=== PATIENT | female | born 1955 | race Caucasian/White ===

== ENCOUNTER → 2017-03-17 07:24 | Outpatient (CLI) | payer OTHER, SELFPAY ==
--- NOTE | 2017-03-17 07:30 | CT_ITS ---
STUDY: CT ABDOMEN AND PELVIS WITH CONTRAST REASON FOR EXAM: Female, 61 years old. 4 month history of right upper quadrant pain. RADIATION DOSAGE (If Supplied By Facility): CTDIvol = ( 11.45 ) mGy, DLP = ( 441.21 ) mGycm TECHNIQUE: Transaxial images were obtained from the dome of the diaphragm to the symphysis pubis with oral contrast. 100mL ml of Isovue 300 contrast was administered. Sagittal and coronal images were reconstructed. Individualized dose optimization techniques were used for this CT. COMPARISON: None. FINDINGS: The visualized lung bases are unremarkable. The visualized portions of the heart are within normal limits. There is a 2 cm x 2.2 cm cyst in the left lobe of the liver. The gallbladder is contracted. Normal spleen. Normal pancreas. Increased markings are seen in the mesenteric fat at the level of the root of the mesentery. Minimal inflammatory process should be ruled out. Small lymph nodes are also seen in the root of the mesentery. Normal bilateral adrenal glands. Normal right kidney. Normal left kidney. Normal visualized stomach. Normal small intestine. There are multiple colonic diverticula consistent with diverticulosis. The appendix is visualized and appears normal. There is diffuse atherosclerotic calcification of the abdominal aorta, without a demonstrated aneurysm. Normal inferior vena cava. Normal retroperitoneum. Normal urinary bladder. There is a small umbilical hernia containing fat. 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 CT/Abdomen/Pelvis WITH Contrast IMPRESSION: Inflammatory changes are seen in the mesenteric fat of the root of the mesentery with multiple small lymph nodes. This is suggestive of mesenteritis. An inflammatory process should be ruled out. Small cyst in the left lobe of the liver. Electronically Signed: Adrian Lerbon MD at 10:24 EST Tel [phone], Service support ,
[2017-03-17 07:45] LABS: CREATININE FINGERSTICK 0.8 mg/dL (0.55-1.02); EGFR FINGERSTICK > 60.0000 mL/min (>60)
== END ==
PROVIDERS: Family Provider Internal Medicine; PCP Internal Medicine; Visit Provider Surgery
DX: Z01.812 Encounter for preprocedural laboratory examination (principal); R10.11 Right upper quadrant pain
CPT/HCPCS: 74177; Q9967

== ENCOUNTER 2017-04-22 07:29 | Day surgery (SDC) | payer BC, SELFPAY ==
--- NOTE | 2017-04-22 | IMM_PTH ---
PATIENT: ESTELLE MARMOLEJO LOC: EN U#:[id number] AGE/SX: 61/F ROOM: RE04/22/[address]: Dr. Donald Fernandez MD : 1955 BED: DIS: 04/22/2017 SPEC #: [id number] RECD: 04/25/17 11:24 STATUS: MARYELLEN STUART #: [id number] BLAS: 04/22/17 00:[address]: Donald Fernandez DEPT: IMMUNOHISTOCHEMISTRY RECD BY: Rosana Oliveira ENTERED: 04/25/17 11:25 SP TYPE: IMMUNO OTHR DR: Dr. Deana Qiu MD Tissues: A - Stomach, NOS Procedures: H Pylori (initial) PHYSICIAN & INSTITUTION [place] [id number] SPECIMEN INFORMATION: Tissue Source: A ? Antral biopsy Clinical Info: Screen Specimen Number: [id number] CPT code: 82357 METHODOLOGY: Deparaffinized sections of prefer/formalin-fixed tissue or PAP/DQ stained slides are incubated with monoclonal/polyclonal antibodies/oligonucleotide probes. Localization is made via biotin free immunoperoxidase method. Appropriate controls are performed and reacted as expected. Results on target cell population are indicated in the following table: RESULTS: ANTIBODY / CLONE RESULT Block A H Pylori (polyclonal) negative These tests were developed and their performance characteristics determined by [facility]. They may not have been cleared or approved by the U.S. Food and Drug Administration. The FDA has determined that such clearance or approval is not necessary. INTERPRETATION: A. Antral biopsy: Negative for Helicobacter pylori organisms. SJ:ilana 04/26/17
[2017-04-22 07:57] VITALS: BP 125/73; PULSE 72; RESP 16; TEMP 36.7; O2SAT 99; BMI 25.4
--- NOTE | 2017-04-22 09:10 | GASB_PTH ---
PATIENT: ESTELLE MARMOLEJO LOC: EN U#:[id number] AGE/SX: 61/F ROOM: RE04/22/[address]: Dr. Donald Fernandez MD : 1955 BED: DIS: 04/22/2017 SPEC #: [id number] RECD: 04/22/17 11:22 STATUS: MARYELLEN STUART #: [id number] BLAS: 04/22/17 09:[address]: Donald Fernandez DEPT: SURGICAL PATHOLOGY RECD BY: Adán Patten ENTERED: 04/22/17 12:10 SP TYPE: Gastric Bx OT DR: Dr. Deana Qiu MD Tissues: A - Gastric mucous membrane B - Esophageal mucous membrane Procedures: Surgery Specimen Level IV HEADER OPERATION: EGD PRE-OP DIAGNOSIS: Screen TISSUE SUBMITTED: A ? Antral biopsy and H. pylori, B ? Distal esophagus biopsy MICROSCOPIC DIAGNOSIS A. Antral biopsy: Mild gastritis. B. Distal esophagus, biopsy: Fragments of squamous epithelium and mucosa with chronic inflammation and granulation tissue reaction. Scant minute fragment of gastric mucosa, negative for intestinal metaplasia (goblet cell metaplasia). SJ:ilana 04/25/17 COMMENT A. The results of immunohistochemistry for Helicobacter pylori will be reported separately ([id number]). MICROSCOPIC DESCRIPTION Slides are reviewed. A. The specimen shows fragments of gastric mucosa with chronic inflammatory cell infiltrates in the lamina propria consisting of lymphocytes and plasma cells, consistent with mild chronic gastritis. GROSS DESCRIPTION A - Received in fixative is one container labeled with the patient's name and designated antral biopsy. The specimen consists of one irregular fragment of light alvares soft tissue that measures 0.6 x 0.2 x 0.1 cm. The specimen is totally submitted in one cassette. B - Received in fixative is one container labeled with the patient's name and designated distal esophagus. The specimen consists of multiple irregular fragments of light alvares soft tissue that in aggregate measure 0.6 x 0.3 x 0.1 cm. The specimen is totally submitted in one cassette. / AM:ilana 04/22/17 TC:3 CPT: 24274 x2
--- NOTE | 2017-04-22 09:33 | PCM.OPRPT ---
Problem List (1) Abdominal pain Status: Acute Qualifiers: Abdominal location: generalized Qualified Code(s): R10.84 - Generalized abdominal pain (2) Personal history of colonic polyps Status: Acute Report of Operation Date of Procedure: 04/22/17 Pre-Operative Diagnosis: Generalized abdominal pain. Personal history of rectal polyp. Possible mesenteric edema Post-Operative Diagnosis: Small hiatal hernia with reflux esophagitis. Mild antral gastritis. Minimal scattered diverticulosis Surgery/Procedure Performed:: Esophagogastroduodenoscopy with biopsies. colonoscopy Description of Surgical Findings:: Amount and informed consent was obtained. 61-year-old female was taken to the endoscopy suite. Her oropharynx anesthetized with Topex. She was placed in a left lateral decubitus position. Throughout both the upper and lower endoscopy she received total 100 mg Demerol and 5 mg of Versed is intravenous sedation. GF gastroscope was inserted into the esophageal inlet. It was advanced without difficulty. The EG junction was at 36 cm. A small hiatal hernia noted. There was irritation inflammatory changes of the distal esophagus at the e.g. junction consistent with reflux esophagitis. The scope was advanced into the stomach. A mild amount of antral erythema noted. The scope was advanced through the pylorus and the first and second portions of the duodenum were inspected. This was not remarkable. The scope was withdrawn back to the stomach retroflexed the EG junction inspected. Small hiatal hernia noted. Cardia was otherwise unremarkable. The scope was placed back in antegrade viewing position. Scope was advanced back down to the prepyloric area. Antral biopsy was obtained. Excess fluid and air was aspirated free. The scope was withdrawn to the distal esophagus were distal esophageal biopsies are obtained. The scope was further withdrawn without additional abnormality. The patient was kept in a left lateral decubitus position. Digital rectal exam demonstrated 3+ internal hemorrhoids. No active bleeding. The scope was advanced into the rectum and a very tortuous sigmoid colon was encountered. The patient had to be placed supine in order to get the scope to advanced through the lax tortuous sigmoid. But then the scope readily advanced through the transverse colon and with some minimal abdominal pressure is advanced to the cecum. The cecum ileocecal valve area was nicely achieved. Bowel prep was very good. The scope was carefully withdrawn from the ascending transverse and descending colon. Minimal scattered diverticulosis of the sigmoid colon identified. No evidence for acute inflammatory change. The scope was withdrawn to the rectum retroflex in the anorectal verge inspected. Grade 3 internal hemorrhoids noted. No active bleeding. Excess fluid and air was aspirated free the procedure was completed with the patient tolerating it well. Impression Findings very much consistent with small hiatal hernia and reflux esophagitis as well as some mild gastritis. Will recommend omeprazole 40 mg daily while awaiting pathology results. Minimal sigmoid diverticulosis of the colon. No evidence of acute inflammatory change. Patient with a previous history of rectal polyp recommend follow-up colonoscopy in 5 years. Her previous colonoscopy was March 2006. Regarding the patient's CT scan suggesting possible mesenteric edema. Pending the patient symptomatic progress will then decide whether further evaluation of that needs to be pursued potentially with a percutaneous biopsy or a laparoscopic inspection. As noted in the office the patient remains not appearing ill. Cc: Dr. Qiu Medications were given at 0907. The upper procedure was completed at 0912. Colonoscopy was initiated at 0914. The cecum was reached at 0924. The colonoscopy was completed at 0929. Donald Fernandez M.D., F.A.C.S. Type of Anesthesia:: IV Sedation
[2017-04-22 09:34] VITALS: BP 104/74; BP 125/73; PULSE 70; RESP 18; TEMP 36.4; O2SAT 96
[2017-04-22 09:40] VITALS: BP 102/74; BP 125/73; PULSE 67; RESP 18; O2SAT 97
[2017-04-22 09:45] VITALS: BP 102/70; BP 125/73; PULSE 72; RESP 18; O2SAT 97
[2017-04-22 09:50] VITALS: BP 106/70; BP 125/73; PULSE 86; RESP 18; TEMP 36.3; O2SAT 100
[2017-04-22 10:15] VITALS: BP 125/73
== END 2017-04-22 10:43 | disposition home or self-care (01) ==
LOC: EN 07:30 → AC 07:31
PROVIDERS: Family Provider Internal Medicine; PCP Internal Medicine; Visit Provider Surgery
PROC: 0DJD8ZZ Inspection of Lower Intestinal Tract, Via Natural or Artificial Opening Endoscopic (ICD-10-PCS; CPT 45378; principal; 2017-04-22 08:25)
DX: K29.50 Unspecified chronic gastritis without bleeding (principal); R10.84 Generalized abdominal pain; K44.9 Diaphragmatic hernia without obstruction or gangrene; K57.30 Diverticulosis of large intestine without perforation or abscess without bleeding; K64.8 Other hemorrhoids; K21.0 Gastro-esophageal reflux disease with esophagitis; Z86.010 Personal history of colon polyps; E78.5 Hyperlipidemia, unspecified; Z79.82 Long term (current) use of aspirin
CPT/HCPCS: 43239; 45378; 88305; 88342; J7120

== ENCOUNTER 2021-03-03 15:34 | Outpatient (CLI) | payer MEDICARE, BC, SELFPAY | END 2021-03-03 23:59 | disposition short-term general hospital (02) | LOC: LABSPEC 15:46 | PROVIDERS: PCP Internal Medicine; Referring Provider Otolaryngology Otolaryngology/Facial Plastic Surgery; Visit Provider Otolaryngology Otolaryngology/Facial Plastic Surgery | DX: J32.9 Chronic sinusitis, unspecified (principal) | CPT/HCPCS: 87070; 87077; 87205 ==

== ENCOUNTER 2021-03-31 13:49 | Outpatient (CLI) | payer MEDICARE, BC, SELFPAY ==
--- NOTE | 2021-03-31 14:01 | CT_ITS ---
INDICATION: SINUSITIS EXAMINATION: CT SINUSES - CT Sinuses W/O Contrast Injection TECHNIQUE: Helically acquired images were obtained of the paranasal sinuses. A radiation dose optimization technique was used for this scan. IV Contrast dosage and agent: None COMPARISON: No previous for comparison FINDINGS: POSTOPERATIVE CHANGES: None Paranasal sinuses- MAXILLARY SINUSES: There is minimal mucosal thickening in the maxillary antra greater on LEFT than RIGHT. No air-fluid levels noted. There is mucosal thickening along the roof of the maxillary antra bilaterally. The ostomy complexes are clear bilaterally. ETHMOID SINUSES: Mild mucosal thickening noted in the ethmoid complexes without evidence of air-fluid levels or sinus opacification. FRONTAL SINUSES: Frontal sinuses are clear, frontal recesses are patent. No fluid or soft tissue accumulation. SPHENOID SINUSES: Sphenoid sinuses are clear, sphenoid ostia are patent. Nasal passages- NASAL SEPTUM: Minimal leftward deviation of nasal septum, no nasal spurs noted. TURBINATES: Turbinates have normal configuration, there is however a marquise bullosa which is well aerated on the RIGHT. There is mild inferior turbinate hypertrophy bilaterally. No distinct mass is noted.. CRIBRIFORM PLATE AND FOVEA ETHMOIDALIS: Normal Facial skeleton- FACIAL SKELETON AND ORBITS: Within normal limits. CT/Sinus/Facial Bone IMPRESSION: 1. Chronic appearing mucosal thickening in the maxillary antra bilaterally, however no air-fluid levels mary sinus opacification or obstruction of the ostomy to complexes. 2. Minimal mucosal thickening within the ethmoid air cells. No evidence of mucosal thickening, air-fluid levels or obstruction of drainage pathways the remaining nasal sinuses. 3. Mild leftward deviation of nasal septum, no bony spur noted. 4. Well aerated marquise bullosa on the RIGHT. 5. Mild inferior turbinate hypertrophy, no focal mass is noted.. Electronically Signed: Adán Acharya MD at 15:41 EST ,
== END 2021-03-31 23:59 | disposition home or self-care (01) ==
PROVIDERS: PCP Internal Medicine; Referring Provider Otolaryngology Otolaryngology/Facial Plastic Surgery; Visit Provider Otolaryngology Otolaryngology/Facial Plastic Surgery
DX: J32.8 Other chronic sinusitis (principal)
CPT/HCPCS: 70486

== ENCOUNTER 2021-05-26 08:01 | Outpatient (CLI) | payer MEDICARE, BC, SELFPAY ==
--- NOTE | 2021-05-26 08:05 | CT_ITS ---
STUDY: CT ABDOMEN AND PELVIS WITH CONTRAST REASON FOR EXAM: Female, 65 years old. Abd pain, hx pancreatitis, liver cyst -- oral and IV please RADIATION DOSAGE (If Supplied By Facility): CTDIvol = ( 12.69 ) mGy, DLP = ( 575.55 ) mGycm TECHNIQUE: Transaxial images were obtained from the dome of the diaphragm to the symphysis pubis with oral contrast. Oral and amp; IV Readi-CAT and amp; 100mL Isovue-300 was administered. Sagittal and coronal images were reconstructed. Individualized dose optimization techniques were used for this CT. COMPARISON: Comparison is made with prior study dated 03/17/2017. FINDINGS: The visualized lung bases are unremarkable. Coronary artery calcification. There is decreased attenuation of the liver consistent with steatosis. There is a 2.9 cm x 3.2 cm cyst in the left lobe of the liver. This has increased in size as compared to prior study. The gallbladder is contracted. Normal spleen. Normal pancreas. Persistent increased markings within the mesenteric fat at the root of the mesentery. This is nonspecific although this has improved as compared to prior study. Normal bilateral adrenal glands. Normal right kidney. There is a 1.4 cm cyst in the posterior midportion of the left kidney. There is a small hiatal hernia. Normal small intestine. There are scattered colonic diverticula consistent with diverticulosis. Moderate amount of fecal material is seen in the colon. The appendix is visualized and appears normal. Normal abdominal aorta. Normal inferior vena cava. Normal retroperitoneum. Normal urinary bladder. Heterogeneous appearance of the fundal portion of the uterus with focal calcifications suggestive of fibroid change. Normal abdominal wall. Normal osseous structures. CT/Abdomen/Pelvis WITH Contrast IMPRESSION: Increased markings in the root of the mesentery although this has improved as compared to prior study. Mild enlargement of the cyst in the left lobe of the liver. Electronically Signed: Adrian Lebron MD at 12:11 EDT ,
[2021-05-26 10:20] LABS: CREATININE FINGERSTICK 0.7 mg/dL (0.55-1.02); EGFR FINGERSTICK > 60.0000 mL/min (>60)
== END 2021-05-26 23:59 | disposition home or self-care (01) ==
LOC: CT 08:02
PROVIDERS: PCP Internal Medicine; Visit Provider Nurse Practitioner Adult Health
DX: Z01.812 Encounter for preprocedural laboratory examination (principal); R10.9 Unspecified abdominal pain
CPT/HCPCS: 74177; Q9967

== ENCOUNTER → 2021-06-09 | Outpatient (CLI) | payer MEDICARE, BC, SELFPAY ==
[2021-06-09 09:31] LABS: Erythrocyte Sedimentation Rate 4 mm/hr (0-30)
[2021-06-09 09:33] LABS: Absolute Lymphocyte Count 2.37 X10^3/uL (0.83-4.51); Absolute Neutrophil Count 2.6 X10^3/uL (2.0-7.7); Basophil# 0.01 X10^3/uL; Basophil% 0.2 % (0-1); Eosinophil# 0.12 X10^3/uL; Eosinophils% 2.2 % (0-5); Hematocrit 39.7 % (37-47); Hemoglobin 13.4 g/dL (12.0-15.0); Lymphocyte # 2.37 X10^3/ul (0.83-4.51); Lymphocyte % 42.8 % (19-41); Mean Corp Hgb Conc 33.8 g/dL (32-36); Mean Corpuscular Hgb 29.5 pg (27.0-32.0); Mean Corpuscular Volume 87.3 fL (81-99); Mean Platelet Vol. 9.8 fl (6.2-12.0); Monocyte# 0.44 X10^3/uL; Monocyte% 7.9 % (0-10); NRBC Flagged by Analyzer 0.4 % (0-5); Neutrophil # 2.59 X10^3/uL (2.7-7.7); Neutrophil % 46.7 % (47-70); Platelet Count 271 K/mm3 (150-450); RBC Distribution Width CV 12.5 % (11.6-14.6); Red Blood Count 4.55 M/mm3 (4.2-5.4); White Blood Count 5.5 K/mm3 (4.4-11.0)
[2021-06-09 09:39] LABS: Hemoglobin A1c 5.5 % (3.8-5.6)
[2021-06-09 09:40] LABS: International Normalized Ratio 0.9; Prothrombin Time (Protime)PT. 11.9 SECONDS (11.7-14.9)
[2021-06-09 09:52] LABS: PTHIN 70.8 pg/mL (18.4-80.1)
[2021-06-09 09:59] LABS: ALB/GLOB Ratio 1.1 RATIO (0.9-2.4); AST(SGOT) 17 U/L (15-37); Alanine Aminotransfer ALT/SGPT 30 U/L (13-56); Albumin, Serum 3.9 g/dL (3.2-5.0); Alkaline Phosphatase 84 U/L (45-117); Amylase 51 U/L (25-115); Anion Gap 5 (5-15); BUN 14 mg/dL (7-18); BUN/Creat Ratio 19.2 RATIO (10-20); Bilirubin, Direct 0.13 mg/dL (0.00-0.30); CRP < 2.90 mg/L (0.0-3.0); Calcium,Total 9.2 mg/dL (8.5-10.1); Chloride 110 mmol/L (98-107); Cholesterol 240 mg/dL (200); Creatinine, Serum 0.73 mg/dL (0.55-1.02); EST Glomerular Filtration Rate 85 mL/min (>60); Est Glom Filt Rate - Afr Amer 103 mL/min (>60); Ferritin 32 ng/mL (8-252); Globulin 3.7 g/dL (2.2-4.2); Glucose 98 mg/dL (74-106); High Density Lipoprotein 51 mg/dL; LDH 179 U/L (84-246); Lipase 143 U/L (73-393); Magnesium 2.3 mg/dL (1.6-2.6); Potassium 3.8 mmol/L (3.5-5.1); Protein, Total 7.6 g/dL (6.4-8.2); Sodium Level 142 mmol/L (136-145); Thyroid Stim Hormone (TSH) 2.48 uIU/mL (0.358-3.74); Triglycerides 108 mg/dL; Very Low Density Lipoprotein 22 mg/dL (5-40)
[2021-06-11 15:10] LABS: Anti-Centromere B Ab <0.2 AI (0.0-0.9); Anti-Chromatin <0.2 AI (0.0-0.9); Anti-Jo <0.2 AI (0.0-0.9); Anti-Scleroderma-70 AB <0.2 AI (0.0-0.9); RNP Ab <0.2 AI (0.0-0.9); SJOGREN'S Anti-SS-A test < 0.2 AI (0.0-0.9); SJOGREN'S Anti-SS-B test < 0.2 AI (0.0-0.9); Smith Ab <0.2 AI (0.0-0.9)
[2021-06-11 17:12] LABS: Anti-Mitochondrial AB <20.0 Units (0.0-20.0); Anti-dsDNA Ab <1 IU/mL (0-9); Vitamin D 1,25-Dihydroxy 51.1 pg/mL (19.9-79.3)
[2021-06-12 09:08] LABS: Angiotensin Convert Enzyme 26 U/L (14-82); Ceruloplasmin 28.7 mg/dL (19.0-39.0); Cytoplasmic Ab (C-ANCA) <1:20 titer (Neg:<1:20); HEPATITIS B SURFACE AG Negative (Negative); Hepatitis A IgM Antibody Negative (Negative); Hepatitis B Core AB IgM Negative (Negative)
[2021-06-12 12:57] LABS: AFP, Tumor Marker 2.9 ng/mL (0.0-9.2); Anti-Smooth Muscle ABS 10 Units (0-19); Carbohydrate Ag 19-9 2261 8 U/mL (0-35); Copper, Serum or Plasma 126 ug/dL (80-158); Haptoglobin 108 mg/dL (37-355); Hep C Antibodies 0.3 s/co ratio (0.0-0.9); Perinuclear Ab (P-ANCA) <1:20 titer (Neg:<1:20)
== END | disposition home or self-care (01) ==
LOC: LAB 08:50
PROVIDERS: PCP Internal Medicine; Referring Provider Nurse Practitioner Adult Health; Visit Provider Nurse Practitioner Adult Health
DX: K76.0 Fatty (change of) liver, not elsewhere classified (principal); Z87.19 Personal history of other diseases of the digestive system; R10.84 Generalized abdominal pain; E78.5 Hyperlipidemia, unspecified; K76.89 Other specified diseases of liver
CPT/HCPCS: 36415; 80053; 80061; 80074; 82105; 82140; 82150; 82164; 82248; 82390; 82525; 82652; 82728; 83010; 83036; 83516; 83615; 83690; 83735; 83970; 84443; 85025; 85610; 85652; 86140; 86225; 86235; 86256; 86301

== ENCOUNTER → 2021-06-15 | Outpatient (CLI) | payer MEDICARE, BC, SELFPAY ==
--- NOTE | 2021-06-15 09:44 | US_ITS ---
STUDY: ABDOMINAL ULTRASOUND - ELASTOGRAPHY REASON FOR VISIT: Female, 65 years old. Fatty infiltration of the liver. TECHNIQUE: Liver stiffness measurements were obtained on a Züm XR RS 85 ultrasound machine using a CA 1-7 probe following the SRU guidelines. 3 measurements were obtained using a 2-D-SWE method. The IQR/M was 10% suggesting a quality data set. TECHNICAL QUALITY: Adequate. COMPARISON: Comparison is made with prior study done earlier in the day. FINDINGS: Liver: Fatty infiltration of the liver. Median liver stiffness measured 6.9 kPa. US/Elastography Parenchyma/Organ IMPRESSION: Liver stiffness measures 6.9 kPa compatible with F2-F3 (Mild to moderate liver fibrosis) Metavir score. Electronically Signed: Adrian Lebron MD at 13:40 EDT ,
--- NOTE | 2021-06-15 09:49 | US_ITS ---
STUDY: ABDOMINAL ULTRASOUND - RIGHT UPPER QUADRANT REASON FOR VISIT: Female, 65 years old FATTY LIVER TECHNIQUE: Ultrasound evaluation of the right upper quadrant was performed with real-time and static garcia-scale imaging. TECHNICAL QUALITY: Adequate. COMPARISON: Comparison is made with prior study dated 07/28/2014. FINDINGS: Liver: The liver measures 16.7 cm. There is increased echogenicity consistent with fatty infiltration. The bile ducts are within normal limits. There is hepatic color flow. The direction of portal flow is hepatopetal. There is a 3.9 cm x 3.6 cm x 2.8 cm septated cyst in the left lobe of the liver. Gallbladder: Normal distended gallbladder. The gallbladder wall measures 2 mm. There is a negative sonographic Hill''s sign. There is no pericholecystic fluid. There are no gallstones. Common Bile Duct (C.B.D.): The common bile duct measures 4.8 mm. Pancreas: Normal size of the head, body and tail of the pancreas. There is increased echogenicity of the pancreas. There is no demonstrated pancreatic mass or cyst. Right Kidney: Normal size of the right kidney. The right kidney measures 10.2 cm x 4.5 cm x 5 cm. Normal renal cortex. The right cortex measures 1.2 cm. In the lower pole of the kidney, there is a 1.1 cm x 0.7 cm x 0.8 cm cyst. There is no right hydronephrosis. US/Abdomen Limited IMPRESSION: 3.9 cm x 3.6 cm x 2.8 cm septated cyst in the left lobe of the liver. 1.1 cm x 0.7 cm x 0.8 cm right renal cyst. Fatty infiltration of the liver. Electronically Signed: Adrian Lebron MD at 13:38 EDT ,
== END | disposition home or self-care (01) ==
LOC: US 09:42
PROVIDERS: PCP Internal Medicine; Referring Provider Nurse Practitioner Adult Health; Visit Provider Nurse Practitioner Adult Health
DX: K76.0 Fatty (change of) liver, not elsewhere classified (principal)
CPT/HCPCS: 76705; 76981

== ENCOUNTER 2021-08-12 09:27 | Day surgery (SDC) | payer MEDICARE, BC, SELFPAY ==
[2021-08-12 09:41] VITALS: BP 142/83; PULSE 76; RESP 16; TEMP 37.1; O2SAT 99; BMI 24.4
[2021-08-12] MEDS: Lactated Ringers 1,000 ML 15 ML IV (09:46)
--- NOTE | 2021-08-12 10:30 | EGD_PTH ---
PATIENT: ESTELLE MARMOLEJO LOC: EN U#:[id number] AGE/SX: 65/F ROOM: RE08/12/[address]: Dr. Matthew Elliott DO : 1955 BED: DIS: 08/12/2021 SPEC #: [id number] RECD: 08/12/21 13:27 STATUS: MARYELLEN REEvan #: [id number] BLAS: 08/12/21 10:[address]: Matthew Elliott DEPT: SURGICAL PATHOLOGY RECD BY: Eddie Beaver ENTERED: 08/12/21 14:07 SP TYPE: EGD BIOPSY OT DR: Dr. Deana Qiu MD Tissues: Esophagus, NOS Procedures: Surgery Specimen Level IV HEADER OPERATION: EGD with biopsy and with dilation (MAC) PRE-OP DIAGNOSIS: GERD, history of pancreatitis, abdominal pain TISSUE SUBMITTED: Distal esophagus MICROSCOPIC DIAGNOSIS Distal esophagus, biopsy: Gastroesophageal junctional mucosa with mild chronic inflammation. Focal changes of reflux. No evidence of goblet cell metaplasia. See comment. AM:ilana 08/13/2021 COMMENT Alcian blue/PAS stain with matched control supports the above diagnosis. MICROSCOPIC DESCRIPTION Slides are reviewed. GROSS DESCRIPTION Received in fixative is one container labeled with the patient's name and designated distal esophagus. The specimen consists of multiple irregular fragments of light alvares soft tissue that in aggregate measure 1.2 x 0.3 x 0.1 cm. The specimen is totally submitted in one cassette. / SJ:ilana 08/12/2021 TC:3 CPT: 74229, 75211
--- NOTE | 2021-08-12 10:50 | PCM.HP.BLA ---
History and Physical Date of Admission: 08/12/21 Details: ESTELLE MARMOLEJO, is a 65 F who presents to the office today for GERD--takes omeprazole 40 mg daily or else has heartburn. No dysphagia but occas a large pill feels like it takes longer than normal to pass through esophagus. EGD done by Dr Fernandez in 04/2017 showed small hiatal hernia esophagitis, gastritis; biopsy confirmed gastritis, negative Blount's. Colonoscopy showed sigmoid diverticula. Prior hx rectal polyp, but no polyps in 2018. Acid reflux better with avoiding pop and chocolate. Uses approx 3 TUMS per day if not taking omeprazole. ? RUQ discomfort/fullness--worse with full meal. x 4 yrs. Small cyst on left lobe of liver seen on CT in 2018. No nausea or vomiting. CT also showed possible mesenteric Hx possible pancreatitis when she was . Recent diagnosis of osteoporosis. ROS Const Constitutional: No fatigue ENT ENT: No difficulty swallowing Gastro GI: Positive for abdominal pain and heartburn; No belching, bloating, change in bowel habits, change in stool character, coffee ground emesis, constipation, cramping, diarrhea, difficulty swallowing, feeling full early, excessive flatus, incontinent of stools, Vomiting blood/hematemesis, Blood in stool, loose stools, Black,tarry stools, nausea/dyspepsia, pain with swallowing, vomiting or other Musc Musculoskeletal: Positive for sciatica; No joint pain Skin Skin: No yellowing of the eye or itchy eyes Psych Psychiatric: No anxiety and No depression Endo Endocrine: No fatigue Aller/Imm Allergy/Immunologic: No itchy eyes Kane/Lymp Hematologic/Lymphatic: No easy bleeding or easy bruising Quality Reporting Tobacco Screening ([facility]) Smoking Status: Former smoker Assessment and Plan Assessment and Plan (1) GERD (gastroesophageal reflux disease): ?Status:?Acute ?Plan - Brigida Cárdenas NP, SPACE OPERATIONS OFFICER-C: 65-year-old female with GERD, history of esophagitis negative for Blount's.? Last EGD was in 2018.? She has required daily omeprazole since then, until recently when she stopped drinking pop and eating chocolate.? She still needs Tums every day to manage the heartburn.? She has been worried about continuing on a PPI due to recent diagnosis of osteoporosis.? She was prescribed Fosamax but was concerned about possible side effects so she has not started it.? She gets a right upper quadrant and epigastric pain, she feels a fullness there if she eats a larger meal.? History of cyst on liver.? We will get an EGD to evaluate for esophagitis, Blount's, gastritis, duodenitis.? She can try famotidine 40 mg daily, but she will need to resume PPI if she is symptomatic, and based on the results of her EGD she may need to remain on PPI. (2) Hx of pancreatitis: ?Status:?Acute ?Plan - Brigida Cárdenas SPACE OPERATIONS OFFICER, SPACE OPERATIONS OFFICER-C: History of possible pancreatitis x2 when she was as well as in 2014 when she was hospitalized here.? She had left upper quadrant and epigastric pain, lipase was elevated.? Pancreatitis was attributed to hyperlipidemia, she was started on a statin at that time.? She has upcoming labs being drawn at [facility], will see if they can add amylase, lipase, CA 19-9.? Would also like CBC, CMP, liver panel. (3) Abdominal pain: ?Status:?Acute ?Qualifiers: ?Abdominal location:?generalized? Qualified Code(s):?R10.84 - Generalized abdominal pain ?Plan - Brigida Cárdenas SPACE OPERATIONS OFFICER, SPACE OPERATIONS OFFICER-C: CT abdomen and pelvis with oral and IV contrast to evaluate abdominal pain, liver cyst, pancreas (4) Liver cyst: ?Status:?Acute ?Plan - Brigida Cárdenas SPACE OPERATIONS OFFICER, SPACE OPERATIONS OFFICER-C: CT ordered as above.? Follow-up depending on that result. Plan Details Other Medications: ?New: ? famotidine 40 mg? PO DAILY 90 tabs 0RF ? ? I have re-examined the patient. There are no clinical changes since date of exam.
[2021-08-12 11:10] VITALS: BP 116/68; BP 142/83; PULSE 69; RESP 16; TEMP 36.6; O2SAT 94
[2021-08-12 11:15] VITALS: BP 116/68; BP 142/83; PULSE 76; RESP 16; O2SAT 95
--- NOTE | 2021-08-12 11:15 | OP.EGD_ITS ---
Patient Name: Cierra Recinos Procedure Date: 08/12/2021 10:46 AM Date of : 1955 Age: 65 Procedure: Upper GI endoscopy Indications: Dysphagia, Esophageal reflux Providers: Matthew Elliott DO Referring MD: Deana Qiu Medicines: Monitored Anesthesia Care Patient Profile: This is a 65 year old female. Refer to note in patient chart for documentation of history and physical. Patient has symptoms of chronic dysphagia, dysphagia with solids and chronic heartburn. Complications: No immediate complications. Procedure: Pre-Anesthesia Assessment: - Prior to the procedure, a History and Physical was performed, and patient medications and allergies were reviewed. The patient is competent. The risks and benefits of the procedure and the sedation options and risks were discussed with the patient. All questions were answered and informed consent was obtained. Patient identification and proposed procedure were verified by the physician in the pre-procedure area. Mental Status Examination: alert and oriented. Airway Examination: normal oropharyngeal airway and neck mobility. Respiratory Examination: clear to auscultation. CV Examination: normal. Prophylactic Antibiotics: The patient does not require prophylactic antibiotics. Prior Anticoagulants: The patient has taken no previous anticoagulant or antiplatelet agents. ASA Grade Assessment: II - A patient with mild systemic disease. After reviewing the risks and benefits, the patient was deemed in satisfactory condition to undergo the procedure. The anesthesia plan was to use moderate sedation / analgesia (conscious sedation). Immediately prior to administration of medications, the patient was re-assessed for adequacy to receive sedatives. The heart rate, respiratory rate, oxygen saturations, blood pressure, adequacy of pulmonary ventilation, and response to care were monitored throughout the procedure. The physical status of the patient was re-assessed after the procedure. After obtaining informed consent, the endoscope was passed under direct vision. Throughout the procedure, the patient's blood pressure, pulse, and oxygen saturations were monitored continuously. The gastroscope was introduced through the mouth, and advanced to the second part of duodenum. The upper GI endoscopy was accomplished without difficulty. The patient tolerated the procedure well. Moderate Sedation: Moderate (conscious) sedation was personally administered by an anesthesia professional. The following parameters were monitored: oxygen saturation, heart rate, blood pressure, respiratory rate, EKG, adequacy of pulmonary ventilation, and response to care. Scope In: 10:57:48 AM Scope Out: 11:04:56 AM Total Procedure Duration Time 0 hours 7 minutes 8 seconds Findings: LA Grade A (one or more mucosal breaks less than 5 mm, not extending between tops of 2 mucosal folds) esophagitis with no bleeding was found 36 to 38 cm from the incisors. Biopsies were taken with a cold forceps for histology. Verification of patient identification for the specimen was done. Estimated blood loss was minimal. A moderate Schatzki ring was found in the lower third of the esophagus. A guidewire was placed and the scope was withdrawn. Dilation was performed with a Savary dilator with no resistance at 60 Fr. The dilation site was examined following endoscope reinsertion and showed complete resolution of luminal narrowing. Estimated blood loss was minimal. A medium-sized hiatal hernia was present. The second portion of the duodenum was normal. Impression: - LA Grade A reflux esophagitis. Biopsied. - Moderate Schatzki ring. Dilated. - Medium-sized hiatal hernia. - Normal second portion of the duodenum. Recommendation: - Discharge patient to home. - Resume previous diet. - Continue present medications. - Await pathology results. Procedure Code(s): --- Professional --- 08034, Esophagogastroduodenoscopy, flexible, transoral; with insertion of guide wire followed by passage of dilator(s) through esophagus over guide wire 88915, 59,51, Esophagogastroduodenoscopy, flexible, transoral; with biopsy, single or multiple CPT copyright 2017 [employer]. All rights reserved. The codes documented in this report are preliminary and upon stock plan administrator review may be revised to meet current compliance requirements. Matthew Elliott DO 08/12/2021 11:15:35 AM This report has been signed electronically. Number of Addenda: 1 Note Initiated On: 08/12/2021 10:46 AM Addendum Number: 1 Addendum Date: 11/17/2021 6:01:55 AM MAC was used as sedation for this procedure. Matthew Elliott DO 11/17/2021 6:02:00 AM This report has been signed electronically.
--- NOTE | 2021-08-12 11:16 | OP.CCLET_ITS ---
11/17/2021 Deana Qiu [address] [place] [address] Re : Upper GI endoscopy procedure for Cierra Recinos Dear Dr. Qiu This procedure was performed on Thursday, August 12, 2021. My impressions and recommendations are as follows: Impressions : - LA Grade A reflux esophagitis. Biopsied. - Moderate Schatzki ring. Dilated. - Medium-sized hiatal hernia. - Normal second portion of the duodenum. Recommendations : - Discharge patient to home. - Resume previous diet. - Continue present medications. - Await pathology results. My findings are described in the full procedure note, which is enclosed. If I can be of further assistance, please feel free to contact me at . Sincerely, Matthew Elliott, 08/12/2021 11:15:35 AM This report has been signed electronically.
[2021-08-12 11:20] VITALS: BP 121/70; BP 142/83; PULSE 72; RESP 16; O2SAT 95
[2021-08-12 11:25] VITALS: BP 136/86; BP 142/83; PULSE 73; RESP 16; TEMP 37; O2SAT 98
[2021-08-12 11:50] VITALS: BP 142/83
== END 2021-08-12 11:58 | disposition home or self-care (01) ==
LOC: EN 09:27 → AC 09:29
PROVIDERS: PCP Internal Medicine; Referring Provider Internal Medicine; Visit Provider Internal Medicine Gastroenterology
PROC: 0DJ08ZZ Inspection of Upper Intestinal Tract, Via Natural or Artificial Opening Endoscopic (ICD-10-PCS; CPT 43235; principal; 2021-08-12 10:25)
DX: K44.9 Diaphragmatic hernia without obstruction or gangrene (principal); Z87.891 Personal history of nicotine dependence; E78.5 Hyperlipidemia, unspecified; K76.89 Other specified diseases of liver; K21.00 Gastro-esophageal reflux disease with esophagitis, without bleeding; M81.0 Age-related osteoporosis without current pathological fracture
CPT/HCPCS: 43239; 43248; 88305; J7120; C1769; J2405

== ENCOUNTER → 2022-01-21 | Outpatient (CLI) | payer MEDICARE, BC, SELFPAY ==
--- NOTE | 2022-01-21 09:49 | US_ITS ---
STUDY: ABDOMINAL ULTRASOUND - ELASTOGRAPHY REASON FOR VISIT: Female, 66 years old. Fatty infiltration of the liver. TECHNIQUE: Liver stiffness measurements were obtained on a Greasebook RS 85 ultrasound machine using a CA 1-7 probe following the SRU guidelines. 3 measurements were obtained using a 2-D-SWE method. The IQR/M was 9% suggesting a quality data set. TECHNICAL QUALITY: Adequate. COMPARISON: Comparison is made with prior study 06/15/2021. FINDINGS: Liver: Fatty infiltration of the liver. Median liver stiffness measured 6.5 kPa. US/Elastography Parenchyma/Organ IMPRESSION: Liver stiffness measures 6.5 kPa compatible with F2-F3 (Mild to moderate liver fibrosis) Metavir score. Electronically Signed: Adrian Lebron MD at 11:03 EST ,
--- NOTE | 2022-01-21 09:49 | US_ITS ---
STUDY: ABDOMINAL ULTRASOUND - RIGHT UPPER QUADRANT REASON FOR VISIT: Female, 66 years old NAFLD TECHNIQUE: Ultrasound evaluation of the right upper quadrant was performed with real-time and static garcia-scale imaging. TECHNICAL QUALITY: Adequate. COMPARISON: Comparison is made with prior study dated 06/15/2021. FINDINGS: Liver: The liver measures 16.5 cm. There is increased echogenicity consistent with fatty infiltration. The bile ducts are within normal limits. There is hepatic color flow. The direction of portal flow is hepatopetal. There is a 3.1 cm x 3.6 cm x 2.8 cm cyst in the left lobe of the liver. This is unchanged. Gallbladder: Normal distended gallbladder. The gallbladder wall measures 2 mm. There is a negative sonographic Hill''s sign. There is no pericholecystic fluid. There are no gallstones. Common Bile Duct (C.B.D.): The common bile duct measures 6 mm. Pancreas: Normal size of the head, body and tail of the pancreas. There is normal echogenicity of the pancreas. There is no demonstrated pancreatic mass or cyst. Right Kidney: Normal size of the right kidney. The right kidney measures 10.2 cm x 5 cm x 4.8 cm. Normal renal cortex. The right cortex measures 1.5 cm. There is no demonstrated renal mass or cyst. There is no right hydronephrosis. US/Abdomen Limited IMPRESSION: Fatty infiltration of the liver. Stable cyst in the left lobe of the liver. Electronically Signed: Adrian Lebron MD at 11:02 [facility] ,
== END | disposition home or self-care (01) ==
LOC: US 09:49
PROVIDERS: PCP Internal Medicine; Referring Provider Nurse Practitioner Adult Health; Visit Provider Nurse Practitioner Adult Health
DX: K76.0 Fatty (change of) liver, not elsewhere classified (principal)
CPT/HCPCS: 76705; 76981

== ENCOUNTER → 2022-05-13 | Outpatient (CLI) | payer MEDICARE, BC, SELFPAY ==
--- NOTE | 2022-05-13 10:02 | NM_ITS ---
CLINICAL: 66-year-old female with history of right upper quadrant abdominal pain. RADIONUCLIDE HEPATOBILIARY SCINTIGRAPHY COMPARISON: None available FINDINGS: Following the intravenous administration of 5.7 mCi of 99m Tc Mebrofenin, hepatobiliary images reveal: 1. Relatively prompt and homogeneous radiopharmaceutical concentration is noted by a normal sized liver. No parenchymal defects are identified. 2. Gallbladder activity is identified at 10 minutes post radiopharmaceutical administration. 3. Small intestinal tract is observed at 10 minutes following tracer injection. 4. Washout of the radiopharmaceutical by the hepatic parenchyma appears qualitatively normal. Cholecystokinin (0.02 ug/kg) was administered intravenously over a 30-minute period. The post CCK gallbladder ejection fraction calculated at 20 minutes following Cholecystokinin administration was noted to be < 5 % (normal greater than 35%). There is scintigraphic evidence of post cholecystokinin duodenal-gastric reflux. NM/Hepatobilliary Img w/Pharm Int IMPRESSION: 1. ABNORMAL 99m Tc Mebrofenin hepatobiliary imaging examination with Cholecystokinin. A. A gallbladder ejection fraction calculated to be less than 35% following the administration of Cholecystokinin is consistent with the presence of functional hepatobiliary disease (gallbladder and/or sphincter of Oddi dyskinesia) and/or organic hepatobiliary disease (chronic acalculous cholecystitis and/or cystic duct syndrome) in patients with intermediate to high pretest probabilities of hepatobiliary illness. (Amy Dimas et al, Journal of Nuclear Medicine 32:1695, 1991). B. There is scintigraphic evidence of post CCK duodenal-gastric reflux as defined above. (Migel et al, Nucl Med Alicia Debbie Press pg. 35, 1980). Electronically Signed: Adán Dumas, at 21:50 EDT ,
== END | disposition home or self-care (01) ==
LOC: NM 10:01
PROVIDERS: PCP Internal Medicine; Referring Provider Surgery; Visit Provider Surgery
DX: R10.9 Unspecified abdominal pain (principal)
CPT/HCPCS: 78227; A9537; J2805

== ENCOUNTER 2022-06-30 06:02 | Day surgery (SDC) | payer MEDICARE, BC, SELFPAY ==
--- NOTE | 2022-06-28 08:13 | EKG12_ITS ---
Test Reason : PRE-OP Blood Pressure : / mmHG Vent. Rate : 067 BPM Atrial Rate : 067 BPM P-R Int : 168 ms QRS Dur : 088 ms QT Int : 414 ms P-R-T Axes : 056 023 063 degrees QTc Int : 437 ms Normal sinus rhythm Normal ECG Confirmed by BRIAN PATEL, GAIL ([id number]), television news video editor CYRIL HOLLINS ([id number]) on 06/28/2022 1:49:45 PM Referred By: EZE Confirmed By:GAIL TORRES MD
[2022-06-28 08:37] LABS: Absolute Lymphocyte Count 2.94 X10^3/uL (0.83-4.51); Absolute Neutrophil Count 2.4 X10^3/uL (2.0-7.7); Basophil# 0.03 X10^3/uL; Basophil% 0.5 % (0-1); Eosinophil# 0.13 X10^3/uL; Eosinophils% 2.2 % (0-5); Hematocrit 39.3 % (37-47); Hemoglobin 13.4 g/dL (12.0-15.0); Lymphocyte # 2.94 X10^3/ul (0.83-4.51); Lymphocyte % 49.2 % (19-41); Mean Corp Hgb Conc 34.1 g/dL (32-36); Mean Corpuscular Hgb 29.6 pg (27.0-32.0); Mean Corpuscular Volume 86.9 fL (81-99); Mean Platelet Vol. 9.6 fl (6.2-12.0); Monocyte# 0.46 X10^3/uL; Monocyte% 7.7 % (0-10); NRBC Flagged by Analyzer 0 % (0-5); Neutrophil % 40.2 % (47-70); Platelet Count 229 K/mm3 (150-450); RBC Distribution Width CV 12.7 % (11.6-14.6); RBC Distribution Width SD 40.5 fl (35.1-43.9); Red Blood Count 4.52 M/mm3 (4.2-5.4)
[2022-06-28 09:09] LABS: Anion Gap 4 (5-15); BUN 20 mg/dL (7-18); Chloride 110 mmol/L (98-107); Creatinine, Serum 0.74 mg/dL (0.55-1.02); EST Glomerular Filtration Rate 83 mL/min (>60); Est Glom Filt Rate - Afr Amer 101 mL/min (>60); Glucose 101 mg/dL (74-106); Potassium 3.4 mmol/L (3.5-5.1); Sodium Level 142 mmol/L (136-145)
[2022-06-30] VITALS (18 sets, daily range): BP systolic 125–187; BP diastolic 73–99; PULSE 60–100; RESP 14–18; TEMP 36.1–37.3; O2SAT 90–98; BMI 25.0
--- NOTE | 2022-06-30 | GALL_PTH ---
PATIENT: ESTELLE MARMOLEJO LOC: [facility] [place] U#:[id number] AGE/SX: 66/F ROOM: RE06/30/[address]: Dr. Donald Fernandez MD : 1955 BED: DIS: 06/30/2022 SPEC #: [id number] RECD: 06/30/22 13:23 STATUS: MARYELLEN REEvan #: [id number] BLAS: 06/30/22 00:[address]: Donald Fernandez DEPT: SURGICAL PATHOLOGY RECD BY: Quentin Stock ENTERED: 06/30/22 13:24 SP TYPE: ESME SIMMONS DR: Dr. Deana Qiu MD Tissues: Gallbladder, NOS Procedures: Surgery Specimen Level III HEADER OPERATION: Laparoscopic cholecystectomy with IOC PRE-OP DIAGNOSIS: Biliary dyskinesia TISSUE SUBMITTED: Gallbladder MICROSCOPIC DIAGNOSIS Gallbladder, cholecystectomy: Chronic cholecystitis. Benign pericystic lymph node. AM:ilana 07/01/2022 MICROSCOPIC DESCRIPTION Slides are reviewed. GROSS DESCRIPTION Received is one container labeled with the patient's name and designated gallbladder. The specimen consists of a gallbladder measuring 8.0 cm in length and up to 3.0 cm in diameter. The external surface is pink-alvares, smooth and glistening for the most part. Focally it is granular, hemorrhagic and contains cautery artifact. The gallbladder contains green-yellow mucoid bile. No stones are identified in the container or in the gallbladder. The mucosa is bile-stained and without any mass lesions. The gallbladder wall measures 0.1 cm in thickness. Coin Machine Collector Supervisor sections from the gallbladder and the cystic duct are submitted in one cassette. / SJ:rg 06/30/2022 TC:3 [facility]: [id number]
[2022-06-30] MEDS: Lactated Ringers 1,000 ML 15 ML IV ×3 (06:46→09:52)
--- NOTE | 2022-06-30 07:09 | HP.PCM_ITS ---
History and Physical Date of Admission: 06/30/22 Allergies doxycycline Allergy (Intermediate, Verified 06/15/22 13:04) UNKSulfa (Sulfonamide Antibiotics) Allergy (Intermediate, Verified 06/15/22 13:04) UNKLatex, Natural Rubber Allergy (Mild, Verified 06/15/22 13:04) rash Medications atorvastatin 20 mg tablet 20 mg PO DAILY@2200 #30 tabs 07/28/14 [Rx Confirmed 06/15/22] Lactobacillus 40-Bifidobact 3-S.thermophilus 100 billion cell capsule (Probiotic) 1 cap PO DAILY 08/07/21 [History Confirmed 06/15/22] khonqpg-koj-lyb Z0-cuzvvy-Vy tablet 1 tab PO DAILY 08/07/21 [History Confirmed 06/15/22] vitamin E 268 mg (400 unit) capsule 400 unit PO DAILY 08/07/21 [History Confirmed 06/15/22] famotidine 40 mg tablet 40 mg PO DAILY #90 tabs 09/24/21 [Rx Confirmed 06/15/22] ursodiol 300 mg capsule 300 mg PO BID #180 caps 03/04/22 [Rx Confirmed 06/15/22] PFSH Medical History? Cardiology follow-up encounter Colon polyp Diverticulosis Fatty liver Gastric reflux GERD (gastroesophageal reflux disease) Hemorrhage of gastrointestinal tract High cholesterol History of echocardiogram History of small bowel obstruction History of stress test Hx of pancreatitis Hyperlipidemia Internal hemorrhoids Intramural leiomyoma of uterus Liver cyst Migraine headache NAFLD (nonalcoholic fatty liver disease) Non-smoker Osteoporosis Pancreatitis Psoriasis Umbilical hernia Wears glasses Surgical History? H/O cataract removal with insertion of prosthetic lens H/O hernia repair History of colonoscopy History of tonsillectomy Previous section Tubal ligation status Family History? Mother Heart disease Marfan syndromeFather Heart diseaseBrother Marfan syndromeSister Marfan syndrome Social History? Smoking Status:? Never smoker alcohol intake:? current alcohol intake frequency: holidays/special occasions only HPI HPI Surgical H&P: Yes HPI: Patient is a 66 y/o F I am seeing for an update history and physical. Patient is scheduled for an elective laparoscopic cholecystectomy. She denies any recent illnesses or hospitalizations within the last 3 months. Patient denies any cardiac or pulmonary history. She denies any blood thinners. She denies any concerns or issues with anesthesia previously. Patient's previous history per Dr. Fernandez: 66-year-old female returns to discuss problems with achy abdominal pain in the right upper quadrant.? As noted below on May 13, 2022 I obtained a hepatobili ross scan.? This is significantly abnormal with a ejection fraction of less than 5%.? States that she did not any difficulties with the examination.? She complains that she has this constant right upper quadrant pain. May 13, 2022 66-year-old female with history of right upper quadrant abdominal pain. RADIONUCLIDE HEPATOBILIARY SCINTIGRAPHY COMPARISON: None available FINDINGS: Following the intravenous administration of 5.7 mCi of 99m Tc Mebrofenin, hepatobiliary images reveal: 1.? Relatively prompt and homogeneous radiopharmaceutical concentration is noted by a normal sized liver.? No parenchymal defects are identified. 2.? Gallbladder activity is identified at 10 minutes post radiopharmaceutical administration. 3.? Small intestinal tract is observed at 10 minutes following tracer injection. 4.? Washout of the radiopharmaceutical by the hepatic parenchyma appears qualitatively normal. Cholecystokinin (0.02 ug/kg) was administered intravenously over a 30-minute period.? The post CCK gallbladder ejection fraction calculated at 20 minutes following Cholecystokinin administration was noted to be < 5 % (normal greater than 35%). There is scintigraphic evidence of post cholecystokinin duodenal-gastric reflux. NM/Hepatobilliary Img w/Pharm Int IMPRESSION: 1.? ABNORMAL 99m Tc Mebrofenin hepatobiliary imaging examination with Cholecystokinin. ? A.? A gallbladder ejection fraction calculated to be less than 35% following the administration of Cholecystokinin is consistent with the presence of functional hepatobiliary disease (gallbladder and/or sphincter of Oddi dyskinesia) and/or organic hepatobiliary disease (chronic acalculous cholecystitis and/or cystic duct syndrome) in patients with intermediate to high pretest probabilities of hepatobiliary illness. (Amy Inman al, Journal of Nuclear Medicine 32:1695, 1990). ? B.? There is scintigraphic evidence of post CCK duodenal-gastric reflux as defined above.? (Migel et al, Nucl Med Alicia? Debbie Press? pg. [id number]). ? Electronically Signed: Adán Dumas, at 21:50 EDT , 66-year-old female.? She has recently undergone evaluation per gastroenterology and has been found to have gastroesophageal reflux disease negative for Blount's.? Moderate Schatzki ring.? Medium size hiatal hernia.? Her reflexes and heartburn is improved if she avoids sodas and chocolate.? She has osteoporosis but has not started Fosamax concerned about side effects.? Dr. Monica arboleda Friend did upper endoscopy on August 12, 2021 that demonstrated low-grade reflux esophagitis from 36 to 38 cm with a moderate Schatzki ring that was dilated to 60 [place] with a savory dilator.? Medium size hiatal hernia noted.? She had been treated with famotidine therapy.? There was some offering as to whether she will convert back to omeprazole therapy 20 mg daily. Liver elastography of January 21, 2022 showed mild to moderate liver fibrosis.? A liver ultrasound at that time showed fatty infiltration of the liver and a stable left lobe liver cyst. She had had a previous CT of the abdomen May 26, 2021 which suggested a liver cyst and steatosis.? The gallbladder was felt to be contracted.? There is felt to be persistent increased markings within the mesenteric fat at the root of the mesentery felt to be a nonspecific finding.? Compared to a previous examination of March 17, 2017 there was some improvement. Reviewing Dr. Castro Friend's note he makes comment that she had pancreatitis twice when she was and then again in 2014 she had epigastric pain and lipase was elevated.? Her pancreatitis was attributed that time to hyperlipidemia and she was started on a statin medication. The most recent laboratory I have is June 09, 2021 which at that time demonstrated normal normal white count hemoglobin and hematocrit.? BUN/creatinine were normal.? Liver function tests were normal.? CRP was normal.? Cholesterol is 240 and LDL cholesterol is 167. The patient presents today with concern that she has a dull achy sensation in the right subcostal area right lateral subcostal area.? In questioning her this seems to be similar to her discomfort that she had at least dating back to April 2017.? Does not appear to be any accentuation. She has had at least 2 right upper quadrant ultrasounds to evaluate the liver and no stones have been seen.? She has not had a hepatobiliary scan. It is of note that the includes cholesterol level noted above was identified and the patient was temporarily placed on 40 mg of atorvastatin daily.? She states that she got diffuse muscle weakness so a phone call into Dr. Qiu got the dosing moved back to 20 mg daily however the patient has not had follow-up blood work obtained. I did ask her what Dr. Elliott and Brigida Cárdenas had offered her as to etiology to this achy sensation in the right upper quadrant and she did not have a clear answer for me other than she describes the liver stiffness issue. ROS General General: No weight change, appetite, fatigue, colon cancer, breast cancer or weakness HEENT HEENT: No difficulty swallowing, eye injury, eye surgery, swollen glands or hoarseness Endo Endocrine: No thyroid disease, diabetes mellitus, thyroid cancer, Hair loss, heat intolerance or cold intolerance Skin Skin: No rash or changing moles Breast Breast: No left breast lump, right breast lump, nipple discharge, breast pain, abnormal mammogram, abnormal US or breast enlargement Musc Musculoskeletal: No back problems, arthritis, rheumatoid arthritis, gout or joint pain Cardio Cardiovascular: No murmur, pacemaker, heart disease, atrial fibrillation, high blood pressure, heart attack, heart stent, palpitations, shortness of breat with exertion or chest pain Psych Psychiatric: No depression, anxiety or hearing voices Resp Respiratory: No shortness of breath, No sleep apnea, No cough, No COPD, No asthma, No emphysema and No wheezing Gastro Gastrointestinal: Yes abdominal pain, No nausea or vomiting, No diarrhea, No constipation, No blood in stool, No acid reflux, No hemorrhoids, No ulcers, No gallbladder problem and No black,tarry stools Kane Hematologic: No blood thinners, No blood disorders, No bleeding, No anemia and No blood clots Neuro Neurologic: No system reviewed and no additional complaints, except as documented, No as per HPI, No abnormal gait, No abnormal hearing, No abnormal movements, No abnormal speech, No behavioral changes, No burning sensations, No confusion, No convulsions, No disequilibrium, No dizziness, No localized weakness, No frequent falls, No headache(s), No lack of coordination, No loss of vision, No memory loss, No numbness, No other visual disturbances, No radicular pain, No restless legs, No sensory deficit, No syncope, No tingling, No tremor(s), No weakness and No other Exam Const General: cooperative, healthy appearing, comfortable and no acute distress [facility] Head: normal to inspection Eyes General: appearance normal, both eyes and all related structures Neck Neck: normal visual inspection Neck mass: No Resp Effort & Inspection: normal respiratory effort Auscultation: clear to auscultation bilaterally Cardio Rate: regular rate Rhythm: regular rhythm GI Inspection: normal to inspection Palpation: soft and tender in the RUQ Auscultation: normal bowel sounds Musc Cervical Spine: normal cervical lordosis Skin General: no rashes or lesions noted Neuro General: no focal motor deficits Extrem General: normal to inspection Psych Appearance: grossly normal Affect: normal affect Assessment and Plan Assessment and Plan (1) Biliary dyskinesia: ?Status:?Acute ?Plan: Dr. Fernandez will plan to perform a laparoscopic cholecystectomy with intraoperative cholangiogram. Procedure risks, benefits and details have been reviewed with the patient and her . Patient and her have had the opportunity to ask and have questions answered. Patient verbally understands and agrees with the plan. I have examined the patient and the H&P has been reviewed. There are no clinical changes since date of exam. Donald Fernandez M.D., F.A.C.S.
--- NOTE | 2022-06-30 07:10 | DCINST_ITS ---
Discharge Instructions Procedure General Surgery Diet Discharge Diet: Light diet - advance as tolerated (if you have questions about your diet instructions, please talk to you doctor.) Activity Discharge Activity: May Not Drive (for 3-5 days or while taking narcotic pain medicine.) May shower in (days): 1 Lifting Restrictions: 10 pounds Dressing / Incision Call your doctor if your incision/area has: Continuous Slow Oozing, Sudden Increased Bleeding, Increased Pain/ Swelling, Increased Redness and Foul Smelling Discharge Call your doctor if you observe: Fever of 101 or Higher Suture Line Care: Avoid Pulling/Pushing and Avoid Pinching/Bending Additional Dressing/Incision Instructions:: Change or remove dressing in 4 days. Leave steri-strips in place for 1 week. Follow Up Care Please Follow Up With: Donald Fernandez MD When: Call [phone] to make an appointment to be seen in about 10 days. Test Results: Test results from this visit will be discussed in further detail at your follow- up appointment, if applicable. Discharge Plan Admission Attending Provider: Donald Fernandez Primary Care Provider: Deana Qiu Discharge Orders/Prescriptions Prescriptions: No Action atorvastatin 20 MG tablet 20 mg PO DAILY@2200 Qty: 30 0RF Label Comments: lowers cholesterol vitamin E 400 unit Capsule 400 unit PO DAILY [id number] Tablet 1 tab PO DAILY omeprazole 20 mg capsule,delayed release(DR/EC) 20 mg PO QHS Label Comments: 20 MG ORALLY EVERY MORNING ursodiol 300 mg capsule 300 mg PO BID Qty: 180 2RF Referrals / Follow Up: Deana Qiu MD [Primary Care Provider] - Disposition Disposition (needs filled in before D/C Order can be placed): Home, Self Care
[2022-06-30] MEDS: Cefazolin 2 GM in 0.9% Normal Saline 100 ML IV (07:22)
--- NOTE | 2022-06-30 07:42 | RAD_ITS ---
EXAM: FL CHOLANGIOGRAPHY AND/OR PANCREATOGRAPHY CLINICAL INDICATION: LAP EZIO WITH IOC TECHNIQUE: Fluoroscopic cholangiogram and/or pancreatography of the right upper quadrant. Fluoroscopic guidance was provided by a physician. COMPARISON: No relevant prior studies available. FINDINGS: Fluoroscopic cine images of the common bile duct obtained in the OR at the time of cholecystectomy. Contrast injected into the cystic duct remnant demonstrates a small filling defect within the distal common bile duct at the level of the ampulla suggestive of stone. Visualization of the duodenum. Partial visualization of the intrahepatic bile ducts. See operative note for additional information. 18.5 seconds of fluoroscopy utilized. Cumulative dose of 13.75 mGy. RAD/Cholangiogram/ O R,Initial IMPRESSION: Distal common bile duct stone. Electronically Signed: José Cardoso MD at 9:30 EDT ,
[2022-06-30] MEDS: Bupivacaine Mpf 0.5% 30 ML VIAL (08:28)
--- NOTE | 2022-06-30 08:31 | PCM.OPRPT ---
Report of Operation Date of Procedure: 06/30/22 Pre-Operative Diagnosis: Biliary dyskinesia Post-Operative Diagnosis: Same Surgery/Procedure Performed:: Laparoscopic cholecystectomy with cholangiograms Description of Surgical Findings:: Timeout informed consent was obtained. 66-year-old female was taken to the operating placed on the table underwent general endotracheal ovation esthesia Ancef 2 g were given intravenously the abdomen sterilely prepped and draped 0.5% Marcaine was used as a local anesthetic without procedure a total of 30 cc was used local was instilled a small infraumbilical incision was created fascia was rather thin got direct access to the abdomen and a 12 mm trocar was inserted the abdomen was insufflated with CO2 to a pressure of 10 mmHg pressure 5 mm trocars were placed in the epigastric mid abdomen right upper quadrant and direct visitation the gallbladder was distracted blunt dissection was instituted at the intubated him until clearly the cystic duct cystic artery identified. The cystic artery was secured proximally with Hem-o-brennan clips and Hem-o-brennan clip was placed on the cystic duct incision in the cystic duct and through a 14-gauge Angiocath cholangiogram catheter was inserted fluoroscopically controlled cholangiograms were obtained demonstrating normal ductal anatomy cholangiogram catheter was removed 2 Hem-o-brennan clips were placed on the cystic duct stump prior to transecting it the gallbladder was dissected free from the liver bed and additional Hem-o-brennan clip was to secure some of the gallbladder peritoneum the gallbladder was completely released there was no bile spillage a piece of fibrillar was placed in the liver bed to secure hemostasis the gallbladder was placed in the retrieval bag and exited at the umbilicus. It is of note that it was some adhesions in the infraumbilical midline these did not appear to be affecting structures and I did not attempt lysis. The abdomen was allowed to deflate of the CO2. The umbilical fascia was approximated a running 0 Vicryl. Skin edges approximated opted for Monocryl subdermal stitches. Steri-Strips Telfa OpSite dressings applied. Sponge and instrument and needle counts were reported to the surgeon to be correct. Specimens gallbladder. Drains none. Blood loss minimal. The patient was taken to the recovery room in satisfied condition without apparent complication Donald Fernandez M.D., F.A.C.S. Surgeon: Donald Fernandez Type of Anesthesia: General and Local Anesthesiologist: Brendon Huffman
--- NOTE | 2022-06-30 08:52 | SUR.PHASEI ---
J, Coteat from anesthesia gave esmolol iv push.
[2022-06-30] MEDS: hydrALAZINE 20 MG/ML Vial 10 MG IV (09:19)
== END 2022-06-30 15:07 | disposition home or self-care (01) ==
LOC: SDC 06:03 → AC 06:04
PROVIDERS: PCP Internal Medicine; Visit Provider Surgery
PROC: (CPT 47610; principal; 2022-06-30 07:10)
DX: K81.1 Chronic cholecystitis (principal); E78.00 Pure hypercholesterolemia, unspecified; K21.9 Gastro-esophageal reflux disease without esophagitis; Z79.899 Other long term (current) drug therapy
CPT/HCPCS: 47563; 00790; 36415; 74300; 76000; 80048; 85025; 88304; 93005; J7120; J2405

== ENCOUNTER → 2022-10-27 | Outpatient (CLI) | payer MEDICARE, BC, SELFPAY ==
--- NOTE | 2022-10-27 08:06 | US_ITS ---
STUDY: ABDOMINAL ULTRASOUND - RIGHT UPPER QUADRANT; ELASTOGRAPHY REASON FOR VISIT: Female, 67 years old. Hepatic fibrosis. TECHNIQUE: Ultrasound evaluation of the right upper quadrant was performed with real-time and static garcia-scale imaging. Point quantification shear wave elastography was performed ([email or web address]). TECHNICAL QUALITY: Adequate. COMPARISON: Comparison is made with prior study dated January 21, 2022. FINDINGS: Liver: The liver measures 15 cm. There is mild increased echogenicity consistent with mild degree of fatty infiltration. The bile ducts are within normal limits. There is hepatic color flow. The direction of portal flow is hepatopetal. A cluster of cysts is seen in the left lobe of the liver measuring 4.3 cm x 4.9 cm x 3.5 cm. Median liver stiffness measured 7.8 kPa. Gallbladder: The patient is status post cholecystectomy. Common Bile Duct (C.B.D.): The common bile duct measures 6.2 mm. Pancreas: There is normal echogenicity of the visualized pancreas. There is no demonstrated pancreatic mass or cyst. Right Kidney: Normal size of the right kidney. The right kidney measures 11.1 cm x 5.4 cm x 4.9 cm. Normal renal cortex. The right cortex measures 1.3 cm. There is no demonstrated renal mass or cyst. There is no right hydronephrosis. US/ABD Limited w/ Elastography IMPRESSION: 1. Liver stiffness measures 7.8 kPa compatible with F2-F3 (Mild to moderate liver fibrosis) Metavir score. Electronically Signed: Adrian Lebron MD at 15:40 EDT ,
== END | disposition home or self-care (01) ==
PROVIDERS: PCP Internal Medicine; Referring Provider Internal Medicine; Visit Provider Internal Medicine
DX: K74.00 Hepatic fibrosis, unspecified (principal)
CPT/HCPCS: 76705; 76981

== ENCOUNTER 2025-01-31 06:36 | Day surgery (SDC) | payer MEDICARE, BC, SELFPAY ==
[2025-01-31] VITALS (7 sets, daily range): BP systolic 99–134; BP diastolic 65–83; PULSE 67–79; RESP 16–18; TEMP 36.2–36.6; O2SAT 97–99; BMI 23.1
--- OUTSIDE RECORDS SUMMARY | 2025-01-31 06:40 | XMS RPT_ITS | CCD ---
Author Organization [facility] Care Team Providers Care Spinning Mule Tender Name Role Phone Dr. Goe Avila Primary Care Provider Dr. Geo Avila Referring Provider Melia HANDY, WOMENS VOLLEYBALL COACH-C Brigida Toussaint Attending Provider Geo Avila MD Primary Care Provider FriendDr. Castro Attending Provider FriendDr. Castro Other Provider Geo Avila MD Primary Care Provider Dr. Geo Avila Primary Care Provider Dr. Geo Avlia Referring Provider Dr. Donald Fernandez Attending Provider Jose Juan Adams Attending Unavailable UNKNOWN, PCP Primary Care Unavailable Unknown, Referring Provider Unavailable Unav ailable Dr. Donald Fernandez Referring Provider ROBERT Ko Attending Provider Dr. Celso Downing Attending Provider Dr. Donald Fernandez Other Provider Geo Avila MD Primary Care Provider Geo Avila MD Primary Care Provider Gifford DRIER AND PULVERIZER TENDER.MATERIAL SPREADER, Juana Unavailable Shine DRIER AND PULVERIZER TENDER.CALCINE FURNACE LOADER, Cj Unavailable Shine DRIER AND PULVERIZER TENDER.CALCINE FURNACE LOADER, Cj Unavailable Balta CARL.MATERIAL SPREADER, Juana Unavailable TALAMPAS, GEO D Referring Unavailable TALAMPAS, GEO D Primary Care Unavailable TALAMPAS, GEO D Primary Care Unavailable TALAMPAS, GEO D Attending Unavailable TALAMPAS, GEO D Primary Care Unavailable TALAMPAS, GEO D Primary Care Unavailable TROY JOE Attending Unavailable TALAMPAS, GEO D Primary Care Unavailable JOSE JUAN DORSEY Attending Unavailable JC RIOJAS Attending Unavailable TALAMPAS, GEO D Primary Care Unavailable TALAMPAS, GEO D Attending Unavailable TALAMPAS, GEO D Primary Care Unavailable KELLY CROWE Attending Unavailable CJ RIOJAS Referring Unavailable TALAMPAS, GEO D Primary Care Unavailable Talampas, Geo D Primary Care Unavailable Matthew Elliott Attending Unavailable Allergies Allergy Classification Reported Allergen(s) Allergy Type Date of Onset Reaction(s) Facility Doxycycline (1 source) Doxycycline Drug Allergy [address] [facility] Work Phone: Latex (1 source) Latex Substance Allergy [address] [facility] Sulfonamides (antibiotic) (1 source) Sulfonamides (Antibiotic) Drug Allergy [address] [facility] (20 sources) Doxycycline; Translations: [DOXYCYCLINE] Drug Allergy [address] [facility] Work Phone: (20 sources) natural latex rubber; Translations: [LATEX, NATURAL RUBBER] Allergy to substance [address] [facility] (20 sources) Sulfonamides (Antibiotic); Translations: [SULFA (SULFONAMIDE ANTIBIOTICS)] Allergy to substance [address] [facility] Work Phone: (1 source) Doxycycline Drug Allergy 3 [facility] Medications Current Medications Medication Drug Class(es) Dates Sig (Normalized) Sig (Original) acetaminophen 325 mg / HYDROcodone bitartrate 5 mg oral tablet (1 source) Opioid Agonist Start: 06-30-2022 take 1 tablet by mouth every six hours Hydrocodone-Acetami nophen Active 1 TABLET PO EVERY 6 HOURS 6 2 June 30, 2022 [id number] 200 actuat albuterol 0.09 mg/actuat metered dose inhaler (10 sources) beta2-Adrenergic Agonist Start: 10-28-2023 take 2 puff(s) by inhalation every four hours as needed albuterol HFA (PROVENTIL HFA, VENTOLIN HFA) 90 mcg/actuation inhaler Inhale 2 Puffs as instructed every 4 hours as needed. 1 Each 10/28/2023 Active amoxicillin 875 mg / clavulanate 125 mg oral tablet (2 sources) Penicillin-class Antibacterial Start: 08-14-2024 End: 08-21-2024 take 1 tablet by mouth twice daily amoxicillin-clavula enid potassium (AUGMENTIN) 875-125 mg per tablet Indications: Rhinosinusitis Take 1 tablet by mouth two times a day for 7 days. 14 tablet 08/14/2024 08/21/2024 Active atorvastatin 20 mg oral tablet (20 sources) HMG-CoA Reductase Inhibitor Start: 10-28-2023 End: 10-28-2023 take 1 tablet by mouth every other day atorvastatin (LIPITOR) 20 mg tablet Indications: Hyperlipidemia, unspecified hyperlipidemia type Take 1 tablet by mouth every other day. 45 tablet 3 10/28/2023 Active Start: 07-28-2014 End: 10-28-2023 take 1 tablet by mouth once daily at bedtime atorvastatin (LIPITOR) 20 mg tablet Indications: Hyperlipidemia, unspecified hyperlipidemia type Take 1 tablet by mouth daily at bedtime. 90 tablet 3 10/28/2023 10/28/2023 Discontinued (Adjust Sig - Block E-Cancel) Comment on above: Take 1 tablet by kali th daily at bedtime. bacitracin 0.5 unt/mg topical ointment (2 sources) Start: 09-05-2024 bacitracin 500 unit/gram ointment Indications: Cellulitis of skin Apply to affected area two times a day. 28 g 1 09/05/2024 Active betamethasone 0.001 mg/mg topical ointment (10 sources) Corticosteroid Start: 11-01-2023 betamethasone valerate 0.1 % ointment Use a pea-sized amount-once daily for up to 2 weeks prn flares 45 g 2 11/01/2023 Active Start: 11-01-2023 End: 11-01-2023 betamethasone valerate 0.1 % ointment Apply to affected area two times a day. Use a pea-sized amount-once daily for up to 2 weeks prn flares 45 g 2 11/01/2023 11/01/2023 Discontinued Calcium Carbonate (20 sources) calcium carbonat e (CALCIUM 600 ORAL) Indications: Age related osteoporosis, unspecified pathological fracture presence Take by mouth. Active calcium carbonat e (CALCIUM 600 ORAL) Indications: Age related osteoporosis, unspecified pathological fracture presence Take by mouth. 0 Active calcium carbonat e (CALCIUM 600 ORAL) Take by mouth. 0 Active Comment on above: Take by mouth. Negbiqs-Mir-Asi S7-Wfhooj-Nj (4 sources) Start: 08-07-2021 take 1 tablet by mouth once daily Dkaumlg-Uun-Tgg S1-Osftfv-Rk Active 1 TABLET PO DAILY August 06, 2021 11:00pm Start: 08-07-2021 take 1 tablet by kali once daily Mxyvgch-Pis-Qll J4-Byapqf-Sw Active 1 TABLET PO DAILY August 07, 2021 12:00am cephalexin 500 mg oral capsule (2 sources) Cephalosporin Antibacterial Start: 08-20-2024 End: 08-25-2024 take 1 capsule by mouth four times daily cephALEXin (KEFLEX) 500 mg capsule Take 1 capsule by mouth four times daily for 5 days. 20 capsule 08/20/2024 08/25/2024 Active Start: 04-02-2023 End: 04-07-2023 take 1 capsule by mouth four times daily cephALEXin (KEFLEX) 500 mg capsule Indications: Rash Take 1 capsule by mouth four times daily for 5 days. 20 capsule 0 04/02/2023 04/07/2023 Active Comment on above: Take 1 capsule by mo [facility] four times daily for 5 days. cholecalciferol 0.125 mg oral capsule (2 sources) Vitamin D Start: take 5000 [IU] by mouth once daily Cholecalciferol (Vitamin D3) Active 5000 UNIT PO daily February 15, 2017 2:38pm cholecalciferol, vitamin D3, (VITAMIN D3 ORAL) (20 sources) cholecalciferol, vitamin D3, (VITAMIN D3 ORAL) Take by mouth. 5000 daily Active cholecalciferol, vitamin D3, (VITAMIN D3 ORAL) Take by mouth. 5000 daily 0 Active Comment on above: Take by mouth. 5000 daily clobetasol propionate 0.0005 mg/mg topical ointment (20 sources) Corticosteroid Start: 9 End: 4 clobetasol (TEMOVATE) 0.05 % ointment Use a pea-sized amount-once daily for up to 2 weeks prn flares 30 g 1 10/28/2023 11/01/2023 Discontinued Comment on above: Use a pea-sized amou nt-once daily for up to 2 weeks prn flares famotidine 40 mg oral tablet (20 sources) Histamine-2 Receptor Antagonist Start: 2 take 40 mg by mouth once daily Famotidine Active 40 MG PO DAILY September 24, 2021 12:00am Start: 07-06-2021 End: 10-28-2023 take 1 tablet by mouth every twenty-four hours as needed famotidine (PEPCID) 20 mg tablet Take 1 tablet by mouth at bedtime as needed. 07/06/2021 10/28/2023 Discontinued Start: 05-12-2021 End: 08-26-2021 take 40 mg by mouth at bedtime Famotidine Discontinued 40 MG PO AT BEDTIME August 07, 2021 4:21pm August 26, 2021 1:55pm Start: 07-28-2014 End: 02-15-2017 take 20 mg by mouth twice daily Famotidine Discontinue d 20 MG PO TWICE A DAY 60 July 28, 2014 12:00am February 15, 2017 2:37pm Comment on above: Take 1 tablet by kali th at bedtime as needed. fluticasone propionate 0.05 mg/actuat metered dose nasal spray (20 sources) Corticosteroid Start: 1 take 2 spray(s) by mouth once daily fluticasone (FLONASE) 50 mcg/actuation nasal spray Use 2 Sprays in each nostril once daily. Rinse mouth after use. 1 Each 3 01/06/2021 Active Comment on above: Use 2 Sprays in each nostril once daily. Rinse mouth after use. Lactobac 40-Bifido 3-S.Thermop (Probiotic) 100 billion cell Capsule (3 sources) Start: 2 Lactobac 40-Bifido 3-S.Thermop (Probiotic) 100 billion cell Capsule Active 1 CAP PO DAILY August 06, 2021 11:00pm Start: 08-07-2021 Lactobac 40-Bi fido 3-S.Thermop (Probiotic) 100 billion cell Capsule Active 1 CAP PO DAILY August 07, 2021 12:00am Magnesium (17 sources) MAGNESIUM ORAL T jacqui by mouth once daily. Active MAGNESIUM ORAL T jacqui by mouth once daily. 0 Active omeprazole 20 mg delayed release oral capsule (20 sources) Proton Pump Inhibitor Start: 06-22-2022 End: 10-28-2023 take 1 capsule by mouth once daily omeprazole (PRILOSEC) 20 mg capsule Take 1 capsule by mouth once daily. 90 capsule 3 10/28/2023 Active Start: 08-26-2021 End: 09-24-2021 take 20 mg by mouth once daily in the morning Omeprazole Discontinued 20 MG PO EVERY MORNING 90 August 26, 2021 12:00am September 24, 2021 4:57pm Start: 06-26-2018 End: 07-06-2021 take 1 capsule by mouth once daily before breakfast omeprazole (PRILOSEC) 20 mg capsule Take 1 capsule by mouth daily before breakfast. 1/2 hr before meal. 0 06/26/2018 07/06/2021 Discontinued (Discontinued by Patient) Start: 04-22-2017 take 40 mg by mouth once daily Omeprazole Active 40 MG PO DAILY 60 April 22, 2017 10:32am Comment on above: Take 1 capsule by mo ut daily before breakfast. 1/2 hr before meal. Take 1 capsule by mo uth once daily. perflutren lipid microspheres 1.3 mL in NaCl (PF) 0.9% 10 mL injection (DEFINITY) (20 sources) Start: 09-09-2022 End: 12-09-2023 perflutren lipid microspheres 1.3 mL in NaCl (PF) 0.9% 10 mL injection (DEFINITY) predniSONE 10 mg oral tablet (1 source) Start: 04-02-2023 End: 04-11-2023 predniSONE (DELTASONE) 10 mg tablet Indications: Rash Take 4 tabs daily for 3 days, then 2 tabs daily for 3 days, then 1 tab daily for 3 days with food. 21 tablet 0 04/02/2023 04/11/2023 Active Comment on above: Take 4 tabs daily fo r 3 days, then 2 tabs daily for 3 days, then 1 tab daily for 3 days with food. 125 ml sodium chloride 9 mg/ml prefilled syringe (20 sources) Start: 09-09-2022 End: 12-09-2023 sodium chloride 0.9 % (flush) 10 mL (BD POSIFLUSH) vitamin e 180 mg oral capsule (20 sources) Start: 08-07-2021 vitamin E, dl,tocopheryl acet, (VITAMIN E, DL, ACETATE,) 180 mg (400 unit) capsule Take by mouth. 08/07/2021 Active Start: 08-07-2021 vitamin E, dl, tocopheryl acet, (VITAMIN E, DL, ACETATE,) 180 mg (400 unit) capsule Take by mouth. 0 08/07/2021 Active Comment on above: Take by mouth. Completed/Discontinued Medications Medication Drug Class(es) Dates Sig (Normalized) Sig (Original) alendronic acid 70 mg oral tablet (8 sources) Bisphosphonate Start: 08-28-2021 End: 10-04-2022 take 1 tablet by mouth every week alendronate (FOSAMAX) 70 mg tablet Take 1 tablet by mouth one time a week. Take with a full glass of water, on an empty stomach; do NOT lie down for 30minutes. 12 tablet 3 08/28/2021 10/04/2022 Discontinued Start: 03-16-2021 End: 07-06-2021 take 1 tablet by mouth every week alendronate (FOSAMAX) 70 mg tablet Take 1 tablet by mouth one time a week. Take with a full glass of water, on an empty stomach; do NOT lie down for 30minutes. 12 tablet 3 03/16/2021 07/06/2021 Discontinued (Discontinued by Patient) Comment on above: Take 1 tablet by kali th one time a week. Take with a full glass of water, on an empty stomach; do NOT lie down for 30minutes. iv contrast (will be provided with radiology test) (3 sources) Start: 12-23-2022 End: 12-24-2022 iv contrast (will be provided with radiology test) CT LIVER W IVCON Inject, intravenously, once for 1 dose. No IV access, insert saline lock prior to the beginning of sedation, infusion, injection of imaging exam. Discontinue saline lock post exam. If Pt. has a central line or IVAD, may access for administration according to line specific nursing protocol. Once exam is complete flush line and de-access according to line specific nursing protocol in the CT contrast administration guidelines link. 1 Each 0 12/23/2022 12/24/2022 Start: 12-23-2022 End: 12-24-2022 iv contrast (will be provide d with radiology test) CT LIVER W IVCON Inject, intravenously, once for 1 dose. No IV access, insert saline lock prior to the beginning of sedation, infusion, injection of imaging exam. Discontinue saline lock post exam. If Pt. has a central line or IVAD, may access for administration according to line specific nursing protocol. Once exam is complete flush line and de-access according to line specific nursing protocol in the CT contrast administration guidelines link. 1 Each 0 12/23/2022 12/24/2022 Active Comment on above: CT LIVER W IVCON Inj ect, intravenously, once for 1 dose. No IV access, insert saline lock prior to the beginning of sedation, infusion, injection of imaging exam. Discontinue saline lock post exam. If Pt. has a central line or IVAD, may access for administration according to line specific nursing protocol. Once exam is complete flush line and de-access according to line specific nursing protocol in the CT contrast administration guidelines link. ondansetron 8 mg oral tablet (6 sources) Serotonin-3 Receptor Antagonist Start: 07-29-19 End: 02-15-19 18 take 8 mg by mouth every eight hours as needed Ondansetron Hcl Discontinued 8 MG PO EVERY 8 HOURS NEEDED July 28, 2014 12:00am February 15, 2017 2:37pm oxyCODONE hydrochloride 5 mg oral tablet (6 sources) Opioid Agonist Start: 07-29-19 15 End: 02-15-19 18 take 5-10 mg by mouth every four hours as needed Oxycodone Discontinued 5 - 10 MG PO EVERY 4 HOURS NEEDED July 28, 2014 12:00am February 15, 2017 2:37pm 5-10 triamcinolone acetonide 1 mg/ml topical cream (10 sources) Corticosteroid Start: 01-28-20 23 End: 10-28-19 24 triamcinolone acetonide (KENALOG) 0.1 % cream Indications: Rash Apply 1 application to affected area three times a day. Apply sparingly to area for rash/itching. 80 g 01/27/2023 10/28/2023 Discontinued Comment on above: Apply 1 application to affected area three times a day. Apply sparingly to area for rash/itching. ursodiol 300 mg oral capsule (20 sources) Bile Acid Start: 06-19-19 End: 10-28-19 24 take 1 capsule by mouth twice daily ursodiol (ACTIGALL) 300 mg capsule Take 1 capsule by mouth two times a day. 60 capsule 5 01/14/2023 10/28/2023 Discontinued Comment on above: Take 1 capsule by mo uth twice daily. Take 1 capsule by mo uth two times a day. Problems Active Problems Problem Classification Problem Date Documented Da te Episodic/Chronic Abdominal pain (11 sources) Abdominal pain; Translations: [Unspecified abdominal pain] Episodic Aortic; peripheral; and visceral artery aneurysms (1 source) Aortic aneurysm; Translations: [Aneurysm of aorta in diseases classified elsewhere] 09-09-2022 Chronic Biliary tract disease (3 sources) Biliary dyskinesia; Translations: [Other specified diseases of gallbladder] 05-24-2022 Episodic Disorders of lipid metabolism (20 sources) Hyperlipidemia; Translations: [Hyperlipidemia, unspecified] Onset: 3 08-28-2012 Chronic Esophageal disorders (20 sources) Gastroesophageal reflux disease; Translations: [Gastro-esophageal reflux disease without esophagitis] Onset: 2 Chronic Fluid and electrolyte disorders (1 source) Hypokalemia; Translations: [Hypokalemia] Episodic Immunizations and screening for infectious disease (1 source) Requires a tetanus booster; Translations: [Encounter for immunization] Episodic Menopausal disorders (20 sources) Atrophic vaginitis; Translations: [Postmenopausal atrophic vaginitis] Onset: 8 Resolved: 4 06-27-2007 Chronic Nonmalignant breast conditions (4 sources) Large breast; Translations: [Hypertrophy of breast] 08-26-2022 Episodic Nutritional deficiencies (1 source) Vitamin D deficiency, unspecified; Translations: [Vitamin D deficiency] Onset: 5 Chronic Open wounds of extremities (1 source) Laceration of finger; Translations: [Laceration without foreign body of unspecified finger without damage to nail, initial encounter] Episodic Osteoarthritis (3 sources) Unilateral primary osteoarthritis of first carpometacarpal joint, right hand; Translations: [Primary osteoarthritis, right wrist] Onset: 3 Chronic Osteoporosis (20 sources) Osteoporosis; Translations: [Age-related osteoporosis without current pathological fracture] Onset: 1 01-06-2021 Chronic Other aftercare (7 sources) Patient encounter status; Translations: [Other custodial (current) drug therapy] Episodic Other and unspecified benign neoplasm (6 sources) History of polyp of colon; Translations: [Personal history of colonic polyps] 04-22-2017 Episodic Other bone disease and musculoskeletal deformities (1 source) Other specified disorders of bone density and structure, right forearm; Translations: [Oth disrd of bone density and structure, right forearm] Onset: 3 Episodic Other congenital anomalies (1 source) Marfan's syndrome; Translations: [Marfan's syndrome, unspecified] 09-09-2022 Chronic Other congenital anomalies (1 source) Congenital ectopic lens; 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-2022 Chronic Other gastrointestinal disorders (6 sources) History of pancreatitis; Translations: [Personal history of other diseases of the digestive system] 05-12-2021 Episodic Other gastrointestinal disorders (3 sources) Personal history of other diseases of the digestive system; Translations: [Personal history of other diseases of digestive system] Episodic Other inflammatory condition of skin (20 sources) Psoriasis; Translations: [Psoriasis, unspecified] 08-28-2012 Chronic Other liver diseases (6 sources) Steatosis of liver; Translations: [Fatty (change of) liver, not elsewhere classified] 06-03-2021 Chronic Other liver diseases (20 sources) Liver cyst; Translations: [Other specified diseases of liver] Onset: 2 Chronic Other liver diseases (3 sources) Other specified diseases of liver; Translations: [Other specified disorders of liver] Chronic Other liver diseases (20 sources) Hepatic fibrosis; Translations: [Hepatic fibrosis] Onset: 2 Chronic Other liver diseases (1 source) Non-alcoholic fatty liver; Translations: [Fatty (change of) liver, not elsewhere classified] Chronic Other liver diseases (3 sources) Fatty (change of) liver, not elsewhere classified; Translations: [Nonalcoholic fatty liver disease] 06-18-2021 Chronic Other nervous system disorders (2 sources) Abnormal sensation; Translations: [Other disturbances of skin sensation] 11-08-2023 Episodic Other screening for suspected conditions (not mental disorders or infectious disease) (9 sources) Imaging of liver abnormal; Translations: [Abnormal findings on diagnostic imaging of liver and biliary tract] Onset: 5 12-23-2022 Episodic Other skin disorders (20 sources) Lichen sclerosus et atrophicus; Translations: [Circumscribed scleroderma] Onset: 4 05-21-2013 Chronic Other skin disorders (1 source) Eruption; Translations: [Rash and other nonspecific skin eruption] 04-02-2023 Episodic Other skin disorders (1 source) Mass of skin; Translations: [Localized swelling, mass and lump, unspecified] 09-13-2023 Episodic Other skin disorders (1 source) Swelling; Translations: [Localized swelling, mass and lump, unspecified] 09-20-2023 Episodic Other skin disorders (1 source) Skin tag; Translations: [Other hypertrophic disorders of the skin] 11-08-2023 Episodic Other skin disorders (2 sources) Skin lesion; Translations: [Disorder of the skin and subcutaneous tissue, unspecified] 11-21-2023 Episodic Other upper respiratory infections (3 sources) Chronic sinusitis, unspecified; Translations: [Unspecified sinusitis (chronic)] Onset: 5 08-14-2024 Chronic Pancreatic disorders (not diabetes) (6 sources) Pancreatitis; Translations: [Acute pancreatitis without necrosis or infection, unspecified] 04-22-2017 Episodic Residual codes; unclassified (3 sources) Pain, unspecified; Translations: [Pain, unspecified] Onset: 3 Episodic Residual codes; unclassified (1 source) Pain; Translations: [Generalized pain] Episodic Residual codes; unclassified (1 source) Postmenopausal state; Translations: [Asymptomatic menopausal state] 10-04-2022 Episodic Screening and history of mental health and substance abuse codes (2 sources) Encounter for screening for depression; Translations: [Encounter for screening examination for other mental health and behavioral disorders] Onset: 5 Episodic Past or Other Problems Problem Classification Problem Date Documented Da te Episodic/Chronic Gastrointestinal hemorrhage (20 sources) Hemorrhage of rectum and anus; Translations: [Hemorrhage of anus and rectum] Onset: 03-10-2006 Resolved: 05-21-2013 05-21-2013 Episodic Headache; including migraine (20 sources) Frontal headache ; Translations: [Frontal headache] Onset: 07-06-2021 Episodic Other female genital disorders (17 sources) Dyspareunia; Translations: [Dyspareunia] Onset: 06-27-2007 Resolved: 05-21-2013 05-21-2013 Chronic Other female genital disorders (17 sources) Female genital organ symptoms; Translations: [Unspecified condition associated with female genital organs and menstrual cycle] Onset: 06-27-2007 Resolved: 05-21-2013 05-21-2013 Episodic Other skin disorders (1 source) Disorder of the skin and subcutaneous tissue, unspecified; Translations: [Skin lesion of back] Onset: 02-06-2024 Episodic Skin and subcutaneous tissue infections (7 sources) Cellulitis of skin; Translations: [Cellulitis, unspecified] Onset: 08-20-2024 08-20-2024 Episodic Results Test Name Value Interpretation Reference Range Facility [facility] 11-26 [facility] * * *Final Report* * * DATE OF EXAM: Nov 26 2024 9:46AM [facility] [id number] - [facility]CRE[facility] / PROCEDURE REASON: Encounter for screening mammogram for breast cancer * * * * Physician Interpretation * * * * RESULT: [place] [address] #[id number] - [facility] HISTORY: 69 year-old patient presents for screening. Patient is asymptomatic in both breasts. Patient states no personal history of breast cancer. COMPARISON STUDIES: The present examination has been compared to prior imaging studies dated 10/29/2019 (mammogram), 11/04/2022 (mammogram) and 08/30/2023 (mammogram). MAMMOGRAM TECHNIQUE: The study was acquired using full field digital technology and interpreted from soft copy. Digital Breast Tomosynthesis (DBT) images were obtained and used to assist in the interpretation of this examination. MAMMOGRAM FINDINGS: There are scattered areas of fibroglandular density. No suspicious masses, calcifications or other abnormalities are seen in either breast. There are no significant interval changes. IMPRESSION: There is no mammographic evidence of malignancy in either breast. Routine screening mammogram is recommended. Annual mammogram will be due in 1 year. BI-RADS Category 1: Negative RISK: Based on the Tyrer-Cuzick (TC) risk assessment model, this patient has a 2.3% lifetime risk of developing breast cancer, meaning they are at average risk for developing breast cancer. However, this is only an estimate based on available history provided on the patient's questionnaire. We encourage all patients to talk with their providers about these results, further recommendations for managing breast health, and appropriate supplemental screening options if the patient has dense breast tissue. Interpreting Radiologist: Sirisha Montemayor M.D. Electronically signed on: 12/01/2024 [employer]er Pie Filling: KHURRAM Transcribe Date/Time: Nov 26 2024 9:30A Dictated by: SIRISHA MONTEMAYOR MD This examination was interpreted and the report reviewed and electronically signed by: SIRISHA MONTEMAYOR MD on Dec 01 2024 8:30AM EST [id number] Normal [facility] CNOVon 11-20-2024 [facility] -- CIERRA MARMOLEJO ([id number]) 1955 F Date Time Provider Department 11/20/24 9:00 AM [facility] During your visit today, we recorded the following information about you: Temperature Pulse Respiration Blood pressure 97 degrees 75/minute 16/minute 130/78 Weight Height 59.6 kg 1.56 m Lali Whitfield MA 11/27/2024 7:50 AM Signed Cierra Green Grisel is a 69 year old female here for a Medicare wellness visit. Medicare Health Risk Assessment General Health Very good Exercise: Minutes/Day 20 min Exercise: Days/Week 7 days Alcohol: Daily Use Never Alcohol: Drinks/Day Patient does not drink Alcohol: 6 or more drinks Never Feel off balance No Concerns: Teeth/Dentures No Concerns: Sexual function No Troubled by feelings None of the above Frequency: Eating healthy diet Nearly every day ADLs requiring help None of the above Safety precautions in home/vehicle Yes Smoke, vape, chews tobacco No Difficulty hearing No Difficulty seeing No Current Providers Specialists: I have reviewed specialist-related care of the patient in the medical record. Current care team: Patient Care Team: Geo Avila MD as PCP - General (Internal Medicine) Juana Gifford APRN.MATERIAL SPREADER as Search Engine Optimization Manager (Internal Medicine) Outside specialists seen: Dr. Thompson with [facility], Dentist, Angelic Albrecht Medical/Family history review Reviewed and updated problem list, medical/surgical/family/so cial history, medications, and allergies. Opioid use review Opioid Medications (last 90 days) No data to display Anxiety/Depression screening PHQ-2 Score: 0 (Lower risk for depression) Recommendation: no further intervention at this time Cognitive screening Mini Cog Score: 5 Cognitive screening reviewed and No further action needed (score 3-5). Functional Observation Was the patient's Timed Up AND Go test unsteady or >= 12 seconds? No Advance Care Planning Surrogate decision maker and/or advance care plan documented Measurements BP 130/78 Pulse 75 Temp 36.1 ?C (97 ?F) (Tympanic) Resp 16 Ht 156 cm (5' 1.42) Wt 59.6 kg (131 lb 6.4 oz) LMP 07/27/2006 SpO2 98% BMI 24.49 kg/m? Vision Screening: Follows with optometry/ophthalmology Assessment/Plan Medicare annual wellness visit, initial (Z00.00) - Counseled on healthy diet and regular exercise - Fall avoidance information provided - Personalized prevention plan provided - Discussed need for and benefit of weight loss. BMI 24.49 kg/(m2) Kelly Crowe PA-C 11/27/2024 7:50 AM Signed Cierra Marmolejo is a 69 year old female here for a Medicare wellness visit. Medicare Health Risk Assessment General Health Very good Exercise: Minutes/Day 20 min Exercise: Days/Week 7 days Alcohol: Daily Use Never Alcohol: Drinks/Day Patient does not drink Alcohol: 6 or more drinks Never Feel off balance No Concerns: Teeth/Dentures No Concerns: Sexual function No Troubled by feelings None of the above Frequency: Eating healthy diet Nearly every day ADLs requiring help None of the above Safety precautions in home/vehicle Yes Smoke, vape, chews tobacco No Difficulty hearing No Difficulty seeing No Current Providers Specialists: I have reviewed specialist-related care of the patient in the medical record. Medical/Family history review Reviewed and updated problem list, medical/surgical/family/so cial history, medications, and allergies. Opioid use review Opioid Medications (last 90 days) No data to display Anxiety/Depression screening PHQ-2 Score: 0 (Lower risk for depression) MAX-2 Score: 0 (Lower risk for anxiety) Recommendation: no further intervention at this time Cognitive screening Mini Cog Score: 5 Cognitive screening reviewed and No further action needed (score 3-5). Functional Observation Was the patient's Timed Up AND Go test unsteady or >= 12 seconds? No Advance Care Planning Surrogate decision maker and/or advance care plan documented Measurements BP 130/78 Pulse 75 Temp 36.1 ?C (97 ?F) (Tympanic) Resp 16 Ht 156 cm (5' 1.42) Wt 59.6 kg (131 lb 6.4 oz) LMP 07/27/2006 SpO2 98% BMI 24.49 kg/m? Vision Screening: Follows with optometry/ophthalmology Assessment/Plan Medicare annual wellness visit, subsequent (Z00.00) - Counseled on healthy diet and regular exercise - Fall avoidance information provided - Personalized prevention plan provided Additional Concerns The following concerns were also discussed with the patient: Recording using [employer] software for draft documentation of the visit was discussed with the patient/authorized real estate representative; all questions welcomed and answered. Patient/authorized real estate representative agreed to proceedRecording using ambient Spot[employer] software for draft documentation of the visit was discussed with the patient/authorized repr (more content not included)... Normal [facility] CNOVon 10-10-2024 CNOV Office Visit (INTMWS ) -- CIERRA MARMOLEJO ([id number]) 1955 F Date Time Provider Department 10/10/24 7:00 PM GEO AVILA INTMWS During your visit today, we recorded the following information about you: Temperature Pulse Blood pressure Weight 99.4 degrees 85/minute 132/84 60 kg Geo Avila MD 10/10/2024 7:54 PM Signed Subjective Cierra Marmolejo is a 68 year old female. HPI SUBJECTIVE: Cierra Marmolejo is a 68-year-old female presenting for follow-up on a skin lesion initially evaluated at [facility]. Cierra reports a lesion that began as a erythematous, indurated area approximately the size of a half-dollar. She initially suspected an insect bite. The lesion was evaluated at [facility] on 08/20, where it was described as a 1 cm erythematous, indurated area. She was prescribed Augmentin, which she was already taking for a sinus infection. On 09/05, she was seen again and prescribed Keflex and clobetasol. At that time, the lesion was noted to be smaller but still erythematous. Currently, Cierra reports that the lesion has improved and decreased in size. She denies pain, pruritus, or any drainage from the lesion. She expresses concern about the lesion developing into something more serious, such as melanoma, but denies any dark spots or lesions. She denies fevers, chills, or any tendency to get wounds or infections. 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 PAST MEDICAL HISTORY Diagnosis Date DIVERTICULOSIS COLON - NO HEMORRHAGE 03/31/2006 Hemorrhage of gastrointestinal tract, unspecified HEMORRHOIDS INTERNAL 03/31/2006 Hyperlipidemia Intramural leiomyoma of uterus 03/09/06 LEIOMYOMATA UTERUS INTRAMURAL Other and unspecified ovarian cyst 03/09/06 complex cyst of the right ovary Papanicolaou smear of cervix with atypical squamous cells of undetermined significance (ASC-US) 01/20/06 noted negative hpv at same time POLYP COLON 03/31/2006 Psoriasis Umbilical hernia without mention of obstruction or gangrene 03/17/06 UMBILICAL HERNIA W/O GANGRENE/OBSTRUCTION Current Outpatient Medications Medication Sig bacitracin 500 unit/gram ointment Apply to affected area two times a day. betamethasone valerate 0.1 % ointment Use a pea-sized amount-once daily for up to 2 weeks prn flares atorvastatin (LIPITOR) 20 mg tablet Take 1 tablet by mouth every other day. albuterol HFA (PROVENTIL HFA, VENTOLIN HFA) 90 mcg/actuation inhaler Inhale 2 Puffs as instructed every 4 hours as needed. MAGNESIUM ORAL Take by mouth once daily. vitamin E, dl,tocopheryl acet, (VITAMIN E, DL, ACETATE,) 180 mg (400 unit) capsule Take by mouth. calcium carbonate (CALCIUM 600 ORAL) Take by mouth. cholecalciferol, vitamin D3, (VITAMIN D3 ORAL) Take by mouth. 5000 daily fluticasone (FLONASE) 50 mcg/actuation nasal spray Use 2 Sprays in each nostril once daily. Rinse mouth after use. omeprazole (PRILOSEC) 20 mg capsule Take 1 capsule by mouth once daily. (Patient not taking: Reported on 10/10/2024) No current facility-administered medications for this visit. Review of Systems Objective BP 132/84 (BP Site: Left Arm, BP Position: Sitting, BP Cuff Size: Regular Adult) Pulse 85 Temp 37.4 ?C (99.4 ?F) Wt 60 kg (132 lb 4.4 oz) LMP 07/27/2006 SpO2 99% BMI 24.19 kg/m? Physical Exam Constitutional: Appearance: Normal appearance. Eyes: Conjunctiva/sclera: Conjunctivae normal. Pulmonary: Effort: Pulmonary effort is normal. Musculoskeletal: Back: Neurological: General: No focal deficit present. Mental Status: She is alert and oriented to person, place, and time. Psychiatric: Mood and Affect: Mood normal. Behavior: Behavior normal. Thought Content: Thought content normal. Judgment: Judgment normal. Geo Avila MD 10/10/2024 7:51 PM Signed - Today?s exam shows the cellulitis has resolved and there is no active infection. - No further antibiotics or steroid/antibiotic creams are needed; allow the skin to heal naturally. - Expect the remaining darker, slightly dented spot to fade over several weeks to a couple of months as new skin layers replace the inflamed area. - Avoid direct pressure or repeated bumping on the spot. When mowing, consider placing a soft cushion on your seat and take breaks as needed to reduce irritation. Allergies As of Date: 10/10/2024 Noted Allergy Reaction DOXYCYCLINE 04/06/2005 LATEX, NATURAL RUBBER 08/28/2012 9 - Itching SULFA (SULFONAMIDE ANTIBIOTICS) 04/06/2005 Date Reviewed: 10/10/2024 Reviewed by: Macey Frost MA - Fully Assessed Reason for Visit: Follow Up [171] Cmt: Cellulitis R buttock x 2 months Primary Visit Diagnosis:Cellulitis of right buttock [L03.317] Prescriptions as of 10/10/2024 - bacitracin 500 unit/gram ointment Apply to affected area tw (more content not included)... Normal [facility] CNOVon 09-05-2024 CNOV Office Visit (INTMWS ) -- CIERRA MARMOLEJO ([id number]) 1955 F Date Time Provider Department 09/05/24 8:00 AM CJ RIOJAS INTMWS During your visit today, we recorded the following information about you: Temperature Pulse Respiration Blood pressure 98.3 degrees 94/minute 12/minute 130/80 Weight Height 59 kg 1.575 m Cj Riojas APRN.CALCINE FURNACE LOADER 09/05/2024 8:42 AM Signed SUBJECTIVE Cierra Marmolejo is a 68 year old female here today for an [facility] follow up. Chief Complaint Patient presents with: Follow Up: the medical center- sore on right buttock, it has decreased in size HPI Cierra Marmolejo is a 68-year-old female presenting for follow-up on cellulitis of the right buttock. Cierra was initially seen in [facility] on August 14 for a sinus infection and was prescribed Augmentin. She returned to [facility] on August 20 for a firm, erythematous, non-tender lump on her right buttock, approximately the size of a quarter, which was suspected to be cellulitis. She was prescribed Keflex and advised to complete her course of Augmentin. She has been applying clobetasol ointment to the area. Cierra reports that the lump has decreased in size and is now smaller than a quarter, but it is still present and erythematous. She denies any associated fever, chills, or nausea. Cierra is concerned about the potential for recurrence, especially given her plans to mow the lawn today and tomorrow, which involves prolonged sitting on a plastic seat in hot weather, causing significant sweating. She speculates that the initial lump may have been caused by a clogged pore due to sweating and friction from the mower seat. Recording using [employer] software for draft documentation of the visit was discussed with the patient/authorized real estate representative; all questions welcomed and answered. Patient/authorized real estate representative agreed to proceed Her medications were reviewed today and her list is now up to date. Medications Current Outpatient Medications Medication Sig betamethasone valerate 0.1 % ointment Use a pea-sized amount-once daily for up to 2 weeks prn flares omeprazole (PRILOSEC) 20 mg capsule Take 1 capsule by mouth once daily. atorvastatin (LIPITOR) 20 mg tablet Take 1 tablet by mouth every other day. albuterol HFA (PROVENTIL HFA, VENTOLIN HFA) 90 mcg/actuation inhaler Inhale 2 Puffs as instructed every 4 hours as needed. MAGNESIUM ORAL Take by mouth once daily. vitamin E, dl,tocopheryl acet, (VITAMIN E, DL, ACETATE,) 180 mg (400 unit) capsule Take by mouth. calcium carbonate (CALCIUM 600 ORAL) Take by mouth. cholecalciferol, vitamin D3, (VITAMIN D3 ORAL) Take by mouth. 5000 daily fluticasone (FLONASE) 50 mcg/actuation nasal spray Use 2 Sprays in each nostril once daily. Rinse mouth after use. No current facility-administered medications for this visit. ALLERGIES Allergen Reactions Doxycycline Latex, Natural Rubb* Itching Sulfa (Sulfonamide * ACTIVE PROBLEM LIST Liver Cyst - 07/06/2021 Comment: Slightly larger on ultrasound done 06/2021 Hepatic Fibrosis - 07/06/2021 Comment: Liver elasticity imaging 06/2021-consistent with mild to moderate liver fibrosis. Prescribed Ursodiol Frontal Headache - 07/06/2021 Gastroesophageal Reflux Disease Without Esophagitis - 07/06/2021 Osteoporosis - 01/06/2021 Lichen Sclerosus - 05/21/2013 Psoriasis Hyperlipidemia Postmenopausal Atrophic Vaginitis - 06/27/2007 Social History Tobacco Use Smoking status: Former Current packs/day: 0.00 Types: Cigarettes Start date: 02/13/1995 Quit date: 02/13/2001 Years since quittin.5 Passive exposure: Never Smokeless tobacco: Never Tobacco comments: 4 cig per day, quit Vaping Use Vaping status: Never Used Substance Use Topics Alcohol use: Yes Comment: SOCIALLY Drug use: No Review of Systems Constitutional: Negative. Respiratory: Negative. Cardiovascular: Negative. OBJECTIVE BP 130/80 Pulse 94 Temp (Src) 98.3 (Temporal) Resp 12 Ht 5' 2 (1.58m) Wt 130 lb 1.1 oz (59.0kg) SpO2 98% LMP 07/27/2006 BMI 23.78 kg/(m2). Physical Exam Vitals and nursing note reviewed. Constitutional: General: She is awake. She is not in acute distress. Appearance: Normal appearance. She is well-developed and well-groomed. She is not ill-appearing, toxic-appearing or diaphoretic. HENT: Head: Normocephalic. Right Ear: External ear normal. Left Ear: External ear normal. Nose: Nose normal. Eyes: General: Vision grossly intact. Conjunctiva/sclera: Conjunctivae normal. Pupils: Pupils are equal, round, and reactive to light. Neck: Vascular: No JVD. Trachea: Trachea normal. Pulmonary: Effort: Pulmonary effort is normal. No accessory muscle usage, prolonged expiration or respiratory distress. Musculoskeletal: Cervical back: Neck supple. Skin: General: Skin is warm and dry. Capillary Refil (more content not included)... Normal [facility] CNOVon 08-20-2024 CNOV Office Visit (UCWSTR ) -- CIERRA MARMOLEJO ([id number]) 1955 F Date Time Provider Department 08/20/24 10:00 AM JOSE [facility]AN [facility] During your visit today, we recorded the following information about you: Temperature Pulse Respiration Blood pressure 98.1 degrees 78/minute 20/minute 122/88 Weight 58.8 kg Jose Juan Dorsey PA-C 08/20/2024 10:13 AM Signed [facility] Subjective Cierra Marmolejo is a 68 year old female. Patient presents with: Trauma: Possible insect bite on buttocks, itchy, red, swollen x 3 days HPI Suspected Bug Bite: - Noticed on 11/16, located on the right buttock. - Describes the area as itchy, hard, red, and bumpy. - No drainage observed. - Applying eeoy-fib-upcfdej cortisone cream for itch relief. - Recent history of a rash in the same area prior to the appearance of the current lesion. - Allergic to Bactrim and doxycycline. Cough and Congestion: - Persistent cough and congestion; seen in urgent care on 11/14. - Currently taking Augmentin, with two doses remaining. - Believes symptoms are related to sinus or allergies. - Denies emesis. Review of Systems Ears/Nose/Mouth/Throat: (+) nasal congestion Respiratory: (+) cough Gastrointestinal: (-) vomiting Genitourinary: (-) dysuria Skin: (+) right buttock pruritus, (+) right buttock rash, (+) right buttock induration, (-) drainage Objective BP 122/88 Pulse 78 Temp 36.7 ?C (98.1 ?F) Resp 20 Wt 58.8 kg (129 lb 10.1 oz) LMP 07/27/2006 SpO2 94% BMI 23.71 kg/m? Physical Exam General: No acute distress. CV: Regular rhythm. Resp: Clear to auscultation bilaterally. Abd: Normoactive bowel sounds. Skin: Erythematous, approximately 1 cm round area on right buttock, mild swelling, no induration, no drainage. 1. Cellulitis of skin (L03.90) 2. Cellulitis of right buttock (L03.317) - Exam reveals a 1 cm round area on the right buttock, slightly swollen but not indurated, consistent with cellulitis. - Differential diagnosis includes insect bite, but no evidence of tick bite observed. - Patient currently on Augmentin for a separate bacterial infection; instructed to complete the remaining doses. - Initiated Keflex for cellulitis treatment due to allergies to Bactrim and doxycycline. - Advised to continue using gpqy-ikq-bzhkyye cortisone cream to alleviate pruritus. - Educated on signs of abscess formation, including increased size and tenderness; instructed to seek medical attention if these symptoms develop. - Discussed the potential for skin vulnerability due to previous rash and environmental factors such as sweating. - Patient understands and agrees with the treatment plan. - Finish the remaining doses of your Augmentin (amoxicillin/clavulanate) antibiotic as prescribed. - After you complete the Augmentin, start the Calflex antibiotic prescription sent to [facility] to treat the cellulitis on your right buttock. - You may continue applying your yodn-qkr-hhvesud cortisone cream to that area to relieve itching. - Watch the bite site closely. If it becomes much larger, increasingly tender, or starts to drain pus, contact our office or return for evaluation, as it may need drainage. - If your cough persists, schedule a visit with your primary care provider for further evaluation (they may consider a pulmonology referral). - You can review your antibiotic prescription details in MyChart. Visualization of patient's right buttock performed with female parking station attendant present and observing at all times. MDM Procedures Allergies As of Date: 08/20/2024 Noted Allergy Reaction DOXYCYCLINE 04/06/2005 LATEX, NATURAL RUBBER 08/28/2012 9 - Itching SULFA (SULFONAMIDE ANTIBIOTICS) 04/06/2005 Date Reviewed: 08/20/2024 Reviewed by: Jenn Peres MA - Fully Assessed Reason for Visit: Trauma [112] Cmt: Possible insect bite on buttocks, itchy, red, swollen x 3 days Primary Visit Diagnosis:Cellulitis of skin [L03.90] Other Visit Diagnosis:Cellulitis of right buttock [L03.317] Order(s):cephALEXin (KEFLEX) 500 mg capsuleTake 1 capsule by mouth four times daily for 5 days.Disp: 20 capsuleRfl: 0 Prescriptions as of 08/20/2024 - cephALEXin (KEFLEX) 500 mg capsule Take 1 capsule by mouth four times daily for 5 days. - amoxicillin-clavulanate potassium (AUGMENTIN) 875-125 mg per tablet Take 1 tablet by mouth two times a day for 7 days. - betamethasone valerate 0.1 % ointment Use a pea-sized amount-once daily for up to 2 weeks prn flares - omeprazole (PRILOSEC) 20 mg capsule Take 1 capsule by mouth once daily. - atorvastatin (LIPITOR) 20 mg tablet Take 1 tablet by mouth every other day. - albuterol HFA (PROVENTIL HFA, VENTOLIN HFA) 90 mcg/actuation inhaler Inhale 2 Puffs as instructed every 4 hours as needed. - MAGNESIUM ORAL Take by mouth once daily. - vitamin E, dl,tocopheryl acet, (more content not included)... Normal [facility] CNOVon 08-14-2024 CNOV Office Visit ([facility]WSTR ) -- CIERRA MARMOLEJO ([id number]) 1955 F Date Time Provider Department 08/14/24 6:00 PM TROY JOE [facility] During your visit today, we recorded the following information about you: Temperature Pulse Respiration Blood pressure 98.6 degrees 87/minute 18/minute 122/82 Weight 60.2 kg Troy Joe APRN.CALCINE FURNACE LOADER 08/14/2024 6:20 PM Signed [facility] Subjective Cierra Marmolejo is a 68 year old female. Patient presents with: Cough: Chest and sinus congestion, sinus pressure x2 days HPI Cough and Congestion: - Onset of cough, congestion, and sinus pressure x2 days. - Denies history of sinus infections; occasionally experiences sinus pressure that usually resolves spontaneously. - Current episode of sinus pressure is more pronounced, with tenderness behind the eyes and in the forehead. - Increased postnasal drip causing cough; feels drainage is more than usual. - Denies dyspnea, fever, or chills. - Allergic to doxycycline. Review of Systems Constitutional: (-) fever, (-) chills Head: (+) sinus pressure Ears/Nose/Mouth/Throat: (+) nasal congestion, (+) postnasal drainage Respiratory: (+) cough, (-) shortness of breath Objective BP 122/82 Pulse 87 Temp 37 ?C (98.6 ?F) Resp 18 Wt 60.2 kg (132 lb 11.5 oz) LMP 07/27/2006 SpO2 97% BMI 24.27 kg/m? Physical Exam General: No acute distress. HEENT: Ears normal, oropharynx without erythema or swelling, postnasal drainage observed. CV: Heart sounds normal. Resp: Lung sounds clear. {1. Rhinosinusitis (J32.9) - Symptoms include cough, congestion, and sinus pressure for 2 days; no history of frequent sinus infections. - Physical exam reveals significant post-nasal drainage, but no tenderness in cheeks or forehead; lungs and heart auscultation normal, ears and throat appear normal. - Differential diagnosis includes bacterial sinusitis due to increased mucus and drainage. - Prescribed Augmentin BID for 7 days; advised to take with food to prevent gastrointestinal upset. - Recommended concurrent use of Claritin to help dry up mucus. - Discussed option to try Claritin for a couple of days before starting antibiotic, but patient prefers to initiate antibiotic treatment immediately. - Educated on risks of untreated drainage potentially leading to pneumonia. - Patient understands and agrees with the treatment plan. and Recording using [employer] software for draft documentation of the visit was discussed with the patient/authorized real estate representative; all questions welcomed and answered. Patient/authorized real estate representative agreed to proceed MDM Procedures Allergies As of Date: 08/14/2024 Noted Allergy Reaction DOXYCYCLINE 04/06/2005 LATEX, NATURAL RUBBER 08/28/2012 9 - Itching SULFA (SULFONAMIDE ANTIBIOTICS) 04/06/2005 Date Reviewed: 08/14/2024 Reviewed by: Sheri Garcai MA - Fully Assessed Reason for Visit: Cough [28] Cmt: Chest and sinus congestion, sinus pressure x2 days Primary Visit Diagnosis:Rhinosinusitis [J32.9] Order(s):amoxicillin-clavu lanate potassium (AUGMENTIN) 875-125 mg per tabletTake 1 tablet by mouth two times a day for 7 days.Disp: 14 tabletRfl: 0 Prescriptions as of 08/14/2024 - amoxicillin-clavulanate potassium (AUGMENTIN) 875-125 mg per tablet Take 1 tablet by mouth two times a day for 7 days. - betamethasone valerate 0.1 % ointment Use a pea-sized amount-once daily for up to 2 weeks prn flares - omeprazole (PRILOSEC) 20 mg capsule Take 1 capsule by mouth once daily. - atorvastatin (LIPITOR) 20 mg tablet Take 1 tablet by mouth every other day. - albuterol HFA (PROVENTIL HFA, VENTOLIN HFA) 90 mcg/actuation inhaler Inhale 2 Puffs as instructed every 4 hours as needed. - MAGNESIUM ORAL Take by mouth once daily. - vitamin E, dl,tocopheryl acet, (VITAMIN E, DL, ACETATE,) 180 mg (400 unit) capsule Take by mouth. - calcium carbonate (CALCIUM 600 ORAL) Take by mouth. - cholecalciferol, vitamin D3, (VITAMIN D3 ORAL) Take by mouth. 5000 daily - fluticasone (FLONASE) 50 mcg/actuation nasal spray Use 2 Sprays in each nostril once daily. Rinse mouth after use. Problem List As Of Date 08/14/2024 Noted Resolved Hemorrhage of rectum and anus [K62.5] 03/10/2006 05/21/2013 Hemorrhage of gastrointestinal tract, unspecifi*03/31/2006 05/21/2013 Dyspareunia [[id number]] 06/27/2007 05/21/2013 Unspecified symptom associated with female vicky*06/27/2007 05/21/2013 ATROPHIC VAGINITIS [N95.2] 06/27/2007 Symptomatic menopausal or female climacteric st*06/27/2007 05/21/2013 Psoriasis [L40.9] Hyperlipidemia [E78.5] Lichen sclerosus [L90.0] 05/21/2013 Osteoporosis [M81.0] 01/06/2021 Liver cyst [K76.89] 07/06/2021 Hepatic fibrosis [K74.00] 07/06/2021 Frontal headache [R51.9] 07/06/2021 Gastroesophageal reflux disease without esophag*07/06/2021 Prescriptions ordered this en (more content not included)... Normal [facility] CNOVon 02-06-2024 CNOV Office Visit (INTMWS ) -- CIERRA MARMOLEJO ([id number]) 1955 F Date Time Provider Department 02/06/24 4:20 PM GEO AVILA INTMWS During your visit today, we recorded the following information about you: Geo Avila MD 02/06/2024 7:13 PM Addendum This note was created using ZowPow. Subjective Cierra Marmolejo is a 68 year old female. No chief complaint on file. SUBJECTIVE: Cierra Marmolejo is a 68 year old year old lady here today for same day appointment for review of medical conditions: skin irritation where bra strap. - Had skin lesion on the right removed by Dr. Nichols a couple months ago that was getting irritated along bra strap area - Dr. Nichols at [place] also noted she had a wart forming along bra strap area - compound W gel - Black specks removed from lesion, nothing today, was possibly from bra strap foam coming out of the bra - Daughter noted her back was red from irritation and some bleeding after removing black specks from the lesion - Denies changes in soaps, lotions, detergents - Denies itchiness, fevers, chills, drainage, no bubbling when peroxide was applied to the lesion Cierra Marmolejo is a 68-year-old female presenting for a CMD appointment due to skin irritation where her bra strap rubs. Cierra reports skin irritation in the area where her bra strap rubs. On 11/07/23, she was evaluated by Dr. Dottie Nichols for a skin lesion on her back that was getting caught in her bra strap. On 11/20, a procedure was performed to remove a 0.6 cm skin tag, which included a section of subcutaneous tissues and suture placement. Pathology results confirmed the lesion was benign. Recently, Cierra noticed a new lesion near the site of the previous removal, which she described as more wart-like. She applied Compound W, resulting in irritation, erythema, and minor bleeding. She also observed black specks, likely from her bra, adhering to the wound during the healing process. She denies pain, signs of infection, abscess formation, or fluctuance. PAST MEDICAL HISTORY Diagnosis Date DIVERTICULOSIS COLON - NO HEMORRHAGE 03/31/2006 Hemorrhage of gastrointestinal tract, unspecified HEMORRHOIDS INTERNAL 03/31/2006 Hyperlipidemia Intramural leiomyoma of uterus 03/09/06 LEIOMYOMATA UTERUS INTRAMURAL Other and unspecified ovarian cyst 03/09/06 complex cyst of the right ovary Papanicolaou smear of cervix with atypical squamous cells of undetermined significance (ASC-US) 01/20/06 noted negative hpv at same time POLYP COLON 03/31/2006 Psoriasis Umbilical hernia without mention of obstruction or gangrene 03/17/06 UMBILICAL HERNIA W/O GANGRENE/OBSTRUCTION Current Outpatient Medications Medication Sig betamethasone valerate 0.1 % ointment Use a pea-sized amount-once daily for up to 2 weeks prn flares omeprazole (PRILOSEC) 20 mg capsule Take 1 capsule by mouth once daily. atorvastatin (LIPITOR) 20 mg tablet Take 1 tablet by mouth every other day. albuterol HFA (PROVENTIL HFA, VENTOLIN HFA) 90 mcg/actuation inhaler Inhale 2 Puffs as instructed every 4 hours as needed. MAGNESIUM ORAL Take by mouth once daily. vitamin E, dl,tocopheryl acet, (VITAMIN E, DL, ACETATE,) 180 mg (400 unit) capsule Take by mouth. calcium carbonate (CALCIUM 600 ORAL) Take by mouth. cholecalciferol, vitamin D3, (VITAMIN D3 ORAL) Take by mouth. 5000 daily fluticasone (FLONASE) 50 mcg/actuation nasal spray Use 2 Sprays in each nostril once daily. Rinse mouth after use. (Patient taking differently: Use 2 Sprays in each nostril as needed. Rinse mouth after use.) No current facility-administered medications for this visit. Review of Systems Objective LMP 07/27/2006 Physical Exam Constitutional: Appearance: Normal appearance. HENT: Head: Normocephalic and atraumatic. Pulmonary: Effort: Pulmonary effort is normal. Skin: General: Skin is warm and dry. Comments: - Red, erythematous, dry, irritated abrasion (see location on back) Neurological: Mental Status: She is alert. Assessment and Plan # Skin lesion of back (L98.9) - Lesion located near the site of a previous excision by Dr. Dottie Nichols on 11/20, which was benign. - Current lesion appears wart-like; patient attempted treatment with Compound W, resulting in irritation and erythema. - No tenderness, signs of infection, or abscess formation observed; lesion is not fluctuant. - Applied Tegaderm dressing to protect the wound from friction and facilitate healing. - Advised patient to monitor the lesion and report any signs of infection or if healing does not progress as expected. TEACHING PROVIDER (Physician/PA/MESERET) NOTE OF PERSONAL INVOLVEMENT IN CARE: I have personally seen and examined the patient and performed the medical decision-making components. I have reviewed the Medical Student's documentation and verified the findings in the note as writte (more content not included)... Normal [facility] SURGICAL PATHOLOGYOrdered By : Estela French on 11-22-2023 Case Report Surgical Pathology R eport Case: [id number] Authorizing Provider: Bev Nichols MD Collected: 11/21/2023 09:16 AM Ordering Location: General Surgery Received: 11/21/2023 03:23 PM Pathologist: Estela French MD Specimen: Skin Lesion/Soft Tissue Ulcer (Specify site in comment), right back [facility] Work Phone: Clinical History q5mzkKJbUDRxt5kfEMDh bGFuZz GmCrAaJcHqLim5DKMrtvK1Zim2 FFKmBYuujX4vAHLgIEldZ6fbby LdlLRoUATlQPg3iX4ngOtvoN9f YwKcPmTwGJEar2juIOxhk2djjy rdCCPoV53waFEfbKhwuvbcnCNj NgAso1uoWXYanH== [facility] Work Phone: FINAL DIAGNOSIS h4kgjGKgQIPwvRAeFLfo Mlxhbn XiFEBjsTMaT6SbmvkvZHxhEH1e EF7xeErohIUqiHCtNQYcCfUhj2 hmj597cDUkl8ajRYDXzajfsLu2 sJpjA78bn9N4ZqkoG60jnXTrOY F9NYRgZKSwhYHeDRHtJNV8KDXn kXOaB9hxSJOlEG7hgqtiWRxxSV bpAYHzkHG9UITgzWEdZ1YfHLRc FHthEXOrzee3KuThSn3veQKkkX cyMFxwYXJkXHBsYWluXGZzMjAg FY8zT7bpzswvtujwsVJhKfSyrb niLJmyzIPyy428WGQugrJrWqW7 fk2wpMEwu96vFxbcESL0 [facility] Work Phone: Gross Description h8yvsHWdIACedBVQGMN2 MDFcYW 9wsFtaaXk8fHwuKYPsyoO0gQRp SPpgj7gtGZE7w3ceivIABcjgMD ZbFI1vPVycBPXoGL4aTgUxNITx ZmYxXHBhcGVydzEyMjQwXHBhcG EqpYE3JNVcEI4vjfesQUbuKFna QITmqoE3SBQkrIOeG3TsVPBaVV 7pzzhfEAV5KVSYYvleMc2fnNSw bHtcZjFcZmNoYXJzZXQwXGZzd2 gzrkLVtgzijJf5sA2YYRQxO2Ep HX0Ko0eaSBDkuHFpNPT6SXedq3 qeMEcrYCR1MKNuGZJxUKTmYA6U HwGxBOl6BDGhTIrhBcP8VGn7OK XSFCSmCHB3QEJuUsybHLk4NLyi XFxuaCBcXHQgMSBcXGZsIFxcbm G6r8heCDEtsSRiFBQ5CTixj0mw WGoxXAT6DAFcMiYkCRUpCB3LTa HeFTr1HAQuQVhdYdY4APp8UKBS ZkXlQrXxSOtfMJXtJnJhEQj2EK p7HPdVCnZfEbliGFh5ZZZ1LLK6 NDQxMCBcXHQgMiBcXHNzIDMgXF qpyNFaQQ3pyIonXNSgRZ7PZUFg UXulVXGkUlFlFZ9nP3kbruEUFD Pet74oS52qxVDPsAGuuAKhISyt JMNiPNGbNXRgEhjzj0p4UUWwcf Rzl51vPS11SMlteMOhuVduTROq DQpccGFyZCANClxwbGFpblxsdH QvsCxyamJrNRYhiCRBNNT0DG9u MSANClxsdHJwYXIgDQpcZnMyMC WYAAJtjHPaFCSpcsOoo6JmPJor mcZcrvInutZ5kr0eaXOtgPZkYJ ZajNiblOnsOGljy5ZscREhnKCw KxYhg5joUHRfEDLqaY1bxUPmDT V8ErP0lXHkXP66luI1zERsxIZm wQWdx9CnvY2yMYLeIMT0VXBiOK L3GTMuUEBfxS4eUPbvOSTuwSma NTKvv0ovMRK3ipToK0TmBYUsl4 5zdHJhdGVzIGFuIGlycmVndWxh pkV1AD8jEBuyrbX4OVKjNGN0Hd BpwdljAOCrGX8vMVrrPD2cbfwf zuWdLQKrTPcab8DxLKGlOHDyGq WMqNZlp4DkO4wlXF5nfWOeJayp JFP8WYEnKEZtyNRzyJzyx4OhtF y8iUXoUPggAE8bRDPaZPAhLDM1 XF0pCYMwcvNNHeliQNQdYVwHcu 5rejMxeAOwvA4tcDsrqrPvWYDi r9AvVOHtEUVdT3bstcIsGW8nRP YdqN0wUqkyLGRvOFZOvBPqeTLh NJIiWuqoG9rozjWjKP1bSOFULF E9GNW3QLwzFVNzKQvfbSDuEW5Y TQFoYdRuDKGvY5inVFVlOC2ZKh LUKIEjFoU4GbRfCzHxNUx9CJCB GZ9YFIIzwWCTNIE3PU8zXNeaBR KcF9OoM1ZyjeW9t5twlOnla1Va eCAyYK0tlDDyUL7PJPIauaQgLR pcZnMyMiANCn0= [facility] Work Phone: Performing Lab g6zqaFUoIBWlzMCuEkEm MDAwXG Kqn9kfTNWnyCKzUpFpUdYuLaEh XgjavTBjWPYjZgCoe8gmr418uS Zat2qdBPFmPtV5mOCeCHJrkWKd I794MUOjMPfcd1blj2YzTZTjkF Dma0O3WBMXfwjtcSg8jYssW56u c0L4AbdgO0wsUQJmXXRyK1TyXX 2yVEIaHpb1JNN6PCM4XZRkBQXx M1UpUN4dLKFofYGbDFn6m5nywQ hnIIEqVNW8h0whJGptqqAoQW0n qd5jvMm0q6vyriPoBGAbKISvdV DEVYKtG5KfeTuqSz1ddFj4gRse ZvuuOPB5Hog8MP2dzq61nqw8eJ zsMYJbboqiTzM9SMciVTCcjmvj LOk2ZMhkJGEovCX4SBRxmYZhF0 EwBPxyJP2ghdi3ITA3OJhcWDZv HwW9GWYdaZFcLOGxrFzlPPurg9 46PDF9InAgZD7qM5Jze6T5eP5x cGLqXSPtvEMaDdHzZQIkwu8paS WrLGiay5CkPWG0dyF3tABwjMCu HGPuGP38Qgroa2OpVaykt4YdA2 6whGP2QWgal7bhQL2cUdQ0kuLj GNuge2ownT4fYvM5XGzmQN9xWX 9zCRGvrY5fbkmbJVXqNxTcxswb YXSwgMmnmiBkJc1ziHueVEH0ZX cjQ9oklR4fDwZ0XBcdE8miwO5h FBr5OUydcCU0GGSobU1mBH2zse cyy9xvEPlsVApjEVCwxbN9bxJj ZFTdtTFlA8DglO1zMYBfVI6fiv ltz7gvXHE3SYwhOEKoEHT7MkKy ETRcw3Ekkey9MtKsh0GcpMJyAY giI62by351MBUifpQdY3diyJXy khenkQFsnmecTBsbfrX4VATiQV BsYWluXGYxXGZzMjBcbGFuZzEw MzNcaGljaFxmMVxkYmNoXGYxXG dtR7rfUsWqCnIuHOJSkBQalm9o eJkcJZbpzIWczQIgzSX1uV0fVP TtwrEgam7iVNQhhYUIeHK2AFrk bmEkC6bpsggbNPQ9UUEtQXG2M8 xpZCBBdmUsIENsZXZlbGFuZCBP CNC6FEC5RSSrOOAWNYRuTRQ5FX J8AZQqOIDahBXfMBNhctlxFPGn XHBsYWluXGYwXGZzMjRccGxhaW 1nRmOkOoLlHXcyVW6dIBAzW8xy zUZnDNBoLLMtY7ggYoVsvS7hrP xmMVxjZjJcZnMyMFxsdHJjaCBM KGVgloO4t6V6WQrtdJXxiotkKD qpmmRgJXllpfhkCCOwOMeiX6tk RqVfXODmaWwdYHseb1CtZYOwED SaPnLbRFngGPQ5p2C5RHcboXUe lzLUDxIUZQ8soLQfggsnZU7WOd xwbGFpblxmMVxmczIyXGxhbmcx BVYwQVtwG5hkQgYuDGDegJxeDN jnk6KvHXZlDXBwLeMigQTgxL== [facility] Work Phone: [facility] Work Phone: DBT Breast - bilateral diagn ostic for implanton 08-30-2023 * * *Final Report* * * DATE OF EXAM: Aug 30 2023 11:06AM [facility] 0627 - LUIS DIAG W KIMBERLY NADYA / PROCEDURE REASON: Mass of upper outer quadrant of right breast * * * * Physician Interpretation * * * * RESULT: #[id number] - LUIS DIAG W KIMBERLY NADYA BILATERAL DIGITAL DIAGNOSTIC MAMMOGRAM TOMOSYNTHESIS WITH CAD: 08/30/2023 HISTORY: Lump rt breast for couple of months nki no redness pain swelling discharge /priors available for comparison Mass Of Upper Outer Quadrant Of Right Breast. RESULT: TECHNIQUE: The study was acquired using full field digital technology and interpreted from soft copy. Digital Breast Tomosynthesis (DBT) images were obtained and used to assist in the interpretation of this examination. Current study was also evaluated with a Computer Aided Detection (CAD). Comparison is made to exam dated: 11/04/2022 [facility]. There are scattered areas of fibroglandular density. No significant masses, calcifications, or other findings are seen in either breast. DIVISION OF RADIOLOGY Provider, [facility] - 08/30/2023 * * *Final Report* * * DATE OF EXAM: Aug 30 2023 11:06AM [facility] 0627 - LUIS DIAG W KIMBERLY NADYA / PROCEDURE REASON: Mass of upper outer quadrant of right breast * * * * Physician Interpretation * * * * RESULT: #[id number] - LUIS DIAG W KIMBERLY NADYA BILATERAL DIGITAL DIAGNOSTIC MAMMOGRAM TOMOSYNTHESIS WITH CAD: 08/30/2023 HISTORY: Lump rt breast for couple of months nki no redness pain swelling discharge /priors available for comparison Mass Of Upper Outer Quadrant Of Right Breast. RESULT: TECHNIQUE: The study was acquired using full field digital technology and interpreted from soft copy. Digital Breast Tomosynthesis (DBT) images were obtained and used to assist in the interpretation of this examination. Current study was also evaluated with a Computer Aided Detection (CAD). Comparison is made to exam dated: 11/04/2022 [facility]. There are scattered areas of fibroglandular density. No significant masses, calcifications, or other findings are seen in either breast. IMPRESSION IMPRESSION: INCOMPLETE: NEED ADDITIONAL IMAGING EVALUATION There is no abnormality seen in the right breast to correspond with the palpable abnormality, however, ultrasound is recommended. Mega escalante:08/30/2023 11:09:50 Glass Tube Bender(s): RT Tristan(R)(M), [facility] Mammogram BI-RADS: Category 0: Incomplete: Need Additional Imaging Evaluation Multiple national specialty organizations have released breast cancer screening guidelines for women at average risk for developing breast cancer - guidelines that are based on both evidence and opinion, yet differ on when to start and how often to screen for breast cancer. With representation from Breast Imaging, Internal Medicine, Women's Health, Family Medicine, and Medical/Surgical Oncology, the [facility] has carefully reviewed the data and reached the following consensus: 1) All women should engage in shared decision-making with their providers to decide when to start and how often to screen; 2) All women should have the opportunity to start screening mammography at age 40; 3) For women ages 45-55, we recommend annual screening mammograms; 4) For women ages 55 and over, we support both the transition from an annual to a biennial interval if this aligns more with patient's values and preferences, or continuation with annual screening; 5) All women should discuss with their providers when to stop screening mammograms. Cooker Pie Filling: Deb Transcribe Date/Time: Aug 30 2023 10:40A Dictated by: MEGA VENTURA MD This examination was interpreted and the report reviewed and electronically signed by: MEGA VENTURA MD on Aug 30 2023 11:09AM EST [facility] DBT Breast - bilateral diagn ostic for implantOrdered By: Ccf Provider on 08-30-[address] [facility] No Panel Informationon 08-29 Radiology Study observation (narrative) [facility] US Breast - right limitedon 08-30-2023 IMPRESSION: SUSPICIO US The 0.8 cm x 0.5 cm x 0.6 cm oval mass in the right breast is suspicious of malignancy. An ultrasound guided biopsy is recommended. Negative right axillary ultrasound. Mega escalante:08/30/2023 11:26:01 Glass Tube Bender(s): Rebeca Rodriguez, [facility] Ultrasound BI-RADS: Category 4: Suspicious Multiple national specialty organizations have released breast cancer screening guidelines for women at average risk for developing breast cancer - guidelines that are based on both evidence and opinion, yet differ on when to start and how often to screen for breast cancer. With representation from Breast Imaging, Internal Medicine, Women's Health, Family Medicine, and Medical/Surgical Oncology, the [facility] has carefully reviewed the data and reached the following consensus: 1) All women should engage in shared decision-making with their providers to decide when to start and how often to screen; 2) All women should have the opportunity to start screening mammography at age 40; 3) For women ages 45-55, we recommend annual screening mammograms; 4) For women ages 55 and over, we support both the transition from an annual to a biennial interval if this aligns more with patient's values and preferences, or continuation with annual screening; 5) All women should discuss with their providers when to stop screening mammograms. Cooker Pie Filling: Deb Transcribe Date/Time: Aug 30 2023 11:06A Dictated by : MEGA VENTURA MD This examination was interpreted and the report reviewed and electronically signed by: MEGA VENTURA MD on Aug 30 2023 11:26AM [facility] DIVISION OF RADIOLOGY * * *Final Report* * * DATE OF EXAM: Aug 30 2023 11:16AM [id number] - [facility] BREAST LTD RT / PROCEDURE REASON: Mass of upper outer quadrant of right breast * * * * Physician Interpretation * * * * #[id number] - [facility] BREAST [facility] RT LIMITED ULTRASOUND OF RIGHT BREAST: 08/30/2023 HISTORY: Mass Of Upper Outer Quadrant Of Right Breast. RESULT: No prior exams were available for comparison. Color flow and real-time ultrasound of the right breast were performed. Lebron scale images of the real-time examination were reviewed. There is a 0.8 cm x 0.5 cm x 0.6 cm oval mass with a circumscribed margin in the right breast at 12 o'clock posterior depth. This oval mass is hypoechoic with internal echoes. This correlates as palpated. Color flow imaging demonstrates that there is no vascularity present. Directed ultrasound of the right axilla was negative. DIVISION OF RADIOLOGY Provider, [facility] - 08/30/2023 * * *Final Report* * * DATE OF EXAM: Aug 30 2023 11:16AM [id number] - [facility] US BREAST LTD RT / PROCEDURE REASON: Mass of upper outer quadrant of right breast * * * * Physician Interpretation * * * * #[id number] - [facility] US BREAST LTD RT LIMITED ULTRASOUND OF RIGHT BREAST: 08/30/2023 HISTORY: Mass Of Upper Outer Quadrant Of Right Breast. RESULT: No prior exams were available for comparison. Color flow and real-time ultrasound of the right breast were performed. Lebron scale images of the real-time examination were reviewed. There is a 0.8 cm x 0.5 cm x 0.6 cm oval mass with a circumscribed margin in the right breast at 12 o'clock posterior depth. This oval mass is hypoechoic with internal echoes. This correlates as palpated. Color flow imaging demonstrates that there is no vascularity present. Directed ultrasound of the right axilla was negative. IMPRESSION IMPRESSION: SUSPICIOUS The 0.8 cm x 0.5 cm x 0.6 cm oval mass in the right breast is suspicious of malignancy. An ultrasound guided biopsy is recommended. Negative right axillary ultrasound. Mega arora/deb:08/30/2023 11:26:01 Glass Tube Bender(s): Rebeca Rodriguez [facility] Ultrasound BI-RADS: Category 4: Suspicious Multiple national specialty organizations have released breast cancer screening guidelines for women at average risk for developing breast cancer - guidelines that are based on both evidence and opinion, yet differ on when to start and how often to screen for breast cancer. With representation from Breast Imaging, Internal Medicine, Women's Health, Family Medicine, and Medical/Surgical Oncology, the [facility] has carefully reviewed the data and reached the following consensus: 1) All women should engage in shared decision-making with their providers to decide when to start and how often to screen; 2) All women should have the opportunity to start screening mammography at age 40; 3) For women ages 45-55, we recommend annual screening mammograms; 4) For women ages 55 and over, we support both the transition from an annual to a biennial interval if this aligns more with patient's values and preferences, or continuation with annual screening; 5) All women should discuss with their providers when to stop screening mammograms. Cooker Pie Filling: Deb Transcribe Date/Time: Aug 30 2023 11:06A Dictated by : MEGA VENTURA MD This examination was interpreted and the report reviewed and electronically signed by: MEGA VENTURA MD on Aug 30 2023 11:26AM EST [facility] US Breast - right limitedOrd ered By: Ccf Provider on 08-30-[address] [facility] CT LIVER W IVCONon [facility] ALPHA FETOPROTEIN BLon 12-23 AFP [Mass/Vol] 3.1 ng/mL <11.0 ng/mL [facility] CA 19-9 BLDon 12-23-2022 Cancer Ag 19-9 Qn 7.0 [arb'U]/mL <36.0 U/mL [facility] HEPATITIS A ANTIBODY, IGGon 12-23-2022 HAV IgG Ql (S) Negative [facility] PT panel Coag (PPP)on 2022 INR Coag (PPP) [Relative time] 1.0 {INR} 0.9 - 1.[address] [facility] PT Coag (PPP) [Time] 10.2 s 9.7 - 1 3.[address] [facility] LUIS SCREENINGon 11-04-[address] [facility] Absolute lymphocyte countOrd ered By: Dr. Fernandez on 06-28-2022 Lymphocytes Auto (Unsp spec) [#/Vol] 2.94 10*3/uL 0.83-4.51 [facility] Basophil percentageOrdered B y: Dr. Fernandez on 06-28-2022 Basophils/100 WBC (Bld) 0.5 % 0-1 [facility] Chloride [Moles/Vol] 110 mmol/L 98-107 [facility] Eosinophils/100 WBC (Bld) 2.2 % 0-5 [facility] Glucose [Mass/Vol] 101 mg/dL 74-106 [facility] Comment on above: Fasting Glucose resu lt from 100 to 125 mg/dL suggests IMPAIRED HOMEOSTASIS per A.D.A. criteria. Neutrophils (Bld) [#/Vol] 2.4 10*3/uL 2.0-7.7 [facility] Neutrophils/100 WBC (Bld) 40.2 % 47-70 [facility] Potassium [Moles/Vol] 3.4 mmol/L 3.5-5.1 [facility] Sodium [Moles/Vol] 142 mmol/L 136-145 [facility] WBC (Bld) [#/Vol] 6.0 10*3/uL 4.4-11.0 [facility] Blood erythrocytes count (nu mber/volume)Ordered By: Dr. Fernandez on 06-28-2022 RBC (Bld) [#/Vol] 4.52 10*6/uL 4.2-5.4 [facility] Blood hemoglobin measurement (mass/volume)Ordered By: Dr. Fernandez on 06-28-2022 Hemoglobin (Bld) [Mass/Vol] 13.4 g/dL 12.0-15.0 [facility] Blood lymphocytes/100 leukoc ytesOrdered By: Dr. Fernandez on 06-28-2022 Lymphocytes/100 WBC (Bld) 49.2 % 19-41 [facility] Blood monocytes/100 leukocyt esOrdered By: Dr. Fernandez on 06-28-2022 Monocytes/100 WBC (Bld) 7.7 % 0-10 [facility] Blood platelet mean volumeOr dered By: Dr. Fernandez on 06-28-2022 Platelet mean volume (Bld) [Entitic vol] 9.6 fL 6.2-12.0 [facility] Determination of erythrocyte mean corpuscular volume (MCV)Ordered By: Dr. Fernandez on 06-28-2022 MCV (RBC) [Entitic vol] 86.9 fL 81-99 [facility] Hematocrit Auto (Bld) [Volum e fraction]Ordered By: Dr. Fernandez on 06-28-2022 Hematocrit (Bld) [Volume fraction] 39.3 % 37-47 [facility] Laboratory - Chemistry and C hemistry - challengeOrdered By: Dr. Fernandez on 06-28-2022 CO2 [Moles/Vol] 28.0 mmol/L 21.0-32.0 [facility] Urea nitrogen/Creatinine [Mass ratio] 27.0 mg/mg 10-20 [facility] - Hematology and Cell countsOrdered By: Dr. Fernandez on 06-28-2022 Erythrocyte distribution width (RBC) [Entitic vol] 40.5 fL 35.1-43.9 [facility] Erythrocyte distribution width (RBC) [Ratio] 12.7 % 11.6-14.6 [facility] Immature granulocytes/100 WBC (Bld) 0.200 % 0.0-0.9 [facility] Comment on above: IG% - Immature Granu locytes (promyelocytes, myelocytes and metamyelocytes) > 1% indicates that a LEFT SHIFT is Present. MCH (RBC) [Entitic mass] 29.6 pg 27.0-32.0 [facility] Nucleated RBC/100 WBC (Bld) [Ratio] 0 % 0-5 [facility] MCHC Auto (RBC) [Mass/Vol]Or dered By: Dr. Fernandez on 06-28-2022 MCHC (RBC) [Mass/Vol] 34.1 g/dL 32-36 [facility] No Panel InformationOrdered By: Dr. Fernandez on 06-28-2022 Estimated GFR (MDRD) Amer 101 mL/min >60 [facility] Comment on above: GFR Calc Estimated GFR (MDRD) Non-Af Amer 83 mL/min >60 [facility] Comment on above: Non- GFR Calc Platelets bldOrdered By: Dr. Fernandez on 06-28-2022 Platelets (Bld) [#/Vol] 229 10*3/uL 150-450 [facility] Serum or plasma calcium aleshia urement (mass/volume)Ordered By: Dr. Fernandez on 06-28-2022 Calcium [Mass/Vol] 9.0 mg/dL 8.5-10.1 [facility] Serum or plasma creatinine m easurement (mass/volume)Ordered By: Dr. Fernandez on 06-28-2022 Creatinine [Mass/Vol] 0.74 mg/dL 0.55-1.02 [facility] Comment on above: The validity of the calculated GFR & GFRAA in patients over 70 years has not been determined. Clinical correlation is essential. Serum or plasma urea nitroge n measurement (mass/volume)Ordered By: Dr. Fernandez on 06-28-2022 Urea nitrogen [Mass/Vol] 20 mg/dL 7-18 [facility] Thin prep Papanicolaou smear with manual screeningOrdered By: Dr. 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 All medical record entries made by the Scribe were at my direction and personally dictated by me. I have reviewed the chart and agree that the record accurately reflects my personal performance of the history, physical exam, discussion and plan. Chief Complaint Right wrist pain History of Present Illness 66-year-old [id number] female presents today for evaluation of longstanding pain along the dorsal radial aspect of the wrist and at the base of the thumb. No preceding trauma. She has not had any formal prior work-up or treatment. She has attempted to manage her symptoms with activity modifications and occasional [id number] medications. Patient's self reported past medical history, medications, allergies, surgical history, family and social history as well as a 10 point review of systems has been documented in the new patient intake form and scanned into the patient's electronic medical record. Pertinent findings are documented in the HPI. Physical Examination Findings: Constitutional: Appears well-developed and well-nourished. Head: Normocephalic and atraumatic. Eyes: Pupils are equal and round. Cardiovascular: Intact distal pulses. Respiratory: Effort normal. No respiratory distress. Neurologic: Alert and oriented to person, place, and time. Skin: Skin is warm and dry. Hematologic / Lymphatic: No lymphedema, lymphangitis. Psychiatric: normal mood and affect. Behavior is normal. Musculoskeletal: Right upper extremity examination reveals absence of any significant swelling, skin change or deformities. She has near symmetric bilateral wrist flexion and extension. Full forearm rotation. Full digital flexion. No triggering. Subjectively normal sensation. No tenderness over the radial styloid or radiocarpal joint. She does have mild tenderness dorsally over the STT joint. More significant pain with palpation and manipulation of the thumb CMC joint. Review of x-rays right wrist obtained today demonstrate advanced STT joint arthritis with near ankylosis and thumb CMC joint arthritis with joint space narrowing and osteophyte formation. Impression: Pantrapezial arthritis right wrist. Plan: We have discussed this condition. Treatment recommendations are for conservative management. We provided her with a Comfort Cool splint which she found very supportive. I recommend the use of anti-inflammatory medications, topical analgesics and other supplementation with CBD and/or turmeric. I have offered her a steroid injection into the CMC joint today. Procedure Note: Risks and benefits of steroid injection discussed with patient. Risks include but are not limited to: pain, infection, allergic reaction to injected medications, changes in the color or appearance of the skin near the location site and along lymphatic drainage pathway, lack of response, cartilage damage, ligament / tendon rupture, and glycemic control issues in diabetic patients. Patient expresses understanding of risks and elects to proceed. Verbal consent was provided and a time out procedure was performed to confirm the appropriate injection location. Using aseptic technique 20 mg triamcinolone and 0.5 cc 1% lidocaine were injected into the right thumb CMC joint. The patient tolerated the injection well. Post injection instructions were provided. 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 The patient has weakness, instability and/or deformity of their right wrist which requires stabilization from this orthosis to improve their function. Verbal and written instructions for the use, wear schedule, cleaning and application of this item were given. Patient was instructed that should the brace result in increased pain, decreased sensation, increased swelling, or an overall worsening of their medical condition, to please contact our office immediately. Orthotic management and training was provided for skin care, modifications due to healing tissues, edema changes, interruption in skin integrity, and safety precautions with the orthosis. Return as needed for recurrence or progression of problems . Jose Juan Adams MD Diazo Technician [facility] [employer] Department of Orthopaedic Surgery Chief of Hand and Upper Extremity Surgery [facility] Dictation performed with the use of voice recognition software. Syntax and grammatical errors may exist. Active Problems Problems Pain (780.96) (R52) Signatures Electronically signed by : Jose Juan Adams MD; Jun 01 2022 9:27PM EST (Author) Normal [facility] 06-01-2022 XR Wrist - bilateral 3 Views Normal [facility] Work Phone: WRIST COMPLT; MIN 3 VIEWSon 06-01-2022 WRIST COMPLT; MIN 3 VIEWS Patient Name: CIERRA MARMOLEJO STUDY: WRIST COMPLT; MIN 3 VIEWS; 06/01/2022 2:23 pm INDICATION: Pain R52: Pain. COMPARISON: None. ACCESSION NUMBER(S): [id number] ORDERING CLINICIAN: JOSE JUAN ADAMS TECHNIQUE: 4 radiographs of the right wrist were performed. FINDINGS: There is severe osteoarthritic changes at the triscaphe joint to lesser extent the 1st CMC joint. There are no bone erosions. There is some widening of the scapholunate interspace measuring 5 mm. There is no acute fracture or dislocation. There is no bone destruction or aggressive periosteal reaction. The carpal alignment is unremarkable. There is no bone erosion. 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 There are no bone erosions. Osteopenia. Borderline widening of the lunotriquetral joint. Underlying ligament injury can not be excluded. The carpal alignment is within normal limits. Electronically signed by: MARCI MUNIZ MD Normal [facility] Absolute lymphocyte counton 06-09-2021 Lymphocytes Auto (Unsp spec) [#/Vol] 2.37 10*3/uL 0.83-4.51 [facility] Work Phone: Atypical perinuclear antineu trophil cytoplasmic antibodies measurementon 06-09-2021 Neutrophil cytoplasmic Ab.perinuclear.atypica l IF (S) [Titer] <1:20 titer Neg:<1:20 [facility] Work Phone: Comment on above: The atypical pANCA p attern has been observed in asignificant percentage of patients with ulcerative colitis,primary sclerosing cholangitis and autoimmune hepatitis. Basophil percentageon 2021 Ammonia (P) [Moles/Vol] 17.0 umol/L 11-32 [facility] Work Phone: Amylase [Catalytic activity/Vol] 51 U/L 25-115 [facility] Work Phone: Basophil percentage < 0.2 AI 0.0-0.9 [facility] Work Phone: Basophils/100 WBC (Bld) 0.2 % 0-1 [facility] Work Phone: Bilirubin [Mass/Vol] 0.60 mg/dL 0.20-1.00 [facility] Work Phone: Comment on above: For patients on eltr ombopag therapy, use of Dimension Ranger TBIL is not recommended. Chloride [Moles/Vol] 110 mmol/L 98-107 [facility] Work Phone: Cholesterol [Mass/Vol] 240 mg/dL <200 [facility] Work Phone: Comment on above: <200 mg/dL Desirable 200-240 mg/dL Borderline >240 mg/dL High Risk Eosinophils/100 WBC (Bld) 2.2 % 0-5 [facility] Work Phone: Glucose [Mass/Vol] 98 mg/dL 74-106 [facility] Work Phone: Neutrophils (Bld) [#/Vol] 2.6 10*3/uL 2.0-7.7 [facility] Work Phone: Neutrophils/100 WBC (Bld) 46.7 % 47-70 [facility] Work Phone: [phone] Potassium [Moles/Vol] 3.8 mmol/L 3.5-5.1 [facility] Work Phone: Protein [Mass/Vol] 7.6 g/dL 6.4-8.2 [facility] Work Phone: Sodium [Moles/Vol] 142 mmol/L 136-145 [facility] Work Phone: Triglyceride [Mass/Vol] 108 mg/dL <199 [facility] Work Phone: Comment on above: The drugs N-Acetylcy steine and Metamizole may falsely depress this assay.Serum Triglycerides Reference Interval Normal <150 mg/dL Borderline high 150 - 199 mg/dL High 200 - 499 mg/dL Very High > or = 500 mg/dL WBC (Bld) [#/Vol] 5.5 10*3/uL 4.4-11.0 [facility] Work Phone: Blood erythrocytes count (nu mber/volume)on 06-09-2021 RBC (Bld) [#/Vol] 4.55 10*6/uL 4.2-5.4 [facility] Work [facility]: Blood hemoglobin measurement (mass/volume)on 06-09-2021 Hemoglobin (Bld) [Mass/Vol] 13.4 g/dL 12.0-15.0 [facility] Work Phone: Blood lymphocytes/100 leukoc yteson 06-09-2021 Lymphocytes/100 WBC (Bld) 42.8 % 19-41 [facility] Work Phone: Blood monocytes/100 leukocyt eson 06-09-2021 Monocytes/100 WBC (Bld) 7.9 % 0-10 [facility] Work Phone: Blood platelet mean volumeon 06-09-2021 Platelet mean volume (Bld) [Entitic vol] 9.8 fL 6.2-12.0 [facility] Work Phone: Determination of erythrocyte mean corpuscular volume (MCV)on 06-09-2021 MCV (RBC) [Entitic vol] 87.3 fL 81-99 [facility] Work Phone: Direct bilirubinon 2 Bilirubin.direct [Mass/Vol] 0.13 mg/dL 0.00-0.30 [facility] Work Phone: Erythrocyte sedimentation ra marcus 06-09-2021 ESR (Bld) [Velocity] 4 mm/h 0-30 [facility] Work Phone: Hematocrit Auto (Bld) [Volum e fraction]on 06-09-2021 Hematocrit (Bld) [Volume fraction] 39.7 % 37-47 [facility] Work Phone: INR in Blood by Coagulation assayon 06-09-2021 INR Coag (Bld) [Relative time] 0.9 {INR} [facility] Work Phone: Laboratory - Chemistry and C hemistry - challengeon 06-09-2021 ALP [Catalytic activity/Vol] 84 U/L 45-117 [facility] Work Phone: ALT [Catalytic activity/Vol] 30 U/L 13-56 [facility] Work Phone: CO2 [Moles/Vol] 27.0 mmol/L 21.0-32.0 [facility] Work Phone: Globulin (S) [Mass/Vol] 3.7 g/dL 2.2-4.2 [facility] Work Phone: Lipase [Catalytic activity/Vol] 143 U/L 73-393 [facility] Work Phone: Magnesium [Mass/Vol] 2.3 mg/dL 1.6-2.6 [facility] Work Phone: Urea nitrogen/Creatinine [Mass ratio] 19.2 mg/mg 10-20 [facility] Work Phone: Laboratory - Coagulationon 0 06-09-2021 PT Coag (PPP) [Time] 11.9 s 11.7-14.9 [facility] Work Phone: Laboratory - Hematology and Cell countson 06-09-2021 Erythrocyte distribution width (RBC) [Entitic vol] 40.0 fL 35.1-43.9 [facility] Work Phone: Erythrocyte distribution width (RBC) [Ratio] 12.5 % 11.6-14.6 [facility] Work Phone: [phone] Immature granulocytes/100 WBC (Bld) 0.200 % 0.0-0.9 [facility] Work Phone: Comment on above: IG% - Immature Granu locytes (promyelocytes, myelocytes and metamyelocytes) > 1% indicates that a LEFT SHIFT is Present. MCH (RBC) [Entitic mass] 29.5 pg 27.0-32.0 [facility] Work Phone: Nucleated RBC/100 WBC (Bld) [Ratio] 0.4 % 0-5 [facility] Work Phone: MCHC Auto (RBC) [Mass/Vol]on 06-09-2021 MCHC (RBC) [Mass/Vol] 33.8 g/dL 32-36 [facility] Work Phone: No Panel Informationon 06-09 Parathyroid Hormone (Intact) 70.8 pg/mL 18.4-80.1 [facility] Work Phone: CA 19-9 Antigen Serial Monitoring Not Reportable [facility] Work Phone: Centromere B Antibody <0.2 AI 0.0-0.9 [facility] Work Phone: Ceruloplasmin 28.7 mg/dL 19.0-39.0 [facility] Work Phone: Estimated GFR (MDRD) Amer 103 mL/min >60 [facility] Work Phone: Comment on above: GFR Calc Estimated GFR (MDRD) Non-Af Amer 85 mL/min >60 [facility] Work Phone: Comment on above: Non- GFR Calc Haptoglobin 108 mg/dL 37-355 [facility] Work Phone: Comment on above: Performed at: [address] [id number] Director: Destin Breaux PhD, Phone: [phone] at: - [facility] [id number] Director: Bam Cruz MD, Phone: [phone] Hepatitis A IgM Antibody Negative Negative [facility] Work Phone: Hepatitis B Core IgM Antibody Negative Negative [facility] Work Phone: Hepatitis C Antibody (EIA) 0.3 s/co ratio 0.0-0.9 [facility] Work Phone: Comment on above: Negative: < 0.8 Inde terminate: 0.8 - 0.9 Positive: > 0.9 The CDC recommends that a positive HCV antibody result be followed up with a HCV Nucleic Acid Amplification test (919728).Effective June 15, 2021 Hepatitis Panel (4) will be made non-orderable. [facility] offers order code [id number] Acute Hepatitis. DOPE MIXER Antibody <0.2 AI 0.0-0.9 [facility] Work Phone: Thyroid Stimulating Hormone (TSH) 2.48 uIU/mL 0.358-3.74 [facility] Work Phone: Platelets bldon 06-09-2021 Platelets (Bld) [#/Vol] 271 10*3/uL 150-450 [facility] Work Phone: Serum DNA double strand anti body assay (units/volume)on 06-09-2021 DNA double strand Ab Qn (S) [IU]/mL 0-9 [facility] Work Phone: Comment on above: Negative <5 Equivoca l 5 - 9 Positive >9 Serum Mercedez-1 antibody assay (u nits/volume)on 06-09-2021 Mercedez-1 extractable nuclear Ab Qn (S) <0.2 AI 0.0-0.9 [facility] Work Phone: Serum Scl-70 extractable nuc lear antibody assay (units/volume)on 06-09-2021 SCL-70 extractable nuclear Ab Qn (S) <0.2 AI 0.0-0.9 [facility] Work Phone: Serum Garza extractable nucl ear antibody detectionon 06-09-2021 Garza extractable nuclear Ab Ql (S) <0.2 AI 0.0-0.9 [facility] Work Phone: Serum classic neutrophil cyt oplasmic antibody assay (units/volume)on 06-09-2021 Neutrophil cytoplasmic Ab.classic Qn (S) <1:20 titer Neg:<1:20 [facility] Work Phone: Serum mitochondria antibody detectionon 06-09-2021 Mitochondria Ab Ql (S) <20.0 Units 0.0-20.0 [facility] Work Phone: Comment on above: Negative 0.0 - 20.0 Equivocal 20.1 - 24.9 Positive >24.9Mitochondrial (M2) Antibodies are found in 90-96% ofpatients with primary biliary cirrhosis. Serum or plasma C reactive p rotein measurement (mass/volume)on 06-09-2021 CRP [Mass/Vol] mg/L 0.0-3.0 [facility] Work Phone: Comment on above: C-Reactive Protein ( CRP) provides useful information for thediagnosis, therapy and monitoring of inflammatory processesand associated diseases. For the evaluation of Relative Riskfor Cardiovascular Disease, a High Sensitivity CRP (HSCRP)should be ordered. Serum or plasma actin IgG an tibody assay (units/volume)on 06-09-2021 Actin IgG Qn 10 Units 0-19 [facility] Work Phone: Comment on above: Negative 0 - 19 Weak positive 20 - 30 Moderate to strong positive >30 Actin Antibodies are found in 52-85% of patients with autoimmune hepatitis or chronic active hepatitis and in 22% of patients with primary biliary cirrhosis. Serum or plasma albumin aleshia urement (mass/volume)on 06-09-2021 Albumin [Mass/Vol] 3.9 g/dL 3.2-5.0 [facility] Work Phone: Serum or plasma albumin/glob ulin mass ratioon 06-09-2021 Albumin/Globulin [Mass ratio] 1.1 {ratio} 0.9-2.4 [facility] Work Phone: Serum or plasma [id number] protein tumor marker measurement (units/volume)on 06-09-2021 AFP.tumor marker Qn 2.9 ng/mL 0.0-9.2 [facility] Work Phone: Comment on above: [employer] El ectrochemiluminescence Immunoassay(ECLIA)Values obtained with different assay methods or kits cannotbe used interchangeably. Results cannot be interpreted asabsolute evidence of the presence or absence of malignantdisease.This test is not interpretable in females. Serum or plasma angiotensin converting enzyme measurement (enzymatic activity/volume)on 06-09-2021 Angiotensin converting enzyme [Catalytic activity/Vol] 26 U/L 14-82 [facility] Work Phone: Serum or plasma calcitriol m easurement (mass/volume)on 06-09-2021 1,25-dihydroxyvitamin D3 [Mass/Vol] 51.1 pg/mL 19.9-79.3 [facility] Work Phone: Comment on above: Performed at: [facility] [place] [facility] [employer] [address] [id number] Director: Destin Breaux PhD, Phone: [phone] at: - [facility] [id number] Director: Bam Cruz MD, Phone: [phone] Serum or plasma calcium aleshia urement (mass/volume)on 06-09-2021 Calcium [Mass/Vol] 9.2 mg/dL 8.5-10.1 [facility] Work Phone: Serum or plasma cholesterol in HDL measurement (mass/volume)on 06-09-2021 Cholesterol in HDL [Mass/Vol] 51 mg/dL >40 [facility] Work Phone: Comment on above: The drugs N-Acetylcy steine and Metamizole may falsely depress this assay. Reference Range HDL <40 mg/dL Low HDL Cholesterol HDL >or= 60 mg/dL High HDL Cholesterol Serum or plasma cholesterol in VLDL measurement (mass/volume)on 06-09-2021 Cholesterol in VLDL [Mass/Vol] 22 mg/dL 5-40 [facility] Work Phone: Serum or plasma creatinine m easurement (mass/volume)on 06-09-2021 Creatinine [Mass/Vol] 0.73 mg/dL 0.55-1.02 [facility] Work Phone: Comment on above: The validity of the calculated GFR & GFRAA in patients over 70 years has not been determined. Clinical correlation is essential. Serum or plasma ferritin yaniv surement (mass/volume)on 06-09-2021 Ferritin [Mass/Vol] 32 ng/mL 8-252 [facility] Work Phone: Serum or plasma hepatitis B virus surface antigen detection by immunoassayon 06-09-2021 HBV surface Ag IA Ql Negative Negative [facility] Work Phone: Serum or plasma low density lipoprotein (LDL) cholesterol measurement (mass/volume)on 06-09-2021 Cholesterol in LDL [Mass/Vol] 167 mg/dL 0-130 [facility] Work Phone: Serum or plasma urea nitroge n measurement (mass/volume)on 06-09-2021 Urea nitrogen [Mass/Vol] 14 mg/dL 7-18 [facility] Work Phone: Serum perinuclear neutrophil cytoplasmic antibody titer by immunofluorescenceon 06-09-2021 Neutrophil cytoplasmic Ab.perinuclear IF (S) [Titer] <1:20 titer Neg:<1:20 [facility] Work Phone: Comment on above: The presence of posi tive fluorescence exhibiting P-ANCA orC-ANCA patterns alone is not specific for the diagnosis ofWegener's Granulomatosis (WG) or microscopic polyangiitis.Decisions about treatment should not be based solely onANCA IFA results. The [employer] ANCA [employer] Consensusrecommends follow up testing of positive sera with both PA-3 and MPO-ANCA enzyme immunoassays. As many as 5% serumsamples are positive only by EIA. Ref. AM J Clin Pruuaa5568;111:507-513. Thin prep Papanicolaou smear with manual screeningon 06-09-2021 Thin prep Papanicolaou smear with manual screening 17 U/L 15-37 [facility] Work Phone: Thin prep Papanicolaou smear with manual screening 5 5-15 [facility] Work Phone: Thin prep Papanicolaou smear with manual screening 179 U/L 84-246 [facility] Work Phone: Thin prep Papanicolaou smear with manual screening 126 ug/dL 80-158 [facility] Work Phone: Comment on above: Detection Limit = 5 Whole blood hemoglobin A1c/t otal hemoglobin ratio (mass fraction)on 06-09-2021 HbA1c (Bld) [Mass fraction] 5.5 % 3.8-5.6 [facility] Work Phone: Comment on above: Normal < 5.7 % Predi abetic 5.7 - 6.4 % Diabetic >or= 6.5 % Please note range changes. Basophil percentageon 2021 Creatinine [Mass/Vol] 0.7 mg/dL 0.55-1.02 [facility] Work Phone: No Panel Informationon 05-26 Bedside Estimated GFR (eGFR) > 60.0000 mL/min >60 [facility] Work Phone: Gram stain for investigation of transfusion reactionon 03-03-2021 Microscopic observation Gram stain Nom (Unsp spec) [facility] Work Phone: No Panel Informationon 03-03 Nasopharyngeal Culture Haemophilus influenzae [facility] Work Phone: DDI VIBRATION CONTROLLED TRA NSIENT ELASTOGRAPHY (VCTE) [facility] Vital Signs Date Time Vital Sign Value Performing Clinician Facility 10-10-2024 19:03-0400 Body mass index (BMI) [Ratio] 24.19 kg/m2 Geo Avila MD Work Phone: [facility] 10-10-2024 19:03-0400 Body temperature 99.39 [degF] Geo Avila MD Work Phone: [facility] 10-10-2024 19:03-0400 Body weight 60 kg Geo Avila MD Work Phone: [facility] 10-10-2024 19:03-0400 Diastolic blood pressure 84 mm[Hg] Geo Avila MD Work Phone: [facility] 10-10-2024 19:03-0400 Heart rate 85 /min Geo Avila MD Work Phone: [facility] 10-10-2024 19:03-0400 SaO2% (BldA) [Mass fraction] 99 % Geo Avila MD Work Phone: [facility] 10-10-2024 19:03-0400 Systolic blood pressure 132 mm[Hg] Geo Avila MD Work Phone: [facility] 09-05-2024 08:14-0400 Body height 157.5 cm Cj Shine DRIER AND PULVERIZER TENDER.[employer]CE LOAD[employer] Work Phone: [facility] 09-05-2024 08:14-0400 Body mass index (BMI) [Ratio] 23.79 kg/m2 Cj Shine DRIER AND PULVERIZER TENDER.[employer]NACE LOADER Work Phone: [facility] 09-05-2024 08:14-0400 Body temperature 98.29 [degF] Cj Shine DRIER AND PULVERIZER TENDER.[employer] F[employer]NACE LOADER Work Phone: [facility] 09-05-2024 08:14-0400 Body weight 59 kg Cj Shine DRIER AND PULVERIZER TENDER.[employer] FURNACE LOADER Work Phone: [facility] 09-05-2024 08:14-0400 Diastolic blood pressure 80 mm[Hg] Cj Shine DRIER AND PULVERIZER TENDER.[employer] FURNACE LOADER Work Phone: [facility] 09-05-2024 08:14-0400 Heart rate 94 /min Cj Shine DRIER AND PULVERIZER TENDER.[employer] FURNACE LOADER Work Phone: [facility] 09-05-2024 08:14-0400 Respiratory rate 12 /min Cj Shine DRIER AND PULVERIZER TENDER.[employer] F[employer]NACE LOADER Work Phone: [facility] 09-05-2024 08:14-0400 SaO2% (BldA) [Mass fraction] 98 % Cj Shine DRIER AND PULVERIZER TENDER.[employer] F[employer]NACE LOADER Work Phone: [facility] 09-05-2024 08:14-0400 Systolic blood pressure 130 mm[Hg] Cj Shine DRIER AND PULVERIZER TENDER.[employer] F[employer]NACE LOADER Work Phone: [facility] 08-20-2024 09:54-0400 Body mass index (BMI) [Ratio] 23.71 kg/m2 Jose Juan Dorsey PA-C Work Phone: [facility] 08-20-2024 09:54-0400 Body temperature 98.1 [degF] Jose Juan Dorsey PA-C Work Phone: [facility] 08-20-2024 09:54-0400 Body weight 58.8 kg Jose Juan Chelsie PA-C Work Phone: [facility] 08-20-2024 09:54-0400 Diastolic blood pressure 88 mm[Hg] Jose Juan Chelsie PA-C Work Phone: [facility] 08-20-2024 09:54-0400 Heart rate 78 /min Jose Juan Chelsie PA-C Work Phone: [facility] 08-20-2024 09:54-0400 Respiratory rate 20 /min Jose Juan Chelsie PA-C Work Phone: [facility] 08-20-2024 09:54-0400 SaO2% (BldA) [Mass fraction] 94 % Jose Juan Chelsie PA-C Work Phone: [facility] 08-20-2024 09:54-0400 Systolic blood pressure 122 mm[Hg] Jose Juan Chelsie PA-C Work Phone: [facility] 08-14-2024 17:59-0400 Body mass index (BMI) [Ratio] 24.27 kg/m2 Troy Joe APRN.[employer] LOADER Work Phone: [facility] 08-14-2024 17:59-0400 Body temperature 98.6 [degF] Troy Joe APRN.[employer] LOADER Work Phone: [facility] 08-14-2024 17:59-0400 Body weight 60.2 kg Troy Joe APRN.[employer] LOADER Work Phone: [facility] 08-14-2024 17:59-0400 Diastolic blood pressure 82 mm[Hg] Troy Joe APRN.[employer]NA[employer] LOADER Work Phone: [facility] 08-14-2024 17:59-0400 Heart rate 87 /min Troy Joe APRN.[employer] LOADER Work Phone: [facility] 08-14-2024 17:59-0400 Respiratory rate 18 /min Troy Joe APRN.[employer] LOADER Work Phone: [facility] 08-14-2024 17:59-0400 SaO2% (BldA) [Mass fraction] 97 % Troy Joe DRIER AND PULVERIZER TENDER.[employer]NACE LOADER Work Phone: [facility] 08-14-2024 17:59-0400 Systolic blood pressure 122 mm[Hg] Troy Joe DRIER AND PULVERIZER TENDER.[employer]NACE LOADER Work Phone: [facility] 11-07-2023 13:35-0400 Body height 157.5 cm Bev Nichols MD Work Phone: [facility] 11-07-2023 13:35-0400 Body mass index (BMI) [Ratio] 24.07 kg/m2 Bev Nichols MD Work Phone: [facility] 11-07-2023 13:35-0400 Body temperature 98.01 [degF] Bev Nichols MD Work Phone: [facility] 11-07-2023 13:35-0400 Body weight 59.69 kg Bev Nichols MD Work Phone: [facility] 11-07-2023 13:35-0400 Diastolic blood pressure 82 mm[Hg] Bev Nichols MD Work Phone: [facility] 11-07-2023 13:35-0400 Heart rate 71 /min Bev Nichols MD Work Phone: [facility] 11-07-2023 13:35-0400 SaO2% (BldA) [Mass fraction] 99 % Bev Nichols MD Work Phone: [facility] 11-07-2023 13:35-0400 Systolic blood pressure 131 mm[Hg] Bev Nichols MD Work Phone: [facility] 10-28-2023 08:59-0400 Body height 155.6 cm Cj Shine DRIER AND PULVERIZER TENDER.[employer]NA[employer] LOADER Work Phone: [facility] 10-28-2023 08:59-0400 Body mass index (BMI) [Ratio] 24.71 kg/m2 Cj Shine DRIER AND PULVERIZER TENDER.[employer]NACE LOADER Work Phone: [facility] 10-28-2023 08:59-0400 Body weight 59.8 kg Cj Shine DRIER AND PULVERIZER TENDER.CALCINE FURNACE LOADER Work Phone: [facility] 10-28-2023 08:59-0400 Diastolic blood pressure 79 mm[Hg] Cj Shine DRIER AND PULVERIZER TENDER.CALCINE FURNACE LOADER Work Phone: [facility] 10-28-2023 08:59-0400 Heart rate 81 /min Cj Shine DRIER AND PULVERIZER TENDER.CALCINE FURNACE LOADER Work Phone: [facility] 10-28-2023 08:59-0400 Respiratory rate 16 /min Cj Shine DRIER AND PULVERIZER TENDER.CALCINE FURNACE LOADER Work Phone: [facility] 10-28-2023 08:59-0400 Systolic blood pressure 127 mm[Hg] Cj Shine DRIER AND PULVERIZER TENDER.CALCINE FURNACE LOADER Work Phone: [facility] 09-12-2023 08:59-0400 Body height 158.8 cm Bev Nichols MD Work Phone: [facility] 09-12-2023 08:59-0400 Body mass index (BMI) [Ratio] 23.69 kg/m2 Bev Nichols MD Work Phone: [facility] 09-12-2023 08:59-0400 Body temperature 99 [degF] Bev Nichols MD Work Phone: [facility] 09-12-2023 08:59-0400 Body weight 59.69 kg Bev Nichols MD Work Phone: [facility] 09-12-2023 08:59-0400 Diastolic blood pressure 82 mm[Hg] Bev Nichols MD Work Phone: [facility] 09-12-2023 08:59-0400 Heart rate 85 /min Bev Nichols MD Work Phone: [facility] 09-12-2023 08:59-0400 SaO2% (BldA) [Mass fraction] 97 % Bev Nichols MD Work Phone: [facility] 09-12-2023 08:59-0400 Systolic blood pressure 126 mm[Hg] Bev Nichols MD Work Phone: [facility] 08-08-2023 08:20-0400 Body mass index (BMI) [Ratio] 23.85 kg/m2 Cj Riojas APRN.CALCINE FURNACE LOADER Work Phone: [facility] 08-08-2023 08:20-0400 Body weight 59.15 kg Cj Riojas APRN.CALCINE FURNACE LOADER Work Phone: [facility] 08-08-2023 08:20-0400 Diastolic blood pressure 82 mm[Hg] Cj Riojas APRN.CALCINE FURNACE LOADER Work Phone: [facility] 08-08-2023 08:20-0400 Heart rate 77 /min Cj Riojas APRN.CALCINE FURNACE LOADER Work Phone: [facility] 08-08-2023 08:20-0400 SaO2% (BldA) [Mass fraction] 97 % Cj Riojas APRN.CALCINE FURNACE LOADER Work Phone: [facility] 08-08-2023 08:20-0400 Systolic blood pressure 118 mm[Hg] Cj Riojas APRN.CALCINE FURNACE LOADER Work Phone: [facility] 04-02-2023 11:53-0500 Body temperature 98.01 [degF] Troy Joe APRN.CALCINE FURNACE LOADER Work Phone: [facility] 04-02-2023 11:53-0500 Body weight 63.32 kg Troy Joe APRN.CALCINE FURNACE LOADER Work Phone: [facility] 04-02-2023 11:53-0500 Diastolic blood pressure 98 mm[Hg] Troy Joe APRN.CALCINE FURNACE LOADER Work Phone: [facility] 04-02-2023 11:53-0500 Heart rate 80 /min Troy Joe APRN.CALCINE FURNACE LOADER Work Phone: [facility] 04-02-2023 11:53-0500 Respiratory rate 19 /min Troy Joe APRN.CALCINE FURNACE LOADER Work Phone: [facility] 04-02-2023 11:53-0500 SaO2% (BldA) [Mass fraction] 97 % Troy Joe APRN.CALCINE FURNACE LOADER Work Phone: [facility] 04-02-2023 11:53-0500 Systolic blood pressure 128 mm[Hg] Troy Joe DRIER AND PULVERIZER TENDER.CALCINE FURNACE LOADER Work Phone: [facility] 12-23-2022 08:28-0500 Body height 157.5 cm Zeke Barrera MD Work Phone: [facility] 12-23-2022 08:28-0500 Body temperature 97.2 [degF] Zeke Barrera MD Work Phone: [facility] 12-23-2022 08:28-0500 Body weight 62.87 kg Zeke Barrera MD Work Phone: [facility] 12-23-2022 08:28-0500 Diastolic blood pressure 77 mm[Hg] Zeke Barrera MD Work Phone: [facility] 12-23-2022 08:28-0500 Heart rate 76 /min Zeke Barrera MD Work Phone: [facility] 12-23-2022 08:28-0500 SaO2% (BldA) [Mass fraction] 97 % Zeke Barrera MD Work Phone: [facility] 12-23-2022 08:28-0500 Systolic blood pressure 129 mm[Hg] Zeke Barrera MD Work Phone: [facility] 10-04-2022 14:17-0400 Diastolic blood pressure 88 mm[Hg] Cj Shine DRIER AND PULVERIZER TENDER.[employer] FURNACE LOADER Work Phone: [facility] 10-04-2022 14:17-0400 Systolic blood pressure 120 mm[Hg] Cj Shine DRIER AND PULVERIZER TENDER.CALCINE FURNACE LOADER Work Phone: [facility] 10-04-2022 14:15-0400 Body height 156.2 cm Cj Shine DRIER AND PULVERIZER TENDER.CALCINE FURNACE LOADER Work Phone: [facility] 10-04-2022 14:15-0400 Body weight 61.69 kg Cj Shine DRIER AND PULVERIZER TENDER.CALCINE FURNACE LOADER Work Phone: [facility] 10-04-2022 14:15-0400 Heart rate 71 /min Cj Shine DRIER AND PULVERIZER TENDER.CALCINE FURNACE LOADER Work Phone: [facility] 10-04-2022 14:15-0400 SaO2% (BldA) [Mass fraction] 98 % Cj Shine HARRISON Work Phone: [facility] 06-30-2022 14:05-0400 Body temperature 98.4 [degF] Dr. Geo Avila Work Phone: [facility] 06-30-2022 14:05-0400 Diastolic blood pressure 73 mm[Hg] Dr. Geo Avila Work Phone: 6(932)118-677329 [place] [address] 06-30-2022 14:05-0400 Heart rate 84 /min Dr. Geo Avila Work Phone: 0(252)418-458429 [place] [address] 06-30-2022 14:05-0400 Respiratory rate 16 /min Dr. Geo Avila Work Phone: 7(925)792-789029 [place] [address] 06-30-2022 14:05-0400 SaO2% (BldA) [Mass fraction] 95 % Dr. Geo Avila Work Phone: 2(418)631-758229 [place] [address] 06-30-2022 14:05-0400 Systolic blood pressure 133 mm[Hg] Dr. Geo Avila Work Phone: 2(479)505-194329 [place] [address] 06-30-2022 10:45-0400 Inhaled oxygen flow rate 2 L/min Dr. Geo Avila Work Phone: 6(202)492-526329 [place] [address] 06-30-2022 06:33-0400 Body height 157.[address] Geo Avila Work Phone: 6(879)486-443029 [place] [address] 06-30-2022 06:33-0400 Body mass index (BMI) [Ratio] 25 kg/m2 Dr. Geo Avila Work Phone: 0(987)940-876729 [place] [address] 06-30-2022 06:33-0400 Body weight [address] Geo Avila Work Phone: 6(591)252-354407 [place] [address] 06-15-2022 13:03-0400 Body mass index (BMI) [Ratio] 25.9 kg/m2 Dr. Geo Avila Work Phone: [facility] 06-15-2022 13:03-0400 Body weight 64.[address] Geo Avila Work Phone: 7(048)428-585129 [place] [address] 06-15-2022 13:03-0400 Diastolic blood pressure 90 mm[Hg] Dr. Geo Avila Work Phone: 3(849)638-892029 [place] [address] 06-15-2022 13:03-0400 Respiratory rate 16 /min Dr. Geo Avila Work Phone: 2(519)455-608029 [place] [address] 06-15-2022 13:03-0400 Systolic blood pressure 154 mm[Hg] Dr. Geo Avila Work Phone: 0(146)890-888307 [place] [address] 04-28-2022 09:20-0400 Body height 157.[address] Geo Avila Work Phone: 2(821)897-611907 [place] [address] 04-28-2022 09:20-0400 Body mass index (BMI) [Ratio] 26.9 kg/m2 Dr. Geo Avila Work Phone: 8(054)991-286807 [place] [address] 04-28-2022 09:20-0400 Body temperature 97.6 [degF] Dr. Geo Avila Work Phone: 6(380)835-846307 [place] [address] 04-28-2022 09:20-0400 Body weight 66.[address] Geo Avila Work Phone: 5(475)590-414929 [place] [address] 04-28-2022 09:20-0400 Diastolic blood pressure 87 mm[Hg] Dr. Geo Avila Work Phone: 2(941)390-675007 [place] [address] 04-28-2022 09:20-0400 Heart rate 80 /min Dr. Geo Avila Work Phone: 8(744)275-260329 [place] [address] 04-28-2022 09:20-0400 Respiratory rate 16 /min Dr. Geo Avila Work Phone: 9(863)899-121707 [place] [address] 04-28-2022 09:20-0400 SaO2% (BldA) [Mass fraction] 97 % Dr. Geo Avila Work Phone: [facility] 04-28-2022 09:20-0400 Systolic blood pressure 145 mm[Hg] Dr. Geo Avila Work Phone: [facility] 08-12-2021 11:25-0400 Body temperature 98.6 [degF] Dr. Geo Avila Work Phone: [facility] Work Phone: 08-12-2021 11:25-0400 Diastolic blood pressure 86 mm[Hg] Dr. Geo Avila Work Phone: [facility] Work Phone: 08-12-2021 11:25-0400 Heart rate 73 /min Dr. Geo Avila Work Phone: [facility] Work Phone: 08-12-2021 11:25-0400 Respiratory rate 16 /min Dr. Geo Avila Work Phone: [facility] Work Phone: 08-12-2021 11:25-0400 SaO2% (BldA) [Mass fraction] 98 % Dr. Geo Avila Work Phone: [facility] Work Phone: 08-12-2021 11:25-0400 Systolic blood pressure 136 mm[Hg] Dr. Geo Avila Work Phone: [facility] Work Phone: 08-12-2021 09:41-0400 Body height 160.[address] Geo Avila Work Phone: [facility] Work Phone: 08-12-2021 09:41-0400 Body mass index (BMI) [Ratio] 24.4 kg/m2 Dr. Geo Avila Work Phone: [facility] Work Phone: 08-12-2021 09:41-0400 Body weight 62.[address] Geo Avila Work Phone: [facility] Work Phone: 07-17-2021 19:50-0400 Body temperature 98.6 [degF] Catalino King DRIER AND PULVERIZER TENDER.CALCINE FURNACE LOADER Work Phone: [facility] 07-17-2021 19:50-0400 Body weight 62.6 kg Catalino Rob DRIER AND PULVERIZER TENDER.CALCINE FURNACE LOADER Work Phone: [facility] 07-17-2021 19:50-0400 Diastolic blood pressure 84 mm[Hg] Catalino Rob DRIER AND PULVERIZER TENDER.CALCINE FURNACE LOADER Work Phone: [facility] 07-17-2021 19:50-0400 Heart rate 85 /min Catalino King DRIER AND PULVERIZER TENDER.CALCINE FURNACE LOADER Work Phone: [facility] 07-17-2021 19:50-0400 Respiratory rate 18 /min Catalino King DRIER AND PULVERIZER TENDER.CALCINE FURNACE LOADER Work Phone: [facility] 07-17-2021 19:50-0400 SaO2% (BldA) [Mass fraction] 99 % Catalino Rivas DRIER AND PULVERIZER TENDER.CALCINE FURNACE LOADER Work Phone: [facility] 07-17-2021 19:50-0400 Systolic blood pressure 124 mm[Hg] Catalino Rivas DRIER AND PULVERIZER TENDER.CALCINE FURNACE LOADER Work Phone: [facility] 07-06-2021 09:24-0400 Diastolic blood pressure 80 mm[Hg] Kymberly Older DRIER AND PULVERIZER TENDER.CALCINE FURNACE LOADER Work Phone: [facility] 07-06-2021 09:24-0400 Systolic blood pressure 122 mm[Hg] Kymberly Older DRIER AND PULVERIZER TENDER.CALCINE FURNACE LOADER Work Phone: [facility] 07-06-2021 09:13-0400 Body weight 63.96 kg Kymberly Older DRIER AND PULVERIZER TENDER.CALCINE FURNACE LOADER Work Phone: [facility] 07-06-2021 09:13-0400 Heart rate 82 /min Kymberly Older DRIER AND PULVERIZER TENDER.CALCINE FURNACE LOADER Work Phone: [facility] 07-06-2021 09:13-0400 Respiratory rate 14 /min Kymberly Older DRIER AND PULVERIZER TENDER.CALCINE FURNACE LOADER Work Phone: [facility] 07-06-2021 09:13-0400 SaO2% (BldA) [Mass fraction] 98 % Kymberly Older DRIER AND PULVERIZER TENDER.CALC[employer] FURNACE LOADER Work Phone: [facility] 05-12-2021 14:10-0400 Body mass index (BMI) [Ratio] 25.1 kg/m2 Dr. Geo Avila Work Phone: [facility] Work Phone: 05-12-2021 14:10-0400 Body weight 64.[address] Geo Avila Work Phone: [facility] Work Phone: 05-12-2021 14:10-0400 Diastolic blood pressure 85 mm[Hg] Dr. Geo Avila Work Phone: [facility] Work Phone: 05-12-2021 14:10-0400 Heart rate 65 /min Dr. Geo Avila Work Phone: [facility] Work Phone: 05-12-2021 14:10-0400 SaO2% (BldA) [Mass fraction] 97 % Dr. Geo Avila Work Phone: [facility] Work Phone: 05-12-2021 14:10-0400 Systolic blood pressure 127 mm[Hg] Dr. Geo Avila Work Phone: [facility] Work Phone: 05-12-2021 14:10-0400 Body height 160.[address] Geo Avila Work Phone: [facility] Work Phone: 05-12-2021 14:10-0400 Body mass index (BMI) [Ratio] 25.1 kg/m2 Dr. Geo Avila Work Phone: [facility] Work Phone: 05-12-2021 14:10-0400 Body weight 64.[address] Geo Avila Work Phone: [facility] Work Phone: 05-12-2021 14:10-0400 Diastolic blood pressure 85 mm[Hg] Dr. Geo Avila Work Phone: [facility] Work Phone: 05-12-2021 14:10-0400 Heart rate 65 /min Dr. Geo Avila Work Phone: [facility] Work Phone: 05-12-2021 14:10-0400 SaO2% (BldA) [Mass fraction] 97 % Dr. Geo Avila Work Phone: [facility] Work Phone: 05-12-2021 14:10-0400 Systolic blood pressure 127 mm[Hg] Dr. Geo Avila Work Phone: [facility] Work Phone: 04-27-2021 10:40-0400 Body weight 63.5 kg Geo Avila MD Work Phone: [facility] 04-27-2021 10:40-0400 Diastolic blood pressure 82 mm[Hg] Geo Avila MD Work Phone: [facility] 04-27-2021 10:40-0400 Heart rate 78 /min Geo Avila MD Work Phone: [facility] 04-27-2021 10:40-0400 Systolic blood pressure 148 mm[Hg] Geo Avila MD Work Phone: [facility] Encounters Encounter Date Encounter Type Care Provider Facility Start: 01-31-2025 ambulatory Geo Avila Facilit y:[facility] Start: 11-26-2024 ambulatory GEO AVILA Facilit y:[facility] Start: 11-20-2024 End: 11-20-2024 ambulatory KELLY CROWE Facility:[facility] Start: 11-20-2024 Patient encounter procedure KELLY SEBASTIEN [facility] Start: 10-10-2024 End: 10-10-2024 Office outpatient visit 15 minutes Geo Avila MD Work Phone: [facility] [place] Comment on above: Cellulitis of right buttock (Primary Dx) Start: 10-10-2024 End: 10-10-2024 ambulatory GEO D KAYYAMPAS Facility:[facility] Start: 09-05-2024 End: 09-05-2024 ambulatory CJ PATELR Facility:[facility] Start: 09-05-2024 End: 09-05-2024 Patient encounter procedure Cj Riojas DRIER AND PULVERIZER TENDER.[employer] FURNACE LOADER Work Phone: [facility] [place] Comment on above: Cellulitis of skin ( Primary Dx); Cellulitis of right buttock; Rhinosinusitis Start: 08-20-2024 End: 08-20-2024 Office outpatient visit 25 minutes Jose Juan Dorsey PA-C Work Phone: [facility] Comment on above: Cellulitis of skin ( Primary Dx); Cellulitis of right buttock Start: 08-20-2024 End: 08-20-2024 [facility] Facility:[facility] Start: 08-14-2024 End: 08-14-2024 Patient encounter procedure Troy Joe DRIER AND PULVERIZER TENDER.CALCINE FURNACE LOADER Work Phone: [facility] Comment on above: Rhinosinusitis (Prim ross Dx) Start: 08-14-2024 End: 08-14-2024 ambulatory GEO D KAYYAMPAS Facility:[facility] Start: 02-06-2024 End: 02-06-2024 ambulatory [facility] Facility:[facility] Start: 02-06-2024 End: 02-06-2024 Office outpatient visit 10 minutes Geo Avila MD Work Phone: [facility] [place] Comment on above: Skin lesion of back (Primary Dx) Start: 12-05-2023 End: 12-05-2023 ambulatory GEO AVILA Facility:[facility] Start: 11-21-2023 End: 11-21-2023 Patient encounter procedure Bev Nichols MD Work Phone: General Surgery Comment on above: Skin lesion (Primary Dx); Dysesthesia Start: 11-07-2023 End: 11-07-2023 Patient encounter procedure Bev Nichols MD Work Phone: General Surgery Comment on above: Skin tag (Primary Dx ); Dysesthesia Start: 11-01-2023 End: 11-01-2023 Refill Cj Patelr DRIER AND PULVERIZER TENDER.CALC[employer] FURNACE LOADER Work Phone: [facility] [place] Comment on above: Med Change Request Start: 10-31-2023 End: 11-01-2023 Telephone encounter Cj Patelr DRIER AND PULVERIZER TENDER.CALCINE FURNACE LOADER Work Phone: [facility] [place] Comment on above: Patient Update Start: 10-28-2023 End: 10-28-2023 Patient encounter procedure Cj Shine DRIER AND PULVERIZER TENDER.CALCINE FURNACE LOADER Work Phone: [facility] [place] Comment on above: Medicare annual well ness visit, subsequent (Primary Dx); Hyperlipidemia, unspecified hyperlipidemia type; Hepatic fibrosis; Encounter for screening examination for other mental health and behavioral disorders; Screening for depression; Encounter for therapeutic drug monitoring Start: 09-23-2023 Telephone encounter Bev Hamlin MD Work Phone: General Surgery Comment on above: Results Start: 09-22-2023 Telephone encounter Bev Hamlin MD Work Phone: General Surgery Comment on above: Results Start: 09-19-2023 End: 09-19-2023 Patient encounter procedure Bev Nichols MD Work Phone: General Surgery Comment on above: Localized superficia l mass (Primary Dx) Start: 09-12-2023 End: 09-12-2023 Patient encounter procedure Bev Nichols MD Work Phone: General Surgery Comment on above: Abnormal ultrasound of breast (Primary Dx); Localized superficial swelling, mass, or lump Start: 08-30-2023 End: 08-30-2023 Subsequent hospital visit by physician Diagnostic Mammo [facility] Comment on above: Mass of upper outer quadrant of right breast [N63.11] Start: 08-08-2023 End: 08-08-2023 Patient encounter procedure Cj Riojas APRN.[employer] FURNACE LOADER Work Phone: [facility] [place] Comment on above: Mass of upper outer quadrant of right breast (Primary Dx) Start: 04-02-2023 End: 04-02-2023 Patient encounter procedure Troy Joe APRN.CALCINE FURNACE LOADER Work Phone: [facility] Comment on above: Rash (Primary Dx) Start: 01-28-2023 Telephone encounter Georgia Pollard APRN.CALCINE FURNACE LOADER Work Phone: [facility] Start: 01-13-2023 Refill Geo mendoza MD Work Phone: [facility] [place] Comment on above: Refill Request Start: 12-24-2022 End: 12-24-2022 Subsequent hospital visit by physician [facility] (I-Stat) Work Phone: Cat Scan Comment on above: Abnormal results of liver function studies [R94.5] Start: 12-23-2022 End: 12-23-2022 ambulatory Hepatology A5 Work Phone: Gastroenterology Start: 12-23-2022 End: 12-23-2022 Patient encounter procedure Hepatology Procedures A5 Work Phone: [facility] Start: 12-23-2022 End: 12-23-2022 Patient encounter procedure Zeke Barrera MD Work Phone: Gastroenterology Comment on above: Abnormal results of liver function studies (Primary Dx); Liver cyst; Abnormal liver scan; Hepatic fibrosis Start: 12-22-2022 Telephone encounter Thelma Aviles (Pss) Gastroenterology Comment on above: Appointment Start: 11-04-2022 End: 11-04-2022 Subsequent hospital visit by physician Screen Mammo [facility] Comment on above: Encounter for screen ing mammogram for breast cancer [Z12.31] Start: 10-29-2022 Telephone encounter Cj Cleav er DRIER AND PULVERIZER TENDER.[employer] FURNACE LOADER Work Phone: [facility] [place] Comment on above: Results Start: 10-19-2022 Refill Cj Riojas DRIER AND PULVERIZER TENDER.CALCINE FURNACE LOADER Work Phone: [facility] [place] Comment on above: Refill Request Start: 10-15-2022 End: 10-15-2022 ambulatory Bruce Arellano [facility] Work Phone: [facility] Comment on above: Ectopia lentis (Prim ross Dx) Start: 10-15-2022 End: 10-15-2022 Telemedicine consultation with patient Bruce Arellano [facility] Work Phone: [facility] Start: 10-08-2022 ambulatory Cj Patelr DRIER AND PULVERIZER TENDER.CALC[employer] FURNACE LOADER Work Phone: [facility] [place] Comment on above: Results Start: 10-08-2022 E-mail encounter fro m caregiver Cj Riojas DRIER AND PULVERIZER TENDER.CALCINE FURNACE LOADER Work Phone: [facility] Start: 10-04-2022 End: 10-04-2022 Patient encounter procedure Cj Patelr DRIER AND PULVERIZER TENDER.CALCINE FURNACE LOADER Work Phone: [facility] [place] Comment on above: Medicare annual well ness visit, subsequent (Primary Dx); Asymptomatic postmenopausal status; Osteoporosis, unspecified osteoporosis type, unspecified pathological fracture presence; Mixed hyperlipidemia; Hepatic fibrosis; Encounter for therapeutic drug monitoring Start: 10-04-2022 Telephone encounter Cj Butt er DRIER AND PULVERIZER TENDER.[employer] FURNACE LOADER Work Phone: [facility] [place] Comment on above: Orders Start: 09-23-2022 Telephone encounter Yung Jorgensen MD Work Phone: Cardiology Comment on above: Appointment Start: 09-09-2022 Orders Only Yung Jorgensen MD Work Phone: Cardiology Comment on above: Marfan syndrome (Leatha oumou Dx); 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 Greta Avila Work Phone: [facility] Start: 06-30-2022 End: 06-30-2022 Admission to same day surgery center Dr. Geo Avila Work Phone: [facility] Start: 06-30-2022 End: 06-30-[address] Geo Avila Work Phone: [facility] Work Phone: Start: 06-28-2022 End: 06-28-2022 Non-patient / Non-visit Dr. Geo Avila Work Phone: [facility] Start: 06-15-2022 End: 06-15-[address] Geo Avila Work Phone: [facility] Start: 06-09-2022 Chart Update [id number] Work Phone: Start: 06-01-2022 ambulatory Jose Juan Adams Facility:[facility] Start: 05-24-2022 End: 05-24-[address] Geo Avila Work Phone: [facility] Start: 05-13-2022 End: 05-13-[address] Geo Avila Work Phone: [facility] Work Phone: Start: 05-13-2022 End: 05-13-[address] Geo Avila Work Phone: [facility]Nuclear Medicine, [facility] Start: 04-28-2022 End: 04-28-[address] Geo Avila Work Phone: [facility] Start: 01-21-2022 End: 01-21-2022 ambulatory [facility] Work Phone: Start: 01-21-2022 End: 01-21-2022 Patient encounter procedure [facility] Start: 11-18-2021 ambulatory Geo mendoza MD Work Phone: [facility] [place] Start: 08-27-2021 Refill Geo mendoza MD Work Phone: [facility] [place] Comment on above: Refill Request Start: 08-12-2021 Non-patient / Non-visit Dr. Greta Avila Work Phone: [facility] Start: 08-12-2021 End: 08-12-2021 Admission to same day surgery center Dr. Geo Avila Work Phone: [facility]End[facility] Start: 07-17-2021 End: 07-17-2021 Patient encounter procedure Catalino Rivas APRN.[employer] FURNACE LOADER Work Phone: [facility] Comment on above: Finger laceration, i nitial encounter (Primary Dx); Need for tetanus booster Start: 07-06-2021 End: 07-06-2021 Patient encounter procedure Kymberly Gibson APRN.[employer] FURNACE LOADER Work Phone: [facility] [place] Comment on above: Frontal headache (Pr imary Dx); Gastroesophageal reflux disease without esophagitis; Liver cyst; Hepatic fibrosis Start: 06-15-2021 End: 06-15-[address] Geo Avila Work Phone: [facility]-Ultrasound, [facility] Start: 06-09-2021 End: 06-09-[address] eGo Avila Work Phone: [facility]-Laboratory Start: 05-26-2021 End: 05-26-[address] Geo Avila Work Phone: [facility]-Cat Scan, [facility] Start: 05-12-2021 End: 05-12-[address] Geo Avila Work Phone: [facility] [facility] Start: 04-27-2021 End: 04-27-2021 Patient encounter procedure Geo Avila MD Work Phone: [facility] [place] Comment on above: Age related osteopor osis, unspecified pathological fracture presence (Primary Dx); Gastroesophageal reflux disease, unspecified whether esophagitis present; Mixed hyperlipidemia; Sinus headache; Hypokalemia; Other headache syndrome; Encounter for long-term current use of medication Start: 03-31-2021 End: 03-31-[address] Geo Avila Work Phone: [facility], [facility] Start: 03-03-2021 End: 03-03-[address] Geo Avila Work Phone: [facility], Specimen Procedures Date Procedure Procedure Detail Performing Clinician Start: 11-21-2023 Level iv surg pathology gross&microscopic exam Bev Nichols MD Work Phone: Start: 10-28-2023 Adult depression screening assessment Cj Riojas APRN.[employer] LOADER Work Phone: Start: 08-30-2023 Us breast uni real time with image limited Cj Patelr DRIER AND PULVERIZER TENDER.[employer] LOADER Work Phone: Start: 08-30-2023 Digital breast tomosynthesis bilateral Cj Patelr [employer]ER AND PULVER[employer]ER TENDER.[employer] LOAD[employer] Work Phone: Start: 12-24-2022 Ct abdomen w/contrast material Zeke Barrera MD Work Phone: Start: 12-23-2022 Liver elastography w/o imag w/i&r Richar Barrera MD Work Phone: Start: 11-04-2022 Screening mammography bi 2-view breast inc cad Bulk Order Provider Start: 10-07-2022 Lipid 1996 panel - Serum or Plasma Cj Patelr DRIER AND PULVER[employer]ER TENDER.[employer] LOADER Work Phone: Start: 06-30-[address] Geo Avila Work Phone: Start: 06-30-[address] Geo Avila Work Phone: Start: 06-30-2022 Total cholecystectomy and exploration of common bile duct Dr. Geo Avila Work Phone: Start: 05-13-2022 Radionuclide imaging of liver and/or biliary tract using radioactive isotope Dr. Geo Avila Work Phone: Start: 01-21-2022 Ultrasonography of abdomen Start: 01-21-2022 Ultrasound elastography Start: 08-12-[address] Geo farrell Work Phone: Start: 06-15-[address] Geo farrell Work Phone: Start: 06-15-[address] Geo mendoza Work Phone: Start: 05-26-2021 Computed tomography of abdomen and pelvis with contrast Dr. Geo Avila Work Phone: Start: 03-31-[address] Geo Avila Work Phone: Start: 03-03-2021 Investigation of transfusion reaction Dr. Geo Avila Work Phone: Start: 03-03-[address] Geo Avila Work Phone: Start: 10-29-2019 Mammography Kymberly Older DRIER AND PULVERIZER TENDER.[employer] LOADER Work Phone: Start: 05-20-2017 Adult depression screening assessment Kymberly Older DRIER AND PULVERIZER TENDER.[employer] LOADER Work Phone: Start: 04-22-2017 Colonoscopy Kymberly Older DRIER AND PULVER[employer]ER TENDER.[employer] LOADER Work Phone: Plan of Treatment Date Care Activity Detail Author Start: 07-18-2031 Urine microalbumin profile [facility] Start: 10-08-2027 Lipid 1996 panel - S estefany or Plasma Lipid Screening [facility] Start: 10-08-2027 Lipid panel Lipid Screening [facility] Start: 10-08-2027 LIPID SCREEN LIPID SCREEN [facility] Start: 01-06-2026 LIPID SCREEN LIPID SCREEN [facility] Start: 12-23-2025 Diabetes Screening Diabetes Screenin g [facility] Start: 10-07-2025 DIABETES SCREEN DIABETES SCREEN [facility] Start: 10-07-2025 Diabetes Screening Diabetes Screenin g [facility] Start: 02-28-2025 Screening for osteoporosis Bone Dens ity Screening [facility] Start: 11-13-2024 End: 11-13-2024 Patient encounter procedure 11/13/2024 9:00 AM EDT Office Visit [facility] [place] [address] [place] [id number] Kelly Crowe PA-C [address] [place], [place] [id number] Medicare Wellness [facility] [place] Comment on above: Medicare Wellness Start: 11-05-2024 End: 11-05-2024 Patient encounter procedure [facility] [place] Comment on above: Medicare Wellness *1st attempt to resc hed - lm - 07/30 Start: 10-27-2024 Anxiety Screening Anxiety Screening [facility] Start: 10-27-2024 Depression Screening Depression Scre ening [facility] Start: 10-27-2024 Medicare Annual Well ness Visit Medicare Annual Wellness Visit [facility] Start: 10-15-2024 Influenza vaccination Influenza Vacc ine (#1) [facility] Start: 08-29-2024 Screening for malign ant neoplasm of breast Mammogram Screening [facility] Start: 04-13-2024 Covid-19 Vaccine ( season) Covid-19 Vaccine () [facility] Start: 02-15-2024 Advance Directive Discussion Advance Directive Discussion [facility] Start: 01-07-2024 DIABETES SCREEN DIABETES SCREEN [facility] Start: 12-05-2023 End: 12-05-2023 Patient encounter procedure 12/05/2023 9:45 AM EDT Office Visit General Surgery [address] [place], [place] [id number] Bev Nichols MD [address] [place] [phone] 2 wk f/u- stitch removal General Surgery Comment on above: 2 wk f/u- stitch rem oval Start: 11-21-2023 End: 11-21-2023 Patient encounter procedure 11/21/2023 9:15 AM EDT Office Visit General Surgery [address] [place] [id number] Bev Nichols MD [address] [place] [phone] excision of skin of back General Surgery Comment on above: excision of skin of back Start: 11-05-2023 Mammography Mammogram Screening [facility] Start: 11-05-2023 Screening for malign ant neoplasm of breast Mammogram Screening [facility] Start: 10-29-2023 End: 01-28-2024 CBC W Auto Differential panel - Blood COMPLETE BLOOD COUNT AND DIFFERENTIAL Lab Routine Encounter for therapeutic drug monitoring Expected: 10/29/2023, Expires: 01/28/2024 [facility] Work Phone: Comment on above: Expected: 10/29/2023 , Expires: 01/28/2024 Start: 10-29-2023 End: 01-28-2024 Comprehensive metabolic 2000 panel - Serum or Plasma COMPREHENSIVE METABOLIC PANEL Lab Routine Encounter for therapeutic drug monitoring Expected: 10/29/2023, Expires: 01/28/[address] [facility] Comment on above: Expected: 10/29/2023 , Expires: 01/28/2024 Start: 10-29-2023 End: 01-28-2024 Lipid 1996 panel - Serum or Plasma LIPID PANEL BASIC Lab Routine Hyperlipidemia, unspecified hyperlipidemia type Expected: 10/29/2023, Expires: 01/28/[address] [facility] Comment on above: Expected: 10/29/2023 , Expires: 01/28/2024 Start: 10-24-2023 End: 10-24-2023 Patient encounter procedure 10/24/2023 10:00 AM EDT Office Visit [facility] [place] [address] [place] [address] Cj Riojas APRN.[employer] LOADER [address] [facility] [place] [address] 1 yr medicare wellness [facility] [place] Comment on above: 1 yr medicare latrell Start: 10-16-2023 Influenza vaccination Influenza Vacc ine (#1) [facility] Start: 10-10-2023 End: 10-10-2023 Patient encounter procedure 10/10/2023 1:00 PM EDT Office Visit Internal Medicine [place] [address] [facility], [place] [address] Cj Riojas APRN.[employer] LOADER [address] [place], [place] [phone] 1 yr medicare wellness [facility] [place] Comment on above: 1 yr medicare latrell Start: 09-19-2023 End: 09-19-2023 Patient encounter procedure 09/19/2023 8:30 AM EDT Office Visit General Surgery [address] [facility], [place] [phone] Bev Nichols MD [address] [place] [phone] 30 minutes office procedure with me, excision of skin lesion of upper right chest wall General Surgery Comment on above: 30 minutes office pr ocedure with me, excision of skin lesion of upper right chest wall Start: 09-12-2023 End: 09-12-2023 Patient encounter procedure 09/12/2023 8:45 AM EDT Office Visit General Surgery [address] [place], [place] [phone] Bev Nichols MD [address] [place] [phone] BREAST CONSULT / RT BREAST LUMP General Surgery Comment on above: BREAST CONSULT / RT BREAST LUMP Start: 08-31-2023 End: 08-31-2023 Patient encounter procedure Mammogram Comment on above: Mass of upper outer quadrant of right breast [N63.11] Start: 04-06-2023 End: 11-03-2023 DXA-AXIAL SKELETON DXA-AXIAL SKELETON Radiology Routine Asymptomatic postmenopausal status Osteoporosis, unspecified osteoporosis type, unspecified pathological fracture presence Expected: 04/06/2023, Expires: 11/03/2023 [facility] Work Phone: Comment on above: Expected: 04/06/2023 , Expires: 11/03/2023 Start: 03-21-2023 Covid-19 Vaccine () Covid-19 Vaccine () [facility] Start: 02-14-2023 Advance Directive Discussion Advance Directive Discussion [facility] Start: 02-14-2023 Behavioral Health Screening Behavioral Health Screening [facility] Start: 02-14-2023 Depression Assessment Depression Ass essment [facility] Start: 12-23-2022 End: 03-24-2023 Amylase [Enzymatic activity/volume] in Serum or Plasma [facility] Work Phone: Comment on above: Expected: 12/23/2022 , Expires: 03/24/2023 Start: 12-23-2022 End: 03-24-2023 Chronic hepatitis differentiation between hepatitis B and C virus panel - Serum or Plasma [facility] Work Phone: Comment on above: Expected: 12/23/2022 , Expires: 03/24/2023 Start: 12-23-2022 End: 03-24-2023 Comprehensive metabolic 2000 panel - Serum or Plasma [facility] Work Phone: Comment on above: Expected: 12/23/2022 , Expires: 03/24/2023 Start: 12-23-2022 End: 01-22-2024 Ct abdomen w/contrast material CT LIVER W IVCON Radiology Routine Abnormal results of liver function studies Expected: 12/23/2022, Expires: 01/22/2024 [facility] Work Phone: Comment on above: Expected: 12/23/2022 , Expires: 01/22/2024 Start: 12-23-2022 End: 03-24-2023 Lipase [Enzymatic activity/volume] in Serum or Plasma [facility] Work Phone: Comment on above: Expected: 12/23/2022 , Expires: 03/24/2023 Start: 10-15-2022 Covid-19 Vaccine (5 - 2023-24 season) Covid-19 Vaccine (2022- season) [facility] Start: 10-15-2022 Influenza vaccination [facility] Start: 10-05-2022 End: 12-05-2022 CBC W Auto Differential panel - Blood CBC + DIFF Lab Routine Encounter for therapeutic drug monitoring Expected: 10/05/2022, Expires: 12/05/2022 [facility] Work Phone: Comment on above: Expected: 10/05/2022 , Expires: 12/05/2022 Start: 10-05-2022 End: 12-05-2022 Comprehensive metabolic 2000 panel - Serum or Plasma COMP METABOLIC PANEL Lab Routine Mixed hyperlipidemia Encounter for therapeutic drug monitoring Expected: 10/05/2022, Expires: 12/05/2022 [facility] Work Phone: Comment on above: Expected: 10/05/2022 , Expires: 12/05/2022 Start: 10-05-2022 End: 12-05-2022 Lipid 1996 panel - Serum or Plasma LIPID PANEL BASIC Lab Routine Mixed hyperlipidemia Encounter for therapeutic drug monitoring Expected: 10/05/2022, Expires: 12/05/2022 [facility] Work Phone: Comment on above: Expected: 10/05/2022 , Expires: 12/05/2022 Start: 08-28-2022 Urine microalbumin profile DTA P,TDAP,TD (2 - Td or Tdap) [facility] Start: 06-30-2022 Patient discharge [facility] Start: 04-22-2022 Colonoscopy COLONOSCOPY [facility] Start: 04-22-2022 COLORECTAL CANCER SCREENING COLORECTAL CANCER SCREENING [facility] Start: 04-22-2022 Screening for malign ant neoplasm of colon [facility] Start: 03-04-2022 COVID-19 VACCINE (5 - Additional dose for Jimenez series) COVID-19 VACCINE (5 - Additional dose for Jimenez series) [facility] Start: 02-14-2022 ADVANCE DIRECTIVE DISCUSSION ADVANCE DIRECTIVE DISCUSSION [facility] Start: 02-14-2022 DEPRESSION ASSESSMENT DEPRESSION ASS ESSMENT [facility] Start: 01-06-2022 PNEUMOCOCCAL: 65+ (1 - PCV) PNEUMOCOCCAL: 65+ (1 - PCV) [facility] Comment on above: Postponed from 10/21 (Declined at this time) Start: 01-06-2022 PNEUMOVAX AGE 65 AND OVER WITH 5YR LOOKBACK (#1) PNEUMOVAX AGE 65 AND OVER WITH 5YR LOOKBACK (#1) [facility] Comment on above: Postponed from 10/21 (Declined at this time) Start: 01-06-2022 SHINGRIX VACCINE (2 of 2) HUERTAS GRIX VACCINE (2 of 2) [facility] Comment on above: Postponed from 11/07 (Declined at this time) Start: 10-15-2021 Influenza vaccination INFLUENZA (#1) [facility] Start: 08-12-2021 Patient discharge [facility] Work Phone: Start: 04-18-2021 COVID-19 VACCINE (3 - Booster for Jimenez series) COVID-19 VACCINE (3 - Booster for Jimenez series) [facility] Start: 02-14-2021 ADVANCE DIRECTIVE DISCUSSION ADVANCE DIRECTIVE DISCUSSION [facility] Start: 02-14-2021 DEPRESSION ASSESSMENT DEPRESSION ASS ESSMENT [facility] Start: 02-13-2021 COVID-19 VACCINE (3 - Booster for Jimenez series) COVID-19 VACCINE (3 - Booster for Jimenez series) [facility] Start: 10-28-[address] [facility] Start: 10-21-2020 Pneumococcal Vaccine : 65+ (1 - PCV) Pneumococcal Vaccine: 65+ (1 - PCV) [facility] Start: 10-21-2020 Pneumococcal Vaccine : 65+ (1 of 1 - PCV) Pneumococcal Vaccine: 65+ (1 of 1 - PCV) [facility] Start: 10-21-2020 PNEUMOCOCCAL: 65+ (1 - PCV) PNEUMOCOCCAL: 65+ (1 - PCV) [facility] Start: 11-08-2019 SHINGRIX VACCINE (2 of 2) HUERTAS GRIX VACCINE (2 of 2) [facility] Start: 05-20-2018 Adult depression scr eening assessment DEPRESSION SCREENING [facility] Start: 2015 RSV Vaccine (1 - 1-d ose 60+ series) RSV Vaccine (1 - 1-dose 60+ series) [facility] Start: 10-21-2005 Pneumococcal Vaccine : 50+ (1 of 1 - PCV) Pneumococcal Vaccine: 50+ (1 of 1 - PCV) [facility] Start: 10-21-2000 COLOGUARD (FIT-DNA) COLOGUARD (FIT-D NA) [facility] Start: 10-21-[address] COLONOGRAPHY [facility] Start: 10-21-2000 FECAL OCCULT BLOOD FECAL OCCULT BLOO D [facility] Start: 10-21-2000 Screening for malign ant neoplasm of colon [facility] Start: 10-21-2000 SIGMOIDOSCOPY SIGMOIDOSCOPY [facility] Start: 10-21-1973 Anxiety Screening Anxiety Screening [facility] Start: 10-21-1973 Depression Screening Depression Scre ening [facility] DDI VIBRATION CONTRO LLED TRANSIENT ELASTOGRAPHY (VCTE) DDI VIBRATION CONTROLLED TRANSIENT ELASTOGRAPHY (VCTE) Endoscopy Routine Abnormal liver scan Ordered: 12/23/2022 [facility] Work Phone: Comment on above: Ordered: 12/23/2022 End: 09-10-2023 ECG COMPLETE ECG COMPLETE ECG Routine Marfan syndrome 1 Occurrences starting 09/09/2022 until 09/10/2023 [facility] Work Phone: Comment on above: 1 Occurrences starti ng 09/09/2022 until 09/10/2023 End: 09-10-2023 Echocardiography ECHO Cardiology Routine Marfan syndrome Aneurysm of aorta in diseases classified elsewhere (HCC) 1 Occurrences starting 09/09/2022 until 09/10/2023 [facility] Work Phone: Comment on above: 1 Occurrences starti ng 09/09/2022 until 09/10/2023 End: 09-06-2024 MG Breast - bilateral Diagnostic LUIS DIAGNOSTIC BILATERAL Radiology Routine Mass of upper outer quadrant of right breast 1 Occurrences starting 08/08/2023 until 09/06/[address] [facility] Comment on above: 1 Occurrences starti ng 08/08/2023 until 09/06/2024 Patient referral [facility] Work Phone: End: 12-18-2022 Screening mammography bi 2-view breast inc cad LUIS SCREENING Radiology Routine Encounter for screening mammogram for breast cancer 1 Occurrences starting 11/18/2021 until 12/18/2022 [facility] Work Phone: Comment on above: 1 Occurrences starti ng 11/18/2021 until 12/18/2022 SURGICAL PATHOLOGY SURGICAL PATH OLOGY Lab Routine Localized superficial mass 09/19/2023 8:48 AM EDT [facility] Work Phone: SWAB COLLECTION SPECIMEN SWAB CO LLECTION SPECIMEN Lab Routine Ectopia lentis Ordered: 10/15/2022 [facility] Work Phone: Comment on above: Ordered: 10/15/2022 End: 11-03-2023 Ultrasound elastography parenchyma US ELASTOGRAPHY LIVER Radiology Routine Hepatic fibrosis 1 Occurrences starting 10/04/2022 until 11/03/2023 [facility] Work Phone: Comment on above: 1 Occurrences starti ng 10/04/2022 until 11/03/2023 End: 11-03-2023 US ABD RIGHT UPPER QUADRANT US ABD RIGHT UPPER QUADRANT Radiology Routine Hepatic fibrosis 1 Occurrences starting 10/04/2022 until 11/03/2023 [facility] Work Phone: Comment on above: 1 Occurrences starti ng 10/04/2022 until 11/03/2023 End: 09-06-2024 US Breast - right limited US BREAST LTD RIGHT Radiology Routine Mass of upper outer quadrant of right breast 1 Occurrences starting 08/08/2023 until 09/06/2024 [facility] Work Phone: Comment on above: 1 Occurrences starti ng 08/08/2023 until 09/06/2024 [facility] Immunizations Immunization Date Immunization Notes Care Provider Thierry garcia 09-23-2023 zoster vaccine recombinant Cj Riojas DRIER AND PULVERIZER TENDER.[employer] LOADER Work Phone: [facility] 11-18-2022 influenza (aIIV4) vaccine, age 65+ yr, quadrivalent, PF (FLUAD QUAD) Cj Riojas APRN.[employer] F[employer]NACE LOADER Work Phone: [facility] 11-18-2022 respiratory syncytia l virus (RSV) vaccine, adjuvanted (AREXVY) Cj Riojas DRIER AND PULVERIZER TENDER.[employer] FURNACE LOADER Work Phone: [facility] 11-18-2022 influenza virus vaccine, unspecified formulation Diagnostic Wstr [facility] 11-02-2021 Pfizer COVID-19 Vac Bivalent 30 MCG/0.3ML Intramuscular Suspension Referring Provider Unknown [facility] Work Phone: 07-21-2021 Comirnaty 30 MCG/0.3 ML Intramuscular Suspension Referring Provider Unknown [id number] Work Phone: 07-17-2021 TD(adult) unspecifie d formulation Catalino Rivas DRIER AND PULVERIZER TENDER.[employer] FURNACE LOADER Work Phone: [facility] Work Phone: 07-17-2021 tetanus and diphther ia toxoids, adsorbed, preservative free, for adult use (5 Lf of tetanus toxoid and 2 Lf of diphtheria toxoid) Catalino Rivas DRIER AND PULVERIZER TENDER.CALCINE FURNACE LOADER Work Phone: [facility] 12-23-2020 influenza (aIIV4) vaccine, age 65+ yr, quadrivalent, PF (FLUAD QUADRIVALENT) Kymberly Older DRIER AND PULVERIZER TENDER.CALCINE FURNACE LOADER Work Phone: [facility] 12-23-2020 influenza virus vaccine, unspecified formulation Cj Riojas DRIER AND PULVERIZER TENDER.CALCINE FURNACE LOADER Work Phone: [facility] 12-19-2020 COVID-19 vaccine, ag e 12+ yr ([employer] - PURPLE TOP) Kymberly Older DRIER AND PULVERIZER TENDER.CALCINE FURNACE LOADER Work Phone: [facility] 12-19-2020 Fluad Quadrivalent 0 .5 ML Intramuscular Prefilled Syringe Referring Provider Unknown [id number] man 210 Work Phone: 04-24-2020 COVID-19 vaccine (JIMENEZ) Kymberly Older DRIER AND PULVERIZER TENDER.[employer] FURNACE LOADER Work Phone: [facility] 09-13-2019 zoster vaccine recombinant Kymberly Older DRIER AND PULVERIZER TENDER.[employer]CINE FURNACE LOADER Work Phone: [facility] 12-17-2017 influenza, injectabl e, quadrivalent, contains preservative Kymberly Older DRIER AND PULVERIZER TENDER.CALCINE FURNACE LOADER Work Phone: [facility] Work Phone: 08-28-2012 tetanus toxoid, redu kenzie diphtheria toxoid, and acellular pertussis vaccine, adsorbed Kymberly Older DRIER AND PULVERIZER TENDER.[employer] FURNACE LOADER Work Phone: [facility] Payers Date Payer Category Payer Self-pay [id number] 2020 Blue [employer] Blue [facility] [place] [id number] 2020 Medicare MEDICARE MEDICAR E A AND B [id number] 2020-Present [phone] [place] [address] Medicare [id number] 2020 Medicare [id number] 2020 Unknown [place] [id number] 2020-Present [phone] [address] [place] [address] Indemnity [id number] 2020 Unknown [id number] 2020 Medicare [id number] 2014 Unknown [id number] 1955 Unknown [id number] Unknown [id number] Unknown [id number] Social History Date Type Detail Facility Start: 05-12-2021 End: 06-15-2022 Tobacco smoking status [facility] Unknown if ever smoked [facility] Start: 07-28-2014 Rare [facility] Start: 07-28-2014 Non-smoker [facility] Start: 1955 Sex Assigned At Female [facility] Start: 03-29-2011 End: 10-28-2023 Tobacco smoking status [facility] Ex-smoker [facility] Work Phone: Start: 02-13-1995 End: 02-13-2001 History of tobacco use Current smoker [facility] Start: 07-06-2021 End: 10-10-2024 Alcohol intake Current drinker of alcohol (finding) [facility] Start: 09-13-2019 History SDOH Alcohol Frequency [address] [facility] Start: 09-13-2019 History SDOH Alcohol Std Drinks [address] [facility] Start: 1955 Sex Assigned At Not on file [facility] Start: 07-07-2021 End: 07-17-2021 Exposure to SARS-CoV-2 (event) Not sure [facility] Start: 02-13-1995 End: 02-13-2001 History of tobacco use Cigarette Smoker [facility] Work Phone: Start: 03-29-2011 End: 10-28-2023 Tobacco use and exposure Smokeless tobacco non-user [facility] Work Phone: Start: 09-13-2019 End: 10-04-2022 History of Social function [facility] Work Phone: Start: 09-13-2019 End: 10-04-2022 Alcohol Use Disorder Identification Test - Consumption [AUDIT-C] [facility] Work Phone: How often to you hav e a drink containing alcohol? 2-4 times a month [facility] Work Phone: How many standard dr inks containing alcohol do you have on a typical day? 1 or [address] [facility] Work Phone: How often do you hav e 6 or more drinks on 1 occasion? Never [facility] Work Phone: Start: 01-16-2012 Adult Depression Screening Assessment [address] [facility] Start: 10-04-2022 Tobacco Comment 4 cig per day, quit [facility] NEGATED: Highlighted row [facility] NEGATED: Highlighted rowStart: AMORF History of tobacco use Passive smoker [facility] Goals Date Patient Goal Desired Activity /State Functional Status Date Assessment Result Facility 08-01-2014 Are you deaf, or do you have serious difficulty hearing No 08/01/2014 9:49 AM Felipa Colon RN No [facility] 08-01-2014 Are you blind, or do you have serious difficulty seeing, even when wearing glasses No 08/01/2014 9:49 AM Felipa Colon RN No [facility] 08-01-2014 Do you have serious difficulty walking or climbing stairs No 08/01/2014 9:49 AM Felipa Colon RN No [facility] 08-01-2014 Do you have difficul ty dressing or bathing No 08/01/2014 9:49 AM Felipa Colon RN No [facility] 08-01-2014 Because of a physica l, mental, or emotional condition, do you have difficulty doing errands alone such as visiting a physician's office or shopping No 08/01/2014 9:49 AM Felipa Colon RN No [facility] Mental Status Date Assessment Result Facility 06-30-2022 Cognitive function Level Of Cons ciousness Drowsy [facility] Work Phone: 06-30-2022 Cognitive function Patient Tima delvalle Person;Place;Time [facility] Work Phone: 08-12-2021 Cognitive function Voice/Name [facility] Work Phone: 08-01-2014 Because of a physica l, mental, or emotional condition, do you have serious difficulty concentrating, remembering, or making decisions No 08/01/2014 9:49 AM Felipa Colon RN No [facility] Clinical Notes 06-27-2007 to 11-26-2024 Patient InstructionsGeo Avila MD - 10/10/2024 7:37 PM Cj Arteaga APRN.CNP - 09/05/2024 8:15 AM Jose Juan Sullivan PA-C - 08/20/2024 10:12 AM EDTPatient InstructionsPatient Instructions Note Date & Type Note Facility 11-26-2024 Note HNO ID: [id number] Author: CHICO COSME Mammo Tech Service: ? Author Type: Director Records Management Type: Progress Notes Filed: 11/26/2024 10:02 Note Text: Radiology Service Progress Note PATIENT NAME: Cierra Marmolejo DATE OF SERVICE: November 26, 2024 TIME: 10:01 AM PATIENT IDENTITY VERIFICATION COMPLETED USING TWO (2) IDENTIFIERS: Name and Date of confirmed by patient verbally. FALL SCREENING: Has the patient had 2 falls in the last year or 1 fall with injury or currently using an Ambulatory Assistive Device (Walker, Cane, Wheelchair, Crutches, etc.)? No PATIENT GENDER DATA: Assigned female at . status: : No status: NO. PATIENT RELEVANT IMPLANT DATA REVIEWED: Not Applicable PATIENT PRESENTS WITH AN IMPLANTABLE OR ATTACHED INSPECTOR PAWNSHOP DETAIL: No RADIOLOGY DEPARTMENT: Mammography PERIPHERAL IV DATA: Not applicable SIGNED BY: Sadie Tenorioo Tom November 26, 2024 10:01 AM [facility] 11-20-2024 Note HNO ID: [id number] Author: KELLY CROWE PA-C Service: ? Author Type: Physician Supervisor [place] Type: Progress Notes Filed: 11/27/2024 07:50 Note Text: Cierra Marmolejo is a 69 year old female here for a Medicare wellness visit. Medicare Health Risk Assessment General Health Very good Exercise: Minutes/Day 20 min Exercise: Days/Week 7 days Alcohol: Daily Use Never Alcohol: Drinks/Day Patient does not drink Alcohol: 6 or more drinks Never Feel off balance No Concerns: Teeth/Dentures No Concerns: Sexual function No Troubled by feelings None of the above Frequency: Eating healthy diet Nearly every day ADLs requiring help None of the above Safety precautions in home/vehicle Yes Smoke, vape, chews tobacco No Difficulty hearing No Difficulty seeing No Current Providers Specialists: I have reviewed specialist-related care of the patient in the medical record. Medical/Family history review Reviewed and updated problem list, medical/surgical/family/social history, medications, and allergies. Opioid use review Opioid Medications (last 90 days) No data to display Anxiety/Depression screening PHQ-2 Score: 0 (Lower risk for depression) MAX-2 Score: 0 (Lower risk for anxiety) Recommendation: no further intervention at this time Cognitive screening Mini Cog Score: 5 Cognitive screening reviewed and No further action needed (score 3-5). Functional Observation Was the patient's Timed Up AND Go test unsteady or >= 12 seconds? No Advance Care Planning Surrogate decision maker and/or advance care plan documented Measurements BP 130/78 Pulse 75 Temp 36.1 ?C (97 ?F) (Tympanic) Resp 16 Ht 156 cm (5' 1.42) Wt 59.6 kg (131 lb 6.4 oz) LMP 07/27/2006 SpO2 98% BMI 24.49 kg/m? Vision Screening: Follows with optometry/ophthalmology Assessment/Plan Medicare annual wellness visit, subsequent (Z00.00) - Counseled on healthy diet and regular exercise - Fall avoidance information provided - Personalized prevention plan provided Additional Concerns The following concerns were also discussed with the patient: Recording using [employer] software for draft documentation of the visit was discussed with the patient/authorized real estate representative; all questions welcomed and answered. Patient/authorized real estate representative agreed to proceedRecording using [employer] software for draft documentation of the visit was discussed with the patient/authorized real estate representative; all questions welcomed and answered. Patient/authorized real estate representative agreed to proceed 11/27/2024 Annual Wellness Exam: - No current health concerns. - Engages in regular physical activity, including walking to the barn and walking the dog three times daily, even in inclement weather. - Enjoys gardening and crafting. - Occasionally consumes alcohol during special dinners; denies tobacco use. - No issues with balance, dental health, or ADLs. - Denies depression, chest pain, dyspnea, or leg swelling. - Last colonoscopy in 2018; due for another. - Mammogram due in September. - Interested in flu and COVID vaccines. - No history of thyroid issues. Hyperlipidemia: - Stopped taking Lipitor approximately 1.5 years ago due to muscle stiffness. - Tried atorvastatin and pravastatin with similar side effects. - Previously took Coenzyme Q10. - Family history of hyperlipidemia. Osteoporosis: - Taking vitamin D supplement. Current Outpatient Medications on File Prior to Visit Medication Sig bacitracin 500 unit/gram ointment Apply to affected area two times a day. betamethasone valerate 0.1 % ointment Use a pea-sized amount-once daily for up to 2 weeks prn flares albuterol HFA (PROVENTIL HFA, VENTOLIN HFA) 90 mcg/actuation inhaler Inhale 2 Puffs as instructed every 4 hours as needed. MAGNESIUM ORAL Take by mouth once daily. vitamin E, dl,tocopheryl acet, (VITAMIN E, DL, ACETATE,) 180 mg (400 unit) capsule Take by mouth. calcium carbonate (CALCIUM 600 ORAL) Take by mouth. cholecalciferol, vitamin D3, (VITAMIN D3 ORAL) Take by mouth. 5000 daily fluticasone (FLONASE) 50 mcg/actuation nasal spray Use 2 Sprays in each nostril once daily. Rinse mouth after use. atorvastatin (LIPITOR) 20 mg tablet Take 1 tablet by mouth every other day. (Patient not taking: Reported on 11/20/2024) No current facility-administered medications on file prior to visit. PAST MEDICAL HISTORY Diagnosis Date DIVERTICULOSIS COLON - NO HEMORRHAGE 03/31/2006 Hemorrhage of gastrointestinal tract, unspecified HEMORRHOIDS INTERNAL 03/31/2006 Hyperlipidemia Intramural leiomyoma of uterus 03/09/06 LEIOMYOMATA UTERUS INTRAMURAL Other and unspecified ovarian cyst 03/09/06 complex cyst of the right ovary Papanicolaou smear of cervix with atypical squamous cells of undetermined significance (ASC-US) 01/20/06 noted negative hpv at same time POLYP COLON 03/31/2006 Psoriasis Umbilical hernia without mention of obstruction or g (more content not included)... [facility] 11-20-2024 Note HNO ID: [id number] Author: LALI WHITFIELD MA Service: ? Author Type: Skid Road Worker Type: Progress Notes Filed: 11/27/2024 07:50 Note Text: Cierra Marmolejo is a 69 year old female here for a Medicare wellness visit. Medicare Health Risk Assessment General Health Very good Exercise: Minutes/Day 20 min Exercise: Days/Week 7 days Alcohol: Daily Use Never Alcohol: Drinks/Day Patient does not drink Alcohol: 6 or more drinks Never Feel off balance No Concerns: Teeth/Dentures No Concerns: Sexual function No Troubled by feelings None of the above Frequency: Eating healthy diet Nearly every day ADLs requiring help None of the above Safety precautions in home/vehicle Yes Smoke, vape, chews tobacco No Difficulty hearing No Difficulty seeing No Current Providers Specialists: I have reviewed specialist-related care of the patient in the medical record. Current care team: Patient Care Team: Geo Avila MD as PCP - General (Internal Medicine) Juana Gifford APRN.MATERIAL SPREADER as Search Engine Optimization Manager (Internal Medicine) Outside specialists seen: Dr. Thompson with [facility], Dentist, [facility] Albrecht Medical/Family history review Reviewed and updated problem list, medical/surgical/family/social history, medications, and allergies. Opioid use review Opioid Medications (last 90 days) No data to display Anxiety/Depression screening PHQ-2 Score: 0 (Lower risk for depression) Recommendation: no further intervention at this time Cognitive screening Mini Cog Score: 5 Cognitive screening reviewed and No further action needed (score 3-5). Functional Observation Was the patient's Timed Up AND Go test unsteady or >= 12 seconds? No Advance Care Planning Surrogate decision maker and/or advance care plan documented Measurements BP 130/78 Pulse 75 Temp 36.1 ?C (97 ?F) (Tympanic) Resp 16 Ht 156 cm (5' 1.42) Wt 59.6 kg (131 lb 6.4 oz) LMP 07/27/2006 SpO2 98% BMI 24.49 kg/m? Vision Screening: Follows with optometry/ophthalmology Assessment/Plan Medicare annual wellness visit, initial (Z00.00) - Counseled on healthy diet and regular exercise - Fall avoidance information provided - Personalized prevention plan provided - Discussed need for and benefit of weight loss. BMI 24.49 kg/(m2) [facility] 10-10-2024 Instructions Geo Avila MD - 10/10/2024 7:51 PM EDT - Today s exam shows the cellulitis has resolved and there is no active infection. - No further antibiotics or steroid/antibiotic creams are needed; allow the skin to heal naturally. - Expect the remaining darker, slightly dented spot to fade over several weeks to a couple of months as new skin layers replace the inflamed area. - Avoid direct pressure or repeated bumping on the spot. When mowing, consider placing a soft cushion on your seat and take breaks as needed to reduce irritation. documented in this encounter [facility] 10-10-2024 Note HNO ID: [id number] Author: GEO AVILA MD Service: ? Author Type: Physician Type: Progress Notes Filed: 10/10/2024 19:54 Note Text: Subjective Cierra Marmolejo is a 68 year old female. HPI SUBJECTIVE: Cierra Marmolejo is a 68-year-old female presenting for follow-up on a skin lesion initially evaluated at [facility]. Cierra reports a lesion that began as a erythematous, indurated area approximately the size of a half-dollar. She initially suspected an insect bite. The lesion was evaluated at [facility] on 08/20, where it was described as a 1 cm erythematous, indurated area. She was prescribed Augmentin, which she was already taking for a sinus infection. On 09/05, she was seen again and prescribed Keflex and clobetasol. At that time, the lesion was noted to be smaller but still erythematous. Currently, Cierra reports that the lesion has improved and decreased in size. She denies pain, pruritus, or any drainage from the lesion. She expresses concern about the lesion developing into something more serious, such as melanoma, but denies any dark spots or lesions. She denies fevers, chills, or any tendency to get wounds or infections. 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 PAST MEDICAL HISTORY Diagnosis Date DIVERTICULOSIS COLON - NO HEMORRHAGE 03/31/2006 Hemorrhage of gastrointestinal tract, unspecified HEMORRHOIDS INTERNAL 03/31/2006 Hyperlipidemia Intramural leiomyoma of uterus 03/09/06 LEIOMYOMATA UTERUS INTRAMURAL Other and unspecified ovarian cyst 03/09/06 complex cyst of the right ovary Papanicolaou smear of cervix with atypical squamous cells of undetermined significance (ASC-US) 01/20/06 noted negative hpv at same time POLYP COLON 03/31/2006 Psoriasis Umbilical hernia without mention of obstruction or gangrene 03/17/06 UMBILICAL HERNIA W/O GANGRENE/OBSTRUCTION Current Outpatient Medications Medication Sig bacitracin 500 unit/gram ointment Apply to affected area two times a day. betamethasone valerate 0.1 % ointment Use a pea-sized amount-once daily for up to 2 weeks prn flares atorvastatin (LIPITOR) 20 mg tablet Take 1 tablet by mouth every other day. albuterol HFA (PROVENTIL HFA, VENTOLIN HFA) 90 mcg/actuation inhaler Inhale 2 Puffs as instructed every 4 hours as needed. MAGNESIUM ORAL Take by mouth once daily. vitamin E, dl,tocopheryl acet, (VITAMIN E, DL, ACETATE,) 180 mg (400 unit) capsule Take by mouth. calcium carbonate (CALCIUM 600 ORAL) Take by mouth. cholecalciferol, vitamin D3, (VITAMIN D3 ORAL) Take by mouth. 5000 daily fluticasone (FLONASE) 50 mcg/actuation nasal spray Use 2 Sprays in each nostril once daily. Rinse mouth after use. omeprazole (PRILOSEC) 20 mg capsule Take 1 capsule by mouth once daily. (Patient not taking: Reported on 10/10/2024) No current facility-administered medications for this visit. Review of Systems Objective BP 132/84 (BP Site: Left Arm, BP Position: Sitting, BP Cuff Size: Regular Adult) Pulse 85 Temp 37.4 ?C (99.4 ?F) Wt 60 kg (132 lb 4.4 oz) LMP 07/27/2006 SpO2 99% BMI 24.19 kg/m? Physical Exam Constitutional: Appearance: Normal appearance. Eyes: Conjunctiva/sclera: Conjunctivae normal. Pulmonary: Effort: Pulmonary effort is normal. Musculoskeletal: Back: Neurological: General: No focal deficit present. Mental Status: She is alert and oriented to person, place, and time. Psychiatric: Mood and Affect: Mood normal. Behavior: Behavior normal. Thought Content: Thought content normal. Judgment: Judgment normal. [facility] 10-10-2024 History of Presen t illness Narrative Images from the original note were not included. Subjective Cierra Marmolejo is a 68 year old female. HPI SUBJECTIVE: Cierra Marmolejo is a 68-year-old female presenting for follow-up on a skin lesion initially evaluated at [facility]. Cierra reports a lesion that began as a erythematous, indurated area approximately the size of a half-dollar. She initially suspected an insect bite. The lesion was evaluated at [facility] on 08/20, where it was described as a 1 cm erythematous, indurated area. She was prescribed Augmentin, which she was already taking for a sinus infection. On 09/05, she was seen again and prescribed Keflex and clobetasol. At that time, the lesion was noted to be smaller but still erythematous. Currently, Cierra reports that the lesion has improved and decreased in size. She denies pain, pruritus, or any drainage from the lesion. She expresses concern about the lesion developing into something more serious, such as melanoma, but denies any dark spots or lesions. She denies fevers, chills, or any tendency to get wounds or infections. 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 PAST MEDICAL HISTORY Diagnosis Date DIVERTICULOSIS COLON - NO HEMORRHAGE 03/31/2006 Hemorrhage of gastrointestinal tract, unspecified HEMORRHOIDS INTERNAL 03/31/2006 Hyperlipidemia Intramural leiomyoma of uterus 03/09/06 LEIOMYOMATA UTERUS INTRAMURAL Other and unspecified ovarian cyst 03/09/06 complex cyst of the right ovary Papanicolaou smear of cervix with atypical squamous cells of undetermined significance (ASC-US) 01/20/06 noted negative hpv at same time POLYP COLON 03/31/2006 Psoriasis Umbilical hernia without mention of obstruction or gangrene 03/17/06 UMBILICAL HERNIA W/O GANGRENE/OBSTRUCTION Current Outpatient Medications Medication Sig bacitracin 500 unit/gram ointment Apply to affected area two times a day. betamethasone valerate 0.1 % ointment Use a pea-sized amount-once daily for up to 2 weeks prn flares atorvastatin (LIPITOR) 20 mg tablet Take 1 tablet by mouth every other day. albuterol HFA (PROVENTIL HFA, VENTOLIN HFA) 90 mcg/actuation inhaler Inhale 2 Puffs as instructed every 4 hours as needed. MAGNESIUM ORAL Take by mouth once daily. vitamin E, dl,tocopheryl acet, (VITAMIN E, DL, ACETATE,) 180 mg (400 unit) capsule Take by mouth. calcium carbonate (CALCIUM 600 ORAL) Take by mouth. cholecalciferol, vitamin D3, (VITAMIN D3 ORAL) Take by mouth. 5000 daily fluticasone (FLONASE) 50 mcg/actuation nasal spray Use 2 Sprays in each nostril once daily. Rinse mouth after use. omeprazole (PRILOSEC) 20 mg capsule Take 1 capsule by mouth once daily. (Patient not taking: Reported on 10/10/2024) No current facility-administered medications for this visit. Review of Systems Objective BP 132/84 (BP Site: Left Arm, BP Position: Sitting, BP Cuff Size: Regular Adult) Pulse 85 Temp 37.4 C (99.4 F) Wt 60 kg (132 lb 4.4 oz) LMP 07/27/2006 SpO2 99% BMI 24.19 kg/m Physical Exam Constitutional: Appearance: Normal appearance. Eyes: Conjunctiva/sclera: Conjunctivae normal. Pulmonary: Effort: Pulmonary effort is normal. Musculoskeletal: Back: Neurological: General: No focal deficit present. Mental Status: She is alert and oriented to person, place, and time. Psychiatric: Mood and Affect: Mood normal. Behavior: Behavior normal. Thought Content: Thought content normal. Judgment: Judgment normal. documented in this encounter [facility] 10-09-2024 Note Patient Outreach (IN TMWS) CIERRA MARMOLEJO ([id number]) 1955 F Date Time Provider Department 10/09/24 GEO AVILA INTMWS During your visit today, we recorded the following information about you: Allergies As of Date: 10/09/2024 Noted Allergy Reaction DOXYCYCLINE 04/06/2005 LATEX, NATURAL RUBBER 08/28/2012 9 - Itching SULFA (SULFONAMIDE ANTIBIOTICS) 04/06/2005 Date Reviewed: 09/05/2024 Reviewed by: Cj Riojas APRN.CALCINE FURNACE LOADER - Fully Assessed Visit Diagnosis:Encounter for screening mammogram for breast cancer [Z12.31] Order(s):[facility] SCREENING [facility] [[id number]] Order #: [id number] FUTURE Prescriptions as of 11/09/2024 - bacitracin 500 unit/gram ointment Apply to affected area two times a day. - betamethasone valerate 0.1 % ointment Use a pea-sized amount-once daily for up to 2 weeks prn flares - omeprazole (PRILOSEC) 20 mg capsule Take 1 capsule by mouth once daily. - atorvastatin (LIPITOR) 20 mg tablet Take 1 tablet by mouth every other day. - albuterol HFA (PROVENTIL HFA, VENTOLIN HFA) 90 mcg/actuation inhaler Inhale 2 Puffs as instructed every 4 hours as needed. - MAGNESIUM ORAL Take by mouth once daily. - vitamin E, dl,tocopheryl acet, (VITAMIN E, DL, ACETATE,) 180 mg (400 unit) capsule Take by mouth. - calcium carbonate (CALCIUM 600 ORAL) Take by mouth. - cholecalciferol, vitamin D3, (VITAMIN D3 ORAL) Take by mouth. 5000 daily - fluticasone (FLONASE) 50 mcg/actuation nasal spray Use 2 Sprays in each nostril once daily. Rinse mouth after use. Problem List As Of Date 10/09/2024 Noted Resolved Hemorrhage of rectum and anus [K62.5] 03/10/2006 05/21/2013 Hemorrhage of gastrointestinal tract, unspecifi*03/31/2006 05/21/2013 Dyspareunia [[id number]] 06/27/2007 05/21/2013 Unspecified symptom associated with female vicky*06/27/2007 05/21/2013 ATROPHIC VAGINITIS [N95.2] 06/27/2007 Symptomatic menopausal or female climacteric st*06/27/2007 05/21/2013 Psoriasis [L40.9] Hyperlipidemia [E78.5] Lichen sclerosus [L90.0] 05/21/2013 Osteoporosis [M81.0] 01/06/2021 Liver cyst [K76.89] 07/06/2021 Hepatic fibrosis [K74.00] 07/06/2021 Frontal headache [R51.9] 07/06/2021 Gastroesophageal reflux disease without esophag*07/06/2021 Encounter Status:Closed by EPIC, PRODUSER on 11/09/24 [facility] 09-05-2024 Note HNO ID: [id number] Author: CJ RIOJAS APRN.CALCINE FURNACE LOADER Service: ? Author Type: Nurse Practitioner Type: Progress Notes Filed: 09/05/2024 08:42 Note Text: SUBJECTIVE Cierra Marmolejo is a 68 year old female here today for an [facility] follow up. Chief Complaint Patient presents with: Follow Up: express care- sore on right buttock, it has decreased in size HPI Cierra Marmolejo is a 68-year-old female presenting for follow-up on cellulitis of the right buttock. Cierra was initially seen in [facility] on August 14 for a sinus infection and was prescribed Augmentin. She returned to [facility] on August 20 for a firm, erythematous, non-tender lump on her right buttock, approximately the size of a quarter, which was suspected to be cellulitis. She was prescribed Keflex and advised to complete her course of Augmentin. She has been applying clobetasol ointment to the area. Cierra reports that the lump has decreased in size and is now smaller than a quarter, but it is still present and erythematous. She denies any associated fever, chills, or nausea. Cierra is concerned about the potential for recurrence, especially given her plans to mow the lawn today and tomorrow, which involves prolonged sitting on a plastic seat in hot weather, causing significant sweating. She speculates that the initial lump may have been caused by a clogged pore due to sweating and friction from the mower seat. Recording using [employer] software for draft documentation of the visit was discussed with the patient/authorized real estate representative; all questions welcomed and answered. Patient/authorized real estate representative agreed to proceed Her medications were reviewed today and her list is now up to date. Medications Current Outpatient Medications Medication Sig betamethasone valerate 0.1 % ointment Use a pea-sized amount-once daily for up to 2 weeks prn flares omeprazole (PRILOSEC) 20 mg capsule Take 1 capsule by mouth once daily. atorvastatin (LIPITOR) 20 mg tablet Take 1 tablet by mouth every other day. albuterol HFA (PROVENTIL HFA, VENTOLIN HFA) 90 mcg/actuation inhaler Inhale 2 Puffs as instructed every 4 hours as needed. MAGNESIUM ORAL Take by mouth once daily. vitamin E, dl,tocopheryl acet, (VITAMIN E, DL, ACETATE,) 180 mg (400 unit) capsule Take by mouth. calcium carbonate (CALCIUM 600 ORAL) Take by mouth. cholecalciferol, vitamin D3, (VITAMIN D3 ORAL) Take by mouth. 5000 daily fluticasone (FLONASE) 50 mcg/actuation nasal spray Use 2 Sprays in each nostril once daily. Rinse mouth after use. No current facility-administered medications for this visit. ALLERGIES Allergen Reactions Doxycycline Latex, Natural Rubb* Itching Sulfa (Sulfonamide * ACTIVE PROBLEM LIST Liver Cyst - 07/06/2021 Comment: Slightly larger on ultrasound done 06/2021 Hepatic Fibrosis - 07/06/2021 Comment: Liver elasticity imaging 06/2021-consistent with mild to moderate liver fibrosis. Prescribed Ursodiol Frontal Headache - 07/06/2021 Gastroesophageal Reflux Disease Without Esophagitis - 07/06/2021 Osteoporosis - 01/06/2021 Lichen Sclerosus - 05/21/2013 Psoriasis Hyperlipidemia Postmenopausal Atrophic Vaginitis - 06/27/2007 Social History Tobacco Use Smoking status: Former Current packs/day: 0.00 Types: Cigarettes Start date: 02/13/1995 Quit date: 02/13/2001 Years since quittin.5 Passive exposure: Never Smokeless tobacco: Never Tobacco comments: 4 cig per day, quit Vaping Use Vaping status: Never Used Substance Use Topics Alcohol use: Yes Comment: SOCIALLY Drug use: No Review of Systems Constitutional: Negative. Respiratory: Negative. Cardiovascular: Negative. OBJECTIVE BP 130/80 Pulse 94 Temp (Src) 98.3 (Temporal) Resp 12 Ht 5' 2 (1.58m) Wt 130 lb 1.1 oz (59.0kg) SpO2 98% LMP 07/27/2006 BMI 23.78 kg/(m2). Physical Exam Vitals and nursing note reviewed. Constitutional: General: She is awake. She is not in acute distress. Appearance: Normal appearance. She is well-developed and well-groomed. She is not ill-appearing, toxic-appearing or diaphoretic. HENT: Head: Normocephalic. Right Ear: External ear normal. Left Ear: External ear normal. Nose: Nose normal. Eyes: General: Vision grossly intact. Conjunctiva/sclera: Conjunctivae normal. Pupils: Pupils are equal, round, and reactive to light. Neck: Vascular: No JVD. Trachea: Trachea normal. Pulmonary: Effort: Pulmonary effort is normal. No accessory muscle usage, prolonged expiration or respiratory distress. Musculoskeletal: Cervical back: Neck supple. Skin: General: Skin is warm and dry. Capillary Refill: Capillary refill takes less than 2 seconds. Comments: Dime sized area of slight discoloration where the cellulitis was, no firmness palpated, no erythema, edema, increased warmth or drainage Neurological: General: No focal deficit present. Mental Status: She is alert and oriented to per (more content not included)... [facility] 09-05-2024 History of Presen t illness Narrative Images from the original note were not included. SUBJECTIVE Cierra Marmolejo is a 68 year old female here today for an [facility] follow up. Chief Complaint Patient presents with: Follow Up: [facility]- sore on right buttock, it has decreased in size HPI Cierra Marmolejo is a 68-year-old female presenting for follow-up on cellulitis of the right buttock. Cierra was initially seen in [facility] on August 14 for a sinus infection and was prescribed Augmentin. She returned to [facility] on August 20 for a firm, erythematous, non-tender lump on her right buttock, approximately the size of a quarter, which was suspected to be cellulitis. She was prescribed Keflex and advised to complete her course of Augmentin. She has been applying clobetasol ointment to the area. Cierra reports that the lump has decreased in size and is now smaller than a quarter, but it is still present and erythematous. She denies any associated fever, chills, or nausea. Cierra is concerned about the potential for recurrence, especially given her plans to mow the lawn today and tomorrow, which involves prolonged sitting on a plastic seat in hot weather, causing significant sweating. She speculates that the initial lump may have been caused by a clogged pore due to sweating and friction from the mower seat. Recording using [employer] software for draft documentation of the visit was discussed with the patient/authorized real estate representative; all questions welcomed and answered. Patient/authorized real estate representative agreed to proceed Her medications were reviewed today and her list is now up to date. Medications Current Outpatient Medications Medication Sig betamethasone valerate 0.1 % ointment Use a pea-sized amount-once daily for up to 2 weeks prn flares omeprazole (PRILOSEC) 20 mg capsule Take 1 capsule by mouth once daily. atorvastatin (LIPITOR) 20 mg tablet Take 1 tablet by mouth every other day. albuterol HFA (PROVENTIL HFA, VENTOLIN HFA) 90 mcg/actuation inhaler Inhale 2 Puffs as instructed every 4 hours as needed. MAGNESIUM ORAL Take by mouth once daily. vitamin E, dl,tocopheryl acet, (VITAMIN E, DL, ACETATE,) 180 mg (400 unit) capsule Take by mouth. calcium carbonate (CALCIUM 600 ORAL) Take by mouth. cholecalciferol, vitamin D3, (VITAMIN D3 ORAL) Take by mouth. 5000 daily fluticasone (FLONASE) 50 mcg/actuation nasal spray Use 2 Sprays in each nostril once daily. Rinse mouth after use. No current facility-administered medications for this visit. ALLERGIES Allergen Reactions Doxycycline Latex, Natural Rubb* Itching Sulfa (Sulfonamide * ACTIVE PROBLEM LIST Liver Cyst - 07/06/2021 Comment: Slightly larger on ultrasound done 06/2021 Hepatic Fibrosis - 07/06/2021 Comment: Liver elasticity imaging 06/2021-consistent with mild to moderate liver fibrosis. Prescribed Ursodiol Frontal Headache - 07/06/2021 Gastroesophageal Reflux Disease Without Esophagitis - 07/06/2021 Osteoporosis - 01/06/2021 Lichen Sclerosus - 05/21/2013 Psoriasis Hyperlipidemia Postmenopausal Atrophic Vaginitis - 06/27/2007 Social History Tobacco Use Smoking status: Former Current packs/day: 0.00 Types: Cigarettes Start date: 02/13/1995 Quit date: 02/13/2001 Years since quittin.5 Passive exposure: Never Smokeless tobacco: Never Tobacco comments: 4 cig per day, quit Vaping Use Vaping status: Never Used Substance Use Topics Alcohol use: Yes Comment: SOCIALLY Drug use: No Review of Systems Constitutional: Negative. Respiratory: Negative. Cardiovascular: Negative. OBJECTIVE BP 130/80 Pulse 94 Temp (Src) 98.3 (Temporal) Resp 12 Ht 5' 2 (1.58m) Wt 130 lb 1.1 oz (59.0kg) SpO2 98% LMP 07/27/2006 BMI 23.78 kg/(m^2). Physical Exam Vitals and nursing note reviewed. Constitutional: General: She is awake. She is not in acute distress. Appearance: Normal appearance. She is well-developed and well-groomed. She is not ill-appearing, toxic-appearing or diaphoretic. HENT: Head: Normocephalic. Right Ear: External ear normal. Left Ear: External ear normal. Nose: Nose normal. Eyes: General: Vision grossly intact. Conjunctiva/sclera: Conjunctivae normal. Pupils: Pupils are equal, round, and reactive to light. Neck: Vascular: No JVD. Trachea: Trachea normal. Pulmonary: Effort: Pulmonary effort is normal. No accessory muscle usage, prolonged expiration or respiratory distress. Musculoskeletal: Cervical back: Neck supple. Skin: General: Skin is warm and dry. Capillary Refill: Capillary refill takes less than 2 seconds. Comments: Dime sized area of slight discoloration where the cellulitis was, no firmness palpated, no erythema, edema, increased warmth or drainage Neurological: General: No focal deficit present. Mental Status: She is alert and oriented to person, place, and time. Mental status is at baseline. Psychiatric: Attention and Perception: Attention and perception normal. Mood and Affect: Mood and affect normal. Speech: Speech normal. Behavior: Behavior normal. Behavior is cooperative. Thought Content: Thought content normal. Cognition and Memory: Cognition and memory normal. Judgment: Judgment normal. ASSESSMENT/PLAN: 1. Cellulitis of skin (L03.90) Cellulitis of right buttock (L03.317) Initial presentation included a firm, erythematous area approximately 1 cm in size on the right buttock, suspected to be cellulitis. Treated with Keflex and completion of Augmentin course. On examination today, the area is significantly reduced in size, soft, and without erythema or tenderness, indicating resolution of cellulitis. No signs of abscess formation or cystic lining detected. - Discontinue clobetasol ointment. - Initiate warm, moist compresses followed by gentle massage to prevent recurrence. - Monitor for any signs of reoccurrence, such as firmness or erythema, especially after activities that may cause irritation. - Advised patient to take breaks during activities that involve prolonged sitting and sweating, such as mowing, to prevent further irritation. - Educated patient on the use of Bacitracin ointment if erythema reappears; prescription sent to pharmacy. 2. Rhinosinusitis (J32.9) Treated with Augmentin during [facility] visit on August 14. No current symptoms reported. Portions of this note have been entered by ancillary staff. I have reviewed and when necessary edited, so that they are an adequate record of my encounter with this patient Please note that parts of this document were created using voice recognition software and therefore may contain grammatical errors. Patient verbalizes understanding of instructions from today's visit and in agreement with treatment plan. Questions answered. Agrees to call the office if questions, concerns of issues with acute symptoms not improving or if they worsen. See diagnoses and orders for additional plan(s). Allergies and medications were reviewed, list was updated, and refills given if needed. Past medical, surgical, social, and family history reviewed and updated as appropriate. Encouraged proper diet & exercise as well as compliance with taking medications. Age-appropriate health preventative measures were discussed. Return if symptoms worsen or fail to improve, for Keep next scheduled appointment.. Cj Riojas APRN-MELANY documented in this encounter [facility] 08-20-2024 Note HNO ID: [id number] Author: JOSE JUAN DORSEY PA-C Service: ? Author Type: Physician Supervisor [place] Type: Progress Notes Filed: 08/20/2024 10:13 Note Text: [facility] Subjective Cierra Marmolejo is a 68 year old female. Patient presents with: Trauma: Possible insect bite on buttocks, itchy, red, swollen x 3 days HPI Suspected Bug Bite: - Noticed on 11/16, located on the right buttock. - Describes the area as itchy, hard, red, and bumpy. - No drainage observed. - Applying oodf-edr-rxjyknx cortisone cream for itch relief. - Recent history of a rash in the same area prior to the appearance of the current lesion. - Allergic to Bactrim and doxycycline. Cough and Congestion: - Persistent cough and congestion; seen in urgent care on 11/14. - Currently taking Augmentin, with two doses remaining. - Believes symptoms are related to sinus or allergies. - Denies emesis. Review of Systems Ears/Nose/Mouth/Throat: (+) nasal congestion Respiratory: (+) cough Gastrointestinal: (-) vomiting Genitourinary: (-) dysuria Skin: (+) right buttock pruritus, (+) right buttock rash, (+) right buttock induration, (-) drainage Objective BP 122/88 Pulse 78 Temp 36.7 ?C (98.1 ?F) Resp 20 Wt 58.8 kg (129 lb 10.1 oz) LMP 07/27/2006 SpO2 94% BMI 23.71 kg/m? Physical Exam General: No acute distress. CV: Regular rhythm. Resp: Clear to auscultation bilaterally. Abd: Normoactive bowel sounds. Skin: Erythematous, approximately 1 cm round area on right buttock, mild swelling, no induration, no drainage. 1. Cellulitis of skin (L03.90) 2. Cellulitis of right buttock (L03.317) - Exam reveals a 1 cm round area on the right buttock, slightly swollen but not indurated, consistent with cellulitis. - Differential diagnosis includes insect bite, but no evidence of tick bite observed. - Patient currently on Augmentin for a separate bacterial infection; instructed to complete the remaining doses. - Initiated Keflex for cellulitis treatment due to allergies to Bactrim and doxycycline. - Advised to continue using qlcy-nzj-ibictix cortisone cream to alleviate pruritus. - Educated on signs of abscess formation, including increased size and tenderness; instructed to seek medical attention if these symptoms develop. - Discussed the potential for skin vulnerability due to previous rash and environmental factors such as sweating. - Patient understands and agrees with the treatment plan. - Finish the remaining doses of your Augmentin (amoxicillin/clavulanate) antibiotic as prescribed. - After you complete the Augmentin, start the Calflex antibiotic prescription sent to [facility] to treat the cellulitis on your right buttock. - You may continue applying your tpjs-rxk-vxitxmt cortisone cream to that area to relieve itching. - Watch the bite site closely. If it becomes much larger, increasingly tender, or starts to drain pus, contact our office or return for evaluation, as it may need drainage. - If your cough persists, schedule a visit with your primary care provider for further evaluation (they may consider a pulmonology referral). - You can review your antibiotic prescription details in MyChart. Visualization of patient's right buttock performed with female parking station attendant present and observing at all times. MDM Procedures [facility] 08-20-2024 History of Presen t illness Narrative [facility] Subjective Cierra Marmolejo is a 68 year old female. Patient presents with: Trauma: Possible insect bite on buttocks, itchy, red, swollen x 3 days HPI Suspected Bug Bite: - Noticed on 11/16, located on the right buttock. - Describes the area as itchy, hard, red, and bumpy. - No drainage observed. - Applying psjd-ylv-qmvqfyi cortisone cream for itch relief. - Recent history of a rash in the same area prior to the appearance of the current lesion. - Allergic to Bactrim and doxycycline. Cough and Congestion: - Persistent cough and congestion; seen in urgent care on 11/14. - Currently taking Augmentin, with two doses remaining. - Believes symptoms are related to sinus or allergies. - Denies emesis. Review of Systems Ears/Nose/Mouth/Throat: (+) nasal congestion Respiratory: (+) cough Gastrointestinal: (-) vomiting Genitourinary: (-) dysuria Skin: (+) right buttock pruritus, (+) right buttock rash, (+) right buttock induration, (-) drainage Objective BP 122/88 Pulse 78 Temp 36.7 C (98.1 F) Resp 20 Wt 58.8 kg (129 lb 10.1 oz) LMP 07/27/2006 SpO2 94% BMI 23.71 kg/m Physical Exam General: No acute distress. CV: Regular rhythm. Resp: Clear to auscultation bilaterally. Abd: Normoactive bowel sounds. Skin: Erythematous, approximately 1 cm round area on right buttock, mild swelling, no induration, no drainage. 1. Cellulitis of skin (L03.90) 2. Cellulitis of right buttock (L03.317) - Exam reveals a 1 cm round area on the right buttock, slightly swollen but not indurated, consistent with cellulitis. - Differential diagnosis includes insect bite, but no evidence of tick bite observed. - Patient currently on Augmentin for a separate bacterial infection; instructed to complete the remaining doses. - Initiated Keflex for cellulitis treatment due to allergies to Bactrim and doxycycline. - Advised to continue using silo-qys-upmqwjr cortisone cream to alleviate pruritus. - Educated on signs of abscess formation, including increased size and tenderness; instructed to seek medical attention if these symptoms develop. - Discussed the potential for skin vulnerability due to previous rash and environmental factors such as sweating. - Patient understands and agrees with the treatment plan. - Finish the remaining doses of your Augmentin (amoxicillin/clavulanate) antibiotic as prescribed. - After you complete the Augmentin, start the Calflex antibiotic prescription sent to [facility] to treat the cellulitis on your right buttock. - You may continue applying your ekgp-fqy-cgbeoxl cortisone cream to that area to relieve itching. - Watch the bite site closely. If it becomes much larger, increasingly tender, or starts to drain pus, contact our office or return for evaluation, as it may need drainage. - If your cough persists, schedule a visit with your primary care provider for further evaluation (they may consider a pulmonology referral). - You can review your antibiotic prescription details in MyChart. Visualization of patient's right buttock performed with female parking station attendant present and observing at all times. MDM Procedures documented in this encounter [facility] 08-14-2024 Note HNO ID: [id number] Author: TROY JOE APRN.[employer] Service: ? Author Type: Nurse Practitioner Type: Progress Notes Filed: 08/14/2024 18:20 Note Text: [facility] Subjective Cierra Marmolejo is a 68 year old female. Patient presents with: Cough: Chest and sinus congestion, sinus pressure x2 days HPI Cough and Congestion: - Onset of cough, congestion, and sinus pressure x2 days. - Denies history of sinus infections; occasionally experiences sinus pressure that usually resolves spontaneously. - Current episode of sinus pressure is more pronounced, with tenderness behind the eyes and in the forehead. - Increased postnasal drip causing cough; feels drainage is more than usual. - Denies dyspnea, fever, or chills. - Allergic to doxycycline. Review of Systems Constitutional: (-) fever, (-) chills Head: (+) sinus pressure Ears/Nose/Mouth/Throat: (+) nasal congestion, (+) postnasal drainage Respiratory: (+) cough, (-) shortness of breath Objective BP 122/82 Pulse 87 Temp 37 ?C (98.6 ?F) Resp 18 Wt 60.2 kg (132 lb 11.5 oz) LMP 07/27/2006 SpO2 97% BMI 24.27 kg/m? Physical Exam General: No acute distress. HEENT: Ears normal, oropharynx without erythema or swelling, postnasal drainage observed. CV: Heart sounds normal. Resp: Lung sounds clear. {1. Rhinosinusitis (J32.9) - Symptoms include cough, congestion, and sinus pressure for 2 days; no history of frequent sinus infections. - Physical exam reveals significant post-nasal drainage, but no tenderness in cheeks or forehead; lungs and heart auscultation normal, ears and throat appear normal. - Differential diagnosis includes bacterial sinusitis due to increased mucus and drainage. - Prescribed Augmentin BID for 7 days; advised to take with food to prevent gastrointestinal upset. - Recommended concurrent use of Claritin to help dry up mucus. - Discussed option to try Claritin for a couple of days before starting antibiotic, but patient prefers to initiate antibiotic treatment immediately. - Educated on risks of untreated drainage potentially leading to pneumonia. - Patient understands and agrees with the treatment plan. and Recording using [employer] software for draft documentation of the visit was discussed with the patient/authorized real estate representative; all questions welcomed and answered. Patient/authorized real estate representative agreed to proceed MDM Procedures [facility] 08-14-2024 History of Presen t illness Narrative [facility] Subjective Cierra Marmolejo is a 68 year old female. Patient presents with: Cough: Chest and sinus congestion, sinus pressure x2 days HPI Cough and Congestion: - Onset of cough, congestion, and sinus pressure x2 days. - Denies history of sinus infections; occasionally experiences sinus pressure that usually resolves spontaneously. - Current episode of sinus pressure is more pronounced, with tenderness behind the eyes and in the forehead. - Increased postnasal drip causing cough; feels drainage is more than usual. - Denies dyspnea, fever, or chills. - Allergic to doxycycline. Review of Systems Constitutional: (-) fever, (-) chills Head: (+) sinus pressure Ears/Nose/Mouth/Throat: (+) nasal congestion, (+) postnasal drainage Respiratory: (+) cough, (-) shortness of breath Objective BP 122/82 Pulse 87 Temp 37 C (98.6 F) Resp 18 Wt 60.2 kg (132 lb 11.5 oz) LMP 07/27/2006 SpO2 97% BMI 24.27 kg/m Physical Exam General: No acute distress. HEENT: Ears normal, oropharynx without erythema or swelling, postnasal drainage observed. CV: Heart sounds normal. Resp: Lung sounds clear. {1. Rhinosinusitis (J32.9) - Symptoms include cough, congestion, and sinus pressure for 2 days; no history of frequent sinus infections. - Physical exam reveals significant post-nasal drainage, but no tenderness in cheeks or forehead; lungs and heart auscultation normal, ears and throat appear normal. - Differential diagnosis includes bacterial sinusitis due to increased mucus and drainage. - Prescribed Augmentin BID for 7 days; advised to take with food to prevent gastrointestinal upset. - Recommended concurrent use of Claritin to help dry up mucus. - Discussed option to try Claritin for a couple of days before starting antibiotic, but patient prefers to initiate antibiotic treatment immediately. - Educated on risks of untreated drainage potentially leading to pneumonia. - Patient understands and agrees with the treatment plan. and Recording using [employer] software for draft documentation of the visit was discussed with the patient/authorized real estate representative; all questions welcomed and answered. Patient/authorized real estate representative agreed to proceed MDM Procedures documented in this encounter [facility] 02-06-2024 Instructions Geo Avila MD - 02/06/2024 7:07 PM EST - Apply Tegaderm over the wound to protect it from rubbing against clothing and to promote healing. - Monitor the wound for any signs of infection, such as increased redness, swelling, or discharge. - Let us know if the wound does not heal as expected or if you notice any signs of infection. - Follow up as needed. documented in this encounter [facility] 02-06-2024 History of Presen t illness Narrative Images from the original note were not included. This note was created using [employer]. Subjective Cierra Marmolejo is a 68 year old female. No chief complaint on file. SUBJECTIVE: Cierra Marmolejo is a 68 year old year old lady here today for same day appointment for review of medical conditions: skin irritation where bra strap. - Had skin lesion on the right removed by Dr. Nichols a couple months ago that was getting irritated along bra strap area - Dr. Nichols at [place] also noted she had a wart forming along bra strap area - compound W gel - Black specks removed from lesion, nothing today, was possibly from bra strap foam coming out of the bra - Daughter noted her back was red from irritation and some bleeding after removing black specks from the lesion - Denies changes in soaps, lotions, detergents - Denies itchiness, fevers, chills, drainage, no bubbling when peroxide was applied to the lesion Cierra Marmolejo is a 68-year-old female presenting for a CMD appointment due to skin irritation where her bra strap rubs. Cierra reports skin irritation in the area where her bra strap rubs. On 11/07/23, she was evaluated by Dr. Dottie Nichols for a skin lesion on her back that was getting caught in her bra strap. On 11/20, a procedure was performed to remove a 0.6 cm skin tag, which included a section of subcutaneous tissues and suture placement. Pathology results confirmed the lesion was benign. Recently, Cierra noticed a new lesion near the site of the previous removal, which she described as more wart-like. She applied Compound W, resulting in irritation, erythema, and minor bleeding. She also observed black specks, likely from her bra, adhering to the wound during the healing process. She denies pain, signs of infection, abscess formation, or fluctuance. PAST MEDICAL HISTORY Diagnosis Date DIVERTICULOSIS COLON - NO HEMORRHAGE 03/31/2006 Hemorrhage of gastrointestinal tract, unspecified HEMORRHOIDS INTERNAL 03/31/2006 Hyperlipidemia Intramural leiomyoma of uterus 03/09/06 LEIOMYOMATA UTERUS INTRAMURAL Other and unspecified ovarian cyst 03/09/06 complex cyst of the right ovary Papanicolaou smear of cervix with atypical squamous cells of undetermined significance (ASC-US) 01/20/06 noted negative hpv at same time POLYP COLON 03/31/2006 Psoriasis Umbilical hernia without mention of obstruction or gangrene 03/17/06 UMBILICAL HERNIA W/O GANGRENE/OBSTRUCTION Current Outpatient Medications Medication Sig betamethasone valerate 0.1 % ointment Use a pea-sized amount-once daily for up to 2 weeks prn flares omeprazole (PRILOSEC) 20 mg capsule Take 1 capsule by mouth once daily. atorvastatin (LIPITOR) 20 mg tablet Take 1 tablet by mouth every other day. albuterol HFA (PROVENTIL HFA, VENTOLIN HFA) 90 mcg/actuation inhaler Inhale 2 Puffs as instructed every 4 hours as needed. MAGNESIUM ORAL Take by mouth once daily. vitamin E, dl,tocopheryl acet, (VITAMIN E, DL, ACETATE,) 180 mg (400 unit) capsule Take by mouth. calcium carbonate (CALCIUM 600 ORAL) Take by mouth. cholecalciferol, vitamin D3, (VITAMIN D3 ORAL) Take by mouth. 5000 daily fluticasone (FLONASE) 50 mcg/actuation nasal spray Use 2 Sprays in each nostril once daily. Rinse mouth after use. (Patient taking differently: Use 2 Sprays in each nostril as needed. Rinse mouth after use.) No current facility-administered medications for this visit. Review of Systems Objective LMP 07/27/2006 Physical Exam Constitutional: Appearance: Normal appearance. HENT: Head: Normocephalic and atraumatic. Pulmonary: Effort: Pulmonary effort is normal. Skin: General: Skin is warm and dry. Comments: - Red, erythematous, dry, irritated abrasion (see location on back) Neurological: Mental Status: She is alert. Assessment and Plan # Skin lesion of back (L98.9) - Lesion located near the site of a previous excision by Dr. Dottie Nichols on 11/20, which was benign. - Current lesion appears wart-like; patient attempted treatment with Compound W, resulting in irritation and erythema. - No tenderness, signs of infection, or abscess formation observed; lesion is not fluctuant. - Applied Tegaderm dressing to protect the wound from friction and facilitate healing. - Advised patient to monitor the lesion and report any signs of infection or if healing does not progress as expected. TEACHING PROVIDER (Physician/PA/DRIER AND PULVERIZER TENDER) NOTE OF PERSONAL INVOLVEMENT IN CARE: I have personally seen and examined the patient and performed the medical decision-making components. I have reviewed the Medical Student's documentation and verified the findings in the note as written. Any additions or changes are noted in bold/italics. Signature: Geo Avila Date: 02/06/2024 Time: 7:12 PM Geo Avila MD documented in this encounter [facility] 02-06-2024 Note HNO ID: [id number] Author: GEO AVILA MD Service: ? Author Type: Physician Type: Progress Notes Filed: 02/06/2024 19:13 Note Text: This note was created using [employer]angor[employer]. Subjective Cierra Marmolejo is a 68 year old female. No chief complaint on file. SUBJECTIVE: Cierra Marmolejo is a 68 year old year old lady here today for same day appointment for review of medical conditions: skin irritation where bra strap. - Had skin lesion on the right removed by Dr. Nichols a couple months ago that was getting irritated along bra strap area - Dr. Nichols at [place] also noted she had a wart forming along bra strap area - compound W gel - Black specks removed from lesion, nothing today, was possibly from bra strap foam coming out of the bra - Daughter noted her back was red from irritation and some bleeding after removing black specks from the lesion - Denies changes in soaps, lotions, detergents - Denies itchiness, fevers, chills, drainage, no bubbling when peroxide was applied to the lesion Cierra Marmolejo is a 68-year-old female presenting for a CMD appointment due to skin irritation where her bra strap rubs. Cierra reports skin irritation in the area where her bra strap rubs. On 11/07/23, she was evaluated by Dr. Dottie Nichols for a skin lesion on her back that was getting caught in her bra strap. On 11/20, a procedure was performed to remove a 0.6 cm skin tag, which included a section of subcutaneous tissues and suture placement. Pathology results confirmed the lesion was benign. Recently, Cierra noticed a new lesion near the site of the previous removal, which she described as more wart-like. She applied Compound W, resulting in irritation, erythema, and minor bleeding. She also observed black specks, likely from her bra, adhering to the wound during the healing process. She denies pain, signs of infection, abscess formation, or fluctuance. PAST MEDICAL HISTORY Diagnosis Date DIVERTICULOSIS COLON - NO HEMORRHAGE 03/31/2006 Hemorrhage of gastrointestinal tract, unspecified HEMORRHOIDS INTERNAL 03/31/2006 Hyperlipidemia Intramural leiomyoma of uterus 03/09/06 LEIOMYOMATA UTERUS INTRAMURAL Other and unspecified ovarian cyst 03/09/06 complex cyst of the right ovary Papanicolaou smear of cervix with atypical squamous cells of undetermined significance (ASC-US) 01/20/06 noted negative hpv at same time POLYP COLON 03/31/2006 Psoriasis Umbilical hernia without mention of obstruction or gangrene 03/17/06 UMBILICAL HERNIA W/O GANGRENE/OBSTRUCTION Current Outpatient Medications Medication Sig betamethasone valerate 0.1 % ointment Use a pea-sized amount-once daily for up to 2 weeks prn flares omeprazole (PRILOSEC) 20 mg capsule Take 1 capsule by mouth once daily. atorvastatin (LIPITOR) 20 mg tablet Take 1 tablet by mouth every other day. albuterol HFA (PROVENTIL HFA, VENTOLIN HFA) 90 mcg/actuation inhaler Inhale 2 Puffs as instructed every 4 hours as needed. MAGNESIUM ORAL Take by mouth once daily. vitamin E, dl,tocopheryl acet, (VITAMIN E, DL, ACETATE,) 180 mg (400 unit) capsule Take by mouth. calcium carbonate (CALCIUM 600 ORAL) Take by mouth. cholecalciferol, vitamin D3, (VITAMIN D3 ORAL) Take by mouth. 5000 daily fluticasone (FLONASE) 50 mcg/actuation nasal spray Use 2 Sprays in each nostril once daily. Rinse mouth after use. (Patient taking differently: Use 2 Sprays in each nostril as needed. Rinse mouth after use.) No current facility-administered medications for this visit. Review of Systems Objective LMP 07/27/2006 Physical Exam Constitutional: Appearance: Normal appearance. HENT: Head: Normocephalic and atraumatic. Pulmonary: Effort: Pulmonary effort is normal. Skin: General: Skin is warm and dry. Comments: - Red, erythematous, dry, irritated abrasion (see location on back) Neurological: Mental Status: She is alert. Assessment and Plan # Skin lesion of back (L98.9) - Lesion located near the site of a previous excision by Dr. Dottie Nichols on 11/20, which was benign. - Current lesion appears wart-like; patient attempted treatment with Compound W, resulting in irritation and erythema. - No tenderness, signs of infection, or abscess formation observed; lesion is not fluctuant. - Applied Tegaderm dressing to protect the wound from friction and facilitate healing. - Advised patient to monitor the lesion and report any signs of infection or if healing does not progress as expected. TEACHING PROVIDER (Physician/PA/DRIER AND PULVERIZER TENDER) NOTE OF PERSONAL INVOLVEMENT IN CARE: I have personally seen and examined the patient and performed the medical decision-making components. I have reviewed the Medical Student's documentation and verified the findings in the note as written. Any additions or changes are noted in bold/italics. Signature: Geo Avila Date: 02/06/2024 Time: 7:12 PM Geo Avila MD [facility] 11-21-2023 History of Presen t illness Narrative Here for excision of skin lesion of mid back. It is causing irritation due to rubbing on clothing. PROCEDURE NOTE: Description of procedure: After informed consent was obtained, patient was brought to the procedure room. Appropriate time out protocol was followed. Patient was placed in the prone position. The site of the lesion was then cleansed with a sterile surgical skin preparation. Appropriate sterile surgical drapes were placed. The skin and subcutaneous tissues at the site were then infiltrated with local anesthetic - 1% xylocaine with epinephrine. A skin incision was made at the site in an elliptical fashion to entirely incorporate the lesion with a 15 blade scalpel. The incision was carried down to the subcutaneous tissues. Dissection was done to separate the skin lesion from the surrounding subcutaneous tissues. The lesion was excised sharply down to the subcutaneous tissues. The lesion was 0.6 cm in size. The tissue was then removed and placed in formalin to be forwarded to pathology for analysis. Hemostasis was controlled by pressure. The skin edges were then reapproximated with interrupted 3-0 nylon suture in a simple fashion. Sterile dressing was applied. Patient tolerated procedure well. PLAN: Wound care instructions given by clinic staff. Patient to follow up for nursing visit for removal of sutures. Office will call with results of pathology. Patient to return to clinic if any signs/symptoms of infection/etc. Patient acknowledges the above. UNIVERSAL PROTOCOL / SAFETY CHECKLIST Procedure to be Performed: Excision of skin lesion of back Sign In: A Moment of CARE was completed. Personnel directly involved with the procedure wore the appropriate PPE (Personal Protective Equipment). No special equipment needed. Patient/Surrogate Stated/Verified: PATIENT VERIFIED(optional for EMERGENT procedures): Patient name, Date of , Relevant allergies, and The intended procedure Time Out Communication: Intended patient and procedure match the source documents. Consent documented and matches the intended procedure. No relevant labs, photos, and/or imaging studies were applicable for review. Correct side/site marked and visible. Medications required for procedure verified. No fire risk assessment and interventions applicable. No implant(s) inserted. Sign Out: SIGN OUT (optional for EMERGENT procedures): All specimen containers correctly labeled. All instruments, equipment, possible retained foreign bodies accounted for. Post-procedure follow-up management communicated and Plan of Care Visit completed when applicable. Scarlett Monreal RN documented in this encounter [facility] 11-21-2023 Instructions Scarlett Monreal RN - 11/21/2023 9:05 AM EDT The following instructions are important for you related to your office visit today with the [facility] General Surgeons. Instructions After SKIN EXCISION-SUTURES You can remove the dressing in five days. If the dressing becomes soaked or had significant drainage, the dressing should be changed. If there is minor bleeding from this skin edge, you should hold pressure on the incision until the bleeding stops. If there is continued bleeding, you should contact our office immediately. You do not need to leave a dressing on the wound after five days. If the wound shows signs of redness, inflammation, or purulent drainage, you should contact our office immediately. You should keep the wound dry for the first five days. After that time, you may wash the wound with gentle soap and water. The wound should not be immersed in a pool, bathtub, or even hot tub. We prefer to check the incision and remove the stitches in our office when ready. Please make an appointment to return to our office in 2 weeks. Please do not remove the stitches yourself without approval from our office. If you note any additional difficulties, questions, or concerns, you should contact our office immediately @ [phone] and ask to be transferred to the General Surgery department. documented in this encounter [facility] 11-07-2023 Nurse Note REVIEW OF SYSTEMS: General: The patient denies fatigue, denies weight loss, denies weight gain, denies feeling hot, and denies feelings of cold. Eyes: The patient denies glaucoma, denies eye injury/surgery, does not wear glasses or contacts. Ear/Nose/Throat: The patient NOTES allergies, denies hayfever, denies ear infections, and denies bloody noses. Cardiovascular: The patient denies chest pain, denies heart disease, denies high blood pressure,denies cardiac stent, denies prior heart attack, denies irregular heart beat, NOTES high cholesterol, denies poor circulation, denies heart failure, other cardiac issues, denies claudication, denies cold feet, denies peripheral arterial stent. Respiratory: The patient denies tuberculosis, denies pneumonia, denies frequent cough, denies pulmonary embolism, denies shortness of breath, and denies coughing up blood. Gastrointestinal: The patient denies difficulty swallowing, NOTES acid reflux, denies ulcers, denies vomiting, denies jaundice/hepatitis, denies gallbladder problems, denies black or tarry stools, NOTES hemorrhoids, denies bleeding from rectum, NOTES diverticulitis, denies constipation, denies diarrhea, denies loss of stool control, and NOTES hernias. Kidney/Bladder: The patient denies kidney stones, denies urine infections, and denies bloody urine. Skin: The patient denies a history of skin cancer, denies bleeding/changing moles, and NOTES a history of skin rash. Neurologic: The patient denies a history of epilepsy/convulsions, NOTES headaches, denies head/spinal injuries, and denies stroke/TIA. Psychiatric: The patient denies psychiatric medications, denies depression, and denies voices, denies substance abuse. Endocrine: The patient denies thyroid disorders, denies diabetes, and denies hormonal problems. Hematologic: The patient denies a history of bruising, denies bleeding, and denies anemia, denies blood clots. Infections: The patient denies a history of measles and mumps, denies rheumatic fever, and denies sexually transmitted diseases. Musculoskeletal: The patient denies back pain/injury, denies back problems, denies sciatica, denies knee/foot trouble, denies arthritis, or denies gout. When was patient's last Mammogram screening? 08/30/2023 Last Colonoscopy: 04/22/2017 Lesley Parisi RN [facility] 11-07-2023 Nurse Note REVIEW OF SYSTEMS: General: The patient denies fatigue, denies weight loss, denies weight gain, denies feeling hot, and denies feelings of cold. Eyes: The patient denies glaucoma, denies eye injury/surgery, does not wear glasses or contacts. Ear/Nose/Throat: The patient NOTES allergies, denies hayfever, denies ear infections, and denies bloody noses. Cardiovascular: The patient denies chest pain, denies heart disease, denies high blood pressure,denies cardiac stent, denies prior heart attack, denies irregular heart beat, NOTES high cholesterol, denies poor circulation, denies heart failure, other cardiac issues, denies claudication, denies cold feet, denies peripheral arterial stent. Respiratory: The patient denies tuberculosis, denies pneumonia, denies frequent cough, denies pulmonary embolism, denies shortness of breath, and denies coughing up blood. Gastrointestinal: The patient denies difficulty swallowing, NOTES acid reflux, denies ulcers, denies vomiting, denies jaundice/hepatitis, denies gallbladder problems, denies black or tarry stools, NOTES hemorrhoids, denies bleeding from rectum, NOTES diverticulitis, denies constipation, denies diarrhea, denies loss of stool control, and NOTES hernias. Kidney/Bladder: The patient denies kidney stones, denies urine infections, and denies bloody urine. Skin: The patient denies a history of skin cancer, denies bleeding/changing moles, and NOTES a history of skin rash. Neurologic: The patient denies a history of epilepsy/convulsions, NOTES headaches, denies head/spinal injuries, and denies stroke/TIA. Psychiatric: The patient denies psychiatric medications, denies depression, and denies voices, denies substance abuse. Endocrine: The patient denies thyroid disorders, denies diabetes, and denies hormonal problems. Hematologic: The patient denies a history of bruising, denies bleeding, and denies anemia, denies blood clots. Infections: The patient denies a history of measles and mumps, denies rheumatic fever, and denies sexually transmitted diseases. Musculoskeletal: The patient denies back pain/injury, denies back problems, denies sciatica, denies knee/foot trouble, denies arthritis, or denies gout. When was patient's last Mammogram screening? 08/30/2023 Last Colonoscopy: 04/22/2017 Lesley Parisi RN documented in this encounter [facility] 11-07-2023 History of Presen t illness Narrative Cierra Marmolejo 1955 REFERRING PHYSICIAN: Self CHIEF COMPLAINT: Consult (Skin tag) HPI: The patient is a 68 year old female presents with skin lesion that is located in the mid back at her bra line. It is irritating because of its protruding nature and gets caught on her bra strap. She denies drainage at the area. Noted for a while. PAST MEDICAL HISTORY Diagnosis Date DIVERTICULOSIS COLON - NO HEMORRHAGE 03/31/2006 Hemorrhage of gastrointestinal tract, unspecified HEMORRHOIDS INTERNAL 03/31/2006 Hyperlipidemia Intramural leiomyoma of uterus 03/09/06 LEIOMYOMATA UTERUS INTRAMURAL Other and unspecified ovarian cyst 03/09/06 complex cyst of the right ovary Papanicolaou smear of cervix with atypical squamous cells of undetermined significance (ASC-US) 01/20/06 noted negative hpv at same time POLYP COLON 03/31/2006 Psoriasis Umbilical hernia without mention of obstruction or gangrene 03/17/06 UMBILICAL HERNIA W/O GANGRENE/OBSTRUCTION PAST SURGICAL HISTORY Procedure Laterality Date DELIVERY ONLY , low cervical DELIVERY ONLY , low cervical DELIVERY ONLY , low cervical COLSC FLX W/RMVL OF TUMOR POLYP LESION SNARE TQ 03/31/2006 Rectal polyp/diverticulosis/hemorrhoid LIG/TRNSXJ FLP TUBE ABDL/VAG APPR UNI/BI Tubal ligation PAST SURGICAL HISTORY OF 02/14/1999 insert lens eye PAST SURGICAL HISTORY OF 02/15/2000 removed nasal cartilage REMOVAL GALLBLADDER 06/2023 RMVL SEC MEMBRANOUS CTRC CORNEO-SCLL SCTJ Insert lens prosthesis RPR 1ST INGUN HRNA AGE 5 YRS/> REDUCIBLE Hernia repair, inguinal/repair of bowel Current Outpatient Medications Medication Sig betamethasone valerate 0.1 % ointment Use a pea-sized amount-once daily for up to 2 weeks prn flares omeprazole (PRILOSEC) 20 mg capsule Take 1 capsule by mouth once daily. atorvastatin (LIPITOR) 20 mg tablet Take 1 tablet by mouth every other day. albuterol HFA (PROVENTIL HFA, VENTOLIN HFA) 90 mcg/actuation inhaler Inhale 2 Puffs as instructed every 4 hours as needed. MAGNESIUM ORAL Take by mouth once daily. vitamin E, dl,tocopheryl acet, (VITAMIN E, DL, ACETATE,) 180 mg (400 unit) capsule Take by mouth. calcium carbonate (CALCIUM 600 ORAL) Take by mouth. cholecalciferol, vitamin D3, (VITAMIN D3 ORAL) Take by mouth. 5000 daily fluticasone (FLONASE) 50 mcg/actuation nasal spray Use 2 Sprays in each nostril once daily. Rinse mouth after use. (Patient taking differently: Use 2 Sprays in each nostril as needed. Rinse mouth after use.) Current Facility-Administered Medications Medication Dose Route Frequency perflutren lipid microspheres 1.3 mL in NaCl (PF) 0.9% 10 mL injection (DEFINITY) INTRAVENOUS DIRECTED PRN sodium chloride 0.9 % (flush) 10 mL (BD POSIFLUSH) 10 mL INTRAVENOUS DIRECTED PRN ALLERGIES: Doxycycline; Latex, Natural Rubber; and Sulfa (Sulfonamide Antibiotics) PERSONAL HISTORY: Social History Tobacco Use Smoking status: Former Current packs/day: 0.00 Types: Cigarettes Start date: 02/13/1995 Quit date: 02/13/2001 Years since quittin.7 Passive exposure: Never Smokeless tobacco: Never Tobacco comments: 4 cig per day, quit Vaping Use Vaping status: Never Used Substance Use Topics Alcohol use: Yes Comment: SOCIALLY Drug use: No FAMILY HISTORY Problem Relation Age of Onset Heart Mother by-pass, pacemaker other (MARFAN'S) Mother Coronary Artery Disease Father Heart Father by-pass other (MARFAN'S) Brother X2 other (MARFAN'S) Sister X6 The review of systems data was entered by the nurse and reviewed by ri Nursing Notes: Lesley Parisi RN 11/07/2023 1:46 PM Signed REVIEW OF SYSTEMS: General: The patient denies fatigue, denies weight loss, denies weight gain, denies feeling hot, and denies feelings of cold. Eyes: The patient denies glaucoma, denies eye injury/surgery, does not wear glasses or contacts. Ear/Nose/Throat: The patient NOTES allergies, denies hayfever, denies ear infections, and denies bloody noses. Cardiovascular: The patient denies chest pain, denies heart disease, denies high blood pressure,denies cardiac stent, denies prior heart attack, denies irregular heart beat, NOTES high cholesterol, denies poor circulation, denies heart failure, other cardiac issues, denies claudication, denies cold feet, denies peripheral arterial stent. Respiratory: The patient denies tuberculosis, denies pneumonia, denies frequent cough, denies pulmonary embolism, denies shortness of breath, and denies coughing up blood. Gastrointestinal: The patient denies difficulty swallowing, NOTES acid reflux, denies ulcers, denies vomiting, denies jaundice/hepatitis, denies gallbladder problems, denies black or tarry stools, NOTES hemorrhoids, denies bleeding from rectum, NOTES diverticulitis, denies constipation, denies diarrhea, denies loss of stool control, and NOTES hernias. Kidney/Bladder: The patient denies kidney stones, denies urine infections, and denies bloody urine. Skin: The patient denies a history of skin cancer, denies bleeding/changing moles, and NOTES a history of skin rash. Neurologic: The patient denies a history of epilepsy/convulsions, NOTES headaches, denies head/spinal injuries, and denies stroke/TIA. Psychiatric: The patient denies psychiatric medications, denies depression, and denies voices, denies substance abuse. Endocrine: The patient denies thyroid disorders, denies diabetes, and denies hormonal problems. Hematologic: The patient denies a history of bruising, denies bleeding, and denies anemia, denies blood clots. Infections: The patient denies a history of measles and mumps, denies rheumatic fever, and denies sexually transmitted diseases. Musculoskeletal: The patient denies back pain/injury, denies back problems, denies sciatica, denies knee/foot trouble, denies arthritis, or denies gout. When was patient's last Mammogram screening? 08/30/2023 Last Colonoscopy: 04/22/2017 Lesley Parisi RN PHYSICAL EXAMINATION: General: The patient is 68 year old female, well nourished, well hydrated in no acute distress. The patient is oriented to time, place, and person. VITALS: Blood pressure 131/82, pulse 71, temperature 36.7 C (98 F), height 157.5 cm (5' 2), weight 59.7 kg (131 lb 9.6 oz), last menstrual period 07/27/2006, SpO2 99%. Body mass index is 24.07 kg/m . Head: Normal cephalic, atraumatic Eyes: pupils are equally round, sclera are clear/anicteric Neck is supple with no tracheal deviation Respiratory: Normal respiratory excursion and pattern. Abdominal exam: benign Back: mid back under bra strap - skin tag 2-3 mm protruding Extremities: no clubbing, cyanosis or edema. Neuro: non focal Psych: normal mood Assessment IMPRESSION: skin tag causing irritation PLAN: I have discussed the above with the patient. I have offered excision of this skin lesion. I have explained the procedure to the patient. I have counseled the patient as to the risks of the procedure, including but not limited to: infection, bleeding, injury to any blood vessels/nerves, scar tissue, wound infections, complications of anesthesia, etc. - the patient understands. The patient wishes to proceed. I have answered all questions to the patient s satisfaction and the patient has no further questions. I have confirmed and edited as necessary, the PFSH and ROS obtained by others. . Diagnoses: (L91.8) Skin tag (primary encounter diagnosis) (R20.8) Dysesthesia I spent a total of 21 minutes on the date of the service which included preparing to see the patient with review of any pertinent laboratory studies/radiological imaging/medical records, [id number] patient care, obtaining oral medical history from the patient in this encounter, performing a medically appropriate examination, counseling and educating the patient/family/caregiver, and ordering and/or scheduling of medications/tests/procedures, and completing appropriate medical documentation. Bev Nichols MD documented in this encounter [facility] 11-01-2023 Telephone encounter Note Alternate sent [facility] 11-01-2023 Miscellaneous Notes Alternate sent Patient reports she has had Clobetasol ointment ordered for her recently by Cj Riojas. Reports the medication will cost her $135.00 per tube. Patient requesting an alternative medication with a lower cost, if possible. Please advise patient. Thank you. documented in this encounter [facility] 10-31-2023 Telephone encounter Note Patient reports she has had Clobetasol ointment ordered for her recently by Cj Riojas. Reports the medication will cost her $135.00 per tube. Patient requesting an alternative medication with a lower cost, if possible. Please advise patient. Thank you. [facility] 10-28-2023 History of Presen t illness Narrative Images from the original note were not included. Cierra Marmolejo is a 68 year old female here for a Medicare wellness visit. Just got most recent covid booster. Due for colonoscopy. Every 5 years. Due for cholesterol labs. Statin seemed to cause some muscle and joint pains. Held statin for a short time. Back on this now. Medicare Health Risk Assessment General Health Very good Exercise: Minutes/Day Walking, about 30 minutes a day Exercise: Days/Week daily Alcohol: Daily Use No Alcohol: Drinks/Day N/a Alcohol: 6 or more drinks N/a Feel off balance No Concerns: Teeth/Dentures No Concerns: Sexual function No Troubled by feelings No Frequency: Eating healthy diet Tries to eat healthy daily ADLs requiring help No Safety precautions in home/vehicle Yes Smoke, vape, chews tobacco No Difficulty hearing No Difficulty seeing No Current Providers Specialists: I have reviewed specialist-related care of the patient in the medical record. Current care team: Patient Care Team: Geo Avila MD as PCP - General (Internal Medicine) Outside specialists seen: Gen sx for colonoscopies, GI Medical/Family history review Reviewed and updated problem list, medical/surgical/family/social history, medications, and allergies. Opioid use review Opioid Medications (last 90 days) No data to display Anxiety/Depression screening Recommendation: no further intervention at this time No concerns of anxiety or depression Cognitive screening Mini Cog Score: 5 Cognitive screening reviewed and No further action needed (score 3-5). Functional Observation Was the patient's Timed Up & Go test unsteady or ? 12 seconds? No Advance Care Planning Surrogate decision maker and/or advance care plan documented Measurements BP 127/79 Pulse 81 Resp 16 Ht 155.6 cm (5' 1.25) Wt 59.8 kg (131 lb 13.4 oz) LMP 07/27/2006 BMI 24.71 kg/m Vision Screening: Follows with optometry/ophthalmology Assessment/Plan 1. Medicare annual wellness visit, subsequent - ICD9: V70.0, ICD10: Z00.00 (primary diagnosis) - Counseled on healthy diet and regular exercise - Fall avoidance information provided - Personalized prevention plan provided 2. Hyperlipidemia, unspecified hyperlipidemia type - ICD9: 272.4, ICD10: E78.5 - Control undetermined, due for labs - Counseled on healthy diet and regular exercise - Ok to reduce the statin to every other day - ATORVASTATIN 20 MG TABLET - LIPID PANEL BASIC 3. Hepatic fibrosis - ICD9: 571.5, ICD10: K74.00 Stable, doing better since gallbladder removed. 4. Encounter for screening examination for other mental health and behavioral disorders - ICD9: V79.8, ICD10: Z13.39 - ANXIETY SCREENING 5. Screening for depression - ICD9: V79.0, ICD10: Z13.31 - DEPRESSION SCREENING 6. Encounter for therapeutic drug monitoring - ICD9: V58.83, ICD10: Z51.81 - COMPLETE BLOOD COUNT AND DIFFERENTIAL - COMPREHENSIVE METABOLIC PANEL Cj Riojas APRN.MELANY documented in this encounter [facility] 10-28-2023 Instructions Cj Riojas APRN.MELANY - 10/28/2023 9:05 AM EDT Screening schedule The following prevention plan is recommended: Depression Screening Never done Anxiety Screening Never done Pneumococcal Vaccine: 65+(1 of 1 - PCV) Never done Colorectal Cancer Screening due on 04/22/2022 Advance Directive Discussion due on 02/14/2023 Influenza Vaccine(1) due on 10/16/2023 WHAT YOU CAN DO TO PREVENT FALLS Many falls can be prevented. By making some changes, you can lower your chances of falling. Four things YOU can do to prevent falls for you* and your caregiver 1. Begin a regular exercise program Exercise is one of the most important ways to lower your chances of falling. It makes you stronger and helps you feel better. Exercises that improve balance and coordination (like Kapil Chi) are the most helpful. Lack of exercise leads to weakness and increases your chances of falling. Ask your doctor or health care provider about the best type of exercise program for you. 2. Have your health care provider review your medicines Have your doctor or pharmacist review all the medicines you take, even [id number] medicines. As you get older, the way medicines work in your body can change. Some medicines, or combinations of medicines, can make you sleepy or dizzy and can cause you to fall. 3. Have your vision checked Have your eyes checked by an eye doctor at least once a year. You may be wearing the wrong glasses or have a condition like glaucoma or cataracts that limits your vision. Poor vision can increase your chances of falling. 4. Make your home safer About half of all falls happen at home. To make your home safer: Remove things you can trip over (like papers, books, clothes, and shoes) from stairs and places where you walk. Remove small throw rugs or use double-sided tape to keep the rugs from slipping. Keep items you use often in cabinets you can reach easily without using a step stool. Have grab bars put in next to your toilet and in the tub or shower. Use non-slip mats in the bathtub and on shower floors. Improve the lighting in your home. As you get older, you need brighter lights to see well. Hang light-weight curtains or shades to reduce glare. Have handrails and lights put in on all staircases. Wear shoes both inside and outside the house. Avoid going barefoot or wearing slippers. For more information, contact: Centers for Disease Control and Prevention www.cdc.gov/injury * This information may not apply if you have certain medical conditions. documented in this encounter [facility] 09-23-2023 Telephone encounter Note Told patient results of pathology No cancer seen. Follow up as per needed. Patient notes no problems from biopsy site [facility] Work Phone: 09-23-2023 Miscellaneous Notes Told patient results of pathology No cancer seen. Follow up as per needed. Patient notes no problems from biopsy site documented in this encounter [facility] 09-22-2023 Telephone encounter Note Attempted to call patient with results of subcutaneous mass biopsy. No name identifier on VM. Findings of hemangioma - this is a benign lesion - no further studies/procedure needed. [facility] Work Phone: 09-22-2023 Miscellaneous Notes Attempted to call patient with results of subcutaneous mass biopsy. No name identifier on VM. Findings of hemangioma - this is a benign lesion - no further studies/procedure needed. documented in this encounter [facility] 09-19-2023 Instructions Scarlett Monreal RN - 09/19/2023 8:44 AM EDT The following instructions are important for you related to your office visit today with the [facility] General Surgeons. Instructions After SKIN EXCISION-SUTURES You can remove the dressing in five days. If the dressing becomes soaked or had significant drainage, the dressing should be changed. If there is minor bleeding from this skin edge, you should hold pressure on the incision until the bleeding stops. If there is continued bleeding, you should contact our office immediately. You do not need to leave a dressing on the wound after five days. If the wound shows signs of redness, inflammation, or purulent drainage, you should contact our office immediately. You should keep the wound dry for the first five days. After that time, you may wash the wound with gentle soap and water. The wound should not be immersed in a pool, bathtub, or even hot tub. Dr. Nichols will call you with results. If you don't hear from us in 14 days, give our office a call. You can use Tylenol & Ibuprofen for pain, You can alternate one every 6 hours. If you note any additional difficulties, questions, or concerns, you should contact our office immediately @ [phone] and ask to be transferred to the General Surgery department. documented in this encounter [facility] 09-19-2023 History of Presen t illness Narrative Cierra presents with subcutaneous mass of upper right chest wall. This was noted as abnormal on US breast 08/30/2023 and biopsy was recommended PROCEDURE NOTE: Description of procedure: After informed consent was obtained, patient was brought to the procedure room. Appropriate time out protocol was followed. Patient was placed in the supine position. The site of the lesion was then cleansed with a sterile surgical skin preparation. Appropriate sterile surgical drapes were placed. The skin and subcutaneous tissues at the site were then infiltrated with local anesthetic. A skin incision was made at the site over the lesion with a 15 blade scalpel. The incision was carried down to the subcutaneous tissues. Dissection was done to separate the skin lesion from the surrounding subcutaneous tissues. The lesion was excised sharply down to the subcutaneous tissues. The lesion was 0.7 cm in size. It appeared bluish in coloration The tissue was then removed and placed in formalin to be forwarded to pathology for analysis. Hemostasis was controlled by pressure. The skin edges were then reapproximated with interrupted 3-0 vicryl in a subcuticular fashion. Sterile dressing was applied. Patient tolerated procedure well. PLAN: Wound care instructions given by clinic staff. Office will call with results of pathology. Patient to return to clinic if any signs/symptoms of infection/etc. Patient acknowledges the above. UNIVERSAL PROTOCOL / SAFETY CHECKLIST Procedure to be Performed: Excision of subcutaneous mass of upper right chest wall Sign In: A Moment of CARE was completed. Personnel directly involved with the procedure wore the appropriate PPE (Personal Protective Equipment). No special equipment needed. Patient/Surrogate Stated/Verified: PATIENT VERIFIED(optional for EMERGENT procedures): Patient name, Date of , Relevant allergies, and The intended procedure Time Out Communication: Intended patient and procedure match the source documents. Consent documented and matches the intended procedure. Relevant labs, photos, and/or imaging studies have been reviewed. Correct side/site marked and visible. Medications required for procedure verified. No fire risk assessment and interventions applicable. No implant(s) inserted. Sign Out: SIGN OUT (optional for EMERGENT procedures): All specimen containers correctly labeled. All instruments, equipment, possible retained foreign bodies accounted for. Post-procedure follow-up management communicated and Plan of Care Visit completed when applicable. Scarlett Monreal RN documented in this encounter [facility] 09-12-2023 Nurse Note REVIEW OF SYSTEMS: General: The patient denies fatigue, denies weight loss, denies weight gain, denies feeling hot, and denies feelings of cold. Eyes: The patient denies glaucoma, NOTES eye injury/surgery, wears glasses or contacts. Ear/Nose/Throat: The patient denies allergies, denies hayfever, denies ear infections, and denies bloody noses. Cardiovascular: The patient denies chest pain, denies heart disease, denies high blood pressure,denies cardiac stent, denies prior heart attack, denies irregular heart beat, denies high cholesterol, denies poor circulation, denies heart failure, other cardiac issues, denies claudication, denies cold feet, denies peripheral arterial stent. Respiratory: The patient denies tuberculosis, denies pneumonia, denies frequent cough, denies pulmonary embolism, denies shortness of breath, and denies coughing up blood. Gastrointestinal: The patient denies difficulty swallowing, NOTES acid reflux, denies ulcers, denies vomiting, denies jaundice/hepatitis, denies gallbladder problems, denies black or tarry stools, denies hemorrhoids, denies bleeding from rectum, denies diverticulitis, denies constipation, denies diarrhea, denies loss of stool control, and denies hernias. Kidney/Bladder: The patient denies kidney stones, denies urine infections, and denies bloody urine. Skin: The patient denies a history of skin cancer, denies bleeding/changing moles, and NOTES a history of skin rash. Neurologic: The patient denies a history of epilepsy/convulsions, denies headaches, denies head/spinal injuries, and denies stroke/TIA. Psychiatric: The patient denies psychiatric medications, denies depression, and denies voices, denies substance abuse. Endocrine: The patient denies thyroid disorders, denies diabetes, and denies hormonal problems. Hematologic: The patient denies a history of bruising, denies bleeding, and denies anemia, denies blood clots. Infections: The patient denies a history of measles and mumps, denies rheumatic fever, and denies sexually transmitted diseases. Musculoskeletal: The patient denies back pain/injury, denies back problems, denies sciatica, denies knee/foot trouble, denies arthritis, or denies gout. When was patient's last Mammogram screening? 08/30/2023 Last Colonoscopy: Scarlett Monreal RN [facility] 09-12-2023 Nurse Note REVIEW OF SYSTEMS: General: The patient denies fatigue, denies weight loss, denies weight gain, denies feeling hot, and denies feelings of cold. Eyes: The patient denies glaucoma, NOTES eye injury/surgery, wears glasses or contacts. Ear/Nose/Throat: The patient denies allergies, denies hayfever, denies ear infections, and denies bloody noses. Cardiovascular: The patient denies chest pain, denies heart disease, denies high blood pressure,denies cardiac stent, denies prior heart attack, denies irregular heart beat, denies high cholesterol, denies poor circulation, denies heart failure, other cardiac issues, denies claudication, denies cold feet, denies peripheral arterial stent. Respiratory: The patient denies tuberculosis, denies pneumonia, denies frequent cough, denies pulmonary embolism, denies shortness of breath, and denies coughing up blood. Gastrointestinal: The patient denies difficulty swallowing, NOTES acid reflux, denies ulcers, denies vomiting, denies jaundice/hepatitis, denies gallbladder problems, denies black or tarry stools, denies hemorrhoids, denies bleeding from rectum, denies diverticulitis, denies constipation, denies diarrhea, denies loss of stool control, and denies hernias. Kidney/Bladder: The patient denies kidney stones, denies urine infections, and denies bloody urine. Skin: The patient denies a history of skin cancer, denies bleeding/changing moles, and NOTES a history of skin rash. Neurologic: The patient denies a history of epilepsy/convulsions, denies headaches, denies head/spinal injuries, and denies stroke/TIA. Psychiatric: The patient denies psychiatric medications, denies depression, and denies voices, denies substance abuse. Endocrine: The patient denies thyroid disorders, denies diabetes, and denies hormonal problems. Hematologic: The patient denies a history of bruising, denies bleeding, and denies anemia, denies blood clots. Infections: The patient denies a history of measles and mumps, denies rheumatic fever, and denies sexually transmitted diseases. Musculoskeletal: The patient denies back pain/injury, denies back problems, denies sciatica, denies knee/foot trouble, denies arthritis, or denies gout. When was patient's last Mammogram screening? 08/30/2023 Last Colonoscopy: Scarlett Monreal RN documented in this encounter 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 She has noted a palpable mass of her right chest wall for about 6 months. She notes no major changes in size. She denies pain. She underwent mammograms and US right breast - 08/30/2023 - with the following findings - no lesions seen on mammography; US - 0.8 cm x 0.5 cm x 0.6 cm oval mass in the right breast is suspicious of malignancy. An ultrasound guided biopsy is recommended. She denies breast pain. She denies nipple discharge. She denies previous breast surgery/biopsies She notes no family history of breast or ovarian cancer She denies cigarettes use. Her gynecological history is as follows: menarche at age 16, , first at age 34, breast feedding 3 years, BCP use 8 years, menoapuse age 57, denies HRT use PAST MEDICAL HISTORY Diagnosis Date DIVERTICULOSIS COLON - NO HEMORRHAGE 03/31/2006 Hemorrhage of gastrointestinal tract, unspecified HEMORRHOIDS INTERNAL 03/31/2006 Hyperlipidemia Intramural leiomyoma of uterus 03/09/06 LEIOMYOMATA UTERUS INTRAMURAL Other and unspecified ovarian cyst 03/09/06 complex cyst of the right ovary Papanicolaou smear of cervix with atypical squamous cells of undetermined significance (ASC-US) 01/20/06 noted negative hpv at same time POLYP COLON 03/31/2006 Psoriasis Umbilical hernia without mention of obstruction or gangrene 03/17/06 UMBILICAL HERNIA W/O GANGRENE/OBSTRUCTION PAST SURGICAL HISTORY Procedure Laterality Date DELIVERY ONLY , low cervical DELIVERY ONLY , low cervical DELIVERY ONLY , low cervical COLSC FLX W/RMVL OF TUMOR POLYP LESION SNARE TQ 03/31/2006 Rectal polyp/diverticulosis/hemorrhoid LIG/TRNSXJ FLP TUBE ABDL/VAG APPR UNI/BI Tubal ligation PAST SURGICAL HISTORY OF 02/14/1999 insert lens eye PAST SURGICAL HISTORY OF 02/15/2000 removed nasal cartilage REMOVAL GALLBLADDER 06/2023 RMVL SEC MEMBRANOUS CTRC CORNEO-SCLL SCTJ Insert lens prosthesis RPR 1ST INGUN HRNA AGE 5 YRS/> REDUCIBLE Hernia repair, inguinal/repair of bowel Current Outpatient Medications Medication Sig MAGNESIUM ORAL Take by mouth once daily. triamcinolone acetonide (KENALOG) 0.1 % cream Apply 1 application to affected area three times a day. Apply sparingly to area for rash/itching. vitamin E, dl,tocopheryl acet, (VITAMIN E, DL, ACETATE,) 180 mg (400 unit) capsule Take by mouth. omeprazole (PRILOSEC) 20 mg capsule Take 1 capsule by mouth once daily. calcium carbonate (CALCIUM 600 ORAL) Take by mouth. cholecalciferol, vitamin D3, (VITAMIN D3 ORAL) Take by mouth. 5000 daily fluticasone (FLONASE) 50 mcg/actuation nasal spray Use 2 Sprays in each nostril once daily. Rinse mouth after use. (Patient taking differently: Use 2 Sprays in each nostril as needed. Rinse mouth after use.) clobetasol (TEMOVATE) 0.05 % ointment Use a pea-sized amount-once daily for up to 2 weeks prn flares ursodiol (ACTIGALL) 300 mg capsule Take 1 capsule by mouth two times a day. (Patient not taking: Reported on 01/27/2023) famotidine (PEPCID) 20 mg tablet Take 1 tablet by mouth at bedtime as needed. (Patient not taking: Reported on 12/23/2022) atorvastatin (LIPITOR) 20 mg tablet Take 1 tablet by mouth daily at bedtime. (Patient not taking: Reported on 08/08/2023) ALLERGIES: Doxycycline; Latex, Natural Rubber; and Sulfa (Sulfonamide Antibiotics) PERSONAL HISTORY: Social History Tobacco Use Smoking status: Former Years: 6 Types: Cigarettes Quit date: 02/13/2001 Years since quittin.5 Passive exposure: Never Smokeless tobacco: Never Tobacco comments: 4 cig per day, quit Vaping Use Vaping Use: Never used Substance Use Topics Alcohol use: Yes Comment: SOCIALLY Drug use: No FAMILY HISTORY Problem Relation Age of Onset Heart Mother by-pass, pacemaker other (MARFAN'S) Mother Coronary Artery Disease Father Heart Father by-pass other (MARFAN'S) Brother X2 other (MARFAN'S) Sister X6 The review of systems data was entered by the nurse and reviewed by me Nursing Notes: Scarlett Monreal RN 09/12/2023 8:59 AM Signed REVIEW OF SYSTEMS: General: The patient denies fatigue, denies weight loss, denies weight gain, denies feeling hot, and denies feelings of cold. Eyes: The patient denies glaucoma, NOTES eye injury/surgery, wears glasses or contacts. Ear/Nose/Throat: The patient denies allergies, denies hayfever, denies ear infections, and denies bloody noses. Cardiovascular: The patient denies chest pain, denies heart disease, denies high blood pressure,denies cardiac stent, denies prior heart attack, denies irregular heart beat, denies high cholesterol, denies poor circulation, denies heart failure, other cardiac issues, denies claudication, denies cold feet, denies peripheral arterial stent. Respiratory: The patient denies tuberculosis, denies pneumonia, denies frequent cough, denies pulmonary embolism, denies shortness of breath, and denies coughing up blood. Gastrointestinal: The patient denies difficulty swallowing, NOTES acid reflux, denies ulcers, denies vomiting, denies jaundice/hepatitis, denies gallbladder problems, denies black or tarry stools, denies hemorrhoids, denies bleeding from rectum, denies diverticulitis, denies constipation, denies diarrhea, denies loss of stool control, and denies hernias. Kidney/Bladder: The patient denies kidney stones, denies urine infections, and denies bloody urine. Skin: The patient denies a history of skin cancer, denies bleeding/changing moles, and NOTES a history of skin rash. Neurologic: The patient denies a history of epilepsy/convulsions, denies headaches, denies head/spinal injuries, and denies stroke/TIA. Psychiatric: The patient denies psychiatric medications, denies depression, and denies voices, denies substance abuse. Endocrine: The patient denies thyroid disorders, denies diabetes, and denies hormonal problems. Hematologic: The patient denies a history of bruising, denies bleeding, and denies anemia, denies blood clots. Infections: The patient denies a history of measles and mumps, denies rheumatic fever, and denies sexually transmitted diseases. Musculoskeletal: The patient denies back pain/injury, denies back problems, denies sciatica, denies knee/foot trouble, denies arthritis, or denies gout. When was patient's last Mammogram screening? 08/30/2023 Last Colonoscopy: Scarlett Monreal RN PHYSICAL EXAMINATION: General: The patient is 67 year old female, well nourished, well hydrated in no acute distress. The patient is oriented to time, place, and person. VITALS: Blood pressure 126/82, pulse 85, temperature 37.2 C (99 F), height 158.8 cm (5' 2.5), weight 59.7 kg (131 lb 9.6 oz), last menstrual period 07/27/2006, SpO2 97%. Body mass index is 23.69 kg/m . Head - Normocephalic. EOM intact with sclera clear and no icterus noted. Mouth with mucus membranes moist. Neck - supple with no jugular venous distention noted. Trachea is midline.. No thyroid enlargement or thyroid nodules detected. No masses noted. Chest/breast - no asymmetry of breasts noted, no suspicious skin lesions noted, no nipple discharge and both nipples everted, no breast masses noted, patient points to area of upper right chest - this finding is consistent with a sebaceous cyst Lungs - clear to auscultation. Normal breath sounds. No rales/rhonchi/wheezing noted. No labored breathing noted, such as retractions. No cough heard. Heart - normal S1 and S2 auscultated. No rubs/clicks/murmurs noted. Regular rate. Abdomen - soft and benign. Normal bowel sounds No abdominal bruits noted. Difficult to determine if any masses or organomegaly due to body habitus. Extremities - no calf tenderness noted. No pitting edema noted. Skin - normal skin integrity. Lymph - no cervical adenopathy detected, no supraclavicular adenopathy detected, no axillary adenopathy detected Neurological - gait normal, no focal deficits noted Psych - calm and appropriate RADIOLOGIC STUDIES: As Noted Assessment IMPRESSION: abnormal right breast ultrasound, skin lesion PLAN: I have discussed the above with the patient. I have reviewed the right breast ultrasound - this lesion is c/w skin cyst - this lesion is not within breast tissue I have offered the US guided right needle core biopsy - but since this lesion is small and near the skin surface - it actually is more difficult to obtain tissue without skin damage. I have offered excision removal of this lesion. I have explained the procedure to the patient. To be done in the office using local anesthesia. I have counseled the patient as to the risks of the procedure, including but not limited to: infection, bleeding, injury to any blood vessels/nerves, scar tissue, wound infections, complications of anesthesia, etc. - the patient understands. She chooses the latter procedure. The patient wishes to proceed. I have answered all questions to the patient s satisfaction and the patient has no further questions. I have confirmed and edited as necessary, the PFSH and ROS obtained by others. Consultation requested by Cj Riojas for an opinion regarding patient's abnormal right breast ultrasound and palpable mass. My final recommendations will be communicated back to the requesting physician by way of shared Medical record or letter to requesting physician via US mail. . Diagnoses: (R92.8) Abnormal ultrasound of breast (primary encounter diagnosis) (R22.9) Localized superficial swelling, mass, or lump I have confirmed and edited as necessary, the PFSH and ROS obtained by others. Consultation requested by Cj Riojas for an opinion regarding patient's abnormal right breast ultrasond and palpable mass. My final recommendations will be communicated back to the requesting physician by way of shared Medical record or letter to requesting physician via US mail. Medical Decision Making: Problems: Moderate: New problem with uncertain prognosis Risk: Low: Low risk from testing/treatment Medical Decision Making Level: 3 - Low Bev Nichols MD documented in this encounter [facility] 08-30-2023 Note IMPRESSION: INCOMPLE TE: NEED ADDITIONAL IMAGING EVALUATION There is no abnormality seen in the right breast to correspond with the palpable abnormality, however, ultrasound is recommended. Mega arora/deb:08/30/2023 11:09:50 Glass Tube Bender(s): RT Tristan(Monica)(M), [facility] Mammogram BI-RADS: Category 0: Incomplete: Need Additional Imaging Evaluation Multiple national specialty organizations have released breast cancer screening guidelines for women at average risk for developing breast cancer - guidelines that are based on both evidence and opinion, yet differ on when to start and how often to screen for breast cancer. With representation from Breast Imaging, Internal Medicine, Women's Health, Family Medicine, and Medical/Surgical Oncology, the [facility] has carefully reviewed the data and reached the following consensus: 1) All women should engage in shared decision-making with their providers to decide when to start and how often to screen; 2) All women should have the opportunity to start screening mammography at age 40; 3) For women ages 45-55, we recommend annual screening mammograms; 4) For women ages 55 and over, we support both the transition from an annual to a biennial interval if this aligns more with patient's values and preferences, or continuation with annual screening; 5) All women should discuss with their providers when to stop screening mammograms. Cooker Pie Filling: Deb Transcribe Date/Time: Aug 30 2023 10:40A Dictated by: MEGA VENTURA MD This examination was interpreted and the report reviewed and electronically signed by: MEGA VENTURA MD on Aug 30 2023 11:09AM [facility] 08-30-2023 Miscellaneous Notes Scheduled with general surgery for 09/11. documented in this encounter [facility] 08-30-2023 Progress note Formatting of t his note might be different from the original. Scheduled with general surgery for 09/11. [facility] 08-30-2023 History of Presen t illness Narrative Radiology Service Progress Note PATIENT NAME: Cierra Marmolejo DATE OF SERVICE: August 30, 2023 TIME: 11:06 AM PATIENT IDENTITY VERIFICATION COMPLETED USING TWO (2) IDENTIFIERS: Name and Date of confirmed by patient verbally. FALL SCREENING: Has the patient had 2 falls in the last year or 1 fall with injury or currently using an Ambulatory Assistive Device (Walker, Cane, Wheelchair, Crutches, etc.)? No PATIENT GENDER DATA: Female. status: : No status: NO. PATIENT RELEVANT IMPLANT DATA REVIEWED: Not Applicable PATIENT PRESENTS WITH AN IMPLANTABLE OR ATTACHED INSPECTOR PAWNSHOP DETAIL: No RADIOLOGY DEPARTMENT: Mammography PERIPHERAL IV DATA: Not applicable SIGNED BY: Cortney Lee [employer] August 30, 2023 11:06 AM documented in this encounter [facility] 08-08-2023 History of Presen t illness Narrative Images from the original note were not included. SUBJECTIVE Cierra Marmolejo is a 67 year old female here today for a concern. Chief Complaint Patient presents with: lump on right side of chest: Lump for about 6 months, no pain HPI Cierra Marmolejo is a 67 year old female. She is an established patient of Geo Avila MD. Here today for a lump. Onset 6 months. No sure when exactly it appeared. Located to the right side of her chest, about 11 o'clock to 12 o'clock position. It has been constant. IT is rounded. Not painful. No redness or warmth to the area, no edema. No aggravating or alleviating factors that she knows of. Most recent mammogram was 10/2022 and normal. Her medications were reviewed today and her list is now up to date. Medications Current Outpatient Medications Medication Sig MAGNESIUM ORAL Take by mouth once daily. triamcinolone acetonide (KENALOG) 0.1 % cream Apply 1 application to affected area three times a day. Apply sparingly to area for rash/itching. vitamin E, dl,tocopheryl acet, (VITAMIN E, DL, ACETATE,) 180 mg (400 unit) capsule Take by mouth. omeprazole (PRILOSEC) 20 mg capsule Take 1 capsule by mouth once daily. calcium carbonate (CALCIUM 600 ORAL) Take by mouth. cholecalciferol, vitamin D3, (VITAMIN D3 ORAL) Take by mouth. 5000 daily fluticasone (FLONASE) 50 mcg/actuation nasal spray Use 2 Sprays in each nostril once daily. Rinse mouth after use. (Patient taking differently: Use 2 Sprays in each nostril as needed. Rinse mouth after use.) clobetasol (TEMOVATE) 0.05 % ointment Use a pea-sized amount-once daily for up to 2 weeks prn flares ursodiol (ACTIGALL) 300 mg capsule Take 1 capsule by mouth two times a day. (Patient not taking: Reported on 01/27/2023) famotidine (PEPCID) 20 mg tablet Take 1 tablet by mouth at bedtime as needed. (Patient not taking: Reported on 12/23/2022) atorvastatin (LIPITOR) 20 mg tablet Take 1 tablet by mouth daily at bedtime. (Patient not taking: Reported on 08/08/2023) Current Facility-Administered Medications Medication Dose Route Frequency perflutren lipid microspheres 1.3 mL in NaCl (PF) 0.9% 10 mL injection (DEFINITY) INTRAVENOUS DIRECTED PRN sodium chloride 0.9 % (flush) 10 mL (BD POSIFLUSH) 10 mL INTRAVENOUS DIRECTED PRN ALLERGIES Allergen Reactions Doxycycline Latex, Natural Rubb* Itching Sulfa (Sulfonamide * ACTIVE PROBLEM LIST Liver Cyst - 07/06/2021 Comment: Slightly larger on ultrasound done 06/2021 Hepatic Fibrosis - 07/06/2021 Comment: Liver elasticity imaging 06/2021-consistent with mild to moderate liver fibrosis. Prescribed Ursodiol Frontal Headache - 07/06/2021 Gastroesophageal Reflux Disease Without Esophagitis - 07/06/2021 Osteoporosis - 01/06/2021 Lichen Sclerosus - 05/21/2013 Psoriasis Hyperlipidemia Postmenopausal Atrophic Vaginitis - 06/27/2007 Social History Tobacco Use Smoking status: Former Years: 6 Types: Cigarettes Quit date: 02/13/2001 Years since quittin.4 Passive exposure: Never Smokeless tobacco: Never Tobacco comments: 4 cig per day, quit Substance Use Topics Alcohol use: Yes Comment: SOCIALLY Drug use: No Review of Systems Respiratory: Negative. Cardiovascular: Negative. OBJECTIVE BP 118/82 Pulse 77 Wt 130 lb 6.4 oz (59.1kg) SpO2 97% LMP 07/27/2006 Physical Exam Vitals and nursing note reviewed. Constitutional: General: She is awake. She is not in acute distress. Appearance: Normal appearance. She is well-developed and well-groomed. She is not ill-appearing, toxic-appearing or diaphoretic. HENT: Head: Normocephalic. Right Ear: External ear normal. Left Ear: External ear normal. Nose: Nose normal. Eyes: General: Vision grossly intact. Conjunctiva/sclera: Conjunctivae normal. Pupils: Pupils are equal, round, and reactive to light. Neck: Vascular: No JVD. Trachea: Trachea normal. Pulmonary: Effort: Pulmonary effort is normal. No accessory muscle usage, prolonged expiration or respiratory distress. Chest: Comments: She has a pea sized nodular lesion to the right upper medial breast, between 11-12 o clock position, it is smooth, easy to move. No erythema, edema or increased warmth. Denies pain. Musculoskeletal: Cervical back: Neck supple. Skin: General: Skin is warm and dry. Capillary Refill: Capillary refill takes less than 2 seconds. Neurological: General: No focal deficit present. Mental Status: She is alert and oriented to person, place, and time. Mental status is at baseline. Psychiatric: Attention and Perception: Attention and perception normal. Mood and Affect: Mood and affect normal. Speech: Speech normal. Behavior: Behavior normal. Behavior is cooperative. Thought Content: Thought content normal. Cognition and Memory: Cognition and memory normal. Judgment: Judgment normal. ASSESSMENT/PLAN: 1. Mass of upper outer quadrant of right breast - ICD9: 611.72, ICD10: N63.11 We will check an ultrasound and diagnostic mammogram, she denies any other lumps or bumps. Established with Dr. Fernandez and will follow up with them if any issues on imaging. - BREAST LTD RIGHT - [facility] BILATERAL Portions of this note have been entered by ancillary staff. I have reviewed and when necessary edited, so that they are an adequate record of my encounter with this patient Please note that parts of this document were created using voice recognition software and therefore may contain grammatical errors. Patient verbalizes understanding of instructions from today's visit and in agreement with treatment plan. Questions answered. Agrees to call the office if questions, concerns of issues with acute symptoms not improving or if they worsen. See diagnoses and orders for additional plan(s). Allergies and medications were reviewed, list was updated, and refills given if needed. Past medical, surgical, social, and family history reviewed and updated as appropriate. Encouraged proper diet & exercise as well as compliance with taking medications. Age-appropriate health preventative measures were discussed. Return if symptoms worsen or fail to improve, for Keep next scheduled appointment.. Cj Riojas APRN-MELANY documented in this encounter [facility] 04-02-2023 History of Presen t illness Narrative Images from the original note were not included. Subjective Patient came in with complaints of itching rash that seems to be spreading. Patient says she has had it about 2 weeks. Patient says she does use the same bras without washing them. Patient has not changed any soaps lotions or detergents. Denies any pain from the rash. The history is provided by the patient. No film masker was used. Rash Review of Systems Constitutional: Negative. Skin: Positive for itching and rash. Objective Physical Exam Constitutional: Appearance: Normal appearance. Pulmonary: Effort: Pulmonary effort is normal. Skin: Comments: Patient has erythematous raised rash in the area marked above. No pustules noted. No drainage noted. Neurological: Mental Status: She is alert. PAST MEDICAL HISTORY Diagnosis Date DIVERTICULOSIS COLON - NO HEMORRHAGE 03/31/2006 Hemorrhage of gastrointestinal tract, unspecified HEMORRHOIDS INTERNAL 03/31/2006 Hyperlipidemia Intramural leiomyoma of uterus 03/09/06 LEIOMYOMATA UTERUS INTRAMURAL Other and unspecified ovarian cyst 03/09/06 complex cyst of the right ovary Papanicolaou smear of cervix with atypical squamous cells of undetermined significance (ASC-US) 01/20/06 noted negative hpv at same time POLYP COLON 03/31/2006 Psoriasis Umbilical hernia without mention of obstruction or gangrene 03/17/06 UMBILICAL HERNIA W/O GANGRENE/OBSTRUCTION PAST SURGICAL HISTORY Procedure Laterality Date DELIVERY ONLY , low cervical DELIVERY ONLY , low cervical DELIVERY ONLY , low cervical COLSC FLX W/RMVL OF TUMOR POLYP LESION SNARE TQ 03/31/06 Rectal polyp/diverticulosis/hemorrhoid LIG/TRNSXJ FLP TUBE ABDL/VAG APPR UNI/BI Tubal ligation PAST SURGICAL HISTORY OF 1999 insert lens eye PAST SURGICAL HISTORY OF 2000 removed nasal cartilage RMVL SEC MEMBRANOUS CTRC CORNEO-SCLL SCTJ Insert lens prosthesis RPR 1ST INGUN HRNA AGE 5 YRS/> REDUCIBLE Hernia repair, inguinal/repair of bowel ALLERGIES Doxycycline; Latex, Natural Rubber; and Sulfa (Sulfonamide Antibiotics) MEDICATIONS triamcinolone acetonide (KENALOG) 0.1 % cream^Apply 1 application to affected area three times a day. Apply sparingly to area for rash/itching.^Disp: 80 g^Rfl: 0 vitamin E, dl,tocopheryl acet, (VITAMIN E, DL, ACETATE,) 180 mg (400 unit) capsule^Take by mouth.^Disp: ^Rfl: omeprazole (PRILOSEC) 20 mg capsule^Take 1 capsule by mouth once daily.^Disp: 90 capsule^Rfl: 3 atorvastatin (LIPITOR) 20 mg tablet^Take 1 tablet by mouth daily at bedtime.^Disp: 90 tablet^Rfl: 3 fluticasone (FLONASE) 50 mcg/actuation nasal spray^Use 2 Sprays in each nostril once daily. Rinse mouth after use.^Disp: 1 Each^Rfl: 3 clobetasol (TEMOVATE) 0.05 % ointment^Use a pea-sized amount-once daily for up to 2 weeks prn flares^Disp: 30 g^Rfl: 1 cephALEXin (KEFLEX) 500 mg capsule^Take 1 capsule by mouth four times daily for 5 days.^Disp: 20 capsule^Rfl: 0 predniSONE (DELTASONE) 10 mg tablet^Take 4 tabs daily for 3 days, then 2 tabs daily for 3 days, then 1 tab daily for 3 days with food.^Disp: 21 tablet^Rfl: 0 ursodiol (ACTIGALL) 300 mg capsule^Take 1 capsule by mouth two times a day.^Disp: 60 capsule^Rfl: 5 (Patient not taking: Reported on 01/27/2023) famotidine (PEPCID) 20 mg tablet^Take 1 tablet by mouth at bedtime as needed.^Disp: ^Rfl: (Patient not taking: Reported on 12/23/2022) calcium carbonate (CALCIUM 600 ORAL)^Take by mouth.^Disp: ^Rfl: (Patient not taking: Reported on 04/02/2023) cholecalciferol, vitamin D3, (VITAMIN D3 ORAL)^Take by mouth. 5000 daily^Disp: ^Rfl: (Patient not taking: Reported on 12/23/2022) FAMILY HISTORY Problem Relation Age of Onset Heart Mother by-pass, pacemaker other (MARFAN'S) Mother Coronary Artery Disease Father Heart Father by-pass other (MARFAN'S) Brother X2 other (MARFAN'S) Sister X6 Social History Tobacco Use Smoking status: Former Years: 6 Types: Cigarettes Quit date: 02/13/2001 Years since quittin.1 Passive exposure: Never Smokeless tobacco: Never Tobacco comments: 4 cig per day, quit Substance Use Topics Alcohol use: Yes Comment: SOCIALLY Drug use: No ASSESSMENT/PLAN: 1. Rash - ICD9: 782.1, ICD10: R21 - CEPHALEXIN 500 MG CAPSULE - PREDNISONE 10 MG TABLET Patient was educated about proper use of medication and supportive therapies. Patient will follow-up with signs and symptoms seem to be getting worse not better. Patient was okay with this care plan. Will follow-up with dermatology if this does not work. Troy Joe APRN.MELANY documented in this encounter [facility] 01-28-2023 Miscellaneous Notes This [employer] called patient at [phone] and identified with name and . Informed of negative hsv cultures/zoster as discussed All questions answered. Georgia Pollard CNP documented in this encounter [facility] 01-14-2023 Miscellaneous Notes Last seen [employer] 10/04/22. Next appt is 10/10/23. Patient has been identified by name and date of : Yes Requested Prescriptions Pending Prescriptions Disp Refills ursodiol (ACTIGALL) 300 mg capsule 60 capsule 5 Sig: Take 1 capsule by mouth two times a day. RX INSTRUCTIONS: Patient aware RX will be sent to pharmacy. No need to notify patient. Esther Pratt documented in this encounter [facility] 12-24-2022 History of Presen t illness Narrative Radiology Service Progress Note DATE OF SERVICE: December 24, 2022 TIME: 12:09 PM PATIENT IDENTITY VERIFICATION COMPLETED USING TWO (2) STANDARD IDENTIFIERS: Name and Date of confirmed by patient verbally. FALL SCREENING: Has the patient had 2 falls in the last year or 1 fall with injury or currently using an Ambulatory Assistive Device (Walker, Cane, Wheelchair, Crutches, etc.)? No PATIENT GENDER DATA: Female. status: : No status: NO. PATIENT RELEVANT IMPLANT DATA REVIEWED: Yes ALLERGIES: Reviewed and unchanged CONTRAST ALLERGY: NO. EXAM: CT -CONTRAST INDUCED NEPHROPATHY RISK FACTORS: Patient age > 60 years CREATININE: Creatinine Date Value Ref Range Status 12/23/2022 0.66 0.58 - 0.96 mg/dL Final 10/07/2022 0.72 0.58 - 0.96 mg/dL Final 01/06/2021 0.70 0.58 - 0.96 mg/dL Final Estimated Glomerular Filtration Rate Date Value Ref Range Status 12/23/2022 96 >=60 mL/min/1.73m Final Comment: Estimated Glomerular Filtration Rate (eGFR) is calculated using the 2020 CKD-EPI creatinine equation. This equation utilizes serum creatinine, sex, and age as parameters. The creatinine assay has traceable calibration to isotope dilution-mass spectrometry. Refer to KDIGO guidelines for clinical interpretation. In patients with unstable renal function, e.g. those with acute kidney injury, the eGFR may not accurately reflect actual GFR. eGFR- Date Value Ref Range Status 01/06/2021 >60 Final P.O.C.T. RESULTS: POC done: Yes, See Lab Tab December 24, 2022 TREATMENT: N/A PERIPHERAL IV DATA: Ambulatory: A peripheral IV was started in the Left antecubital site with a Angio cath: 18 gauge. RADIOLOGY DEPARTMENT: CT; Exam(s) Completed: Liver SIGNATURE: RT Mi(R) PATIENT NAME: Cierra Marmolejo DATE: December 24, 2022 TIME: 12:09 PM documented in this encounter [facility] 12-23-2022 History of Presen t illness Narrative Patient fasting for 3 hours:Yes Fibroscan was performed on December 23, 2022, by Kristen Blankenship Lpn and results are interpreted by Jess Gallardo Cnp Diagnosis: Fatty liver Please refer to get images report for individual readings Number of readings: 10 IQR %: 16 E (kpa): 5.2 CAP: 230 Impression The reading was adequate. FS=5.2 kPA. The CAP score is 230 and corresponds to steatosis grade of S0. This reading corresponds: A 97% chance of stage 0-2 fibrosis A 3% chance of stage 3-4 fibrosis (advanced fibrosis) A <1% chance of stage 4 fibrosis (cirrhosis).A kPa >20 indicates a high likelihood of stage 4 fibrosis/cirrhosis, consider further testing to confirm. Jess Evangelista Cnp NAFLD Fibroscan Fibrosis Risk <7 kPA = F0-F2 97%, F3+F4 3%, F4 <1% <10 kPA = F0-F2 91%, F3+F4 9%, F4 1.3% 10-15 kPA = F0-F2 56%, F3+F4 43%, F4 14% >15 kPA = F0-F2 26%, F3+F4 74%, F4 46% Grade CAP value up to 237 dB/M corresponds to S0 (< 10 % Fat) CAP value between (238 - 258 dB/M) corresponds to S1 (>/= 11 % Fat) CAP value between (259 - 289 dB/M) corresponds to S2 (>/= 33 % Fat) CAP value > 290dB/M corresponds to S3 (>/= 67 % Fat) stage 0 ( S0:< 10 % steatosis) stage 1 (>/= S1: 11%-33% steatosis) stage 2 (>/= S2: 34%-66% steatosis) stage 3 (>/= S3: > 66% steatosis) Reference Simone Y, Chacorta Q, Simone T, Mary Ann J, Simone H, Flaco T. Controlled attenuation parameter for assessment of hepatic steatosis grades: a diagnostic meta-analysis. Int J Clin Exp Med. 2015 Nov 15;8(10):02805-13. PMID: 65026654; PMCID: [id number]. Rhonda M, Mar SUZY, Shalini M, Chase F, Mateo J, Gavin O, Sam F, Jeffrey M, Jhonatan G, Yair A, Sayra E, Rod L, Holger G, Torito A, Pema U, Jimenez S, Aniya P, Quintin V, de Joy V, Boo M, All SHETH. Refining the Baveno elastography criteria for the definition of compensated advanced chronic liver disease. J Hepatol. 2020;74(5):0615-1226. doi: 10.1016/j.jhep.2020.11.050. Epub 2019Jan 22. PMID: 48870943. documented in this encounter [facility] 12-23-2022 Miscellaneous Notes Addended by: ZEKE BARRERA on: 12/23/2022 09:25 AM Modules accepted: Orders Addended by: ZEKE BARRERA on: 12/23/2022 09:06 AM Modules accepted: Orders documented in this encounter [facility] 12-23-2022 History of Presen t illness Narrative Consultation requested by Cj Riojas for an opinion regarding liver issues. My final recommendations will be communicated back to the requesting physician by way of shared Medical record or letter to requesting physician via [place] mail. 67 year old with onset upper abdominal and RUQ pain early 2022 thought to represent pancreatitis. Hosp for same. Severe pain has left but some soreness RUQ labs: normal liver enzymes Component Latest Ref Rng & Units 10/07/2022 Protein, Total 6.3 - 8.0 g/dL 7.2 Albumin 3.9 - 4.9 g/dL 4.5 Calcium 8.5 - 10.2 mg/dL 9.9 Bilirubin, Total 0.2 - 1.3 mg/dL 0.4 Alkaline Phosphatase 34 - 123 U/L 99 AST 13 - 35 U/L 26 ALT 7 - 38 U/L 27 Glucose 74 - 99 mg/dL 93 BUN 7 - 21 mg/dL 21 Creatinine 0.58 - 0.96 mg/dL 0.72 Sodium 136 - 144 mmol/L 141 Potassium 3.7 - 5.1 mmol/L 4.1 Chloride 97 - 105 mmol/L 106 (H) CO2 22 - 30 mmol/L 26 Anion Gap 9 - 18 mmol/L 9 eGFR >=60 mL/min/1.73m 92 Cholesterol, Total <200 mg/dL 219 (H) Triglyceride <150 mg/dL 100 HDL Cholesterol >39 mg/dL 51 Non HDL Cholesterol <130 mg/dL 168 (H) Fasting Time hrs 14 VLDL Cholesterol <30 mg/dL 20 TC:HDL Ratio <5.10 4.29 LDL Cholesterol <100 mg/dL 148 (H) LDL:HDL Ratio <2.54 2.90 (H) Imaginf > cysts left lobe liver HIDA scan poor gb emptying so in June had lap ezio with normal cholangiograms No description of liver US SWE suggested fatty liver and some fibrosis She was placed on UDCA Patient is concerned about stiffness of liver and the tumors and what they mean No fever chills unintended weight loss change in bowel pattern. PAST MEDICAL HISTORY Diagnosis Date DIVERTICULOSIS COLON - NO HEMORRHAGE 03/31/2006 Hemorrhage of gastrointestinal tract, unspecified HEMORRHOIDS INTERNAL 03/31/2006 Hyperlipidemia Intramural leiomyoma of uterus 03/09/06 LEIOMYOMATA UTERUS INTRAMURAL Other and unspecified ovarian cyst 03/09/06 complex cyst of the right ovary Papanicolaou smear of cervix with atypical squamous cells of undetermined significance (ASC-US) 01/20/06 noted negative hpv at same time POLYP COLON 03/31/2006 Psoriasis Umbilical hernia without mention of obstruction or gangrene 03/17/06 UMBILICAL HERNIA W/O GANGRENE/OBSTRUCTION PAST SURGICAL HISTORY Procedure Laterality Date DELIVERY ONLY , low cervical DELIVERY ONLY , low cervical DELIVERY ONLY , low cervical COLSC FLX W/RMVL OF TUMOR POLYP LESION SNARE TQ 03/31/06 Rectal polyp/diverticulosis/hemorrhoid LIG/TRNSXJ FLP TUBE ABDL/VAG APPR UNI/BI Tubal ligation PAST SURGICAL HISTORY OF 1999 insert lens eye PAST SURGICAL HISTORY OF 2000 removed nasal cartilage RMVL SEC MEMBRANOUS CTRC CORNEO-SCLL SCTJ Insert lens prosthesis RPR 1ST INGUN HRNA AGE 5 YRS/> REDUCIBLE Hernia repair, inguinal/repair of bowel Current Outpatient Medications Medication Sig vitamin E, dl,tocopheryl acet, (VITAMIN E, DL, ACETATE,) 180 mg (400 unit) capsule Take by mouth. omeprazole (PRILOSEC) 20 mg capsule Take 1 capsule by mouth once daily. ursodiol (ACTIGALL) 300 mg capsule Take 1 capsule by mouth twice daily. calcium carbonate (CALCIUM 600 ORAL) Take by mouth. atorvastatin (LIPITOR) 20 mg tablet Take 1 tablet by mouth daily at bedtime. fluticasone (FLONASE) 50 mcg/actuation nasal spray Use 2 Sprays in each nostril once daily. Rinse mouth after use. clobetasol (TEMOVATE) 0.05 % ointment Use a pea-sized amount-once daily for up to 2 weeks prn flares famotidine (PEPCID) 20 mg tablet Take 1 tablet by mouth at bedtime as needed. (Patient not taking: Reported on 12/23/2022) cholecalciferol, vitamin D3, (VITAMIN D3 ORAL) Take by mouth. 5000 daily (Patient not taking: Reported on 12/23/2022) Current Facility-Administered Medications Medication Dose Route Frequency perflutren lipid microspheres 1.3 mL in NaCl (PF) 0.9% 10 mL injection (DEFINITY) INTRAVENOUS DIRECTED PRN sodium chloride 0.9 % (flush) 10 mL (BD POSIFLUSH) 10 mL INTRAVENOUS DIRECTED PRN Exam: BP 129/77 (BP Site: Left Arm, BP Position: Sitting, BP Cuff Size: Regular Adult) Pulse 76 Temp 36.2 C (97.2 F) (Temporal) Ht 157.5 cm (5' 2) Wt 62.9 kg (138 lb 9.6 oz) LMP 07/27/2006 SpO2 97% BMI 25.35 kg/m HEENT neg abd: no mass or organ enlarement extrem: no edema neuro: no AMS or asterixis. Impression: liver cysts possible steatosis RUQ pain Hx pancreatitis Rec: labd Fibroscan CT can call me after to discuss, including decision about UDCA 25 min more than 50% counseling Zeke Barrera MD documented in this encounter [facility] 12-22-2022 Miscellaneous Notes Called Cierra Marmolejo to remind them of an appointment with Dr. Barrera on 12/23/22. Left Message for patient. documented in this encounter [facility] 11-04-2022 History of Presen t illness Narrative Radiology Service Progress Note PATIENT NAME: Cierra Marmolejo DATE OF SERVICE: November 04, 2022 TIME: 11:04 AM PATIENT IDENTITY VERIFICATION COMPLETED USING TWO (2) IDENTIFIERS: Name and Date of confirmed by patient verbally. FALL SCREENING: Has the patient had 2 falls in the last year or 1 fall with injury or currently using an Ambulatory Assistive Device (Walker, Cane, Wheelchair, Crutches, etc.)? No PATIENT GENDER DATA: Female. status: : No status: NO. PATIENT RELEVANT IMPLANT DATA REVIEWED: Not Applicable RADIOLOGY DEPARTMENT: Mammography PERIPHERAL IV DATA: Not applicable SIGNED BY: Sadie HudsonBasecamp Tom November 04, 2022 11:04 AM documented in this encounter [facility] 10-30-2022 Miscellaneous Notes Called and LT LM on 10/30/2022 to schedule the Consult for Hepatology. Order for hepatology placed, please contact patient to help with scheduling. Thanks! Pt called and is notified of providers results and instructions. Pt voices understanding. Pt asking if provider can place consult for hepatology. Zaida Garcia RN LEFT MESSAGE FOR PATIENT TO CALL OFFICE. Current liver scan shows an increase in liver stiffness with current number at 7.8 kPa, prior scan from 06/2021 with liver stiffness 6.9 kPa, had improved to 6.5 kPa 01/2022. Overall increase 1.3 kPa. The cyst on the left lobe of the liver has also increased some in size. With these findings she should follow up with Dr. Elliott but I know she had concerns of scheduling with their office which is why we ordered the scan. We can refer to a liver specific specialist, a range feeder, if she would like. Patient had ABD w/Elastography completed at [facility] on 10/27/22. Copy of results on Cj's desk for review. documented in this encounter [facility] 10-19-2022 Miscellaneous Notes Patient has been identified by name and date of : Yes Last office visit in this department: 10/04/2022 RX INSTRUCTIONS: Patient aware RX will be sent to pharmacy. No need to notify patient. Patient phones requesting refills as follows: Requested Prescriptions Pending Prescriptions Disp Refills omeprazole (PRILOSEC) 20 mg capsule Sig: Take 1 capsule by mouth once daily. Please review and advise. Marjorie Palacios documented in this encounter [facility] 10-19-2022 History of Presen t illness Narrative GENETIC COUNSELING CONSULTATION Cierra Marmolejo is a 66 year old female with a family history of Marfan syndrome referred for genetic counseling by self. She is present at her appointment by her Rebecca staley. HISTORY OF PRESENT ILLNESS: Cierra Marmolejo is a 66 year-old female with a history of bilateral ectopia lentis. She presents today for genetic counseling due to a family history of Marfan syndrome. Her daughter who also had ectopia lentis recently underwent genetic testing which revealed a pathogenic FBN1 variant. We had previously strongly recommended she undergo aortic screening which she had deferred. MEDICAL HISTORY: PAST MEDICAL HISTORY Diagnosis Date DIVERTICULOSIS COLON - NO HEMORRHAGE 03/31/2006 Hemorrhage of gastrointestinal tract, unspecified HEMORRHOIDS INTERNAL 03/31/2006 Hyperlipidemia Intramural leiomyoma of uterus 03/09/06 LEIOMYOMATA UTERUS INTRAMURAL Other and unspecified ovarian cyst 03/09/06 complex cyst of the right ovary Papanicolaou smear of cervix with atypical squamous cells of undetermined significance (ASC-US) 01/20/06 noted negative hpv at same time POLYP COLON 03/31/2006 Psoriasis Umbilical hernia without mention of obstruction or gangrene 03/17/06 UMBILICAL HERNIA W/O GANGRENE/OBSTRUCTION SURGICAL HISTORY: PAST SURGICAL HISTORY Procedure Laterality Date DELIVERY ONLY , low cervical DELIVERY ONLY , low cervical DELIVERY ONLY , low cervical COLSC FLX W/RMVL OF TUMOR POLYP LESION SNARE TQ 03/31/06 Rectal polyp/diverticulosis/hemorrhoid LIG/TRNSXJ FLP TUBE ABDL/VAG APPR UNI/BI Tubal ligation PAST SURGICAL HISTORY OF 1999 insert lens eye PAST SURGICAL HISTORY OF 2000 removed nasal cartilage RMVL SEC MEMBRANOUS CTRC CORNEO-SCLL SCTJ Insert lens prosthesis RPR 1ST INGUN HRNA AGE 5 YRS/> REDUCIBLE Hernia repair, inguinal/repair of bowel FAMILY HISTORY: A detailed, 4-generation family history was obtained, details are available on request. Significant diagnoses are listed below: FAMILY HISTORY Problem Relation Age of Onset Heart Mother by-pass, pacemaker other (MARFAN'S) Mother Coronary Artery Disease Father Heart Father by-pass other (MARFAN'S) Brother X2 other (MARFAN'S) Sister X6 Son (Jh Marmolejo) - a/w, no genetic testing Daughter (Rebecca Marmolejo) - a/w, no genetic testing Daughter (Lizbeth Payne) - ectopia lentis, normal aorta, +FBN1 Brother (Epifanio Marcano) - 69y, ectopia lentis, aortic dissection s/p repair in 60s Brother (Eugenio Marcano) - 70y, ectopia lentis, aortic repair Sister (Anny Dumont, 07/12/1951) - 71y, ectopia lentis, ?no known cardiac issues Nephew (SAL) - a/w Nephew (Shane Manriquez) - lens dislocation, aortic repair Sister (Becky Marcano) - ectopia lentis Nephew (Yunior Kelly) - aortic dissection s/p repair, +FBN1 genetic testing (previously gave consent to share test results with family members) Niece (Shana) - ectopia lentis Sister (Mercedez Simpson) - ectopia lentis, +FBN1 genetic testing Sister (Beckie Leo) - ectopia lentis Sister (Janet Rey) - a/w Father - d.72, CHF Mother (Aliya Marcano) - d.83, aortic dissection declined redo surgery, multiple aortic repairs, ectopia lentis Maternal uncle - d. Aortic dissection Maternal uncle - d. Cause unknown to patient, hx aortic aneurysm Maternal uncle - a/w Maternal aunt - a/w The remainder of the family history is negative for aneurysms, sudden , cardiomyopathy,stroke, [place], known genetic disease, defects, multiple miscarriages or stillbirths, , developmental delay, intellectual disability, and consanguinity. IMPRESSION: Cierra Marmolejo is a 66 year old female with: - Bilateral ectopia lentis - Family history of Marfan syndrome - Family history of pathogenic FBN1 variant She meets clinical criteria for Marfan syndrome (ectopia lentis + first-degree relative meeting [place] revised criteria). 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 Strongly recommended aortic surveillance which she acknowledged. After discussion she was interested in confirming the diagnosis with genetic testing which we was reasonable and can be done at no-cost. Will also try to get patient in for aortic screening again. PLAN: - FBN1 sequencing - [employer]. Buccal kit. Results are expected in approximately 2-3 weeks. - The patient will be contacted by telephone to discuss these results. A follow up genetic counseling visit will be scheduled if indicated. - Strongly recommend aortic screening RESOURCES: [facility] for Aortic Health: [facility] [place] Aortic Hope: [email or web address] Marfan Foundation: [email or web address] -------- The patient was seen for a total of 18 minutes in telephone counseling. This plan is being carried out under oversight of Dr. Randee Peters, Clinical Clip Loading Machine Adjuster. This note is available to the patient through [employer] and will be sent to the referring provider through [facility] or the [place] Mail as necessary. Bruce Arellano MS, [facility] Licensed, Certified Genetic Counselor [facility] CC: Dr. Randee Avila CC: Cierra Reyes [id number] [facility] [id number] documented in this encounter [facility] 10-11-2022 Miscellaneous Notes Pt returned call and requesting Liver Elastography order be faxed to [facility]. Faxed as requested. Sara Michaels RN Spoke with patient and reminded waiting on confirmation of in network facility to complete studies. Cj Riojas ordered a Liver Elastography. Patient to check with insurance to see which facility is in network to complete scan. Will call office back if needing order sent to a facility outside of [facility]. documented in this encounter [facility] 10-04-2022 History of Presen t illness Narrative Cierra Marmolejo is a 66 year old female here for a Medicare wellness visit. Did not take fosamax. Taking calcium. Concerns of needing repeat electrography on liver, GI too hard to get in with. Health Risk Assessment In general, health is: Good Concerns with balance:Not at all Concerns with teeth or dentures:Not at all Concerns with sexual function:Not at all [place] anxious, stressed, angry, irritable, lonely, isolated, or had thoughts of hurting themself: Not at all Has little interest or pleasure in doing things: Not at all Bothered by feeling down, depressed, or hopeless: Not at all Needs help with grocery shopping, cooking, housework, bathing, grooming, dressing, eating, sitting or standing, walking, using the toilet, handling finances, taking medications, using the telephone, or driving: No Following safety precautions in the home environment and vehicle: removed throw rugs from floors, installed grab bars in the bathroom, handrails in stairwells, having adequate lighting, wearing seatbelt at all times?: Yes Smokes cigarettes, vapes, or chew tobacco: No Eats healthy foods including fruits, vegetables, whole grains, and fiber-rich foods: More than half the days Number of days per week engages in exercise: 7 days, walking, takes care of a horse Average alcohol consumption: 2-4 times a month Current Providers Specialists: I have reviewed specialist-related care of the patient in the medical record. Medical/Family history review Reviewed and updated problem list, medical/surgical/family/social history, medications, and allergies. Opioid use review Patient is not currently using opioids. Depression screening Depression Screening PHQ-2 Score 05/20/2017 0 Depression screening tool completed and reviewed. Based on score and interview, patient is not at risk for depression. Screening tool discussed with patient, and I recommended no further intervention at this time. Cognitive screening Mini Cog Score: 5 Functional Observation Was the patient's timed Up & Go test unsteady or ? 12 seconds? No Advance Care Planning End of Life planning discussed, including patient's advanced directive wishes: Yes Measurements BP 120/88 Pulse 71 Ht 5' 1.5 (1.56m) Wt 136 lb (61.7kg) SpO2 98% LMP 07/27/2006 BMI 25.28 kg/(m^2). Visual acuity (required for Welcome to Medicare): follows with optometry/ophthalmology and screening completed today Hearing Evaluation: within normal limits ASSESSMENT/PLAN: 1. Medicare annual wellness visit, subsequent - ICD9: V70.0, ICD10: Z00.00 (primary diagnosis) - Counseled on healthy diet and regular exercise - Calcium intake with supplements or by diet of 1000 mg/day for under 50, 5727-3238 mg/day for 50+ - Depression screening tool completed and reviewed with patient. Based on score and interview, patient is not at risk for depression and recommended no further intervention at this time. 2. Asymptomatic postmenopausal status - ICD9: V49.81, ICD10: Z78.0 - DXA-AXIAL SKELETON 3. Osteoporosis, unspecified osteoporosis type, unspecified pathological fracture presence - ICD9: 733.00, ICD10: M81.0 - Reviewed the need for Calcium and Vitamin D supplements and weight bearing exercise as tolerated - DXA-AXIAL SKELETON 4. Mixed hyperlipidemia - ICD9: 272.2, ICD10: E78.2 - Control undetermined, due for labs - Continue current medications - Counseled on healthy diet and regular exercise - COMP METABOLIC PANEL - LIPID PANEL BASIC 5. Hepatic fibrosis - ICD9: 571.5, ICD10: K74.00 Prior scans in chart, 06/2021 liver stiffness was 6.9 kPa, improved to 6.5 kPa 01/2022. - US ABD RIGHT UPPER QUADRANT - US ELASTOGRAPHY LIVER 6. Encounter for therapeutic drug monitoring - ICD9: V58.83, ICD10: Z51.81 - CBC + DIFF - COMP METABOLIC PANEL - LIPID PANEL BASIC Cj Riojas APRN.CNP documented in this encounter [facility] 10-04-2022 Instructions Cj Riojas APRN.CNP - 10/04/2022 2:22 PM EDT Screening schedule The following prevention plan is recommended: SHINGRIX VACCINE(2 of 2) due on 11/08/2019 PNEUMOCOCCAL: 65+(1 - PCV) Never done MAMMOGRAM due on 10/28/2020 COVID-19 VACCINE(4 - Booster for Jimenez series) due on 09/15/2021 ADVANCE DIRECTIVE DISCUSSION Never done DEPRESSION ASSESSMENT Never done COLORECTAL CANCER SCREENING due on 04/22/2022 WHAT YOU CAN DO TO PREVENT FALLS Many falls can be prevented. By making some changes, you can lower your chances of falling. Four things YOU can do to prevent falls for you* and your caregiver 1. Begin a regular exercise program Exercise is one of the most important ways to lower your chances of falling. It makes you stronger and helps you feel better. Exercises that improve balance and coordination (like Kapil Chi) are the most helpful. Lack of exercise leads to weakness and increases your chances of falling. Ask your doctor or health care provider about the best type of exercise program for you. 2. Have your health care provider review your medicines Have your doctor or pharmacist review all the medicines you take, even ydra-ynh-wvjicuo medicines. As you get older, the way medicines work in your body can change. Some medicines, or combinations of medicines, can make you sleepy or dizzy and can cause you to fall. 3. Have your vision checked Have your eyes checked by an eye doctor at least once a year. You may be wearing the wrong glasses or have a condition like glaucoma or cataracts that limits your vision. Poor vision can increase your chances of falling. 4. Make your home safer About half of all falls happen at home. To make your home safer: Remove things you can trip over (like papers, books, clothes, and shoes) from stairs and places where you walk. Remove small throw rugs or use double-sided tape to keep the rugs from slipping. Keep items you use often in cabinets you can reach easily without using a step stool. Have grab bars put in next to your toilet and in the tub or shower. Use non-slip mats in the bathtub and on shower floors. Improve the lighting in your home. As you get older, you need brighter lights to see well. Hang light-weight curtains or shades to reduce glare. Have handrails and lights put in on all staircases. Wear shoes both inside and outside the house. Avoid going barefoot or wearing slippers. For more information, contact: Centers for Disease Control and Prevention www.cdc.gov/injury * This information may not apply if you have certain medical conditions. BONE MINERAL DENSITY PATIENT INSTRUCTIONS ========= Bone mineral density testing measures the amount of calcium in certain parts of your bones. This information determines how strong your bones are. The test is used to detect osteoporosis, a disease in which the bone's mineral content and density are low, increasing a person's risk of fractures. The lumbar spine (lower back) and the hip are the skeletal sites usually examined. For the test, remember that: 1. You cannot take this test if you are . 2. Eat a normal diet on the day of the test. 3. Take your medications as you normally would. 4. DO NOT take calcium supplements (such as Tums) for 24 hours before the test. 5. On the day of the test, leave valuables (jewelry or credit cards) at home. 6. The test should be performed prior to oral, rectal or IV contrast studies, or at least 7 days after any of these studies. For the test, you may be asked to wear a hospital gown. You will lie on your back, on a padded table, in a comfortable position. Generally, you can resume your usual activities immediately. documented in this encounter [facility] 10-04-2022 Nurse Note VISUAL ACUITY: Today's exam: Vision Correction? No vision correction: RIGHT EYE: 20/70 LEFT EYE: 20/ 70 BOTH EYES: 20/40 documented in this encounter [facility] 09-23-2022 Miscellaneous Notes Spoke with PT regarding scheduling with Dr. Jorgensen based on Bruce Arellano's Sarina referral. PT stated she would like to speak with other family members before making appointment. Jh LOW 07/22/1992 Rebecca Marmolejo 08/10/1994 PT will call back with more details on date for appointment. Quita Haynes September 23, 2022 6:24 PM documented in this encounter [facility] 08-26-2022 Miscellaneous Notes I see no prior mention of this, placed a consult per request. Please schedule Patient requesting referral order to see Plastic Surgeon, Dr. Gilberto Pepper, at [facility] for breast reduction. Referral pended for further completion/revision. Please call patient with update. Thank you. documented in this encounter [facility] 06-30-2022 History and physi marta note Note Date/Time June 30, 2022 7:10am [facility] Medical Records Department [address] [place] [id number] History & Physical Exam 06/30/22708 MR#: [id number] Acct: [id number] Name: CIERRA MARMOLEJO Rep #:[id number] : 1955 66 From: Donald Fernandez MD PCP: Dr. Geo Avila MD Status:[facility] Location: [place] [address] History and Physical Date of Admission: 06/30/22 Allergies doxycycline Allergy (Intermediate, Verified 06/15/22 13:04) UNKSulfa (Sulfonamide Antibiotics) Allergy (Intermediate, Verified 06/15/22 13:04) UNKLatex, Natural Rubber Allergy (Mild, Verified 06/15/22 13:04) rash Medications atorvastatin 20 mg tablet 20 mg PO DAILY@2200 #30 tabs 07/28/14 [Rx Confirmed 06/15/22] Lactobacillus 40-Bifidobact 3-S.thermophilus 100 billion cell capsule (Probiotic) 1 cap PO DAILY 08/07/21 [History Confirmed 06/15/22] yztiegj-cth-npf W0-hadrsk-Ly tablet 1 tab PO DAILY 08/07/21 [History Confirmed 06/15/22] vitamin E 268 mg (400 unit) capsule 400 unit PO DAILY 08/07/21 [History Confirmed 06/15/22] famotidine 40 mg tablet 40 mg PO DAILY #90 tabs 09/24/21 [Rx Confirmed 06/15/22] ursodiol 300 mg capsule 300 mg PO BID #180 caps 03/04/22 [Rx Confirmed 06/15/22] PFSH Medical History? Cardiology follow-up encounter Colon polyp Diverticulosis Fatty liver Gastric reflux GERD (gastroesophageal reflux disease) Hemorrhage of gastrointestinal tract High cholesterol History of echocardiogram History of small bowel obstruction History of stress test Hx of pancreatitis Hyperlipidemia Internal hemorrhoids Intramural leiomyoma of uterus Liver cyst Migraine headache NAFLD (nonalcoholic fatty liver disease) Non-smoker Osteoporosis Pancreatitis Psoriasis Umbilical hernia Wears glasses Surgical History? H/O cataract removal with insertion of prosthetic lens H/O hernia repair History of colonoscopy History of tonsillectomy Previous section Tubal ligation status Family History? Mother Heart disease Marfan syndromeFather Heart diseaseBrother Marfan syndromeSister Marfan syndrome Social History? Smoking Status:? Never smoker alcohol intake:? current alcohol intake frequency: holidays/special occasions only HPI HPI Surgical H&P: Yes HPI: Patient is a 66 y/o F I am seeing for an update history and physical. Patient isscheduled for an elective laparoscopic cholecystectomy. She denies any recent illnesses or hospitalizations within the last 3 months. Patient denies any cardiac or pulmonary history. She denies any blood thinners. She denies any concerns or issues with anesthesia previously. Patient's previous history per Dr. Fernandez: 66-year-old female returns to discuss problems with achy abdominal pain in the right upper quadrant.? As noted below on May 13, 2022 I obtained a hepatobiliary scan.? This is significantly abnormal with a ejection fraction of less than5%.? States that she did not any difficulties with the examination.? She complains that she has this constant right upper quadrant pain. May 13, 2022 66-year-old female with history of right upper quadrant abdominal pain. RADIONUCLIDE HEPATOBILIARY SCINTIGRAPHY COMPARISON: None available FINDINGS: Following the intravenous administration of 5.7 mCi of 99m Tc Mebrofenin, hepatobiliary images reveal: 1.? Relatively prompt and homogeneous radiopharmaceutical concentration is noted by a normal sized liver.? No parenchymal defects are identified. 2.? Gallbladder activity is identified at 10 minutes post radiopharmaceutical administration. 3.? Small intestinal tract is observed at 10 minutes following tracer injection. 4.? Washout of the radiopharmaceutical by the hepatic parenchyma appears qualitatively normal. Cholecystokinin (0.02 ug/kg) was administered intravenously over a 30-minute period.? The post CCK gallbladder ejection fraction calculated at 20 minutes following Cholecystokinin administration was noted to be < 5 % (normal greater than 35%). There is scintigraphic evidence of post cholecystokinin duodenal-gastric reflux. NM/Hepatobilliary Img w/Pharm Int IMPRESSION: 1.? ABNORMAL 99m Tc Mebrofenin hepatobiliary imaging examination with Cholecystokinin. ? A.? A gallbladder ejection fraction calculated to be less than 35% following the administration of Cholecystokinin is consistent with the presence of functional hepatobiliary disease (gallbladder and/or sphincter of Oddi dyskinesia) and/or organic hepatobiliary disease (chronic acalculous cholecystitis and/or cystic duct syndrome) in patients with intermediate to high pretest probabilities of hepatobiliary illness. (Amy Dimas et al, Journal of Nuclear Medicine 32:1695, 1990). ? B.? There is scintigraphic evidence of post CCK duodenal-gastric reflux as defined above.? (Migel et al, Nucl Med Alicia? Debbie Press? pg. 35, 1980). ? Electronically Signed: Adán Dumas, at 21:50 EDT , 66-year-old female.? She has recently undergone evaluation per gastroenterology and has been found to have gastroesophageal reflux disease negative for Blount's.? Moderate Schatzki ring.? Medium size hiatal hernia.? Her reflexes and heartburn is improved if she avoids sodas and chocolate.? She has osteoporosis but has not started Fosamax concerned about side effects.? Dr. Matthew Friend did upper endoscopy on August 12, 2021 that demonstrated low-grade reflux esophagitis from 36 to 38 cm with a moderate Schatzki ring that was dilated to 60 Italian with a savory dilator.? Medium size hiatal hernia noted.? She had been treated with famotidine therapy.? There was some offering as to whether she will convert back to omeprazole therapy 20 mg daily. Liver elastography of January 21, 2022 showed mild to moderate liver fibrosis.? A liver ultrasound at that time showed fatty infiltration of the liver and a stable left lobe liver cyst. She had had a previous CT of the abdomen May 26, 2021 which suggested a liver cyst and steatosis.? The gallbladder was felt to be contracted.? There is felt to be persistent increased markings within the mesenteric fat at the root of themesentery felt to be a nonspecific finding.? Compared to a previous examination of March 17, 2017 there was some improvement. Reviewing Dr. Matthew Elliott's note he makes comment that she had pancreatitis twice when she was and then again in 2014 she had epigastric pain and lipase was elevated.? Her pancreatitis was attributed that time to hyperlipidemia and she was started on a statin medication. The most recent laboratory I have is June 09, 2021 which at that time demonstrated normal normal white count hemoglobin and hematocrit.? BUN/creatinine were normal.? Liver function tests were normal.? CRP was normal.?Cholesterol is 240 and LDL cholesterol is 167. The patient presents today with concern that she has a dull achy sensation in the right subcostal area right lateral subcostal area.? In questioning her this seems to be similar to her discomfort that she had at least dating back to April2017.? Does not appear to be any accentuation. She has had at least 2 right upper quadrant ultrasounds to evaluate the liver and no stones have been seen.? She has not had a hepatobiliary scan. It is of note that the includes cholesterol level noted above was identified andthe patient was temporarily placed on 40 mg of atorvastatin daily.? She states that she got diffuse muscle weakness so a phone call into Dr. Avila got the dosing moved back to 20 mg daily however the patient has not had follow-up bloodwork obtained. I did ask her what Dr. Elliott and Brigida Cárdenas had offered her as to etiology to this achy sensation in the right upper quadrant and she did not have a clear answer for me other than she describes the liver stiffness issue. ROS General General: No weight change, appetite, fatigue, colon cancer, breast cancer or weakness HEENT HEENT: No difficulty swallowing, eye injury, eye surgery, swollen glands or hoarseness Endo Endocrine: No thyroid disease, diabetes mellitus, thyroid cancer, Hair loss, heat intolerance or cold intolerance Skin Skin: No rash or changing moles Breast Breast: No left breast lump, right breast lump, nipple discharge, breast pain, abnormal mammogram, abnormal US or breast enlargement Musc Musculoskeletal: No back problems, arthritis, rheumatoid arthritis, gout or joint pain Cardio Cardiovascular: No murmur, pacemaker, heart disease, atrial fibrillation, high blood pressure, heart attack, heart stent, palpitations, shortness of breat withexertion or chest pain Psych Psychiatric: No depression, anxiety or hearing voices Resp Respiratory: No shortness of breath, No sleep apnea, No cough, No COPD, No asthma, No emphysema and No wheezing Gastro Gastrointestinal: Yes abdominal pain, No nausea or vomiting, No diarrhea, No constipation, No blood in stool, No acid reflux, No hemorrhoids, No ulcers, No gallbladder problem and No black,tarry stools [place] Hematologic: No blood thinners, No blood disorders, No bleeding, No anemia and No blood clots Neuro Neurologic: No system reviewed and no additional complaints, except as documented, No as per HPI, No abnormal gait, No abnormal hearing, No abnormal movements, No abnormal speech, No behavioral changes, No burning sensations, No confusion, No convulsions, No disequilibrium, No dizziness, No localized weakness, No frequent falls, No headache(s), No lack of coordination, No loss ofvision, No memory loss, No numbness, No other visual disturbances, No radicular pain, No restless legs, No sensory deficit, No syncope, No tingling, No tremor(s), No weakness and No other Exam Const General: cooperative, healthy appearing, comfortable and no acute distress [facility] Head: normal to inspection Eyes General: appearance normal, both eyes and all related structures Neck Neck: normal visual inspection Neck mass: No Resp Effort & Inspection: normal respiratory effort Auscultation: clear to auscultation bilaterally Cardio Rate: regular rate Rhythm: regular rhythm GI Inspection: normal to inspection Palpation: soft and tender in the RUQ Auscultation: normal bowel sounds Musc Cervical Spine: normal cervical lordosis Skin General: no rashes or lesions noted Neuro General: no focal motor deficits Extrem General: normal to inspection Psych Appearance: grossly normal Affect: normal affect Assessment and Plan Assessment and Plan (1) Biliary dyskinesia: ?Status:?Acute ?Plan: Dr. Fernandez will plan to perform a laparoscopic cholecystectomy with intraoperative cholangiogram. Procedure risks, benefits and details have been reviewed with the patient and her . Patient and her have had the opportunity to ask and have questions answered. Patient verbally understands andagrees with the plan. I have examined the patient and the H&P has been reviewed. There are no clinicalchanges since date of exam. Donald Fernandez M.D., F.A.C.S. 06/30/22 0710 <Electronically signed by Donald Fernandez MD> Cosigner Signature (if applicable): CC: Dr. Geo Avila MD; Dr. Donald Fernandez MD~ Signed [facility] Work Phone: [phone] [phone] Procedure [facility] 08-28-2021 Miscellaneous Notes* Telephone Encounter - Kymberly Gibson APRN.CNP - 08/28/2021 7:45 AM EDT Okay to take Fosamax with vitamin supplements * Telephone Encounter - Breana Zavala RN - 08/27/2021 10:58 AM EDT Patient reports [employer] prescribed fosamax for her in February. Reports she was really afraid to try it, but recently built the courage, and when went to pharmacy, found out she waited too long and it was discontinued. Would like to try taking it now if [employer] does not mind sending a new Rx to [facility]. Reports she is also taking calcium carbonate 1000 mg twice/day, which has D3 600 units in each tab, and magnesium and zinc in it. Asking if it safe for her to continue taking it while on the fosamax? Please advise patient. documented in this encounter[facility] History of Present illness Narrative* Catalino Rivas APRN.[employer]NACE [employer]ADER - 07/17/2021 8:47 PM EDT Images from the original note were not included. Subjective HPI HPI Cierra Marmolejo is a 65 year old female who presents today for CC of left middle finger laceration. Cleansed with alcohol at home. .Patient presents with: Trauma: Pt reported (LT) middle finger injury x1 hr prior at home with trimmers PAST MEDICAL HISTORY Diagnosis Date DIVERTICULOSIS COLON - NO HEMORRHAGE 03/31/2006 Hemorrhage of gastrointestinal tract, unspecified HEMORRHOIDS INTERNAL 03/31/2006 Hyperlipidemia Intramural leiomyoma of uterus 03/09/06 LEIOMYOMATA UTERUS INTRAMURAL Other and unspecified ovarian cyst 03/09/06 complex cyst of the right ovary Papanicolaou smear of cervix with atypical squamous cells of undetermined significance (ASC-US) 01/20/06 noted negative hpv at same time POLYP COLON 03/31/2006 Psoriasis Umbilical hernia without mention of obstruction or gangrene 03/17/06 UMBILICAL HERNIA W/O GANGRENE/OBSTRUCTION PAST SURGICAL HISTORY Procedure Laterality Date DELIVERY ONLY , low cervical DELIVERY ONLY , low cervical DELIVERY ONLY , low cervical COLSC FLX W/RMVL OF TUMOR POLYP LESION SNARE TQ 03/31/06 Rectal polyp/diverticulosis/hemorrhoid LIG/TRNSXJ FLP TUBE ABDL/VAG APPR UNI/BI Tubal ligation PAST SURGICAL HISTORY OF 1999 insert lens eye PAST SURGICAL HISTORY OF 2000 removed nasal cartilage RMVL SEC MEMBRANOUS CTRC CORNEO-SCLL SCTJ Insert lens prosthesis RPR 1ST INGUN HRNA AGE 5 YRS/> REDUCIBLE Hernia repair, inguinal/repair of bowel ALLERGIES Doxycycline; Latex, Natural Rubber; and Sulfa (Sulfonamide Antibiotics) MEDICATIONS famotidine (PEPCID) 20 mg tablet Take 1 tablet by mouth at bedtime as needed. ursodiol (ACTIGALL) 300 mg capsule Take 1 capsule by mouth twice daily. calcium carbonate (CALCIUM 600 ORAL) Take by mouth. cholecalciferol, vitamin D3, (VITAMIN D3 ORAL) Take by mouth. 5000 daily atorvastatin (LIPITOR) 20 mg tablet Take 1 tablet by mouth daily at bedtime. fluticasone (FLONASE) 50 mcg/actuation nasal spray Use 2 Sprays in each nostril once daily. Rinse mouth after use. clobetasol (TEMOVATE) 0.05 % ointment Use a pea-sized amount-once daily for up to 2 weeks prn flares FAMILY HISTORY Problem Relation Age of Onset Heart Mother by-pass, pacemaker other (MARFAN'S) Mother Coronary Artery Disease Father Heart Father by-pass other (MARFAN'S) Brother X2 other (MARFAN'S) Sister X6 Social History Tobacco Use Smoking status: Former Smoker Years: 6.00 Quit date: 02/13/2001 Years since quittin.4 Smokeless tobacco: Never Used Tobacco comment: 4 cig per day, quit Substance Use Topics Alcohol use: Yes Comment: SOCIALLY Drug use: No ROS Objective Blood pressure 124/84, pulse 85, temperature 37 C (98.6 F), resp. rate 18, weight 62.6 kg (138 lb),last menstrual period 07/27/2006, SpO2 99 %. Physical Exam Constitutional: General: She is not in acute distress. Appearance: She is not toxic-appearing or diaphoretic. HENT: Head: Normocephalic and atraumatic. Pulmonary: Effort: Pulmonary effort is normal. No accessory muscle usage or respiratory distress. Musculoskeletal: Left hand: Laceration present. No deformity. Normal range of motion. Hands: Neurological: Mental Status: She is alert and oriented to person, place, and time. Procedure: Wound anesthetized with 4 cc's 1 % lidocaine. Flushed with sterile saline. wound edges reapproximated with 5 sutures of 4 [place]. Antibiotic ointment and dressing applied. Wound care instructions provided. Return for suture removal in 10-14 days. ASSESSMENT/PLAN: 1. Need for tetanus booster - ICD9: V03.7, ICD10: Z23 (primary diagnosis) - TETANUS/DIPTHERIA BOOSTER (OVER 7), [facility] - updated. 2. Finger laceration, initial encounter - ICD9: 883.0, ICD10: S61.219A Keep clean/covered for 24 hours then may wash with soap/water Return in 10-14 days for removal Return sooner for s/s infection Agrees to plan Catalino Rivas APRN.[employer] FURNACE LOADER documented in this encounterMer[facility]05-23-2022 Instructions* Patient Instructions* Kymberly Gibson APRN.CNP - 07/06/2021 9:20 AM EDT Topamax or Elavil for chronic headaches documented in this encounterMer[facility]. [facility]05[facility]23-2022 History of Present illness Narrative* Kymberly Gibson APRN.CNP - 07/06/2021 9:18 AM EDT CC: Patient presents with: F/U 6 months: c/o sinus issues HPI Cierra Marmolejo is a 65 year old female who presents today for follow-up. She was seen in April by her PCP. Chronic headaches were discussed. She had CT sinuses ordered by ENT that were negative and dental work completed, no change in headaches. Frontal pressure when she bends forward, no other symptoms. Denies any new or worsening symptoms. Takes tylenol occasionally with some relief. She saw GI NICOLE with [facility] for liver issues and GERD. She was prescribed Pepcid and Ursodiol. Liver elasticity imaging consistent with mild to moderate liver fibrosis. Liver cyst seen previously slightly larger but overall stable. RUQ discomfort improving since starting medications. She has follow-up with GI in August. REVIEW OF SYSTEMS See HPI PAST MEDICAL HISTORY Diagnosis Date DIVERTICULOSIS COLON - NO HEMORRHAGE 03/31/2006 Hemorrhage of gastrointestinal tract, unspecified HEMORRHOIDS INTERNAL 03/31/2006 Hyperlipidemia Intramural leiomyoma of uterus 03/09/06 LEIOMYOMATA UTERUS INTRAMURAL Other and unspecified ovarian cyst 03/09/06 complex cyst of the right ovary Papanicolaou smear of cervix with atypical squamous cells of undetermined significance (ASC-US) 01/20/06 noted negative hpv at same time POLYP COLON 03/31/2006 Psoriasis Umbilical hernia without mention of obstruction or gangrene 03/17/06 UMBILICAL HERNIA W/O GANGRENE/OBSTRUCTION PAST SURGICAL HISTORY Procedure Laterality Date DELIVERY ONLY , low cervical DELIVERY ONLY , low cervical DELIVERY ONLY , low cervical COLSC FLX W/RMVL OF TUMOR POLYP LESION SNARE TQ 03/31/06 Rectal polyp/diverticulosis/hemorrhoid LIG/TRNSXJ FLP TUBE ABDL/VAG APPR UNI/BI Tubal ligation PAST SURGICAL HISTORY OF 1999 insert lens eye PAST SURGICAL HISTORY OF 2000 removed nasal cartilage RMVL SEC MEMBRANOUS CTRC CORNEO-SCLL SCTJ Insert lens prosthesis RPR 1ST INGUN HRNA AGE 5 YRS/> REDUCIBLE Hernia repair, inguinal/repair of bowel ALLERGIES Doxycycline; Latex, Natural Rubber; and Sulfa (Sulfonamide Antibiotics) MEDICATIONS calcium carbonate (CALCIUM 600 ORAL) Take by mouth. cholecalciferol, vitamin D3, (VITAMIN D3 ORAL) Take by mouth. 5000 daily atorvastatin (LIPITOR) 20 mg tablet Take 1 tablet by mouth daily at bedtime. fluticasone (FLONASE) 50 mcg/actuation nasal spray Use 2 Sprays in each nostril once daily. Rinse mouth after use. clobetasol (TEMOVATE) 0.05 % ointment Use a pea-sized amount-once daily for up to 2 weeks prn flares alendronate (FOSAMAX) 70 mg tablet Take 1 tablet by mouth one time a week. Take with a full glass of water, on an empty stomach; do NOT lie down for 30minutes. omeprazole (PRILOSEC) 20 mg capsule Take 1 capsule by mouth daily before breakfast. 1/2 hr before meal. FAMILY HISTORY Problem Relation Age of Onset Heart Mother by-pass, pacemaker other (MARFAN'S) Mother Coronary Artery Disease Father Heart Father by-pass other (MARFAN'S) Brother X2 other (MARFAN'S) Sister X6 Social History Tobacco Use Smoking status: Former Smoker Years: 6.00 Quit date: 02/13/2001 Years since quittin.4 Smokeless tobacco: Never Used Tobacco comment: 4 cig per day, quit Substance Use Topics Alcohol use: Yes Comment: SOCIALLY Drug use: No PHYSICAL EXAM BP 142/88 Pulse 82 Resp 14 Wt 64 kg (141 lb) LMP 07/27/2006 SpO2 98% BMI 26.21 kg/m General Appearance: well appearing, in no acute distress, alert Pysch: affect is anxious DATA REVIEWED: Outside lab results and imaging. Office visit notes from GI at [facility] ASSESSMENT/PLAN: 1. Frontal headache - ICD9: 784.0, ICD10: R51.9 (primary diagnosis) Symptoms stable. Recommend starting prophylactic medication such as Topamax or Elavil vs referral to neurology. Patient will consider options and let me know what she decides 2. Gastroesophageal reflux disease without esophagitis - ICD9: 530.81, ICD10: K21.9 - Symptoms improved with pepcid daily - Follow-up with GI as scheduled 3. Liver cyst - ICD9: 573.8, ICD10: K76.89 Slightly larger than previous, follow-up with GI as scheduled 4. Hepatic fibrosis - ICD9: 571.5, ICD10: K74.00 Follow-up with GI as scheduled Prescription instructions reviewed with patient as applicable. Potential red flag symptoms discussed with the patient. Reviewed appropriate action plan to take if red flag symptoms occur. Patient agreeable to treatment plan. During this patient visit I have spent approximately 20 minutes in counseling regarding treatment options, medications, test results and coordinating care. Kymberly Gibson APRN.MELANY documented in this encounterMercy Health St. [facility]03-14-2022 History of Present illness Narrative* Geo Avila MD - 04/27/2021 11:04 AM EDT This note was created using Stopangoriter. Subjective Cierra Marmolejo is a 65 year old female. Patient presents with: Follow Up: fungal infection toes x 1 month SUBJECTIVE: Cierra Marmolejo is a 65 year old year old lady here today for concerns about toenail--right foot second toe appointment for review of medical conditions. Noted stubbed nail and was not bruised right away. A month later got dark. Tried topical antifungaland no better. Nail remains darker colored. Cuticle also a little darker on exam No pain noted. Nail not thickened. Also noted line that can be on left great toenail. Seems to decrease in length when uses lotrimin. Starts at edge of nail bed and would go back proximally. TAC helping for psoriasa on heels and hands. Plans to follow up with Dr. Donald Fernandez regarding question about liver issue seen on a CT scan. Will see if needs referral. Will see Dr. Can for uterine cramps. Has not had periods forever but noted cramps the past several months. Headaches and pressure worse with leaning forward. Did see Dr. Cowart. CT sinuses done. The ones above eyebrows looked clear. Had seen dentist--Saw . Had prior root canal. has had blister on gum in that area but reabsorbed. Saw Dr. Iglesias--found infection in bone and had root canal done a wee k ago. Will see for follow up. Will follow up with Dr. Cowart after if headaches not continuing to resolve. Seems to have subsided. Gets every other day once instead of 4 to 5 time daily. Discussed might be migrainous headache triggered by sinus pain from the gum infection. PAST MEDICAL HISTORY Diagnosis Date DIVERTICULOSIS COLON - NO HEMORRHAGE 03/31/2006 Hemorrhage of gastrointestinal tract, unspecified HEMORRHOIDS INTERNAL 03/31/2006 Hyperlipidemia Intramural leiomyoma of uterus 03/09/06 LEIOMYOMATA UTERUS INTRAMURAL Other and unspecified ovarian cyst 03/09/06 complex cyst of the right ovary Papanicolaou smear of cervix with atypical squamous cells of undetermined significance (ASC-US) 01/20/06 noted negative hpv at same time POLYP COLON 03/31/2006 Psoriasis Umbilical hernia without mention of obstruction or gangrene 03/17/06 UMBILICAL HERNIA W/O GANGRENE/OBSTRUCTION Current Outpatient Medications Medication Sig calcium carbonate (CALCIUM 600 ORAL) Take by mouth. cholecalciferol, vitamin D3, (VITAMIN D3 ORAL) Take by mouth. 5000 daily atorvastatin (LIPITOR) 20 mg tablet Take 1 tablet by mouth daily at bedtime. fluticasone (FLONASE) 50 mcg/actuation nasal spray Use 2 Sprays in each nostril once daily. Rinse mouth after use. clobetasol (TEMOVATE) 0.05 % ointment Use a pea-sized amount-once daily for up to 2 weeks prn flares alendronate (FOSAMAX) 70 mg tablet Take 1 tablet by mouth one time a week. Take with a full glass of water, on an empty stomach; do NOT lie down for 30minutes. (Patient not taking: Reported on 04/27/2021 ) omeprazole (PRILOSEC) 20 mg capsule Take 1 capsule by mouth daily before breakfast. 1/2 hr before meal. (Patient not taking: Reported on 04/27/2021 ) No current facility-administered medications for this visit. Review of Systems Objective BP 148/82 Pulse 78 Wt 63.5 kg (140 lb) LMP 07/27/2006 BMI 26.02 kg/m Physical Exam Constitutional: Appearance: Normal appearance. HENT: Head: Normocephalic. Eyes: Conjunctiva/sclera: Conjunctivae normal. Cardiovascular: Rate and Rhythm: Normal rate and regular rhythm. Heart sounds: Normal heart sounds. Pulmonary: Effort: Pulmonary effort is normal. Breath sounds: Normal breath sounds. Skin: General: Skin is warm and dry. Neurological: General: No focal deficit present. Mental Status: She is alert and oriented to person, place, and time. Psychiatric: Mood and Affect: Mood normal. Behavior: Behavior normal. Thought Content: Thought content normal. Judgment: Judgment normal. Assessment and Plan ASSESSMENT/PLAN: 1. Age related osteoporosis, unspecified pathological fracture presence - ICD9: 733.01, ICD10: M81.0 (primary diagnosis) {Plan:[id number]::- Reviewed the need for Calcium Vitamin D- VITAMIN D 25 HYDROXY - COMP METABOLIC PANEL - CBC - LIPID PANEL BASIC - TSH BLD - PTH INTACT BLD 2. Gastroesophageal reflux disease, unspecified whether esophagitis present - ICD9: 530.81, ICD10: K21.9 - Pepcid and Actigall. Further evaluation and treatment as indicated. 3. Mixed hyperlipidemia - ICD9: 272.2, ICD10: E78.2 - to be determined upon return of lab results - Continue current medication. Continue present management., - Encouraged following a low fat, low cholesterol diet. - Discussed the benefits of regular aerobic exercise and weight loss. - LIPID PANEL BASIC - TSH BLD 4. Sinus headache - ICD9: 784.0, ICD10: R51.9 Management as discussed, Further evaluation and treatment as indicated. 5. Hypokalemia - ICD9: 276.8, ICD10: E87.6 Adjust management as needed - COMP METABOLIC PANEL 6. Encounter for long-term current use of medication - ICD9: V58.69, ICD10: Z79.899 - COMP METABOLIC PANEL - CBC - MAGNESIUM BLD 7. Headache snydrome, Continue present management. Further evaluation and treatment as indicated. Geo Avila MD documented in this encounterMercy [facility]. [facility]05-13-2008 History of Past illness Narrative* Problem Noted Date Resolved Date Dyspareunia 06/27/2007 05/21/2013 Unspecified symptom associated with female genit al organs 06/27/2007 05/21/2013 Symptomatic menopausal or female climacteric sta shreya 06/27/2007 05/21/2013 Hemorrhage of gastrointestinal tract, unspecifie d 03/31/2006 05/21/2013 Hemorrhage of rectum and anus 03/10/2006 documented as of this encounter (statuses as of 07/06/2021) [facility] of Past illness Narrative* Problem Noted Date Resolved Date Dyspareunia 06/27/2007 05/21/2013 Unspecified symptom associated with female genit al organs 06/27/2007 05/21/2013 Symptomatic menopausal or female climacteric sta shreya 06/27/2007 05/21/2013 Hemorrhage of gastrointestinal tract, unspecifie d 03/31/2006 05/21/2013 Hemorrhage of rectum and anus 03/10/2006 documented as of this encounter (statuses as of 07/18/2021) [facility] of Past illness Narrative* Problem Noted Date Resolved Date Dyspareunia 06/27/2007 05/21/2013 Unspecified symptom associated with female genit al organs 06/27/2007 05/21/2013 Symptomatic menopausal or female climacteric sta shreya 06/27/2007 05/21/2013 Hemorrhage of gastrointestinal tract, unspecifie d 03/31/2006 05/21/2013 Hemorrhage of rectum and anus 03/10/2006 documented as of this encounter (statuses as of 07/20/2021) [facility] Narrative* Problem Noted Date Resolved Date Dyspareunia 06/27/2007 05/21/2013 Unspecified symptom associated with female genit al organs 06/27/2007 05/21/2013 Symptomatic menopausal or female climacteric sta shreya 06/27/2007 05/21/2013 Hemorrhage of gastrointestinal tract, unspecifie d 03/31/2006 05/21/2013 Hemorrhage of rectum and anus 03/10/2006 documented as of this encounter (statuses as of 08/28/2021) [facility] illness Narrative* Problem Noted Date Resolved Date Dyspareunia 06/27/2007 05/21/2013 Unspecified symptom associated with female genit al organs 06/27/2007 05/21/2013 Symptomatic menopausal or female climacteric sta shreya 06/27/2007 05/21/2013 Hemorrhage of gastrointestinal tract, unspecifie d 03/31/2006 05/21/2013 Hemorrhage of rectum and anus 03/10/2006 documented as of this encounter (statuses as of 11/23/2021) [facility] Narrative* Problem Noted Date Diagnosed Date Resolved Date Dyspareunia 06/27/2007 05/21/2013 Unspecified symptom associat ed with female genital organs 06/27/2007 05/21/2013 Symptomatic menopausal or fe male climacteric states 06/27/2007 05/21/2013 Hemorrhage of gastrointestin al tract, unspecified 03/31/2006 05/21/2013 Hemorrhage of rectum and anus 03/10/2006 05/21/2013 documented as of this encounter (statuses as of 08/27/2022) [facility] Narrative* Problem Noted Date Diagnosed Date Resolved Date Dyspareunia 06/27/2007 05/21/2013 Unspecified symptom associat ed with female genital organs 06/27/2007 05/21/2013 Symptomatic menopausal or fe male climacteric states 06/27/2007 05/21/2013 Hemorrhage of gastrointestin al tract, unspecified 03/31/2006 05/21/2013 Hemorrhage of rectum and anus 03/10/2006 05/21/2013 documented as of this encounter (statuses as of 09/09/2022) [facility] Narrative* Problem Noted Date Diagnosed Date Resolved Date Dyspareunia 06/27/2007 05/21/2013 Unspecified symptom associat ed with female genital organs 06/27/2007 05/21/2013 Symptomatic menopausal or fe male climacteric states 06/27/2007 05/21/2013 Hemorrhage of gastrointestin al tract, unspecified 03/31/2006 05/21/2013 Hemorrhage of rectum and anus 03/10/2006 05/21/2013 documented as of this encounter (statuses as of 09/24/2022) [facility] Narrative* Problem Noted Date Diagnosed Date Resolved Date Dyspareunia 06/27/2007 05/21/2013 Unspecified symptom associat ed with female genital organs 06/27/2007 05/21/2013 Symptomatic menopausal or fe male climacteric states 06/27/2007 05/21/2013 Hemorrhage of gastrointestin al tract, unspecified 03/31/2006 05/21/2013 Hemorrhage of rectum and anus 03/10/2006 05/21/2013 documented as of this encounter (statuses as of 10/05/2022) [facility] Narrative* Problem Noted Date Diagnosed Date Resolved Date Dyspareunia 06/27/2007 05/21/2013 Unspecified symptom associat ed with female genital organs 06/27/2007 05/21/2013 Symptomatic menopausal or fe male climacteric states 06/27/2007 05/21/2013 Hemorrhage of gastrointestin al tract, unspecified 03/31/2006 05/21/2013 Hemorrhage of rectum and anus 03/10/2006 05/21/2013 documented as of this encounter (statuses as of 10/12/2022) [facility] Narrative* Problem Noted Date Diagnosed Date Resolved Date Dyspareunia 06/27/2007 05/21/2013 Unspecified symptom associat ed with female genital organs 06/27/2007 05/21/2013 Symptomatic menopausal or fe male climacteric states 06/27/2007 05/21/2013 Hemorrhage of gastrointestin al tract, unspecified 03/31/2006 05/21/2013 Hemorrhage of rectum and anus 03/10/2006 05/21/2013 documented as of this encounter (statuses as of 10/19/2022) [facility]05-13-2008 History of Past illness Narrative* Problem Noted Date Diagnosed Date Resolved Date Dyspareunia 06/27/2007 05/21/2013 Unspecified symptom associat ed with female genital organs 06/27/2007 05/21/2013 Symptomatic menopausal or fe male climacteric states 06/27/2007 05/21/2013 Hemorrhage of gastrointestin al tract, unspecified 03/31/2006 05/21/2013 Hemorrhage of rectum and anus 03/10/2006 05/21/2013 documented as of this encounter (statuses as of 10/20/2022) [facility]05-13-2008 History of Past illness Narrative* Problem Noted Date Diagnosed Date Resolved Date Dyspareunia 06/27/2007 05/21/2013 Unspecified symptom associat ed with female genital organs 06/27/2007 05/21/2013 Symptomatic menopausal or fe male climacteric states 06/27/2007 05/21/2013 Hemorrhage of gastrointestin al tract, unspecified 03/31/2006 05/21/2013 Hemorrhage of rectum and anus 03/10/2006 05/21/2013 documented as of this encounter (statuses as of 10/29/2022) [facility]05-13-2008 History of Past illness Narrative* Problem Noted Date Diagnosed Date Resolved Date Dyspareunia 06/27/2007 05/21/2013 Unspecified symptom associat ed with female genital organs 06/27/2007 05/21/2013 Symptomatic menopausal or fe male climacteric states 06/27/2007 05/21/2013 Hemorrhage of gastrointestin al tract, unspecified 03/31/2006 05/21/2013 Hemorrhage of rectum and anus 03/10/2006 05/21/2013 documented as of this encounter (statuses as of 12/19/2022) [facility]05[facility]2008 History of Past illness Narrative* Problem Noted Date Diagnosed Date Resolved Date Dyspareunia 06/27/2007 05/21/2013 Unspecified symptom associat ed with female genital organs 06/27/2007 05/21/2013 Symptomatic menopausal or fe male climacteric states 06/27/2007 05/21/2013 Hemorrhage of gastrointestin al tract, unspecified 03/31/2006 05/21/2013 Hemorrhage of rectum and anus 03/10/2006 05/21/2013 documented as of this encounter (statuses as of 12/23/2022) [facility]05[facility] History of Past illness Narrative* Problem Noted Date Diagnosed Date Resolved Date Dyspareunia 06/27/2007 05/21/2013 Unspecified symptom associat ed with female genital organs 06/27/2007 05/21/2013 Symptomatic menopausal or fe male climacteric states 06/27/2007 05/21/2013 Hemorrhage of gastrointestin al tract, unspecified 03/31/2006 05/21/2013 Hemorrhage of rectum and anus 03/10/2006 05/21/2013 documented as of this encounter (statuses as of 12/23/2022) [facility] History of Past illness Narrative* Problem Noted Date Diagnosed Date Resolved Date Dyspareunia 06/27/2007 05/21/2013 Unspecified symptom associat ed with female genital organs 06/27/2007 05/21/2013 Symptomatic menopausal or fe male climacteric states 06/27/2007 05/21/2013 Hemorrhage of gastrointestin al tract, unspecified 03/31/2006 05/21/2013 Hemorrhage of rectum and anus 03/10/2006 05/21/2013 documented as of this encounter (statuses as of 12/24/2022) [facility]05[facility] History of Past illness Narrative* Problem Noted Date Diagnosed Date Resolved Date Dyspareunia 06/27/2007 05/21/2013 Unspecified symptom associat ed with female genital organs 06/27/2007 05/21/2013 Symptomatic menopausal or fe male climacteric states 06/27/2007 05/21/2013 Hemorrhage of gastrointestin al tract, unspecified 03/31/2006 05/21/2013 Hemorrhage of rectum and anus 03/10/2006 05/21/2013 documented as of this encounter (statuses as of 12/25/2022) [facility]05[facility] History of Past illness Narrative* Problem Noted Date Diagnosed Date Resolved Date Dyspareunia 06/27/2007 05/21/2013 Unspecified symptom associat ed with female genital organs 06/27/2007 05/21/2013 Symptomatic menopausal or fe male climacteric states 06/27/2007 05/21/2013 Hemorrhage of gastrointestin al tract, unspecified 03/31/2006 05/21/2013 Hemorrhage of rectum and anus 03/10/2006 05/21/2013 documented as of this encounter (statuses as of 12/29/2022) [facility] History of Past illness Narrative* Problem Noted Date Diagnosed Date Resolved Date Dyspareunia 06/27/2007 05/21/2013 Unspecified symptom associat ed with female genital organs 06/27/2007 05/21/2013 Symptomatic menopausal or fe male climacteric states 06/27/2007 05/21/2013 Hemorrhage of gastrointestin al tract, unspecified 03/31/2006 05/21/2013 Hemorrhage of rectum and anus 03/10/2006 05/21/2013 documented as of this encounter (statuses as of 01/15/2023) [facility] History of Past illness Narrative* Problem Noted Date Diagnosed Date Resolved Date Dyspareunia 06/27/2007 05/21/2013 Unspecified symptom associat ed with female genital organs 06/27/2007 05/21/2013 Symptomatic menopausal or fe male climacteric states 06/27/2007 05/21/2013 Hemorrhage of gastrointestin al tract, unspecified 03/31/2006 05/21/2013 Hemorrhage of rectum and anus 03/10/2006 05/21/2013 documented as of this encounter (statuses as of 01/28/2023) [facility] History of Past illness Narrative* Problem Noted Date Diagnosed Date Resolved Date Dyspareunia 06/27/2007 05/21/2013 Unspecified symptom associat ed with female genital organs 06/27/2007 05/21/2013 Symptomatic menopausal or fe male climacteric states 06/27/2007 05/21/2013 Hemorrhage of gastrointestin al tract, unspecified 03/31/2006 05/21/2013 Hemorrhage of rectum and anus 03/10/2006 05/21/2013 documented as of this encounter (statuses as of 04/02/2023) [facility] note* Diagnosis Onset Date Resolution Status Abdominal pain acute GERD (gastroesophageal reflux disease) acute Hx of pancreatitis acute Liver cyst acute [facility] Work Phone: Evaluation note* Diagnosis Frontal headache- Primary Headache Gastroesophageal reflux disease without esophagitis Esophageal reflux Liver cyst Other specified disorders of liver Hepatic fibrosis Cirrhosis of liver without mention of alcohol [facility] Diagnosis Finger laceration, initial encounter- Primary Need for tetanus booster Need for prophylactic vaccination with tetanus toxoid alone [facility] Diagnosis Age related osteoporosis, unspecified pathological fracture presence- Primary Gastroesophageal reflux disease, unspecified whether esophagitis present Mixed hyperlipidemia Sinus headache Headache Hypokalemia Hypopotassemia Other headache syndrome Encounter for long-term current use of medication [facility] Diagnosis Encounter for screening mammogram for breast cancer [facility] noteNo assessment information availableWC[facility] Work Phone: evaluation note* Diagnosis Onset Date Resolution Status Abdominal pain acute [facility] Work Phone: evaluation note* Diagnosis Onset Date Resolution Status Abdominal pain acute Biliary dyskinesia acute Biliary dyskinesia acute [facility] Work Phone: evaluation note* Diagnosis Large breasts- Primary Hypertrophy of breast [facility] Diagnosis Marfan syndrome- Primary Marfan's syndrome Aneurysm of aorta in diseases classified elsewhere (HCC) documented in this encounter [facility] note* Diagnosis Medicare annual wellness visit, subsequent- Primary Routine general medical examination at a health care facility Asymptomatic postmenopausal status Osteoporosis, unspecified osteoporosis type, unspecified pathological fracture presence Mixed hyperlipidemia Hepatic fibrosis Cirrhosis of liver without mention of alcohol Encounter for therapeutic drug monitoring documented in this encounter [facility] note* Diagnosis Ectopia lentis- Primary Congenital ectopic lens [facility]* Diagnosis Encounter for screening mammogram for breast cancer documented in this encounter [facility] note* Diagnosis Abnormal results of liver function studies- Primary Nonspecific abnormal results of liver function study Liver cyst Other specified disorders of liver Abnormal liver scan Nonspecific abnormal results of liver function study Hepatic fibrosis Cirrhosis of liver without mention of alcohol [facility]* Diagnosis Abnormal liver scan- Primary Nonspecific abnormal results of liver function study [facility] Diagnosis Abnormal results of liver function studies Nonspecific abnormal results of liver function study [facility] Diagnosis Liver cyst- Primary Other specified disorders of liver Abnormal liver scan Nonspecific abnormal results of liver function study Hepatic fibrosis Cirrhosis of liver without mention of alcohol [facility] Diagnosis Rash- Primary Rash and other nonspecific skin eruption [facility] Diagnosis Mass of upper outer quadrant of right breast- Primary [facility]* Diagnosis Mass of upper outer quadrant of right breast [facility] Diagnosis Mass of upper outer quadrant of right breast [facility] Diagnosis Abnormal ultrasound of breast- Primary Other (abnormal) findings on radiological examination of breast Localized superficial swelling, mass, or lump documented in this encounter [facility] note* Diagnosis Localized superficial mass- Primary Localized superficial swelling, mass, or lump documented in this encounter [facility] note* Diagnosis Medicare annual wellness visit, subsequent- Primary Routine general medical examination at a health care facility Hyperlipidemia, unspecified hyperlipidemia type Hepatic fibrosis Cirrhosis of liver without mention of alcohol Encounter for screening examination for other mental health and behavioral disorders Screening for depression Encounter for therapeutic drug monitoring documented in this encounter [facility] note* Diagnosis Skin tag- Primary Unspecified hypertrophic and atrophic condition of skin Dysesthesia Disturbance of skin sensation documented in this encounter [facility] note* Diagnosis Skin lesion- Primary Unspecified disorder of skin and subcutaneous tissue Dysesthesia Disturbance of skin sensation documented in this encounter [facility] note* Diagnosis Skin lesion of back- Primary Unspecified disorder of skin and subcutaneous tissue documented in this encounter [facility] note* Diagnosis Rhinosinusitis- Primary Unspecified sinusitis (chronic) documented in this encounter [facility] note* Diagnosis Cellulitis of skin- Primary Cellulitis and abscess of unspecified site Cellulitis of right buttock Cellulitis and abscess of buttock documented in this encounter [facility] note* Diagnosis Cellulitis of skin- Primary Cellulitis and abscess of unspecified site Cellulitis of right buttock Cellulitis and abscess of buttock Rhinosinusitis Unspecified sinusitis (chronic) documented in this encounter [facility] note* Diagnosis Cellulitis of right buttock- Primary Cellulitis and abscess of buttock documented in this encounter [facility] for referral (narrative)* Diagnostic Procedure Only (Routine) - Pending Review Specialty Diagnoses / Procedures Referred By Ashely juan Referred To Contact [facility] Diagnoses Encounter for screening mammogram for breast cancer Procedures LUIS SCREENING SCREENING MAMMOGRAPHY BI 2-VIEW BREAST INC CAD Geo Avila MD [address] [place] [address] [facility] [address] [place], [place] [address] [address] Referral ID Status Reason Start Date Expiration Date Visits Requested Visits Authorized [id number] Pending Review Auto-Generat ed Referral 11/18/2021 12/18/[address] [facility] for referral (narrative)* Outpatient Procedure (Routine) - Pending Review Specialty Diagnoses / Procedures Referred By Contac t Referred To Contact [facility] Diagnoses Marfan syndrome Aneurysm of aorta in diseases classified elsewhere (HCC) Procedures ECHO ECHO TTHRC R-T 2D W/WOM-MODE COMPL SPEC&COLR D Yung Jorgensen MD [address] [id number] [place] [address] Referral ID Status Reason Start Date Expiration Date Visits Requested Visits Authorized [id number] Pending Review Auto-Generat ed Referral 09/09/2022 09/09/2023 1 1 * Outpatient Procedure (Routine) - Pending Review Specialty Diagnoses / Procedures Referred By Contac t Referred To Contact [facility] Diagnoses Marfan syndrome Procedures ECG COMPLETE ECG ROUTINE ECG W/LEAST 12 LDS W/I&R Yung Jorgensen MD [address] [place] [address] [place] [address] Referral ID Status Reason Start Date Expiration Date Visits Requested Visits Authorized [id number] Pending Review Auto-Generat ed Referral 09/09/2022 09/09/[address] [facility] for referral (narrative)* Diagnostic Procedure Only (Routine) - Pending Review Specialty Diagnoses / Procedures Referred By Contac t Referred To Contact [facility] Diagnoses Hepatic fibrosis Procedures US ELASTOGRAPHY LIVER ULTRASOUND ELASTOGRAPHY PARENCHYMA Cj Riojas APRN.[facility] [address] [place] [address] Us Imaging [facility]95 Referral ID Status Reason Start Date Expiration Date Visits Requested Visits Authorized [id number] Pending Review Auto-Generat ed Referral 10/04/2022 11/03/2023 1 1 * Diagnostic Procedure Only (Routine) - Pending Review Specialty Diagnoses / Procedures Referred By Ashely t Referred To Contact [facility] Diagnoses Hepatic fibrosis Procedures US ABD RIGHT UPPER QUADRANT US ABDOMINAL REAL TIME W/IMAGE LIMITED Cj Riojas APRN.CNP [address] [id number] Us Imaging [facility]95 Referral ID Status Reason Start Date Expiration Date Visits Requested Visits Authorized [id number] Pending Review Auto-Generat ed Referral 10/04/2022 11/03/[address] [facility] for referral (narrative)* Diagnostic Procedure Only (Routine) - Closed Specialty Diagnoses / Procedures Referred By Ashely juan Referred To Contact [facility] Diagnoses Encounter for screening mammogram for breast cancer Procedures LUIS SCREENING SCREENING MAMMOGRAPHY BI 2-[place] [address] [place], [place] [id number] [facility] [address] [place] [address] Referral ID Status Reason Start Date Expiration Date V isits Requested Visits Authorized [id number] Closed Auto-Generate d Referral 11/18/2021 12/18/[address] [facility] for referral (narrative)* Outpatient Procedure (Routine) - Closed Specialty Diagnoses / Procedures Referred By Ashely juan Referred To Contact [facility] Diagnoses Abnormal liver scan Procedures DDI VIBRATION CONTROLLED TRANSIENT ELASTOGRAPHY (VCTE) LIVER ELASTOGRAPHY W/O IMAG W/I&R Zeke Barrera MD [address] [place] [address] [facility] [address] [place], [place] [address] [phone] Referral ID Status Reason Start Date Expiration Date V isits Requested Visits Authorized [id number] Closed Auto-Generate d Referral 12/23/2022 12/24/2023 1 1 * MRI/CT (Routine) - Authorized Specialty Diagnoses / Procedures [facility] Diagnoses Abnormal results of liver function studies Procedures CT LIVER W IVCON CT ABDOMEN W/CONTRAST Zeke Barrera MD [address] [id number] [facility] [place] [address] Referral ID Status Reason Start Date Expiration Date Visits Requested Visits Authorized [id number] Authorized Auto-Generat ed Referral 12/23/2022 01/22/[address] [facility] for referral (narrative)* Diagnostic Procedure Only (Routine) - Authorized Specialty Diagnoses / Procedures [facility] Referred To [facility] Diagnoses Mass of upper outer quadrant of right breast Procedures LUIS DIAGNOSTIC BILATERAL DIAGNOSTIC MAMMOGRAPHY COMPUTER-AIDED DETCJ BI Cj Riojas APRN.[employer] [address] [place], [place] [id number] [facility] [address] [place] [phone] Referral ID Status Reason Start Date Expiration Date Visits Requested Visits Authorized [id number] Authorized Auto-Generat ed Referral 08/08/2023 09/06/2024 1 1 * Diagnostic Procedure Only (Routine) - Authorized Specialty Diagnoses / Procedures [facility] Referred To Contact [facility] Diagnoses Mass of upper outer quadrant of right breast Procedures US BREAST LTD RIGHT US BREAST UNI REAL TIME WITH IMAGE LIMITED Cj Riojas APRN.[employer] [facility] [phone] [facility] [address] [place] [address] Referral ID Status Reason Start Date Expiration Date Visits Requested Visits Authorized [id number] Authorized Auto-Generat ed Referral 08/08/2023 09/06/[address] [facility] for referral (narrative)* Diagnostic Procedure Only (Routine) - Closed Specialty Diagnoses / Procedures Referred By Contac t Referred To Contact [facility] Diagnoses Mass of upper outer quadrant of right breast Procedures US BREAST LTD RIGHT US BREAST UNI REAL TIME WITH IMAGE LIMITED Cj Riojas APRN.CNP [address] [phone] [facility] [address] [place] [address] Referral ID Status Reason Start Date Expiration Date V isits Requested Visits Authorized [id number] Closed Auto-Generate d Referral 08/08/2023 09/06/[address] [facility] for visit Narrative* Diagnostic Procedure Only (Routine) - Closed Specialty Diagnoses / Procedures Referred By Contac t Referred To Contact [facility] Diagnoses Encounter for screening mammogram for breast cancer Procedures LUIS SCREENING SCREENING MAMMOGRAPHY BI 2-VIEW BREAST INC CAD Geo Avila MD [address] [place] [address] [facility] [address] [place] [phone] Referral ID Status Reason Start Date Expiration Date V isits Requested Visits Authorized [id number] Closed Auto-Generate d Referral 11/18/2021 12/18/[address] [facility] for visit Narrative* Outpatient Procedure (Routine) - Closed Specialty Diagnoses / Procedures [facility] Diagnoses Abnormal liver scan Procedures DDI VIBRATION CONTROLLED TRANSIENT ELASTOGRAPHY (VCTE) LIVER ELASTOGRAPHY W/O IMAG W/I&R Zeke Barrera MD [address] [place] [address] [facility] [address] [place] [address] Referral ID Status Reason Start Date Expiration Date V isits Requested Visits Authorized [id number] Closed Auto-Generate d Referral 12/23/2022 12/24/[address] [facility] for visit Narrative* Diagnostic Procedure Only (Routine) - Closed Specialty Diagnoses / Procedures Referred By Contac t Referred To Contact [facility] Diagnoses Mass of upper outer quadrant of right breast Procedures LUIS DIAGNOSTIC BILATERAL DIAGNOSTIC MAMMOGRAPHY COMPUTER-AIDED DETCJ BI Cj Riojas, MESERET.[employer] [address] [place] [address] [facility] [address] [employer] [facility] [address] Referral ID Status Reason Start Date Expiration Date V isits Requested Visits Authorized [id number] Closed Auto-Generate d Referral 08/08/2023 09/06/2024 [address] [facility] Diagnostic Procedure Only (Routine) - Closed Specialty Diagnoses / Procedures Referred By Contshari t Referred To Contact [facility] Diagnoses Mass of upper outer quadrant of right breast Procedures US BREAST LTD RIGHT US BREAST UNI REAL TIME WITH IMAGE LIMITED Cj Riojas APRN.[employer] [address] [place] [address] [facility] [address] [place] [address] Referral ID Status Reason Start Date Expiration Date V isits Requested Visits Authorized [id number] Closed Auto-Generate d Referral 08/08/2023 09/06/2024 [address] [facility] Chief Complaint and Reason for Visit Chief Complaint SINUSITIS SINUSITIS GASTO REFLUX DISEASE ABDOMINAL PAIN E ORDERS FATTY LIVER Reason for Visit Abdominal pain GERD (gastroesophageal reflux disease) Hx of pancreatitis Liver cyst Chief Complaint GASTO REFLUX DISEASE ABDOMINAL PAIN E ORDERS FATTY LIVER Reason for Visit Abdominal pain GERD (gastroesophageal reflux disease) Hx of pancreatitis Liver cyst Chief Complaint NAFLD Chief Complaint NAFLD Rt Trunk Pain RUQ PAIN Reason for Visit Abdominal pain Chief Complaint Rt Trunk Pain RUQ PAIN Discuss 05/13 [facility] Scan Results UPDATE H & P PREOP LAP EZIO W IOC LAP EZIO W IOC Reason for Visit Abdominal pain Biliary dyskinesia Biliary dyskinesia Family History No Family History Records Found Relationship Condition Age at Onset Recorded Date/[place] mother Cardiac disease Unknown Marfan's syndrome Unknown father Cardiac disease Unknown brother Marfan's syndrome Unknown sister Marfan's syndrome Unknown Advance Directives No Advanced Directives Records Found Advance Directive Response Recorded Date/ Time Advance Directives No July 28 1:04am Living Will No July 28, 2014 1:04am Power of Military Technology Manager Yes July 28 5 1:04am Advance Directive Response Recorded Date/ Time Name of Medical Power of Military Technology Manager RUFINO arrieta August 07, 2021 4:23pm Advance Directives No July 28 1:04am Living Will Yes August 07, 2021 4:23pm Power of Military Technology Manager Yes August 07 4:23pm Advance Directive Response Recorded Date/ Time Advance Directives No September 15 1:56pm Living Will Yes September 15, 2021 1:56pm Power of Military Technology Manager Yes September 15 1:56pm Advance Directive Response Recorded Date/ Time Advance Directives No September 15, 022 2:56pm Living Will Yes September 15, 2021 2:56pm Power of Military Technology Manager Yes September 15 2:56pm Advance Directive Response Recorded Date/ Time Name of Medical Power of Military Technology Manager -- June 23, 2022 1:21pm Advance Directives No September 15, 2:56pm Living Will Yes September 15, 2021 2:56pm Power of Military Technology Manager Yes September 15 2:56pm Summary Purpose Reason for Referral Specialty Diagnoses / Procedures Referred By Contac t Referred To Contact Plastic Surgery Diagnoses Large breasts Procedures CONSULT TO PLASTIC SURGERY OFFICE/OUTPATIENT [facility] 60-74 MINUTES Juana Gifford, DRIER AND PULVERIZER TENDER.[employer] [address] [place] [address] Referral ID Status Reason Start Date Expiration Date Visits Requested Visits Authorized [id number] Authorized PCP Requested Referral 08/26/2022 08/26/2023 1 1 Specialty Diagnoses / Procedures Referred By Contac t Referred To Contact CT IMAGING Diagnoses Abnormal results of liver function studies Procedures CT LIVER W IVCON CT ABDOMEN W/CONTRAST Zeke Barrera MD [address] [place] [address] Ct Imaging [facility]95 Referral ID Status Reason Start Date Expiration Date V isits Requested Visits Authorized [id number] Closed Auto-Generate d Referral 12/23/2022 01/22/2024 1 1 Specialty Diagnoses / Procedures Referred By Contac t Referred To Contact Diagnoses Liver cyst Abnormal liver scan Hepatic fibrosis Procedures CONSULT TO HEPATOLOGY OFFICE/OUTPATIENT [facility] 60-74 MINUTES Cj Riojas, [employer]ER AND PULVERIZER TENDER.[employer] [address] [place] [address] Referral ID Status Reason Start Date Expiration Date V isits Requested Visits Authorized [id number] Closed PCP Requested Referral 10/29/2022 10/29/2023 1 1 Additional Source Comments Goals (unrecognized section and content) Goals may be documented in a n alternate sectionGoals may be documented in an alternate sectionGoals may be documented in an alternate section Source Comments (unrecognize d section and content) In the event this informatio n is protected by the Federal Confidentiality of Alcohol and Drug Abuse Patient Records regulations: The Federal rules restrict any use of the information to criminally investigate or prosecute any alcohol or drug abuse patient.[facility] CenterIn the event this information is protected by the Federal Confidentiality of Alcohol and Drug Abuse Patient Records regulations: The Federal rules restrict any use of the information to criminally investigate or prosecute any alcohol or drug abuse patient.[facility] CenterIn the event this information is protected by the Federal Confidentiality of Alcohol and Drug Abuse Patient Records regulations: The Federal rules restrict any use of the information to criminally investigate or prosecute any alcohol or drug abuse patient.[facility] CenterIn the event this information is protected by the Federal Confidentiality of Alcohol and Drug Abuse Patient Records regulations: The Federal rules restrict any use of the information to criminally investigate or prosecute any alcohol or drug abuse patient.[facility] CenterIn the event this information is protected by the Federal Confidentiality of Alcohol and Drug Abuse Patient Records regulations: The Federal rules restrict any use of the information to criminally investigate or prosecute any alcohol or drug abuse patient.[facility] CenterIn the event this information is protected by the Federal Confidentiality of Alcohol and Drug Abuse Patient Records regulations: The Federal rules restrict any use of the information to criminally investigate or prosecute any alcohol or drug abuse patient.[facility] CenterIn the event this information is protected by the Federal Confidentiality of Alcohol and Drug Abuse Patient Records regulations: The Federal rules restrict any use of the information to criminally investigate or prosecute any alcohol or drug abuse patient.[facility] CenterIn the event this information is protected by the Federal Confidentiality of Alcohol and Drug Abuse Patient Records regulations: The Federal rules restrict any use of the information to criminally investigate or prosecute any alcohol or drug abuse patient.[facility] CenterIn the event this information is protected by the Federal Confidentiality of Alcohol and Drug Abuse Patient Records regulations: The Federal rules restrict any use of the information to criminally investigate or prosecute any alcohol or drug abuse patient.[facility] CenterIn the event this information is protected by the Federal Confidentiality of Alcohol and Drug Abuse Patient Records regulations: The Federal rules restrict any use of the information to criminally investigate or prosecute any alcohol or drug abuse patient.[facility] CenterIn the event this information is protected by the Federal Confidentiality of Alcohol and Drug Abuse Patient Records regulations: The Federal rules restrict any use of the information to criminally investigate or prosecute any alcohol or drug abuse patient.[facility] CenterIn the event this information is protected by the Federal Confidentiality of Alcohol and Drug Abuse Patient Records regulations: The Federal rules restrict any use of the information to criminally investigate or prosecute any alcohol or drug abuse patient.[facility] CenterIn the event this information is protected by the Federal Confidentiality of Alcohol and Drug Abuse Patient Records regulations: The Federal rules restrict any use of the information to criminally investigate or prosecute any alcohol or drug abuse patient.[facility] CenterIn the event this information is protected by the Federal Confidentiality of Alcohol and Drug Abuse Patient Records regulations: The Federal rules restrict any use of the information to criminally investigate or prosecute any alcohol or drug abuse patient.[facility] CenterIn the event this information is protected by the Federal Confidentiality of Alcohol and Drug Abuse Patient Records regulations: The Federal rules restrict any use of the information to criminally investigate or prosecute any alcohol or drug abuse patient.[facility] CenterIn the event this information is protected by the Federal Confidentiality of Alcohol and Drug Abuse Patient Records regulations: The Federal rules restrict any use of the information to criminally investigate or prosecute any alcohol or drug abuse patient.[facility] CenterIn the event this information is protected by the Federal Confidentiality of Alcohol and Drug Abuse Patient Records regulations: The Federal rules restrict any use of the information to criminally investigate or prosecute any alcohol or drug abuse patient.[facility] CenterIn the event this information is protected by the Federal Confidentiality of Alcohol and Drug Abuse Patient Records regulations: The Federal rules restrict any use of the information to criminally investigate or prosecute any alcohol or drug abuse patient.[facility] CenterIn the event this information is protected by the Federal Confidentiality of Alcohol and Drug Abuse Patient Records regulations: The Federal rules restrict any use of the information to criminally investigate or prosecute any alcohol or drug abuse patient.[facility] CenterIn the event this information is protected by the Federal Confidentiality of Alcohol and Drug Abuse Patient Records regulations: The Federal rules restrict any use of the information to criminally investigate or prosecute any alcohol or drug abuse patient.[facility] CenterIn the event this information is protected by the Federal Confidentiality of Alcohol and Drug Abuse Patient Records regulations: The Federal rules restrict any use of the information to criminally investigate or prosecute any alcohol or drug abuse patient.[facility] CenterIn the event this information is protected by the Federal Confidentiality of Alcohol and Drug Abuse Patient Records regulations: The Federal rules restrict any use of the information to criminally investigate or prosecute any alcohol or drug abuse patient.[facility] CenterIn the event this information is protected by the Federal Confidentiality of Alcohol and Drug Abuse Patient Records regulations: The Federal rules restrict any use of the information to criminally investigate or prosecute any alcohol or drug abuse patient.[facility] CenterIn the event this information is protected by the Federal Confidentiality of Alcohol and Drug Abuse Patient Records regulations: The Federal rules restrict any use of the information to criminally investigate or prosecute any alcohol or drug abuse patient.[facility] CenterIn the event this information is protected by the Federal Confidentiality of Alcohol and Drug Abuse Patient Records regulations: The Federal rules restrict any use of the information to criminally investigate or prosecute any alcohol or drug abuse patient.[facility] CenterIn the event this information is protected by the Federal Confidentiality of Alcohol and Drug Abuse Patient Records regulations: The Federal rules restrict any use of the information to criminally investigate or prosecute any alcohol or drug abuse patient.[facility] CenterIn the event this information is protected by the Federal Confidentiality of Alcohol and Drug Abuse Patient Records regulations: The Federal rules restrict any use of the information to criminally investigate or prosecute any alcohol or drug abuse patient.[facility] CenterIn the event this information is protected by the Federal Confidentiality of Alcohol and Drug Abuse Patient Records regulations: The Federal rules restrict any use of the information to criminally investigate or prosecute any alcohol or drug abuse patient.[facility] CenterIn the event this information is protected by the Federal Confidentiality of Alcohol and Drug Abuse Patient Records regulations: The Federal rules restrict any use of the information to criminally investigate or prosecute any alcohol or drug abuse patient.[facility] CenterIn the event this information is protected by the Federal Confidentiality of Alcohol and Drug Abuse Patient Records regulations: The Federal rules restrict any use of the information to criminally investigate or prosecute any alcohol or drug abuse patient.[facility] CenterIn the event this information is protected by the Federal Confidentiality of Alcohol and Drug Abuse Patient Records regulations: The Federal rules restrict any use of the information to criminally investigate or prosecute any alcohol or drug abuse patient.[facility] CenterIn the event this information is protected by the Federal Confidentiality of Alcohol and Drug Abuse Patient Records regulations: The Federal rules restrict any use of the information to criminally investigate or prosecute any alcohol or drug abuse patient.[facility] CenterIn the event this information is protected by the Federal Confidentiality of Alcohol and Drug Abuse Patient Records regulations: The Federal rules restrict any use of the information to criminally investigate or prosecute any alcohol or drug abuse patient.[facility] CenterIn the event this information is protected by the Federal Confidentiality of Alcohol and Drug Abuse Patient Records regulations: The Federal rules restrict any use of the information to criminally investigate or prosecute any alcohol or drug abuse patient.[facility] CenterIn the event this information is protected by the Federal Confidentiality of Alcohol and Drug Abuse Patient Records regulations: The Federal rules restrict any use of the information to criminally investigate or prosecute any alcohol or drug abuse patient.[facility] CenterIn the event this information is protected by the Federal Confidentiality of Alcohol and Drug Abuse Patient Records regulations: The Federal rules restrict any use of the information to criminally investigate or prosecute any alcohol or drug abuse patient.[facility] CenterIn the event this information is protected by the Federal Confidentiality of Alcohol and Drug Abuse Patient Records regulations: The Federal rules restrict any use of the information to criminally investigate or prosecute any alcohol or drug abuse patient.[facility] CenterIn the event this information is protected by the Federal Confidentiality of Alcohol and Drug Abuse Patient Records regulations: The Federal rules restrict any use of the information to criminally investigate or prosecute any alcohol or drug abuse patient.[facility] CenterIn the event this information is protected by the Federal Confidentiality of Alcohol and Drug Abuse Patient Records regulations: The Federal rules restrict any use of the information to criminally investigate or prosecute any alcohol or drug abuse patient.[facility] Reason for Visit (unrecogniz ed section and content) Reason Comments F/U 6 months c/o sinus issues Reason Comments Trauma Pt reported (LT) mid dle finger injury x1 hr prior at home with trimmers Reason Comments Follow Up fungal infection toe s x 1 month Reason Onset Date Comments Refill Request 08/27/2021 Reason Comments Referral Order Request Reason Comments Appointment Reason Comments Medicare Wellness Exam Reason Comments Orders Reason Comments Consult Reason Comments Refill Request Reason Comments New Patient Liver Cyst Specialty Diagnoses / Procedures Referred By Contac t Referred To Contact Diagnoses Liver cyst Abnormal liver scan Hepatic fibrosis Procedures CONSULT TO HEPATOLOGY OFFICE/OUTPATIENT [facility] 60-74 MINUTES Cj Riojas APRN.CALCINE FURNACE LOADER [address] [place] [address] Referral ID Status Reason Start Date Expiration Date V isits Requested Visits Authorized [id number] Closed PCP Requested Referral 10/29/2022 10/29/2023 [address] Specialty Diagnoses / Procedures Referred By Contac t Referred To Contact CT IMAGING Diagnoses Abnormal results of liver function studies Procedures CT LIVER W IVCON CT ABDOMEN W/CONTRAST Zeke Barrera MD [address] [place] [address] [facility] [place] [address] Referral ID Status Reason Start Date Expiration Date V isits Requested Visits Authorized [id number] Closed Auto-Generate d Referral 12/23/2022 01/22/2024 1 1 Reason Comments Results Reason Onset Date Comments Refill Request 01/13/2023 Reason Comments Rash Rash on arms and tor so x 2 weeks Reason Comments lump on right side of chest Lump for abo ut 6 months, no pain Reason Comments Consult BREAST BX Reason Comments Procedure Excision of skin les ion Reason Comments Results Reason Comments Medicare Wellness Exam Reason Comments Patient Update Reason Comments Med Change Request Reason Comments Consult Skin tag Reason Comments Procedure Excision of skin tag back Reason Comments Same Day Appointment X several weeks a s ore and red area on back where bra strap is located Reason Comments Cough Chest and sinus justice estion, sinus pressure x2 days Reason Comments Trauma Possible insect bite on buttocks, itchy, red, swollen x 3 days Reason Comments Follow Up express care- sore o n right buttock, it has decreased in size Reason Comments Follow Up Cellulitis R buttock x 2 months Care Teams (unrecognized sec tion and content) Spinning Mule Tender Relationship Specialty Start Date End Date Geo Avila MD [address] [place] [address] PCP - General Internal Medicine 04/02/13 Spinning Mule Tender Relationship Specialty Start Date End Date Geo Avila MD [address] [place] [address] PCP - General Internal Medicine 04/02/13 Spinning Mule Tender Relationship Specialty Start Date End Date Geo Avila MD [address] [place] [address] PCP - General Internal Medicine 04/02/13 Spinning Mule Tender Relationship Specialty Start Date End Date Geo Avila MD [address] [place] [address] PCP - General Internal Medicine 04/02/13 Spinning Mule Tender Relationship Specialty Start Date End Date Geo Avila MD [address] [place] [address] PCP - General Internal Medicine 04/02/13 Team Status: Active Member Role Status Dates Dr. Geo Avila MD Family Provider Active Dr. Geo Avila MD Primary Care Provider Active Team Status: Inactive Member Role Status Dates Dr. Geo Avila MD Primary Care Provider, Referr ing Provider Active Dr. Donald Fernandez MD Attending Provider Active Team Status: Inactive Member Role Status Dates Dr. Geo Avila MD Primary Care Provider Active Brigida Cárdenas WOMENS VOLLEYBALL COACH, WOMENS VOLLEYBALL COACH-C Attending Provider, Referrin g Provider Active Team Status: Inactive Member Role Status Dates Dr. Geo Avila MD Primary Care Provider Active Dr. Donald Fernandez MD Attending Provider, Referring Provider Active Team Status: Inactive Member Role Status Dates Dr. Geo Avila MD Primary Care Provider, Referr ing Provider Active Zaida Zamora PA PA-C Attending Provider Active Team Status: Active Member Role Status Dates Dr. Geo Avila MD Primary Care Provider Active Dr. Celso Downing MD Attending Provider Active Dr. Donald Fernandez MD Referring Provider Active Team Status: Active Member Role Status Dates Dr. Geo Avila MD Primary Care Provider Active Dr. Donald Fernandez MD Attending Provider, Other Prov ider Active Team Status: Inactive Member Role Status Dates Dr. Geo Avila MD Primary Care Provider Active Dr. Donald Fernandez MD Attending Provider Active Spinning Mule Tender Relationship Specialty Start Date End Date Geo Avila MD [address] [place] [address] PCP - General Internal Medicine 04/02/13 Spinning Mule Tender Relationship Specialty Start Date End Date Geo Avila MD [address] [place] [address] PCP - General Internal Medicine 04/02/13 Spinning Mule Tender Relationship Specialty Start Date End Date Geo Avila MD [address] [place] [address] PCP - General Internal Medicine 04/02/13 Spinning Mule Tender Relationship Specialty Start Date End Date Geo Avila MD [address] [place] [address] PCP - General Internal Medicine 04/02/13 Spinning Mule Tender Relationship Specialty Start Date End Date Geo Avila MD [address] [place] [address] PCP - General Internal Medicine 04/02/13 Spinning Mule Tender Relationship Specialty Start Date End Date Geo Avila MD [address] [place] [address] PCP - General Internal Medicine 04/02/13 Spinning Mule Tender Relationship Specialty Start Date End Date Geo Avila MD [address] [place] [address] PCP - General Internal Medicine 04/02/13 Spinning Mule Tender Relationship Specialty Start Date End Date Geo Avila MD [address] [place] [address] PCP - General Internal Medicine 04/02/13 Spinning Mule Tender Relationship Specialty Start Date End Date Geo Avila MD [address] [place] [address] PCP - General Internal Medicine 04/02/13 Spinning Mule Tender Relationship Specialty Start Date End Date Geo Avila MD [address] [place] [address] PCP - General Internal Medicine 04/02/13 Spinning Mule Tender Relationship Specialty Start Date End Date Geo Avila MD [address] [place] [address] PCP - General Internal Medicine 04/02/13 Spinning Mule Tender Relationship Specialty Start Date End Date Geo Avila MD [address] [place] [address] PCP - General Internal Medicine 04/02/13 Spinning Mule Tender Relationship Specialty Start Date End Date Geo Avila MD [address] [place] [address] PCP - General Internal Medicine 04/02/13 Spinning Mule Tender Relationship Specialty Start Date End Date Geo Avila MD [address] [place] [address] PCP - General Internal Medicine 04/02/13 Spinning Mule Tender Relationship Specialty Start Date End Date Geo Avila MD [address] [place] [address] PCP - General Internal Medicine 04/02/13 Spinning Mule Tender Relationship Specialty Start Date End Date Geo Avila MD [address] [place] [address] PCP - General Internal Medicine 04/02/13 Spinning Mule Tender Relationship Specialty Start Date End Date Geo Avila MD [address] [place] [address] PCP - General Internal Medicine 04/02/13 Spinning Mule Tender Relationship Specialty Start Date End Date Geo Avila MD [address] [place] [address] PCP - General Internal Medicine 04/02/13 Spinning Mule Tender Relationship Specialty Start Date End Date Geo Avila MD [address] [place] [address] PCP - General Internal Medicine 04/02/13 Spinning Mule Tender Relationship Specialty Start Date End Date Geo Avila MD [address] [place] [address] PCP - General Internal Medicine 04/02/13 Spinning Mule Tender Relationship Specialty Start Date End Date Geo Avila MD [address] [place] [address] PCP - General Internal Medicine 04/02/13 Spinning Mule Tender Relationship Specialty Start Date End Date Geo Avila MD [address] [place] [address] PCP - General Internal Medicine 04/02/13 Juana Gifford DRIER AND PULVERIZER TENDER.MATERIAL SPREADER [address] [place] [address] Search Engine Optimization Manager Internal Medicine 01/23/24 Cj Riojas DRIER AND PULVERIZER TENDER.CALCINE FURNACE LOADER [address] [facility] [place] [address] Search Engine Optimization Manager Internal Medicine 01/23/24 Spinning Mule Tender Relationship Specialty Start Date End Date Geo Avila MD [address] [place] [address] PCP - General Internal Medicine 04/02/13 Cj Riojas DRIER AND PULVERIZER TENDER.CALCINE FURNACE LOADER [address] [place] [address] Search Engine Optimization Manager Internal Medicine 05/08/24 Juana Gifford APRN.MATERIAL SPREADER [address] [place] [address] Search Engine Optimization Manager Internal Medicine 07/04/24 Spinning Mule Tender Relationship Specialty Start Date End Date Geo Avila MD [address] [place] [address] PCP - General Internal Medicine 04/02/13 Cj Riojas APRN.CALCINE FURNACE LOADER [address] [place] [address] Search Engine Optimization Manager Internal Medicine 05/08/24 Juana Gifford APRN.MATERIAL SPREADER [address] [place] [address] [facility] Internal Medicine 07/04/24 Spinning Mule Tender Relationship Specialty Start Date End Date Geo Avila MD [address] [place] [address] PCP - General Internal Medicine 04/02/13 Cj Riojas APRN.CALCINE FURNACE LOADER [address] [place] [address] Search Engine Optimization Manager Internal Medicine 05/08/24 Juana Gifford, DRIER AND PULVERIZER TENDER.MATERIAL SPREADER [address] [place] [address] [facility] Internal Medicine 07/04/24 INFORMATION SOURCE (unrecogn ized section and content) DATE CREATED AUTHOR 06/02/2022 [employer] DATE CREATED AUTHOR AUTHOR'S ORGANIZ ATION 06/06/2022 [facility] DATE CREATED AUTHOR AUTHOR'S ORGANIZ ATION 12/02/2024 [facility] DATE CREATED AUTHOR AUTHOR'S ORGANIZ ATION 12/26/2024 [facility] FOR RECORDS PERTAINING TO PATIENTS WHO ARE OR HAVE BEEN ENROLLED IN A CHEMICAL DEPENDENCY/SUBSTANCEABUSE PROGRAM, SOME INFORMATION MAY BE OMITTED. This clinical summary was aggregated from multiple sources. Caution should be exercised in using it in the provision of clinical care. This summary normalizes information from multiple sources, and as a consequence, information in this document may materially change the coding, format and clinical context of patient data. In addition, data may be omitted in some cases. CLINICAL DECISIONS SHOULD BE BASED ON THE PRIMARY CLINICAL RECORDS. [facility]. provides no warranty or guarantee of the accuracy or completeness of information in this document.
[2025-01-31] MEDS: Lactated Ringers 1,000 ML 15 ML IV (07:00)
--- NOTE | 2025-01-31 07:07 | PCM.HP.STD ---
HPI - General General Date of Admission: 01/31/25 Date of Service: 01/31/25 Chief Complaint: Screening colonoscopy HPI Narrative ESTELLE MARMOLEJO, is a 69 F who presents [today for screening colonoscopy. She is not having abdominal pain, chest pain or shortness of breath. She does have a past medical history of hypercholesterolemia and mild gastroesophageal reflux disease.] [facility] Medical History Arthritis Former smoker History of deviated nasal septum Wears glasses High cholesterol Migraine headache Gastric reflux Non-smoker History of stress test History of echocardiogram Cardiology follow-up encounter NAFLD (nonalcoholic fatty liver disease) Fatty liver Liver cyst Hx of pancreatitis GERD (gastroesophageal reflux disease) Osteoporosis Umbilical hernia Psoriasis Colon polyp Intramural leiomyoma of uterus Internal hemorrhoids Hemorrhage of gastrointestinal tract Diverticulosis History of small bowel obstruction Hyperlipidemia Pancreatitis Home Medications ?Medication ?Instructions ?Recorded ?Last Taken ?Type sdnduvx-akf-[id number] P4-qezenf-Sk tablet 1 tab PO DAILY 08/07/21 01/28/25 History vitamin E 268 mg (400 unit) capsule 400 unit PO DAILY 08/07/21 01/28/25 History omeprazole 20 mg capsule,delayed 20 mg PO QHS 06/23/22 01/28/25 History release atorvastatin 20 mg tablet 40 mg PO DAILY@2200 01/29/25 01/28/25 History cholecalciferol (vitamin D3) 50 50 mcg PO DAILY 01/29/25 01/28/25 History mcg (2,000 unit) capsule (Vitamin D3) Allergy/AdvReac Type Severity Reaction Status Date / Time doxycycline Allergy Intermediate UNK Verified 01/31/25 07:02 Sulfa (Sulfonamide Allergy Intermediate UNK Verified 01/31/25 07:02 Antibiotics) Latex, Natural Rubber Allergy Mild rash Verified 01/31/25 07:02 Family History Mother Heart disease Marfan syndrome Father Heart disease Brother Marfan syndrome Sister Marfan syndrome Surgical History History of esophagogastroduodenoscopy (EGD) History of laparoscopic cholecystectomy History of colonoscopy History of tonsillectomy H/O hernia repair Tubal ligation status H/O cataract removal with insertion of prosthetic lens Previous section Social History Smoking Status: Former smoker quit date: 02/13/01 pack-years: 19 alcohol intake: current alcohol intake frequency: holidays/special occasions only ROS Constitutional Constitutional: Denies fatigue, fever(s), poor appetite, weight gain or weight loss Gastrointestinal Gastrointestinal: Denies belching, bloating, change in bowel habits, change in stool character, chewing difficulty, coffee ground emesis, constipation, cramping, diarrhea, dyspepsia, dysphagia, early satiety, excessive flatus, fecal incontinence, heartburn, hematemesis, hematochezia, hemorrhoids, loose stools, melena, nausea, odynophagia, rectal bleeding, tenesmus, vomiting or weight changes Patient's Goals Of Care . What would you like to achieve or improve as a result of your hospital stay?: Nothing Vital Signs Vital Signs Vital Signs: 01/31/25 07:03 01/31/25 07:03 01/31/25 07:03 Temperature 97.9 F Temperature Source Temporal Pulse Rate 79 Respiratory Rate 18 Respiratory Pattern Normal Blood Pressure 134/83 H Blood Pressure Mean 100 Blood Pressure Source Monitor Blood Pressure Position Semi-Fowlers Blood Pressure Location Right Arm Baseline BP 134/83 Pulse Ox 99 Oxygen Delivery Method Room Air Weight Weight: 126 lb 12.253 oz Body Mass Index (BMI) 23.1 Physical Exam Const alert, oriented x3, no apparent distress and healthy appearing General Appearance: cooperative GI normal to inspection, nondistended, normoactive bowel sounds, soft to palpation, non-tender and non-distended Percussion: normal to percussion Rectal Exam: deferred Assessment & Plan Assessment/Plan (1) Encounter for screening colonoscopy: PLAN: She was explained alternatives, risk and benefits including withstanding bleeding, infection, sepsis, perforation, need for insert and . She will have an ASA of 3.
--- NOTE | 2025-01-31 07:19 | PCM.PRE.AN2 ---
ASA Classification* ASA Classification ASA Classification: 2 Assessment & Plan Anesthesia* Anesthesia Assessment Anesthesia Assessment: Discussed sedation and/or anesthesia options, risks, benefits, and alternatives with patient/parents/legal guardian/POA. Questions invited. The patient/parents/legal guardian/POA seems to understand and agrees to proceed with anesthesia plan. Reviewed the physical assessment, medical history, allergy history and patient home medications list prior to surgery/procedure/anesthetic and documented any changes. Performed airway and anesthesia risk assessments. Anesthesia Type Anesthesia Type: MAC History Source History Obtained from:: Patient and Chart Anesthesia Focused Assessment* Temperature: 97.9 F Pulse Rate: 79 Blood Pressure: 134/83 Respiratory Rate: 18 Pulse Ox: 99 Oxygen Delivery Method: Room Air Airway Assessment Mouth opens: >3 cm Mallampati Score: II Teeth Condition: Intact Neck Range of motion (ROM): Full ROM Labs Anesthesia Preop lab: CBC WBC, (4.4-11.0) 6.0 K/mm3 06/28/22, 08:08 RBC, (4.2-5.4) 4.52 M/mm3 06/28/22, 08:08 Hgb, (12.0-15.0) 13.4 g/dL 06/28/22, 08:08 Hct, (37-47) 39.3 % 06/28/22, 08:08 Plt Count, (150-450) 229 K/mm3 06/28/22, 08:08 CHEMISTRY Potassium, (3.5-5.1) 3.4 mmol/L L 06/28/22, 08:08 Sodium, (136-145) 142 mmol/L 06/28/22, 08:08 Magnesium, (1.6-2.6) 2.3 mg/dL 06/09/21, 08:52 BUN, (7-18) 20 mg/dL H 06/28/22, 08:08 Creatinine, (0.55-1.02) 0.74 mg/dL 06/28/22, 08:08 Glucose, (74-106) 101 mg/dL 06/28/22, 08:08 TSH, (0.358-3.74) 2.48 uIU/mL 06/09/21, 08:52 COAG PT, (11.7-14.9) 11.9 SECONDS 06/09/21, 08:52 Pre-Assessment Diagnosis/Proposed Procedure Planned Operative Procedure(s): COLONOSCOPY-OA Anesthesia History 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 When Was Last Pacemaker Check QUESTION #4 FULL TEXT: You/Your Family Experience fever (hyperthermia) with Anesthesia Last Oral Intake Last Oral intake: Last Oral Intake NPO since 00:00 01/31/25 07:03 Meds taken in AM with sips of No 01/31/25 07:03 water? Meds patient instructed to take am of surgery PONV PONV - profiling machine operator: PONV - profiling machine operator Female Yes 01/29/25 10:51 HX of Motion Sickness No 01/29/25 10:51 HX of N/V After Surgery No 01/29/25 10:51 Non-Smoker Yes 01/29/25 10:51 Duration of Surgery greater No 01/29/25 10:51 than 60 minutes Number of Risk Factors 2 01/29/25 10:51 PONV Score Moderate Risk 01/29/25 10:51 Height & Weight Height & Weight: Anesthesia: Height & Weight Height 5 ft 2 in 01/31/25 07:03 Weight: 57.5 kg 01/31/25 07:03 Body Mass Index (BMI) 23.1 01/31/25 07:03 Respiratory Assessment Respiratory Assessment - profiling machine operator: Respiratory Tract Infection Hx - profiling machine operator Hx Respiratory Tract Infection No 01/29/25 10:51 STOP Sleep Apnea STOP Sleep Apnea - profiling machine operator: STOP Sleep Apnea - profiling machine operator Hx Hypertension No 01/29/25 10:51 Hx Sleep Apnea No 01/29/25 10:51 CPAP No 01/29/25 10:51 BIPAP No 01/29/25 10:51 Do you snore loudly (louder No 01/29/25 10:51 than talking or can be heard Do you often feel tired/ No 01/29/25 10:51 fatigued/ sleepy during daytime? Has anyone observed you stop No 01/29/25 10:51 breathing during sleep? STOP Results Negative 01/29/25 10:51 QUESTION #5 FULL TEXT : Do you snore loudly (louder than talking or can be heard through closed doors)? Tobacco Use History Tobacco Use History - profiling machine operator: Tobacco Use History - profiling machine operator Tobacco Use Smoking Status Former smoker 01/29/25 10:51 Hx Tobacco Use No 01/29/25 10:51 Years Smoking Packs Smoked per Day Smoking Cessation Date was No - quit smoking greater 01/29/25 10:51 within the last 15 years than 15 years ago Hx Smoking Cessation Date Hx Smoking Cessation Counseling Hematologic Medial History Hematologic Hx - profiling machine operator: Hematologic Medical Hx - bdr Hx of Blood Transfusion No 01/29/25 10:51 Hx of Transfusion in last 3 No 01/29/25 10:51 Months Date of Last Transfusion (if within last 3 months) Ever experience any problems No 01/29/25 10:51 with transfusion(s)? Specify any problems Hx of Preganancy in last 3 No 01/29/25 10:51 Months Nurse Filling Out Transfusion VCHRISTIN 01/29/25 10:51 & Questions: Date: 01/29/25 01/29/25 10:51 Time: 10:52 01/29/25 10:51 Patient unable to answer at this time (ie. confused, unrespo /Reproduction History /Reproductive History - profiling machine operator: /Reproductive Hx- profiling machine operator Hx Now No 01/29/25 10:51 Gestational Age (in weeks): EDC: Hx Hx Para Hx Section SAB No 01/29/25 10:51 Does the father of the baby or his family experience fever w Father of the baby Malignant Hypertension history comment Active Medications Active Medications: Current Medications Generic Name Dose Route Start Last Admin Trade Name Freq PRN Reason Stop Dose Admin Lactated Ringer's 1,000 mls @ 15 mls/hr 01/31/25 07:00 01/31/25 07:00 IV 15 mls/hr .Q48H STEVEN Administration PFSH Medical History Arthritis Former smoker History of deviated nasal septum Wears glasses High cholesterol Migraine headache Gastric reflux Non-smoker History of stress test History of echocardiogram Cardiology follow-up encounter NAFLD (nonalcoholic fatty liver disease) Fatty liver Liver cyst Hx of pancreatitis GERD (gastroesophageal reflux disease) Osteoporosis Umbilical hernia Psoriasis Colon polyp Intramural leiomyoma of uterus Internal hemorrhoids Hemorrhage of gastrointestinal tract Diverticulosis History of small bowel obstruction Hyperlipidemia Pancreatitis Home Medications ?Medication ?Instructions ?Recorded ?Last Taken ?Type lmttimr-epz-ryo T3-wlcomh-La tablet 1 tab PO DAILY 08/07/21 01/28/25 History vitamin E 268 mg (400 unit) capsule 400 unit PO DAILY 08/07/21 01/28/25 History omeprazole 20 mg capsule,delayed 20 mg PO QHS 06/23/22 01/28/25 History release atorvastatin 20 mg tablet 40 mg PO DAILY@2200 01/29/25 01/28/25 History cholecalciferol (vitamin D3) 50 50 mcg PO DAILY 01/29/25 01/28/25 History mcg (2,000 unit) capsule (Vitamin D3) Allergy/AdvReac Type Severity Reaction Status Date / Time doxycycline Allergy Intermediate UNK Verified 01/31/25 07:02 Sulfa (Sulfonamide Allergy Intermediate UNK Verified 01/31/25 07:02 Antibiotics) Latex, Natural Rubber Allergy Mild rash Verified 01/31/25 07:02 Family History Mother Heart disease Marfan syndrome Father Heart disease Brother Marfan syndrome Sister Marfan syndrome Surgical History History of esophagogastroduodenoscopy (EGD) History of laparoscopic cholecystectomy History of colonoscopy History of tonsillectomy H/O hernia repair Tubal ligation status H/O cataract removal with insertion of prosthetic lens Previous section Social History Smoking Status: Former smoker quit date: 02/13/01 pack-years: 19 alcohol intake: current alcohol intake frequency: holidays/special occasions only Review of Systems (Anesthesia) ROS Narrative System reviewed and no additional complaints, except as documented.
--- NOTE | 2025-01-31 08:29 | PCM.POST.ANE ---
Anesthesia: Postop Eval I Current Vital Signs Temperature: 97.2 F Pulse Rate: 72 Blood Pressure: 102/65 Respiratory Rate: 16 Pulse Ox: 99 Oxygen Delivery Method: Room Air Assessment Airway patent: Yes Spontaneous unlabored respirations: Yes Mental status: Asleep nausea: No Vomiting: No Anesthesia Complication: No Fluid Hydration Crystalloid volume administer (ml): 500 Total IV fluid infused: 500 Progress Note Anesthesia document: Postop Eval 1 completed: Yes
--- NOTE | 2025-01-31 08:33 | OP.PROVAT_ITS ---
01/31/2025 Deana Qiu [address] [place] [address] Re : Colonoscopy procedure for Cierra Recinos Dear Dr. Qiu This procedure was performed on January. My impressions and recommendations are as follows: Impressions : - Diverticulosis in the recto-sigmoid colon. - The examination was otherwise normal on direct and retroflexion views. - No specimens collected. Recommendations : - Discharge patient to home. - Resume previous diet. - Continue present medications. - Repeat colonoscopy in 10 years for screening purposes. My findings are described in the full procedure note, which is enclosed. If I can be of further assistance, please feel free to contact me at . Sincerely, Matthew Elliott, 01/31/2025 8:32:06 AM This report has been signed electronically.
--- NOTE | 2025-01-31 08:33 | OP.COLON_ITS ---
Patient Name: Cierra Recinos Procedure Date: 01/31/2025 7:40 AM Date of : 1955 Age: 69 Procedure: Colonoscopy Indications: Screening for colorectal malignant neoplasm Providers: Matthew Elliott DO Medicines: Monitored Anesthesia Care Patient Profile: This is a 69 year old female. Refer to note in patient chart for documentation of history and physical. Last Colonoscopy: 10 years ago. Complications: No immediate complications. Procedure: Pre-Anesthesia Assessment: - Prior to the procedure, a History and Physical was performed, and patient medications and allergies were reviewed. The patient is competent. The risks and benefits of the procedure and the sedation options and risks were discussed with the patient. All questions were answered and informed consent was obtained. Patient identification and proposed procedure were verified by the physician in the pre-procedure area. Mental Status Examination: alert and oriented. Airway Examination: normal oropharyngeal airway and neck mobility. Respiratory Examination: clear to auscultation. CV Examination: normal. Prophylactic Antibiotics: The patient does not require prophylactic antibiotics. Prior Anticoagulants: The patient has taken no anticoagulant or antiplatelet agents except for NSAID medication. ASA Grade Assessment: II - A patient with mild systemic disease. After reviewing the risks and benefits, the patient was deemed in satisfactory condition to undergo the procedure. The anesthesia plan was to use monitored anesthesia care (MAC). Immediately prior to administration of medications, the patient was re-assessed for adequacy to receive sedatives. The heart rate, respiratory rate, oxygen saturations, blood pressure, adequacy of pulmonary ventilation, and response to care were monitored throughout the procedure. The physical status of the patient was re-assessed after the procedure. After I obtained informed consent, the scope was passed under direct vision. Throughout the procedure, the patient's blood pressure, pulse, and oxygen saturations were monitored continuously. The Colonoscope was introduced through the anus and advanced to the cecum, identified by appendiceal orifice and ileocecal valve. The colonoscopy was performed without difficulty. The patient tolerated the procedure well. The quality of the bowel preparation was adequate. The ileocecal valve, appendiceal orifice, and rectum were photographed. Scope In: 8:08:44 AM Scope Withdrawal Time 0 hours 6 minutes 12 seconds Scope Out: 8:21:09 AM Total Procedure Duration Time 0 hours 12 minutes 25 seconds Findings: The perianal and digital rectal examinations were normal. Two small-mouthed diverticula were found in the recto-sigmoid colon. The exam was otherwise without abnormality on direct and retroflexion views. Impression: - Diverticulosis in the recto-sigmoid colon. - The examination was otherwise normal on direct and retroflexion views. - No specimens collected. Recommendation: - Discharge patient to home. - Resume previous diet. - Continue present medications. - Repeat colonoscopy in 10 years for screening purposes. Procedure Code(s): --- Professional --- G0121, Colorectal cancer screening; colonoscopy on individual not meeting criteria for high risk CPT copyright 2021 [employer]. All rights reserved. The codes documented in this report are preliminary and upon clerk operator review may be revised to meet current compliance requirements. Matthew Elliott DO 01/31/2025 8:32:06 AM This report has been signed electronically. Number of Addenda: 0 Note Initiated On: 01/31/2025 7:40 AM
--- NOTE | 2025-01-31 12:48 | PCM.POSTANE2 ---
Anesthesia Postop Eval I Sum Postop Eval Completion status Anesthesia document: Postop Eval 1 completed: Yes Anesthesia Postop Eval I Summary Anesthesia Postop Eval I Summary: Anesthesia Postop Eval I: Assessment Summary Airway patent Yes 01/31/25 08:30 [email or web address] Spontaneous unlabored Yes 01/31/25 08:30 [email or web address] respirations Mental status Asleep 01/31/25 08:30 [email or web address] nausea No 01/31/25 08:30 [email or web address] Vomiting No 01/31/25 08:30 [email or web address] Anesthesia Postop Eval I: Fluid Summary Crystalloid volume administer 500 01/31/25 08:30 [email or web address] (ml) Colloids volume administered ( ml) Blood Product volume administered (ml) Total IV fluid infused 500 01/31/25 08:30 [email or web address] Anesthesia Postop Eval I: Summary Notes Anesthesia Complication No 01/31/25 08:30 [email or web address] Anesthesia Complication Comment: Post-operative progress note Anesthesia: Postop Eval II Evaluation Mental status: Awake and Calm Pain Level: 1 nausea: No Vomiting: No Complications Anesthesia Complication: No
== END 2025-01-31 09:16 | disposition home or self-care (01) ==
LOC: EN 06:37 → AC 06:39
PROVIDERS: PCP Internal Medicine; Referring Provider Internal Medicine; Visit Provider Internal Medicine Gastroenterology
PROC: 0DJD8ZZ Inspection of Lower Intestinal Tract, Via Natural or Artificial Opening Endoscopic (ICD-10-PCS; CPT 45378; principal; 2025-01-31 07:40)
DX: Z12.11 Encounter for screening for malignant neoplasm of colon (principal); K21.9 Gastro-esophageal reflux disease without esophagitis; E78.00 Pure hypercholesterolemia, unspecified; Z87.891 Personal history of nicotine dependence; Z79.899 Other long term (current) drug therapy; K57.30 Diverticulosis of large intestine without perforation or abscess without bleeding
CPT/HCPCS: G0121; J2405